=== PATIENT | female | born 1945 | race Caucasian/White ===

== ENCOUNTER 2017-12-03 08:30 | Outpatient (RCR) | payer MEDICARE, OTHER, SELFPAY ==
[2017-11-26 10:35] VITALS: BP 151/77; PULSE 77; RESP 16; TEMP 37.2; BMI 24.4
--- NOTE | 2017-11-26 12:23 | PCM.WC.HP ---
(1) Contusion of right leg Status: Acute Current Visit: Yes Qualifiers: Encounter type: initial encounter Qualified Code(s): S80.11XA - Contusion of right lower leg, initial encounter Code(s): S80.11XA - Contusion of right lower leg, initial encounter (2) Subcutaneous hematoma Status: Acute Current Visit: Yes Code(s): T14.8XXA - Other injury of unspecified body region, initial encounter (3) Pain in right leg Status: Acute Current Visit: Yes Code(s): M79.604 - Pain in right leg (4) GERD (gastroesophageal reflux disease) Status: Chronic Current Visit: No Code(s): K21.9 - Gastro-esophageal reflux disease without esophagitis (5) Osteoarthritis Status: Chronic Current Visit: No Code(s): M19.90 - Unspecified osteoarthritis, unspecified site History of Present Illness Date of Service: 11/26/17 Chief Complaint: Contusion and subcutaneous hematoma of the right knee History of Wound: This is a 72-year-old female who fell on a slippery floor at home on November 14, 2017. She traumatized the area immediately inferior to her right knee. As result, it appears as though a subcutaneous hematoma has formed, with some overlying ecchymosis and slight erythema. She has been treated by her primary care physician, Dr. Wooten, who administered 2 injections of Rocephin, and place the patient on a 10 day course of Cefdinir. Is currently [facility] through the course of oral antibiotic. She has some mild associated discomfort. She presents at this time for evaluation and recommendations as pertains to management. Invasive lower extremity arterial study was performed on December 13, 2016, which was normal. Arterial insufficiency of the lower extremities is not currently suspected. Past Medical History Past Medical History: Chronic Problems S/P ORIF (open reduction internal fixation) fracture (Chronic) left hip, 05/01/15,. [facility]– [place], [place] Antonio Depression (Chronic) Anemia (Chronic) GERD (gastroesophageal reflux disease) (Chronic) Osteoarthritis (Chronic) Past Medical History: Patient's history is negative for myocardial infarction, congestive heart failure, cerebrovascular accident, hypertension, diabetes mellitus, cancer, renal disease, pulmonary disease, hyperlipidemia, and thyroid disease. Patient suffers from osteoarthritis. Surgical History: - - Patient is undergone open reduction and internal fixation of a left hip fracture in April 2015. She has undergone 2 C-sections in the past. Laparoscopic cholecystectomy was performed in March 2017. Allergies/Adverse Reactions: Allergies erythromycin base Adverse Reaction (Verified 04/23/17 10:19) Upset Stomach meperidine HCl [From Demerol] Adverse Reaction (Verified 04/23/17 10:19) HALLUCINATIONS Home Medications: Ambulatory Orders Medication Instructions Recorded BuPROPion [Wellbutrin] 150 mg PO BID 05/05/15 Calcium Carbonate/Vitamin D3 1 each PO BID 05/05/15 [Calcium 600-Vit D3 800 Caplet] Albuterol IH (ProAir) [Proair Hfa] 1 - 2 puff INHALATION Q6H PRN PRN 11/19/16 Alendronate Sodium [Fosamax] 70 mg PO VIDES 11/19/16 Lorazepam [Ativan] 0.5 mg PO DAILY PRN 11/19/16 Polyethylene Glycol 3350 [Miralax] 17 gm PO DAILY PRN PRN 01/13/17 Omeprazole [Prilosec] 20 mg PO DAILY PRN PRN 03/03/17 Turmeric/Turmeric Root Extract 1,000 mg PO BID 03/03/17 [Turmeric 500 mg Capsule] Fluticasone 0.05% [Flonase Nasal 1 spray NASAL DAILY PRN 03/12/17 [place]] - Family History Maternal - - Patient's father at the age of 75 with a history of chronic obstructive pulmonary disease. Patient's mother at age of 70 with a history of diabetes mellitus and breast cancer. She of sepsis from a urinary tract infection. Lives: Spouse/ Significant Other Smoking Status: Never smoker Tobacco Use: Non-smoker Alcohol: Occasional Drugs: None Review of Systems Constitutional: Denies: Chills, Fever, Weight Change Eyes: Denies: Pain, Vision Change HEENT: Denies: Difficulty Hearing, Difficulty Swallowing, Sinus Congestion Cardiovascular: Denies: Chest Pain, Palpitations Respiratory: Denies: Cough, Shortness of Breath Gastrointestinal: Denies: Diarrhea, Nausea, Vomiting Genitourinary: Denies: Dysuria, Hematuria Endocrine: Denies: Heat/ Cold Intolerance, Polydipsia, Polyuria Hematologic/ Lymphatic: Denies: Easy Bruising, Easy Bleeding - Physical Exam Vital Signs Temp Pulse Resp BP 98.9 F 77 16 151/77 H 11/26/17 10:35 11/26/17 10:35 11/26/17 10:35 11/26/17 10:35 General: Alert, Oriented x3, Cooperative, No apparent distress, Well developed, Well nourished HEENT: Atraumatic, PERRLA, EOMI, Normocephalic Oral: Moist Mucosa, No Gingival or Mucosal Lesions/ Ulcerations Neck: Supple, No JVD, Negative Carotid Bruits, Negative Hepatojugular Reflux, No Nodes, No Nuchal Rigidity, Trachea Midline, Thyroid Normal Size and Texture Lungs: Clear to auscultation, Normal air movement, No rhonchi, No wheeze, No rales Cardiovascular: Regular rate, Regular Rhythm, Normal S1, Normal S2, No murmurs, No Ectopic Activity Abdomen: Bowel Sounds Present, Soft, Non Tender, Non-Distended Extremities: No clubbing, No cyanosis, No edema, No Calf Tenderness, Peripheral Pulses Normal, - - Ecchymosis and slight erythema is noted inferior to the right knee. This is associated with slight palpable tenderness. Dimensions of this discoloration are documented elsewhere. There is slight prominence in this area, suggesting the presence of underlying hematoma and tissue swelling. There are no open wounds. There is no drainage. Wound Measurements and Assessment WC - Nurse 1 - General Ulcer Measurement Start: 11/26/17 10:04 Freq: Status: Active Protocol: Activity Type Activity Date Activity User E-Sign Co-Sign Detail Recorded Client Recorded Date Recorded By Document 11/26/17 10:35 [facility] [id number] 11/26/17 10:52 [facility] 11/26/17 10:35 Wound Center Nurse 1 [Ulcer Assessment Protocol: WC.WD.LOC] #2- RT KNEE HEMATOMA -Combined with other wound No -Current Size (cm) - Length 3.7 -Current Size (cm) - Width 5.5 -Current Size (cm) - Depth 0 -Total Square Cm 20.35 -Date of Last Picture (Recall this 11/26/17 field) -Photo Taken Yes -Texture (Griselda-wound Skin Appearance) No Abnormality -Moisture (Griselda-wound Skin Appearance No Abnormality ) -Color (Griselda-wound Skin Appearance) Ecchymosis Erythema -Temperature (Griselda-wound Skin Hot Appearance) -Tenderness on Palpation (Griselda-wound Yes Skin Appearance) -Ulcer Cleansing Rinsed/ Irrigated with Saline [Edema Assessment] -Lower Limb Edema Present Yes -Right Calf (cm) 34.8 -Right Ankle (cm) 21 - Nurse 2 - General Ulcer CM Notes Start: 11/26/17 10:04 Freq: Status: Active Protocol: Activity Type Activity Date Activity User E-Sign Co-Sign Detail Recorded Client Recorded Date Recorded By Document 11/26/17 12:03 [id number] 11/26/17 12:09 11/26/17 12:03 Wound Center Nurse 2 [Procedure/Treatment] #2- RT KNEE HEMATOMA -Time 12:03 -Correct Patient Yes -Correct Side, Site, Position Yes -Correct Procedure Yes -Procedure Performed No -Wound/Ulcer Outcome Not Healed -Ulcer Cleansing Not Cleansed -Foul Odor after Cleansing No -Bioengineered Tissue No -Bleeding Controlled with NA [See Physician Procedure note for Specifics] Pain Scale: 0-10 Numeric [Pain] -Is Patient Pain Free? Yes Neurological: Cranial nerves II-XII grossly intact, Neuro grossly intact Psych/Mental Status: Normal Affect, Appropriate, Alert and oriented to time, place, person, mood and affect Debridement Note Post-Debridement Measurements/Treatment - Nurse 2 - General Ulcer CM Notes Start: 11/26/17 10:04 Freq: Status: Active Protocol: Activity Type Activity Date Activity User E-Sign Co-Sign Detail Recorded Client Recorded Date Recorded By Document 11/26/17 12:03 [id number] 11/26/17 12:09 JS 11/26/17 12:03 Wound Center Nurse 2 #2- RT KNEE HEMATOMA -Time 12:03 -Correct Patient Yes -Correct Side, Site, Position Yes -Correct Procedure Yes -Procedure Performed No -Wound/Ulcer Outcome Not Healed -Ulcer Cleansing Not Cleansed -Foul Odor after Cleansing No -Bioengineered Tissue No -Bleeding Controlled with NA Pain Scale: 0-10 Numeric Is Patient Pain Free? Yes No debridement was completed today Assessment/Plan Active Problems Contusion of right leg (Acute) Subcutaneous hematoma (Acute) Pain in right leg (Acute) Assessment: This is a 72-year-old generally healthy female who fell on a slippery floor weeks ago, sustaining trauma inferior to the right knee. As result, it appears as though the patient now has an underlying subcutaneous hematoma with overlying inflammation and ecchymosis. There is no open wound or drainage. There is no obvious sign of infection. Plan: At this juncture, the patient has been advised to continue with serial observation and expectant management. She has been advised to avoid trauma ties in the area. No specific therapy there is to be warranted at this time. She has been advised to complete her course of oral antibiotics, as prescribed by her primary care physician. Aggressive intervention does not appear warranted at this time. The patient indicates that the prominence and the discoloration has subsided significantly within the last week, suggesting that there has been significant improvement. It is anticipated that the subcutaneous hematoma will continue to resorb spontaneously, and aggressive intervention may not be necessary at all, unless evidence of infection, overlying tissue necrosis, or other clinical indications develop. The patient is to return in 1 week for reassessment. She has been advised to seek medical attention should matters appear to worsen. She is to avoid traumatizing the area. Compression does not appear necessary, for concern relative to pressure necrosis of overlying 2 layers. Further recommendations will ensue based upon patient's evolving clinical course. Patient is not a smoker. Influenza vaccine was not administered today. Patient weighs 130 pounds. She stands 5 feet 1 inches tall. Her BMI is 24.6, which is normal.
--- NOTE | 2017-11-26 12:33 | HP.PCM_ITS ---
(1) Contusion of right leg Status: Acute Current Visit: Yes Qualifiers: Encounter type: initial encounter Qualified Code(s): S80.11XA - Contusion of right lower leg, initial encounter Code(s): S80.11XA - Contusion of right lower leg, initial encounter (2) Subcutaneous hematoma Status: Acute Current Visit: Yes Code(s): T14.8XXA - Other injury of unspecified body region, initial encounter (3) Pain in right leg Status: Acute Current Visit: Yes Code(s): M79.604 - Pain in right leg (4) GERD (gastroesophageal reflux disease) Status: Chronic Current Visit: No Code(s): K21.9 - Gastro-esophageal reflux disease without esophagitis (5) Osteoarthritis Status: Chronic Current Visit: No Code(s): M19.90 - Unspecified osteoarthritis, unspecified site History of Present Illness Date of Service: 11/26/17 Chief Complaint: Contusion and subcutaneous hematoma of the right knee History of Wound: This is a 72-year-old female who fell on a slippery floor at home on November 14, 2017. She traumatized the area immediately inferior to her right knee. As result, it appears as though a subcutaneous hematoma has formed , with some overlying ecchymosis and slight erythema. She has been treated by her primary care physician, Dr. Wooten, who administered 2 injections of Rocephin, and place the patient on a 10 day course of Cefdinir. Is currently [facility] through the course of oral antibiotic. She has some mild associated discomfort. She presents at this time for evaluation and recommendations as pertains to management. Invasive lower extremity arterial study was performed on December 13, 2016, which was normal. Arterial insufficiency of the lower extremities is not currently suspected. Past Medical History Past Medical History: Chronic Problems S/P ORIF (open reduction internal fixation) fracture (Chronic) left hip, 05/01/15,. [facility], Dr Antonio Depression (Chronic) Anemia (Chronic) GERD (gastroesophageal reflux disease) (Chronic) Osteoarthritis (Chronic) Past Medical History: Patient's history is negative for myocardial infarction, congestive heart failure, cerebrovascular accident, hypertension, diabetes mellitus, cancer, renal disease, pulmonary disease, hyperlipidemia, and thyroid disease. Patient suffers from osteoarthritis. Surgical History: - - Patient is undergone open reduction and internal fixation of a left hip fracture in April 2015. She has undergone 2 C-sections in the past. Laparoscopic cholecystectomy was performed in March 2017. Allergies/Adverse Reactions: Allergies erythromycin base Adverse Reaction (Verified 04/23/17 10:19) Upset Stomach meperidine HCl [From Demerol] Adverse Reaction (Verified 04/23/17 10:19) HALLUCINATIONS Home Medications: Ambulatory Orders Medication Instructions Recorded BuPROPion [Wellbutrin] 150 mg PO BID 05/05/15 Calcium Carbonate/Vitamin D3 1 each PO BID 05/05/15 [Calcium 600-Vit D3 800 Caplet] Albuterol IH (ProAir) [Proair Hfa] 1 - 2 puff INHALATION Q6H PRN PRN 11/19/16 Alendronate Sodium [Fosamax] 70 mg PO VIDES 11/19/16 Lorazepam [Ativan] 0.5 mg PO DAILY PRN 11/19/16 Polyethylene Glycol 3350 [Miralax] 17 gm PO DAILY PRN PRN 01/13/17 Omeprazole [Prilosec] 20 mg PO DAILY PRN PRN 03/03/17 Turmeric/Turmeric Root Extract 1,000 mg PO BID 03/03/17 [Turmeric 500 mg Capsule] Fluticasone 0.05% [Flonase Nasal 1 spray NASAL DAILY PRN 03/12/17 [place]] - Family History Maternal - - Patient's father at the age of 75 with a history of chronic obstructive pulmonary disease. Patient's mother at age of 70 with a history of diabetes mellitus and breast cancer. She of sepsis from a urinary tract infection. Lives: Spouse/ Significant Other Smoking Status: Never smoker Tobacco Use: Non-smoker Alcohol: Occasional Drugs: None Review of Systems Constitutional: Denies: Chills, Fever, Weight Change Eyes: Denies: Pain, Vision Change HEENT: Denies: Difficulty Hearing, Difficulty Swallowing, Sinus Congestion Cardiovascular: Denies: Chest Pain, Palpitations Respiratory: Denies: Cough, Shortness of Breath Gastrointestinal: Denies: Diarrhea, Nausea, Vomiting Genitourinary: Denies: Dysuria, Hematuria Endocrine: Denies: Heat/ Cold Intolerance, Polydipsia, Polyuria Hematologic/ Lymphatic: Denies: Easy Bruising, Easy Bleeding - Physical Exam Vital Signs Temp Pulse Resp BP 98.9 F 77 16 151/77 H 11/26/17 10:35 11/26/17 10:35 11/26/17 10:35 11/26/17 10:35 General: Alert, Oriented x3, Cooperative, No apparent distress, Well developed, Well nourished HEENT: Atraumatic, PERRLA, EOMI, Normocephalic Oral: Moist Mucosa, No Gingival or Mucosal Lesions/ Ulcerations Neck: Supple, No JVD, Negative Carotid Bruits, Negative Hepatojugular Reflux, No Nodes, No Nuchal Rigidity, Trachea Midline, Thyroid Normal Size and Texture Lungs: Clear to auscultation, Normal air movement, No rhonchi, No wheeze, No rales Cardiovascular: Regular rate, Regular Rhythm, Normal S1, Normal S2, No murmurs, No Ectopic Activity Abdomen: Bowel Sounds Present, Soft, Non Tender, Non-Distended Extremities: No clubbing, No cyanosis, No edema, No Calf Tenderness, Peripheral Pulses Normal, - - Ecchymosis and slight erythema is noted inferior to the right knee. This is associated with slight palpable tenderness. Dimensions of this discoloration are documented elsewhere. There is slight prominence in this area, suggesting the presence of underlying hematoma and tissue swelling. There are no open wounds. There is no drainage. Wound Measurements and Assessment WC - Nurse 1 - General Ulcer Measurement Start: 11/26/17 10:04 Freq: Status: Active Protocol: Activity Type Activity Date Activity User E-Sign Co-Sign Detail Recorded Client Recorded Date Recorded By Document 11/26/17 10:35 [facility] [id number] 11/26/17 10:52 [facility] 11/26/17 10:35 Wound Center Nurse 1 [Ulcer Assessment Protocol: WC.WD.LOC] #2- RT KNEE HEMATOMA -Combined with other wound No -Current Size (cm) - Length 3.7 -Current Size (cm) - Width 5.5 -Current Size (cm) - Depth 0 -Total Square Cm 20.35 -Date of Last Picture (Recall this 11/26/17 field) -Photo Taken Yes -Texture (Griselda-wound Skin Appearance) No Abnormality -Moisture (Griselda-wound Skin Appearance No Abnormality ) -Color (Griselda-wound Skin Appearance) Ecchymosis Erythema -Temperature (Griselda-wound Skin Hot Appearance) -Tenderness on Palpation (Griselda-wound Yes Skin Appearance) -Ulcer Cleansing Rinsed/ Irrigated with Saline [Edema Assessment] -Lower Limb Edema Present Yes -Right Calf (cm) 34.8 -Right Ankle (cm) 21 - Nurse 2 - General Ulcer CM Notes Start: 11/26/17 10:04 Freq: Status: Active Protocol: Activity Type Activity Date Activity User E-Sign Co-Sign Detail Recorded Client Recorded Date Recorded By Document 11/26/17 12:03 [id number] 11/26/17 12:09 11/26/17 12:03 Wound Center Nurse 2 [Procedure/Treatment] #2- RT KNEE HEMATOMA -Time 12:03 -Correct Patient Yes -Correct Side, Site, Position Yes -Correct Procedure Yes -Procedure Performed No -Wound/Ulcer Outcome Not Healed -Ulcer Cleansing Not Cleansed -Foul Odor after Cleansing No -Bioengineered Tissue No -Bleeding Controlled with NA [See Physician Procedure note for Specifics] Pain Scale: 0-10 Numeric [Pain] -Is Patient Pain Free? Yes Neurological: Cranial nerves II-XII grossly intact, Neuro grossly intact Psych/Mental Status: Normal Affect, Appropriate, Alert and oriented to time, place, person, mood and affect Debridement Note Post-Debridement Measurements/Treatment - Nurse 2 - General Ulcer CM Notes Start: 11/26/17 10:04 Freq: Status: Active Protocol: Activity Type Activity Date Activity User E-Sign Co-Sign Detail Recorded Client Recorded Date Recorded By Document 11/26/17 12:03 [id number] 11/26/17 12:09 JS 11/26/17 12:03 Wound Center Nurse 2 #2- RT KNEE HEMATOMA -Time 12:03 -Correct Patient Yes -Correct Side, Site, Position Yes -Correct Procedure Yes -Procedure Performed No -Wound/Ulcer Outcome Not Healed -Ulcer Cleansing Not Cleansed -Foul Odor after Cleansing No -Bioengineered Tissue No -Bleeding Controlled with NA Pain Scale: 0-10 Numeric Is Patient Pain Free? Yes No debridement was completed today Assessment/Plan Active Problems Contusion of right leg (Acute) Subcutaneous hematoma (Acute) Pain in right leg (Acute) Assessment: This is a 72-year-old generally healthy female who fell on a slippery floor weeks ago, sustaining trauma inferior to the right knee. As result, it appears as though the patient now has an underlying subcutaneous hematoma with overlying inflammation and ecchymosis. There is no open wound or drainage. There is no obvious sign of infection. Plan: At this juncture, the patient has been advised to continue with serial observation and expectant management. She has been advised to avoid trauma ties in the area. No specific therapy there is to be warranted at this time. She has been advised to complete her course of oral antibiotics, as prescribed by her primary care physician. Aggressive intervention does not appear warranted at this time. The patient indicates that the prominence and the discoloration has subsided significantly within the last week, suggesting that there has been significant improvement. It is anticipated that the subcutaneous hematoma will continue to resorb spontaneously, and aggressive intervention may not be necessary at all, unless evidence of infection, overlying tissue necrosis, or other clinical indications develop. The patient is to return in 1 week for reassessment. She has been advised to seek medical attention should matters appear to worsen. She is to avoid traumatizing the area. Compression does not appear necessary, for concern relative to pressure necrosis of overlying 2 layers. Further recommendations will ensue based upon patient's evolving clinical course. Patient is not a smoker. Influenza vaccine was not administered today. Patient weighs 130 pounds. She stands 5 feet 1 inches tall. Her BMI is 24.6, which is normal.
[2017-12-03 08:43] VITALS: BP 148/80; PULSE 79; RESP 18; TEMP 36.5; BMI 24.4
--- NOTE | 2017-12-03 09:12 | PCM.WC.HP ---
(1) Contusion of right leg Status: Acute Current Visit: Yes Qualifiers: Encounter type: subsequent encounter Qualified Code(s): S80.11XD - Contusion of right lower leg, subsequent encounter Code(s): S80.11XA - Contusion of right lower leg, initial encounter (2) Subcutaneous hematoma Status: Acute Current Visit: Yes Code(s): T14.8XXA - Other injury of unspecified body region, initial encounter (3) Pain in right leg Status: Acute Current Visit: Yes Code(s): M79.604 - Pain in right leg (4) GERD (gastroesophageal reflux disease) Status: Chronic Current Visit: No Code(s): K21.9 - Gastro-esophageal reflux disease without esophagitis (5) Osteoarthritis Status: Chronic Current Visit: No Code(s): M19.90 - Unspecified osteoarthritis, unspecified site History of Present Illness Date of Service: 12/03/17 Chief Complaint: Contusion and subcutaneous hematoma of the right knee History of Wound: This is a 72-year-old female who fell on a slippery floor at home on November 14, 2017. She traumatized the area immediately inferior to her right knee. As result, it appears as though a subcutaneous hematoma has formed, with some overlying ecchymosis and slight erythema. She has been treated by her primary care physician, Dr. Wooten, who administered 2 injections of Rocephin, and place the patient on a 10 day course of Cefdinir. Is currently fci through the course of oral antibiotic. She has some mild associated discomfort. She presented for evaluation and recommendations as pertains to management. Invasive lower extremity arterial study was performed on December 13, 2016, which was normal. Arterial insufficiency of the lower extremities is not currently suspected. Patient has shown significant improvement over the last week with expectant observation. The size of the underlying hematoma appears to have diminished significantly, and dimensions are documented elsewhere. Erythema has resolved. The overlying skin remains intact, and does not appear to be compromised in any way at this time. Past Medical History Past Medical History: Chronic Problems S/P ORIF (open reduction internal fixation) fracture (Chronic) left hip, 05/01/15,. [facility], Dr [place] Depression (Chronic) Anemia (Chronic) GERD (gastroesophageal reflux disease) (Chronic) Osteoarthritis (Chronic) Surgical History: - - Patient is undergone open reduction and internal fixation of a left hip fracture in April 2015. She has undergone 2 C-sections in the past. Laparoscopic cholecystectomy was performed in March 2017. Allergies/Adverse Reactions: Allergies erythromycin base Adverse Reaction (Verified 04/23/17 10:19) Upset Stomach meperidine HCl [From Demerol] Adverse Reaction (Verified 04/23/17 10:19) HALLUCINATIONS Home Medications: Ambulatory Orders Medication Instructions Recorded BuPROPion [Wellbutrin] 150 mg PO BID 05/05/15 Calcium Carbonate/Vitamin D3 1 each PO BID 05/05/15 [Calcium 600-Vit D3 800 Caplet] Albuterol IH (ProAir) [Proair Hfa] 1 - 2 puff INHALATION Q6H PRN PRN 11/19/16 Alendronate Sodium [Fosamax] 70 mg PO VIDES 11/19/16 Lorazepam [Ativan] 0.5 mg PO DAILY PRN 11/19/16 Polyethylene Glycol 3350 [Miralax] 17 gm PO DAILY PRN PRN 01/13/17 Omeprazole [Prilosec] 20 mg PO DAILY PRN PRN 03/03/17 Turmeric/Turmeric Root Extract 1,000 mg PO BID 03/03/17 [Turmeric 500 mg Capsule] Fluticasone 0.05% [Flonase Nasal 1 spray NASAL DAILY PRN 03/12/17 [place]] - Family History Maternal - - Patient's father at the age of 75 with a history of chronic obstructive pulmonary disease. Patient's mother at age of 70 with a history of diabetes mellitus and breast cancer. She of sepsis from a urinary tract infection. Lives: Spouse/ Significant Other Smoking Status: Never smoker Tobacco Use: Non-smoker Alcohol: Occasional Drugs: None Review of Systems Constitutional: Denies: Chills, Fever, Weight Change Eyes: Denies: Pain, Vision Change HEENT: Denies: Difficulty Hearing, Difficulty Swallowing, Sinus Congestion Cardiovascular: Denies: Chest Pain, Palpitations Respiratory: Denies: Cough, Shortness of Breath Gastrointestinal: Denies: Diarrhea, Nausea, Vomiting Genitourinary: Denies: Dysuria, Hematuria Endocrine: Denies: Heat/ Cold Intolerance, Polydipsia, Polyuria Hematologic/ Lymphatic: Denies: Easy Bruising, Easy Bleeding - Physical Exam Vital Signs Temp Pulse Resp BP 97.7 F L 79 18 148/80 H 12/03/17 08:43 12/03/17 08:43 12/03/17 08:43 12/03/17 08:43 General: Alert, Oriented x3, Cooperative, No apparent distress, Well developed, Well nourished HEENT: Atraumatic, PERRLA, EOMI, Normocephalic Oral: Moist Mucosa Neck: No JVD Lungs: Normal air movement Abdomen: Non-Distended Extremities: No clubbing, No cyanosis, No edema, No Calf Tenderness, - - There has been significant improvement relative to the subcutaneous hematoma immediately inferior to the right knee. The skin remains intact. There appears to be no compromise of the integrity of the skin overlying the underlying hematoma. Erythema has resolved. The size of the site has diminished, and dimensions are documented elsewhere. There is no significant swelling in the lower extremities. Skin: No rashes, No breakdown Wound Measurements and Assessment WC - Nurse 1 - General Ulcer Measurement Start: 11/26/17 10:04 Freq: Status: Active Protocol: Activity Type Activity Date Activity User E-Sign Co-Sign Detail Recorded Client Recorded Date Recorded By Document 12/03/17 08:44 [id number] 12/03/17 08:45 DV 12/03/17 08:44 Wound Center Nurse 1 [Edema Assessment] -Lower Limb Edema Present No -Right Calf (cm) 33.7 -Right Ankle (cm) 20.3 WC - Nurse 2 - General Ulcer CM Notes Start: 11/26/17 10:04 Freq: Status: Active Protocol: Activity Type Activity Date Activity User E-Sign Co-Sign Detail Recorded Client Recorded Date Recorded By Document 12/03/17 09:05 [email or web address] [id number] 12/03/17 09:08 12/03/17 09:05 Wound Center Nurse 2 [Procedure/Treatment] #2- RT KNEE HEMATOMA -Time 09:05 -Correct Patient Yes -Correct Side, Site, Position Yes -Correct Procedure Yes -Procedure Performed No -Post Debridement Size (cm) - Length 3.0 -Post Debridement Size (cm) - Width 4.0 -Post Debridement Size (cm) - Depth 0.5 -Total Square Cm 12.00 -Ulcer Cleansing Not Cleansed -Foul Odor after Cleansing No -Bioengineered Tissue No -Bleeding Controlled with NA [See Physician Procedure note for Specifics] Pain Scale: 0-10 Numeric [Pain] -Is Patient Pain Free? Yes Musculoskeletal: No Muscle Wasting Neurological: Cranial nerves II-XII grossly intact, Neuro grossly intact Psych/Mental Status: Normal Affect, Appropriate, Alert and oriented to time, place, person, mood and affect Debridement Note Post-Debridement Measurements/Treatment WC - Nurse 2 - General Ulcer CM Notes Start: 11/26/17 10:04 Freq: Status: Active Protocol: Activity Type Activity Date Activity User E-Sign Co-Sign Detail Recorded Client Recorded Date Recorded By Document 11/26/17 12:03 [id number] 11/26/17 12:09 JS Document 12/03/17 09:05 [id number] 12/03/17 09:08 JS 11/26/17 12/03/17 12:03 09:05 Wound Center Nurse 2 #2- RT KNEE HEMATOMA -Time 12:03 09:05 -Correct Patient Yes Yes -Correct Side, Site, Position Yes Yes -Correct Procedure Yes Yes -Procedure Performed No No -Post Debridement Size (cm) - Length 3.0 -Post Debridement Size (cm) - Width 4.0 -Post Debridement Size (cm) - Depth 0.5 -Total Square Cm 12.00 -Wound/Ulcer Outcome Not Healed -Ulcer Cleansing Not Cleansed Not Cleansed -Foul Odor after Cleansing No No -Bioengineered Tissue No No -Bleeding Controlled with NA NA Pain Scale: 0-10 Numeric Is Patient Pain Free? Yes Yes No debridement was completed today Assessment/Plan Active Problems Contusion of right leg (Acute) Subcutaneous hematoma (Acute) Pain in right leg (Acute) Assessment: This is a 72-year-old generally healthy female who fell on a slippery floor weeks ago, sustaining trauma inferior to the right knee. As result, the patient now has an underlying subcutaneous hematoma. There is no open wound or drainage. There is no obvious sign of infection. Has been significant improvement since the patient's last visit, 1 week ago. Plan: At this juncture, the patient has been advised to continue with serial observation and expectant management. She has been advised to avoid trauma to in the area. No specific therapy appears to be warranted at this time. Is completed her course of oral antibiotics, as prescribed by her primary care physician. Aggressive intervention does not appear warranted at this time. The prominence and the erythematous discoloration has subsided significantly within the last week, suggesting that there has been significant improvement. It is anticipated that the subcutaneous hematoma will continue to resorb spontaneously, and aggressive intervention may not be necessary at all, unless evidence of infection, overlying tissue necrosis, or other clinical indications develop. The patient is to return in 2 weeks for reassessment. She has been advised to seek medical attention should matters appear to worsen. She is to avoid traumatizing the area. Compression does not appear necessary, for concern relative to pressure necrosis of overlying tissue layers. Further recommendations will ensue based upon patient's evolving clinical course. Patient is not a smoker. Influenza vaccine was not administered today. Patient weighs 130 pounds. She stands 5 feet 1 inches tall. Her BMI is 24.6, which is normal.
== END 2017-12-11 23:59 ==
LOC: WC 08:30
PROVIDERS: Family Provider Internal Medicine; PCP Internal Medicine; Visit Provider Surgery
DX: S80.11XA Contusion of right lower leg, initial encounter (principal); K21.9 Gastro-esophageal reflux disease without esophagitis; M19.90 Unspecified osteoarthritis, unspecified site; S80.01XA Contusion of right knee, initial encounter; W01.0XXA Fall on same level from slipping, tripping and stumbling without subsequent striking against object, initial encounter; Y92.009 Unspecified place in unspecified non-institutional (private) residence as the place of occurrence of the external cause; I77.1 Stricture of artery; F32.9 Major depressive disorder, single episode, unspecified; Z79.899 Other long term (current) drug therapy
CPT/HCPCS: 99211; 99212; G0463

== ENCOUNTER → 2017-12-24 12:19 | Outpatient (CLI) | payer MEDICARE, OTHER, SELFPAY ==
--- NOTE | 2017-12-24 12:23 | HPBI_ITS ---
MAMMOGRAPHY - BILATERAL SCREENING REASON FOR EXAM: Female, 72 years old. Routine annual screening examination. PERTINENT HISTORY: Mother with breast cancer. TECHNIQUE: Digital bilateral breast dmitry (3D mammographic acquisition) in the CC and MLO projections. 2-D mediolateral oblique (MLO) and craniocaudad (CC) views of both breasts were obtained. CAD: Full Field Digital Mammography with Computer Added Detection was performed. COMPARISON: Comparison is made with prior study dated October 29, 2016 and September 28, 2015. FINDINGS: Breast Composition: There are scattered areas of fibroglandular density. There are no dominant masses or suspicious calcifications. No other significant abnormalities are identified. There has been no significant change since the prior study. HPBI/SCREENING MAMM (CAD), BILAT IMPRESSION: Stable bilateral screening mammogram. Yearly follow-up mammogram recommended. (A) ASSESSMENT CATEGORY: BIRADS Category 1: Negative. A letter regarding these results will be sent to the patient by the facility within 30 days. Approximately 10% of breast cancers are not detected by mammography. A normal mammogram should not delay biopsy of a clinically suspicious abnormality. [id number] Electronically Signed: Chandler Nixon MD at 13:44 EDT Tel [phone], Service support ,
--- NOTE | 2017-12-24 12:25 | HPBD_ITS ---
STUDY: DUAL ENERGY X-RAY ABSORPTIOMETRY / DXA REASON FOR EXAM: Female, 72 years old. The patient is postmenopausal. Loss of height of 2 inches. TECHNIQUE: Bone Mineral Density (BMD) measurements of lumbar spine and right hip were obtained. COMPARISON: Comparison is made with prior study dated August 18, 2015. FINDINGS: Lumbar Spine (L1-L4): g/cm2 (1.230) / T-score (0.5) / Z-score (2.2) Findings are suggestive of normal bone density with a low fracture risk. Right Femur Total: g/cm2 (0.702) / T-score (-2.4) / Z-score (-0.8) Right Femoral Neck: g/cm2 (0.700) / T-score (-2.4) / Z-score (-0.6) The T-Scores on the most recent prior examination were: Lumbar Spine (L1-L4): There has been worsening of bone density since the previous examination. Right Femur Total: which represents a worsening of 3.4%. HPBD/Dexa Bone Density Study (HP) IMPRESSION: The patient is considered osteopenic as outlined below according to World Re[employer] Organization (WHO) criteria with a moderate fracture risk. There has been worsening of bone density since the previous examination. Reference Information: The T-score is the number of standard deviations above or below the standard which is normal for young adults at their peak bone mineral density. The World Health Organization (WHO) interprets the T-scores as follows: Above -1 Normal bone density Between -1 and -2.5 Osteopenia Equal to / or below -2.5 Osteoporosis As a practical clinical guideline, osteopenia may be graded as follows: Mild -1 through -1.5 Moderate -1.6 through -2.0 Severe -2.1 through -2.4 The Z-score is the number of standard deviations above or below age-matched controls. A Z-score of less than -1.5 would be considered abnormal. References: 1. NIH Osteoporosis and Related Bone Diseases http://www.osteo.org 2. International Society for Clinical Densitometry http://www.iscd.org 3. National Osteoporosis Foundation http://www.nof.org Electronically Signed: Chandler Nixon MD at 13:11 EDT Tel [phone], Service support ,
== END ==
PROVIDERS: Family Provider Internal Medicine; PCP Internal Medicine; Visit Provider Internal Medicine
DX: Z12.31 Encounter for screening mammogram for malignant neoplasm of breast (principal); Z78.0 Asymptomatic menopausal state
CPT/HCPCS: 77063; 77067; 77080

== ENCOUNTER → 2018-01-02 12:20 | Outpatient (CLI) | payer MEDICARE, OTHER, SELFPAY | PROVIDERS: Family Provider Internal Medicine; PCP Internal Medicine; Visit Provider Internal Medicine | DX: L03.115 Cellulitis of right lower limb (principal) | CPT/HCPCS: 87070; 87075; 87205 ==

== ENCOUNTER 2018-01-06 12:30 | Outpatient (RCR) | payer MEDICARE, OTHER, SELFPAY ==
[2017-12-12 01:09] VITALS: PULSE 79; RESP 18; TEMP 36.5
[2017-12-16 12:48] VITALS: BP 144/84; PULSE 67; RESP 16; TEMP 36.3
--- NOTE | 2017-12-16 13:28 | HP.PCM_ITS ---
(1) Contusion of right leg Status: Acute Current Visit: Yes Qualifiers: Encounter type: subsequent encounter Code(s): S80.11XA - Contusion of right lower leg, initial encounter (2) Subcutaneous hematoma Status: Acute Current Visit: Yes Code(s): T14.8XXA - Other injury of unspecified body region, initial encounter (3) Pain in right leg Status: Acute Current Visit: Yes Code(s): M79.604 - Pain in right leg (4) Pain In Right Leg Status: Acute Current Visit: Yes Code(s): M79.604 - Pain in right leg (5) Hematoma of leg Status: Acute Current Visit: Yes Qualifiers: Encounter type: subsequent encounter Laterality: right Qualified Code(s) : S80.11XD - Contusion of right lower leg, subsequent encounter Code(s): S80.10XA - Contusion of unspecified lower leg, initial encounter (6) Contusion of leg, right Status: Acute Current Visit: Yes Qualifiers: Encounter type: subsequent encounter Code(s): S80.11XA - Contusion of right lower leg, initial encounter History of Present Illness Date of Service: 12/16/17 Chief Complaint: Contusion and subcutaneous hematoma of the right knee History of Wound: This is a 72-year-old female who fell on a slippery floor at home on November 14, 2017. She traumatized the area immediately inferior to her right knee. As result, it appears as though a subcutaneous hematoma has formed , with some overlying ecchymosis and slight erythema. She has been treated by her primary care physician, Dr. Wooten, who administered 2 injections of Rocephin, and place the patient on a 10 day course of Cefdinir. She has some mild associated discomfort. She presented for evaluation and recommendations as pertains to management. Invasive lower extremity arterial study was performed on December 13, 2016, which was normal. Arterial insufficiency of the lower extremities is not suspected. Patient has shown significant improvement over the last several weeks with expectant observation. The size of the underlying hematoma appears to have diminished significantly, and dimensions are documented elsewhere. Erythema has resolved. The overlying skin remains intact, and does not appear to be compromised in any way at this time. Past Medical History Past Medical History: Chronic Problems S/P ORIF (open reduction internal fixation) fracture (Chronic) left hip, 05/01/15,. [facility], [place] Depression (Chronic) Anemia (Chronic) GERD (gastroesophageal reflux disease) (Chronic) Osteoarthritis (Chronic) Surgical History: - - Patient is undergone open reduction and internal fixation of a left hip fracture in April 2015. She has undergone 2 C-sections in the past. Laparoscopic cholecystectomy was performed in March 2017. Allergies/Adverse Reactions: Allergies erythromycin base Adverse Reaction (Verified 04/23/17 10:19) Upset Stomach meperidine HCl [From Demerol] Adverse Reaction (Verified 04/23/17 10:19) HALLUCINATIONS Home Medications: Ambulatory Orders Medication Instructions Recorded BuPROPion [Wellbutrin] 150 mg PO BID 05/05/15 Calcium Carbonate/Vitamin D3 1 each PO BID 05/05/15 [Calcium 600-Vit D3 800 Caplet] Albuterol IH (ProAir) [Proair Hfa] 1 - 2 puff INHALATION Q6H PRN PRN 11/19/16 Alendronate Sodium [Fosamax] 70 mg PO VIDES 11/19/16 Lorazepam [Ativan] 0.5 mg PO DAILY PRN 11/19/16 Polyethylene Glycol 3350 [Miralax] 17 gm PO DAILY PRN PRN 01/13/17 Omeprazole [Prilosec] 20 mg PO DAILY PRN PRN 03/03/17 Turmeric/Turmeric Root Extract 1,000 mg PO BID 03/03/17 [Turmeric 500 mg Capsule] Fluticasone 0.05% [Flonase Nasal 1 spray NASAL DAILY PRN 03/12/17 [place]] - Family History Maternal - - Patient's father at the age of 75 with a history of chronic obstructive pulmonary disease. Patient's mother at age of 70 with a history of diabetes mellitus and breast cancer. She of sepsis from a urinary tract infection. Smoking Status: Never smoker Tobacco Use: Non-smoker Review of Systems Constitutional: Denies: Chills, Fever, Weight Change Eyes: Denies: Pain, Vision Change HEENT: Denies: Difficulty Hearing, Difficulty Swallowing, Sinus Congestion Cardiovascular: Denies: Chest Pain, Palpitations Respiratory: Denies: Cough, Shortness of Breath Gastrointestinal: Denies: Diarrhea, Nausea, Vomiting Genitourinary: Denies: Dysuria, Hematuria Endocrine: Denies: Heat/ Cold Intolerance, Polydipsia, Polyuria Hematologic/ Lymphatic: Denies: Easy Bruising, Easy Bleeding - Physical Exam Vital Signs Temp Pulse Resp BP 97.4 F L 67 16 144/84 H 12/16/17 12:48 12/16/17 12:48 12/16/17 12:48 12/16/17 12:48 General: Alert, Oriented x3, Cooperative, No apparent distress, Well developed, Well nourished HEENT: Atraumatic, PERRLA, EOMI, Normocephalic Oral: Moist Mucosa Neck: No JVD Lungs: Normal air movement Abdomen: Non-Distended Extremities: No clubbing, No cyanosis, No edema, No Calf Tenderness, - - The site of the patient's subcutaneous hematoma is much improved. The prominence is much smaller in size. The overlying skin is intact, and without any evidence of compromise. The ecchymosis has diminished and is now resolved. There is no sign of cellulitis or infection. Dimensions are documented elsewhere. Skin: No rashes, No breakdown Wound Measurements and Assessment WC - Nurse 1 - General Ulcer Measurement Start: 12/16/17 12:48 Freq: Status: Active Protocol: Activity Type Activity Date Activity User E-Sign Co-Sign Detail Recorded Client Recorded Date Recorded By Document 12/16/17 12:48 DL [id number] 12/16/17 12:49 DL 12/16/17 12:48 Wound Center Nurse 1 [Ulcer Assessment] #2- RT KNEE HEMATOMA -Current Size (cm) - Length 0.1 -Current Size (cm) - Width 0.1 -Current Size (cm) - Depth 0.1 -Total Square Cm 0.01 -Photo Taken No -Exudate Amt None Present (0 %) -Wound Margin Flat & Intact -Granulation Amt None Present (0 %) -Necrosis Amt None Present (0 %) -Structure Exposed N/A -Texture (Griselda-wound Skin Appearance) Localized Edema -Moisture (Griselda-wound Skin Appearance No Abnormality ) -Color (Griselda-wound Skin Appearance) Ecchymosis -Temperature (Griselda-wound Skin No Abnormality Appearance) (Pt Warm) -Tenderness on Palpation (Griselda-wound No Skin Appearance) -Ulcer Cleansing Rinsed/ Irrigated with Saline -Foul Odor after Cleansing No WC - Nurse 2 - General Ulcer CM Notes Start: 12/16/17 12:48 Freq: Status: Active Protocol: Activity Type Activity Date Activity User E-Sign Co-Sign Detail Recorded Client Recorded Date Recorded By Document 12/16/17 13:12 [id number] 12/16/17 13:13 12/16/17 13:12 Wound Center Nurse 2 [Procedure/Treatment] -Time 13:12 -Correct Patient Yes -Correct Side, Site, Position Yes -Correct Procedure Yes -Procedure Performed No -Post Debridement Size (cm) - Length 0 -Post Debridement Size (cm) - Width 0 -Post Debridement Size (cm) - Depth 0 -Total Square Cm 0 -Wound/Ulcer Outcome Converted -Ulcer Cleansing Not Cleansed -Foul Odor after Cleansing No -Bioengineered Tissue No -Bleeding Controlled with NA [See Physician Procedure note for Specifics] Pain Scale: 0-10 Numeric [Pain] -Is Patient Pain Free? Yes Neurological: Cranial nerves II-XII grossly intact, Neuro grossly intact Psych/Mental Status: Normal Affect, Appropriate, Alert and oriented to time, place, person, mood and affect Debridement Note Post-Debridement Measurements/Treatment WC - Nurse 2 - General Ulcer CM Notes Start: 12/16/17 12:48 Freq: Status: Active Protocol: Activity Type Activity Date Activity User E-Sign Co-Sign Detail Recorded Client Recorded Date Recorded By Document 12/16/17 13:12 [id number] 12/16/17 13:13 12/16/17 13:12 Wound Center Nurse 2 #2- RT KNEE HEMATOMA -Time 13:12 -Correct Patient Yes -Correct Side, Site, Position Yes -Correct Procedure Yes -Procedure Performed No -Post Debridement Size (cm) - Length 0 -Post Debridement Size (cm) - Width 0 -Post Debridement Size (cm) - Depth 0 -Total Square Cm 0 -Wound/Ulcer Outcome Converted -Ulcer Cleansing Not Cleansed -Foul Odor after Cleansing No -Bioengineered Tissue No -Bleeding Controlled with NA Pain Scale: 0-10 Numeric Is Patient Pain Free? Yes No debridement was completed today Assessment/Plan Active Problems Contusion of right leg (Acute) Subcutaneous hematoma (Acute) Pain in right leg (Acute) Pain In Right Leg (Acute) Hematoma of leg (Acute) Contusion of leg, right (Acute) Assessment: This is a 72-year-old generally healthy female who fell on a slippery floor weeks ago, sustaining trauma inferior to the right knee. As result, the patient now has an underlying subcutaneous hematoma. There is no open wound or drainage. There is no obvious sign of infection. There has been significant improvement since the patient's last visit. The underlying hematoma has diminished in size, and ecchymosis has resolved. Plan: At this juncture, the patient has been advised to continue with serial observation and expectant management. She has been advised to avoid trauma to the area. No specific therapy appears to be warranted at this time. Aggressive intervention does not appear warranted at this time. The prominence and the erythematous discoloration has decreased, suggesting that there has been significant improvement. It is anticipated that the subcutaneous hematoma will continue to resorb spontaneously, and aggressive intervention may not be necessary at all, unless evidence of infection, overlying tissue necrosis, or other clinical indications develop. The patient is to return in 3 weeks for reassessment. She has been advised to seek medical attention should matters appear to worsen. She is to avoid traumatizing the area. Compression does not appear necessary, for concern relative to pressure necrosis of overlying tissue layers. Further recommendations will ensue based upon patient's evolving clinical course. Thus far, she is doing well and responding as expected. Patient is not a smoker. Influenza vaccine was not administered today. Patient weighs 130 pounds. She stands 5 feet 1 inches tall. Her BMI is 24.6, which is normal.
[2017-12-23 15:45] VITALS: BP 126/79; PULSE 81; RESP 18; TEMP 36.7
--- NOTE | 2017-12-23 16:32 | PCM.WC.HP ---
(1) Contusion of right leg Status: Acute Current Visit: Yes Qualifiers: Encounter type: subsequent encounter Code(s): S80.11XA - Contusion of right lower leg, initial encounter (2) Subcutaneous hematoma Status: Acute Current Visit: Yes Code(s): T14.8XXA - Other injury of unspecified body region, initial encounter (3) Pain in right leg Status: Acute Current Visit: Yes Code(s): M79.604 - Pain in right leg (4) Pain In Right Leg Status: Acute Current Visit: Yes Code(s): M79.604 - Pain in right leg (5) Hematoma of leg Status: Acute Current Visit: Yes Qualifiers: Encounter type: subsequent encounter Laterality: right Qualified Code(s): S80.11XD - Contusion of right lower leg, subsequent encounter Code(s): S80.10XA - Contusion of unspecified lower leg, initial encounter (6) Contusion of leg, right Status: Acute Current Visit: Yes Qualifiers: Encounter type: subsequent encounter Code(s): S80.11XA - Contusion of right lower leg, initial encounter (7) Abrasion of leg, right Status: Acute Current Visit: Yes Code(s): S80.811A - Abrasion, right lower leg, initial encounter History of Present Illness Date of Service: 12/23/17 Chief Complaint: Contusion and subcutaneous hematoma of the right knee History of Wound: This is a 72-year-old female who fell on a slippery floor at home on November 14, 2017. She traumatized the area immediately inferior to her right knee. As result, it appears as though a subcutaneous hematoma has formed, with some overlying ecchymosis and slight erythema. She has been treated by her primary care physician, Dr. Wooten, who administered 2 injections of Rocephin, and place the patient on a 10 day course of Cefdinir. She has some mild associated discomfort. She presented for evaluation and recommendations as pertains to management. Invasive lower extremity arterial study was performed on December 13, 2016, which was normal. Arterial insufficiency of the lower extremities is not suspected. Patient has shown significant improvement over the last several weeks with expectant observation. The size of the underlying hematoma appears to have diminished significantly, and dimensions are documented elsewhere. Erythema has resolved. The overlying skin remains intact, and does not appear to be compromised in any way at this time. Additionally, 1 week ago, the patient fell while on her treadmill. She sustained an abrasion on the right anterior tibial surface, for which she presents for evaluation today. Past Medical History Past Medical History: Chronic Problems S/P ORIF (open reduction internal fixation) fracture (Chronic) left hip, 05/01/15,. [facility], Dr Antonio Depression (Chronic) Anemia (Chronic) GERD (gastroesophageal reflux disease) (Chronic) Osteoarthritis (Chronic) Surgical History: - - Patient is undergone open reduction and internal fixation of a left hip fracture in April 2015. She has undergone 2 C-sections in the past. Laparoscopic cholecystectomy was performed in March 2017. Allergies/Adverse Reactions: Allergies erythromycin base Adverse Reaction (Verified 04/23/17 10:19) Upset Stomach meperidine HCl [From Demerol] Adverse Reaction (Verified 04/23/17 10:19) HALLUCINATIONS Home Medications: Ambulatory Orders Medication Instructions Recorded BuPROPion [Wellbutrin] 150 mg PO BID 05/05/15 Calcium Carbonate/Vitamin D3 1 each PO BID 05/05/15 [Calcium 600-Vit D3 800 Caplet] Albuterol IH (ProAir) [Proair Hfa] 1 - 2 puff INHALATION Q6H PRN PRN 11/19/16 Alendronate Sodium [Fosamax] 70 mg PO VIDES 11/19/16 Lorazepam [Ativan] 0.5 mg PO DAILY PRN 11/19/16 Polyethylene Glycol 3350 [Miralax] 17 gm PO DAILY PRN PRN 01/13/17 Omeprazole [Prilosec] 20 mg PO DAILY PRN PRN 03/03/17 Turmeric/Turmeric Root Extract 1,000 mg PO BID 03/03/17 [Turmeric 500 mg Capsule] Fluticasone 0.05% [Flonase Nasal 1 spray NASAL DAILY PRN 03/12/17 [place]] - Family History Maternal - - Patient's father at the age of 75 with a history of chronic obstructive pulmonary disease. Patient's mother at age of 70 with a history of diabetes mellitus and breast cancer. She of sepsis from a urinary tract infection. Smoking Status: Never smoker Tobacco Use: Non-smoker Review of Systems Constitutional: Denies: Chills, Fever, Weight Change Eyes: Denies: Pain, Vision Change HEENT: Denies: Difficulty Hearing, Difficulty Swallowing, Sinus Congestion Cardiovascular: Denies: Chest Pain, Palpitations Respiratory: Denies: Cough, Shortness of Breath Gastrointestinal: Denies: Diarrhea, Nausea, Vomiting Genitourinary: Denies: Dysuria, Hematuria Endocrine: Denies: Heat/ Cold Intolerance, Polydipsia, Polyuria Hematologic/ Lymphatic: Denies: Easy Bruising, Easy Bleeding - Physical Exam Vital Signs Temp Pulse Resp BP 98.0 F 81 18 126/79 H 12/23/17 15:45 12/23/17 15:45 12/23/17 15:45 12/23/17 15:45 General: Alert, Oriented x3, Cooperative, No apparent distress, Well developed, Well nourished HEENT: Atraumatic, PERRLA, EOMI, Normocephalic Oral: Moist Mucosa Neck: No JVD Lungs: Normal air movement Abdomen: Non-Distended Extremities: No clubbing, No cyanosis, No edema, No Calf Tenderness, - - The subcutaneous hematoma below the right knee is improving. It is decreasing in size. It is responding in the last weeks as expected. There is no overlying compromise to the skin. The most recent traumatic injury is seen to be an abrasion of the right anterior tibial surface in the right mid-lower leg. There is an abrasion, with associated nonviable tissue. Dimensions of the traumatic wound are documented elsewhere. Skin: No rashes Wound Measurements and Assessment WC - Nurse 1 - General Ulcer Measurement Start: 12/16/17 12:48 Freq: Status: Active Protocol: Activity Type Activity Date Activity User E-Sign Co-Sign Detail Recorded Client Recorded Date Recorded By Document 12/23/17 15:45 [id number] 12/23/17 15:50 TM 12/23/17 15:45 Wound Center Nurse 1 [Ulcer Assessment] #[address]-TRAUMA -Combined with other wound No -Current Size (cm) - Length 1.0 -Current Size (cm) - Width 0.7 -Current Size (cm) - Depth 0.1 -Total Square Cm 0.70 -Date of Last Picture (Recall this 12/23/17 field) -Photo Taken Yes -Epithelialization None Present -Tunneling No -Undermining/Tunneling No -Circular Undermining No -Classification - Thickness Full Thickness without Exposed Support Structure -Exudate Amt Small (1-33%) -Exudate Type Serosanguineous -Wound Margin Distinct, Outline Attached -Granulation Amt Large (67-100%) -Granulation Quality Red -Slough/Fibrin Yes -Necrosis Amt Small (1-33%) -Necrotic Tissue Type Adherent Slough -Structure Exposed Fascia Fat Layer Exposed -Texture (Griselda-wound Skin Appearance) Friable Localized Edema Scarring -Moisture (Griselda-wound Skin Appearance No Abnormality ) -Color (Griselda-wound Skin Appearance) Ecchymosis Erythema Hemosiderin Staining -Temperature (Griselda-wound Skin No Abnormality Appearance) (Pt Warm) -Tenderness on Palpation (Rgiselda-wound No Skin Appearance) -Ulcer Cleansing Rinsed/ Irrigated with Saline -Foul Odor after Cleansing No -Anesthetic Used 4% Lidocaine Solution #2- RT KNEE HEMATOMA -Combined with other wound No -Current Size (cm) - Length 2.5 -Current Size (cm) - Width 3.5 -Current Size (cm) - Depth 0 -Total Square Cm 8.75 -Photo Taken No -Epithelialization None Present -Tunneling No -Undermining/Tunneling No -Circular Undermining No -Classification - Thickness Partial Thickness -Exudate Amt None Present (0 %) -Wound Margin Distinct, Outline Attached -Granulation Amt None Present (0 %) -Granulation Quality N/A -Slough/Fibrin No -Necrosis Amt None Present (0 %) -Structure Exposed None/Limited to Skin Breakdown -Texture (Griselda-wound Skin Appearance) Localized Edema -Moisture (Griselda-wound Skin Appearance No Abnormality ) -Temperature (Griselda-wound Skin No Abnormality Appearance) (Pt Warm) -Tenderness on Palpation (Griselda-wound No Skin Appearance) -Ulcer Cleansing Not Cleansed -Foul Odor after Cleansing No [Edema Assessment] -Lower Limb Edema Present No WC - Nurse 2 - General Ulcer CM Notes Start: 12/16/17 12:48 Freq: Status: Active Protocol: Activity Type Activity Date Activity User E-Sign Co-Sign Detail Recorded Client Recorded Date Recorded By Document 12/23/17 16:24 MELIDA [id number] 12/23/17 16:32 MELIDA 12/23/17 16:24 Wound Center Nurse 2 [Procedure/Treatment] #[address]-TRAUMA -Time 16:24 -Correct Patient Yes -Correct Side, Site, Position Yes -Correct Procedure Yes -Procedure Performed Yes -Type of Procedure Debridement -Clinical Debridement Subcutaneous -Post Debridement Size (cm) - Length 3.0 -Post Debridement Size (cm) - Width 1.0 -Post Debridement Size (cm) - Depth 0.1 -Total Square Cm 3.00 -Wound/Ulcer Outcome Not Healed -Ulcer Cleansing Rinsed/ Irrigated with Saline -Foul Odor after Cleansing No -Bioengineered Tissue No -Topical Lidocaine (%) 4 -Injectable Lidocaine (%) 5 -Bleeding Controlled with NA -Treatment Response Procedure Tolerated Well #2- RT KNEE HEMATOMA -Time 16:25 -Correct Patient Yes -Correct Side, Site, Position Yes -Correct Procedure Yes -Procedure Performed No -Post Debridement Size (cm) - Length 0 -Post Debridement Size (cm) - Width 0 -Post Debridement Size (cm) - Depth 0 -Total Square Cm 0 -Foul Odor after Cleansing No -Bioengineered Tissue No -Bleeding Controlled with NA [See Physician Procedure note for Specifics] Pain Scale: 0-10 Numeric [Pain] -Is Patient Pain Free? Yes Musculoskeletal: No Muscle Wasting Neurological: Cranial nerves II-XII grossly intact, Neuro grossly intact Psych/Mental Status: Normal Affect, Appropriate, Alert and oriented to time, place, person, mood and affect Debridement Note Post-Debridement Measurements/Treatment WC - Nurse 2 - General Ulcer CM Notes Start: 12/16/17 12:48 Freq: Status: Active Protocol: Activity Type Activity Date Activity User E-Sign Co-Sign Detail Recorded Client Recorded Date Recorded By Document 12/16/17 13:12 [id number] 12/16/17 13:13 JS Document 12/23/17 16:24 [id number] 12/23/17 16:32 JS 12/16/17 12/23/17 13:12 16:24 Wound Center Nurse 2 #[address]-TRAUMA -Time 16:24 -Correct Patient Yes -Correct Side, Site, Position Yes -Correct Procedure Yes -Procedure Performed Yes -Type of Procedure Debridement -Clinical Debridement Subcutaneous -Post Debridement Size (cm) - Length 3.0 -Post Debridement Size (cm) - Width 1.0 -Post Debridement Size (cm) - Depth 0.1 -Total Square Cm 3.00 -Wound/Ulcer Outcome Not Healed -Ulcer Cleansing Rinsed/ Irrigated with Saline -Foul Odor after Cleansing No -Bioengineered Tissue No -Topical Lidocaine (%) 4 -Injectable Lidocaine (%) 5 -Bleeding Controlled with NA -Treatment Response Procedure Tolerated Well #2- RT KNEE HEMATOMA -Time 13:12 16:25 -Correct Patient Yes Yes -Correct Side, Site, Position Yes Yes -Correct Procedure Yes Yes -Procedure Performed No No -Post Debridement Size (cm) - Length 0 0 -Post Debridement Size (cm) - Width 0 0 -Post Debridement Size (cm) - Depth 0 0 -Total Square Cm 0 0 -Wound/Ulcer Outcome Converted -Ulcer Cleansing Not Cleansed -Foul Odor after Cleansing No No -Bioengineered Tissue No No -Bleeding Controlled with NA NA Pain Scale: 0-10 Numeric Is Patient Pain Free? Yes Yes Laterality: Right - Anterior tibial surface Type of Debridement: Excisional debridement Anesthesia Used: 4% Lidocaine Solution Depth: Down to and including healthy tissue, in the subcutaneous layer Percentage of wound debrided: 100 Instrument Used: 5mm curette Severity: Fat Layer Exposed Amount of bleeding with debridement: Mild Bleeding Controlled with: Compression and gauze Patient tolerated procedure well Assessment/Plan Active Problems Contusion of right leg (Acute) Subcutaneous hematoma (Acute) Pain in right leg (Acute) Abrasion of leg, right (Acute) Pain In Right Leg (Acute) Hematoma of leg (Acute) Contusion of leg, right (Acute) Assessment: This is a 72-year-old generally healthy female who fell on a slippery floor weeks ago, sustaining trauma inferior to the right knee. As result, the patient now has an underlying subcutaneous hematoma. There is no open wound or drainage. There is no obvious sign of infection. There has been significant improvement since the patient's last visit. The underlying hematoma has diminished in size, and ecchymosis has resolved. Patient now has an open wound on the right anterior tibial surface, which is 1 week old, and was sustained by trauma which occurred while the patient was using her treadmill. Plan: With respect to the patient's most recent wound, on the right anterior tibial surface, result of a treadmill injury, we are to initiate the use of collagenase Santyl applied topically on a daily basis. It is anticipated that the subcutaneous hematoma just inferior to the right knee will continue to resorb spontaneously, and aggressive intervention may not be necessary at all. The patient is to return in 1 week for reassessment. Compression does not appear necessary, for concern relative to pressure necrosis of overlying tissue layers. Further recommendations will ensue based upon patient's evolving clinical course. Patient is not a smoker. Influenza vaccine was not administered today. Patient weighs 130 pounds. She stands 5 feet 1 inches tall. Her BMI is 24.6, which is normal.
[2017-12-30 13:47] VITALS: BP 118/78; PULSE 86; RESP 16; TEMP 37
--- NOTE | 2017-12-30 14:19 | PCM.WC.HP ---
(1) Contusion of right leg Status: Acute Current Visit: Yes Qualifiers: Encounter type: subsequent encounter Code(s): S80.11XA - Contusion of right lower leg, initial encounter (2) Subcutaneous hematoma Status: Acute Current Visit: Yes Code(s): T14.8XXA - Other injury of unspecified body region, initial encounter (3) Pain in right leg Status: Acute Current Visit: Yes Code(s): M79.604 - Pain in right leg (4) Pain In Right Leg Status: Acute Current Visit: Yes Code(s): M79.604 - Pain in right leg (5) Hematoma of leg Status: Acute Current Visit: Yes Qualifiers: Encounter type: subsequent encounter Laterality: right Qualified Code(s): S80.11XD - Contusion of right lower leg, subsequent encounter Code(s): S80.10XA - Contusion of unspecified lower leg, initial encounter (6) Contusion of leg, right Status: Acute Current Visit: Yes Qualifiers: Encounter type: subsequent encounter Code(s): S80.11XA - Contusion of right lower leg, initial encounter (7) Abrasion of leg, right Status: Acute Current Visit: Yes Code(s): S80.811A - Abrasion, right lower leg, initial encounter (8) Traumatic open wound of right lower leg Status: Acute Current Visit: Yes Qualifiers: Encounter type: subsequent encounter Qualified Code(s): S81.801D - Unspecified open wound, right lower leg, subsequent encounter Code(s): S81.801A - Unspecified open wound, right lower leg, initial encounter History of Present Illness Date of Service: 12/30/17 Chief Complaint: Contusion and subcutaneous hematoma of the right knee History of Wound: This is a 72-year-old female who fell on a slippery floor at home on November 14, 2017. She traumatized the area immediately inferior to her right knee. As result, a subcutaneous hematoma formed, with some overlying ecchymosis and slight erythema. She had been treated by her primary care physician, Dr. Wooten, who administered 2 injections of Rocephin, and placed the patient on a 10 day course of Cefdinir. She had some mild associated discomfort. She presented for evaluation and recommendations as pertains to management. Invasive lower extremity arterial study was performed on December 13, 2016, which was normal. Arterial insufficiency of the lower extremities is not suspected. Patient has shown significant improvement over the last several weeks with expectant observation. The size of the underlying hematoma appears to have diminished significantly, and dimensions are documented elsewhere. Erythema has resolved. The overlying skin remains intact, and does not appear to be compromised in any way at this time. Additionally, the patient recently fell while on her treadmill. She sustained an abrasion on the right anterior tibial surface, for which she presented for evaluation. Since initially evaluated, the abrasion has unroofed, and the patient now has a deep open tunneled wound on the right anterior tibial surface. Past Medical History Past Medical History: Chronic Problems S/P ORIF (open reduction internal fixation) fracture (Chronic) left hip, 05/01/15,. [facility], [place] Depression (Chronic) Anemia (Chronic) GERD (gastroesophageal reflux disease) (Chronic) Osteoarthritis (Chronic) Surgical History: - - Patient is undergone open reduction and internal fixation of a left hip fracture in April 2015. She has undergone 2 C-sections in the past. Laparoscopic cholecystectomy was performed in March 2017. Allergies/Adverse Reactions: Allergies erythromycin base Adverse Reaction (Verified 04/23/17 10:19) Upset Stomach meperidine HCl [From Demerol] Adverse Reaction (Verified 04/23/17 10:19) HALLUCINATIONS Home Medications: Ambulatory Orders Medication Instructions Recorded Calcium Carbonate/Vitamin D3 1 each PO BID 05/05/15 [Calcium 600-Vit D3 800 Caplet] buPROPion tablets [Wellbutrin 150 mg PO BID 05/05/15 tablets] Albuterol IH (ProAir) [Proair Hfa] 1 - 2 puff INHALATION Q6H PRN PRN 11/19/16 Alendronate Sodium [Fosamax] 70 mg PO VIDES 11/19/16 Lorazepam [Ativan] 0.5 mg PO DAILY PRN 11/19/16 Polyethylene Glycol 3350 [Miralax] 17 gm PO DAILY PRN PRN 01/13/17 Omeprazole [Prilosec] 20 mg PO DAILY PRN PRN 03/03/17 Turmeric/Turmeric Root Extract 1,000 mg PO BID 03/03/17 [Turmeric 500 mg Capsule] Fluticasone 0.05% [Flonase Nasal 1 spray NASAL DAILY PRN 03/12/17 [place]] - Family History Maternal - - Patient's father at the age of 75 with a history of chronic obstructive pulmonary disease. Patient's mother at age of 70 with a history of diabetes mellitus and breast cancer. She of sepsis from a urinary tract infection. Smoking Status: Never smoker Tobacco Use: Non-smoker Review of Systems Constitutional: Denies: Chills, Fever, Weight Change Eyes: Denies: Pain, Vision Change HEENT: Denies: Difficulty Hearing, Difficulty Swallowing, Sinus Congestion Cardiovascular: Denies: Chest Pain, Palpitations Respiratory: Denies: Cough, Shortness of Breath Gastrointestinal: Denies: Diarrhea, Nausea, Vomiting Genitourinary: Denies: Dysuria, Hematuria Endocrine: Denies: Heat/ Cold Intolerance, Polydipsia, Polyuria Hematologic/ Lymphatic: Denies: Easy Bruising, Easy Bleeding - Physical Exam Vital Signs Temp Pulse Resp BP 98.6 F 86 16 118/78 12/30/17 13:47 12/30/17 13:47 12/30/17 13:47 12/30/17 13:47 General: Alert, Oriented x3, Cooperative, No apparent distress, Well developed, Well nourished HEENT: Atraumatic, PERRLA, EOMI, Normocephalic Oral: Moist Mucosa Neck: No JVD Lungs: Normal air movement Abdomen: Non-Distended Extremities: No clubbing, No cyanosis, No edema, No Calf Tenderness, - - The traumatized area just inferior to the right knee continues to improve. The skin remains intact. A small subcutaneous hematoma persists, but continues to diminish in size. At this point, there is no clinical consequence related to this recent traumatic injury. However, more distally, of the right anterior tibial surface, the traumatized area for the patient's treadmill has now spontaneously unroofed, and there is an open wound with significant depth, which appears to tunnel inferiorly. There is very mild surrounding erythema. Edges are documented elsewhere. Wound Measurements and Assessment WC - Nurse 1 - General Ulcer Measurement Start: 12/16/17 12:48 Freq: Status: Active Protocol: Activity Type Activity Date Activity User E-Sign Co-Sign Detail Recorded Client Recorded Date Recorded By Document 12/30/17 13:47 [email or web address] [id number] 12/30/17 13:49 12/30/17 13:47 Wound Center Nurse 1 [Ulcer Assessment] #[address]-TRAUMA -Combined with other wound No -Current Size (cm) - Length 1.6 -Current Size (cm) - Width 0.8 -Current Size (cm) - Depth 0.2 -Total Square Cm 1.28 -Photo Taken No -Epithelialization Small 1-33% -Tunneling No -Tunneling Position (O'clock) 6 -Tunneling Distance (cm) 1.2 -Undermining/Tunneling No -Circular Undermining No -Exudate Amt None Present (0 %) -Wound Margin Flat & Intact -Granulation Amt None Present (0 %) -Granulation Quality N/A -Slough/Fibrin Yes -Necrosis Amt Large (67-100%) -Necrotic Tissue Type Adherent Slough -Structure Exposed N/A -Texture (Griselda-wound Skin Appearance) Assessed Localized Edema -Moisture (Griselda-wound Skin Appearance Assessed ) Dry/Scaly -Color (Griselda-wound Skin Appearance) Assessed -Temperature (Griselda-wound Skin No Abnormality Appearance) (Pt Warm) -Tenderness on Palpation (Griselda-wound No Skin Appearance) -Ulcer Cleansing Rinsed/ Irrigated with Saline -Foul Odor after Cleansing No -Anesthetic Used 4% Lidocaine Solution [Edema Assessment] -Lower Limb Edema Present Yes -Right Calf (cm) 33.0 -Right Ankle (cm) 20.5 WC - Nurse 2 - General Ulcer CM Notes Start: 12/16/17 12:48 Freq: Status: Active Protocol: Activity Type Activity Date Activity User E-Sign Co-Sign Detail Recorded Client Recorded Date Recorded By Document 12/30/17 14:04 [id number] 12/30/17 14:10 12/30/17 14:04 Wound Center Nurse 2 [Procedure/Treatment] #[address]-TRAUMA -Time 14:05 -Correct Patient Yes -Correct Side, Site, Position Yes -Correct Procedure Yes -Procedure Performed Yes -Type of Procedure Debridement -Clinical Debridement Subcutaneous -Post Debridement Size (cm) - Length 1.9 -Post Debridement Size (cm) - Width 0.9 -Post Debridement Size (cm) - Depth 0.3 -Total Square Cm 1.71 -Wound/Ulcer Outcome Not Healed -Ulcer Cleansing Rinsed/ Irrigated with Saline -Foul Odor after Cleansing No -Bioengineered Tissue No -Topical Lidocaine (%) 4 -Lidocaine (ml) 5 -Bleeding Controlled with Pressure -Treatment Response Procedure Tolerated Well [See Physician Procedure note for Specifics] Pain Scale: 0-10 Numeric [Pain] -Is Patient Pain Free? Yes Neurological: Cranial nerves II-XII grossly intact, Neuro grossly intact Psych/Mental Status: Normal Affect, Appropriate, Alert and oriented to time, place, person, mood and affect Debridement Note Post-Debridement Measurements/Treatment WC - Nurse 2 - General Ulcer CM Notes Start: 12/16/17 12:48 Freq: Status: Active Protocol: Activity Type Activity Date Activity User E-Sign Co-Sign Detail Recorded Client Recorded Date Recorded By Document 12/16/17 13:12 [id number] 12/16/17 13:13 JS Document 12/23/17 16:24 JS [id number] 12/23/17 16:32 JS Document 12/30/17 14:04 JS [id number] 12/30/17 14:10 12/16/17 12/23/17 12/30/17 13:12 16:24 14:04 Wound Center Nurse 2 #[address]-TRAUMA -Time 16:24 14:05 -Correct Patient Yes Yes -Correct Side, Site, Position Yes Yes -Correct Procedure Yes Yes -Procedure Performed Yes Yes -Type of Procedure Debridement Debridement -Clinical Debridement Subcutaneous Subcutaneous -Post Debridement Size (cm) - Length 3.0 1.9 -Post Debridement Size (cm) - Width 1.0 0.9 -Post Debridement Size (cm) - Depth 0.1 0.3 -Total Square Cm 3.00 1.71 -Wound/Ulcer Outcome Not Healed Not Healed -Ulcer Cleansing Rinsed/ Rinsed/ Irrigated with Irrigated with Saline Saline -Foul Odor after Cleansing No No -Bioengineered Tissue No No -Topical Lidocaine (%) 4 4 -Injectable Lidocaine (%) 5 -Lidocaine (ml) 5 -Bleeding Controlled with NA Pressure -Treatment Response Procedure Procedure Tolerated Well Tolerated Well #2- RT KNEE HEMATOMA -Time 13:12 16:25 -Correct Patient Yes Yes -Correct Side, Site, Position Yes Yes -Correct Procedure Yes Yes -Procedure Performed No No -Post Debridement Size (cm) - Length 0 0 -Post Debridement Size (cm) - Width 0 0 -Post Debridement Size (cm) - Depth 0 0 -Total Square Cm 0 0 -Wound/Ulcer Outcome Converted -Ulcer Cleansing Not Cleansed -Foul Odor after Cleansing No No -Bioengineered Tissue No No -Bleeding Controlled with NA NA Pain Scale: 0-10 Numeric Is Patient Pain Free? Yes Yes Yes Laterality: Right - Anterior tibial surface Type of Debridement: Excisional debridement Anesthesia Used: 4% Lidocaine Solution Depth: Down to and including healthy tissue, in the subcutaneous layer Percentage of wound debrided: 100 Instrument Used: 5mm curette Severity: Fat Layer Exposed Amount of bleeding with debridement: Mild Bleeding Controlled with: Compression and gauze Patient tolerated procedure well There is adherent hematoma within the depths of the wound. Despite attempts at evacuation using a 5 mm curet, it was not possible to evacuate all portions of the hematoma. It was noted that there was some tunneling inferiorly. Assessment/Plan Active Problems Contusion of right leg (Acute) Subcutaneous hematoma (Acute) Pain in right leg (Acute) Abrasion of leg, right (Acute) Traumatic open wound of right lower leg (Acute) Pain In Right Leg (Acute) Hematoma of leg (Acute) Contusion of leg, right (Acute) Assessment: This is a 72-year-old generally healthy female who fell on a slippery floor weeks ago, sustaining trauma inferior to the right knee. As result, the patient has an underlying subcutaneous hematoma. There is no open wound or drainage. There is no obvious sign of infection. There has been significant improvement since the patient's last visit. The underlying hematoma has diminished in size, and ecchymosis has resolved. Patient now has an open wound on the right anterior tibial surface, which is altered from a recent fall while using her treadmill. The wound has developed just since her last visit, having spontaneously unroofed. Adherent hematoma persists within the wound cavity. Plan: With respect to the patient's most recent wound, on the right anterior tibial surface, the result of a treadmill injury, we are to pack the wound daily with 1/4 inch Nu Gauze. It is anticipated that this will help to evacuate the retained hematoma. It is anticipated that the subcutaneous hematoma just inferior to the right knee will continue to resorb spontaneously, and aggressive intervention may not be necessary at all. The patient is to return in 1 week for reassessment. Compression does not appear necessary, for concern relative to pressure necrosis of overlying tissue layers. Further recommendations will ensue based upon patient's evolving clinical course. The use of Nu Gauze packing daily basis as expected to help evacuate the hematoma which is adherent within the most recent wound. Ultimately, alternative measures will be undertaken as appropriate. Patient is not a smoker. Influenza vaccine was not administered today. Patient weighs 130 pounds. She stands 5 feet 1 inches tall. Her BMI is 24.6, which is normal.
[2018-01-06 12:41] VITALS: BP 136/107; PULSE 84; RESP 16; TEMP 36.8
--- NOTE | 2018-01-06 13:49 | PCM.WC.HP ---
(1) Contusion of right leg Status: Acute Current Visit: Yes Qualifiers: Encounter type: subsequent encounter Code(s): S80.11XA - Contusion of right lower leg, initial encounter (2) Subcutaneous hematoma Status: Acute Current Visit: Yes Code(s): T14.8XXA - Other injury of unspecified body region, initial encounter (3) Pain in right leg Status: Acute Current Visit: Yes Code(s): M79.604 - Pain in right leg (4) Pain In Right Leg Status: Acute Current Visit: Yes Code(s): M79.604 - Pain in right leg (5) Hematoma of leg Status: Acute Current Visit: Yes Qualifiers: Encounter type: subsequent encounter Laterality: right Qualified Code(s): S80.11XD - Contusion of right lower leg, subsequent encounter Code(s): S80.10XA - Contusion of unspecified lower leg, initial encounter (6) Contusion of leg, right Status: Acute Current Visit: Yes Qualifiers: Encounter type: subsequent encounter Code(s): S80.11XA - Contusion of right lower leg, initial encounter (7) Abrasion of leg, right Status: Acute Current Visit: Yes Code(s): S80.811A - Abrasion, right lower leg, initial encounter (8) Traumatic open wound of right lower leg Status: Acute Current Visit: Yes Qualifiers: Encounter type: subsequent encounter Qualified Code(s): S81.801D - Unspecified open wound, right lower leg, subsequent encounter Code(s): S81.801A - Unspecified open wound, right lower leg, initial encounter History of Present Illness Date of Service: 01/06/18 Chief Complaint: Contusion and subcutaneous hematoma of the right knee History of Wound: This is a 72-year-old female who fell on a slippery floor at home on November 14, 2017. She traumatized the area immediately inferior to her right knee. As result, a subcutaneous hematoma formed, with some overlying ecchymosis and slight erythema. She had been treated by her primary care physician, Dr. Wooten, who administered 2 injections of Rocephin, and placed the patient on a 10 day course of Cefdinir. She had some mild associated discomfort. She presented for evaluation and recommendations as pertains to management. Invasive lower extremity arterial study was performed on December 13, 2016, which was normal. Arterial insufficiency of the lower extremities is not suspected. Patient has shown significant improvement over the last several weeks with expectant observation. The size of the underlying hematoma appears to have diminished significantly, and dimensions are documented elsewhere. Erythema has resolved. The overlying skin remains intact, and does not appear to be compromised in any way at this time. Additionally, the patient recently fell while on her treadmill. She sustained an abrasion on the right anterior tibial surface, for which she presented for evaluation. Since initially evaluated, the abrasion has unroofed, and the patient now has a deep open tunneled wound on the right anterior tibial surface. Since last week, the open wound on the right anterior tibial surface has diminished in size, decreased in depth, and the tunneling is less prominent. Past Medical History Past Medical History: Chronic Problems S/P ORIF (open reduction internal fixation) fracture (Chronic) left hip, 05/01/15,. [facility], Dr Antonio Depression (Chronic) Anemia (Chronic) GERD (gastroesophageal reflux disease) (Chronic) Osteoarthritis (Chronic) Surgical History: - - Patient is undergone open reduction and internal fixation of a left hip fracture in April 2015. She has undergone 2 C-sections in the past. Laparoscopic cholecystectomy was performed in March 2017. Allergies/Adverse Reactions: Allergies erythromycin base Adverse Reaction (Verified 04/23/17 10:19) Upset Stomach meperidine HCl [From Demerol] Adverse Reaction (Verified 04/23/17 10:19) HALLUCINATIONS Home Medications: Ambulatory Orders Medication Instructions Recorded Calcium Carbonate/Vitamin D3 1 each PO BID 05/05/15 [Calcium 600-Vit D3 800 Caplet] buPROPion tablets [Wellbutrin 150 mg PO BID 05/05/15 tablets] Albuterol IH (ProAir) [Proair Hfa] 1 - 2 puff INHALATION Q6H PRN PRN 11/19/16 Alendronate Sodium [Fosamax] 70 mg PO VIDES 11/19/16 Lorazepam [Ativan] 0.5 mg PO DAILY PRN 11/19/16 Polyethylene Glycol 3350 [Miralax] 17 gm PO DAILY PRN PRN 01/13/17 Omeprazole [Prilosec] 20 mg PO DAILY PRN PRN 03/03/17 Turmeric/Turmeric Root Extract 1,000 mg PO BID 03/03/17 [Turmeric 500 mg Capsule] Fluticasone 0.05% [Flonase Nasal 1 spray NASAL DAILY PRN 03/12/17 [place]] - Family History Maternal - - Patient's father at the age of 75 with a history of chronic obstructive pulmonary disease. Patient's mother at age of 70 with a history of diabetes mellitus and breast cancer. She of sepsis from a urinary tract infection. Smoking Status: Never smoker Tobacco Use: Non-smoker Review of Systems Constitutional: Denies: Chills, Fever, Weight Change Eyes: Denies: Pain, Vision Change HEENT: Denies: Difficulty Hearing, Difficulty Swallowing, Sinus Congestion Cardiovascular: Denies: Chest Pain, Palpitations Respiratory: Denies: Cough, Shortness of Breath Gastrointestinal: Denies: Diarrhea, Nausea, Vomiting Genitourinary: Denies: Dysuria, Hematuria Endocrine: Denies: Heat/ Cold Intolerance, Polydipsia, Polyuria Hematologic/ Lymphatic: Denies: Easy Bruising, Easy Bleeding - Physical Exam Vital Signs Temp Pulse Resp BP 98.2 F 84 16 136/107 H 01/06/18 12:41 01/06/18 12:41 01/06/18 12:41 01/06/18 12:41 General: Alert, Oriented x3, Cooperative, No apparent distress, Well developed, Well nourished HEENT: Atraumatic, PERRLA, EOMI, Normocephalic Oral: Moist Mucosa Neck: No JVD Lungs: Normal air movement Abdomen: Non-Distended Extremities: No clubbing, No cyanosis, No edema, No Calf Tenderness, - - The traumatic wound on the right anterior tibial surface is smaller in size, with less depth. Dimensions are documented elsewhere. The tunneling is markedly decreased as well. There has been significant improvement. Wound Measurements and Assessment WC - Nurse 1 - General Ulcer Measurement Start: 12/16/17 12:48 Freq: Status: Active Protocol: Activity Type Activity Date Activity User E-Sign Co-Sign Detail Recorded Client Recorded Date Recorded By Document 01/06/18 12:41 [facility] [id number] 01/06/18 12:50 [facility] 01/06/18 12:41 Wound Center Nurse 1 [Ulcer Assessment] #[address]-TRAUMA -Combined with other wound No -Current Size (cm) - Length 1.5 -Current Size (cm) - Width 0.8 -Current Size (cm) - Depth 0.2 -Total Square Cm 1.20 -Photo Taken No -Epithelialization None Present -Tunneling Yes -Tunneling Position (O'clock) 5 -Tunneling Distance (cm) 0.2 -Undermining/Tunneling No -Circular Undermining No -Exudate Amt Small (1-33%) -Exudate Type Sanguineous -Wound Margin Distinct, Outline Attached -Granulation Amt Small (1-33%) -Granulation Quality Red -Slough/Fibrin Yes -Necrosis Amt Medium (34-66%) -Necrotic Tissue Type Adherent Slough -Texture (Griselda-wound Skin Appearance) Scarring -Moisture (Griselda-wound Skin Appearance Dry/Scaly ) -Color (Griselda-wound Skin Appearance) Erythema Hemosiderin Staining -Temperature (Griselda-wound Skin No Abnormality Appearance) (Pt Warm) -Tenderness on Palpation (Griselda-wound Yes Skin Appearance) -Ulcer Cleansing Rinsed/ Irrigated with Saline -Foul Odor after Cleansing No -Anesthetic Used 4% Lidocaine Solution 5% Lidocaine Gel WC - Nurse 2 - General Ulcer CM Notes Start: 12/16/17 12:48 Freq: Status: Active Protocol: Activity Type Activity Date Activity User E-Sign Co-Sign Detail Recorded Client Recorded Date Recorded By Document 01/06/18 13:22 [id number] 01/06/18 13:42 01/06/18 13:22 Wound Center Nurse 2 [Procedure/Treatment] -Time 13:22 -Correct Patient Yes -Correct Side, Site, Position Yes -Correct Procedure Yes -Procedure Performed Yes -Type of Procedure Debridement -Clinical Debridement Subcutaneous -Post Debridement Size (cm) - Length 1.8 -Post Debridement Size (cm) - Width 1.0 -Post Debridement Size (cm) - Depth 0.2 -Total Square Cm 1.80 -Wound/Ulcer Outcome Not Healed -Ulcer Cleansing Rinsed/ Irrigated with Saline -Foul Odor after Cleansing No -Bioengineered Tissue No -Topical Lidocaine (%) 4 -Lidocaine (ml) 10 -Bleeding Controlled with NA -Treatment Response Procedure Tolerated Well [See Physician Procedure note for Specifics] Pain Scale: 0-10 Numeric [Pain] -Is Patient Pain Free? Yes Musculoskeletal: No Muscle Wasting Neurological: Cranial nerves II-XII grossly intact, Neuro grossly intact Psych/Mental Status: Normal Affect, Appropriate, Alert and oriented to time, place, person, mood and affect Debridement Note Post-Debridement Measurements/Treatment WC - Nurse 2 - General Ulcer CM Notes Start: 12/16/17 12:48 Freq: Status: Active Protocol: Activity Type Activity Date Activity User E-Sign Co-Sign Detail Recorded Client Recorded Date Recorded By Document 12/16/17 13:12 [id number] 12/16/17 13:13 JS Document 12/23/17 16:24 JS [id number] 12/23/17 16:32 JS Document 12/30/17 14:04 JS [id number] 12/30/17 14:10 Document 01/06/18 13:22 JS [id number] 01/06/18 13:42 JS 12/16/17 12/23/17 12/30/17 13:12 16:24 14:04 Wound Center Nurse 2 #[address]-TRAUMA -Time 16:24 14:05 -Correct Patient Yes Yes -Correct Side, Site, Position Yes Yes -Correct Procedure Yes Yes -Procedure Performed Yes Yes -Type of Procedure Debridement Debridement -Clinical Debridement Subcutaneous Subcutaneous -Post Debridement Size (cm) - Length 3.0 1.9 -Post Debridement Size (cm) - Width 1.0 0.9 -Post Debridement Size (cm) - Depth 0.1 0.3 -Total Square Cm 3.00 1.71 -Wound/Ulcer Outcome Not Healed Not Healed -Ulcer Cleansing Rinsed/ Rinsed/ Irrigated with Irrigated with Saline Saline -Foul Odor after Cleansing No No -Bioengineered Tissue No No -Topical Lidocaine (%) 4 4 -Injectable Lidocaine (%) 5 -Lidocaine (ml) 5 -Bleeding Controlled with NA Pressure -Treatment Response Procedure Procedure Tolerated Well Tolerated Well #2- RT KNEE HEMATOMA -Time 13:12 16:25 -Correct Patient Yes Yes -Correct Side, Site, Position Yes Yes -Correct Procedure Yes Yes -Procedure Performed No No -Post Debridement Size (cm) - Length 0 0 -Post Debridement Size (cm) - Width 0 0 -Post Debridement Size (cm) - Depth 0 0 -Total Square Cm 0 0 -Wound/Ulcer Outcome Converted -Ulcer Cleansing Not Cleansed -Foul Odor after Cleansing No No -Bioengineered Tissue No No -Bleeding Controlled with NA NA Pain Scale: 0-10 Numeric Is Patient Pain Free? Yes Yes Yes 01/06/18 13:22 Wound Center Nurse 2 #[address]-TRAUMA -Time 13:22 -Correct Patient Yes -Correct Side, Site, Position Yes -Correct Procedure Yes -Procedure Performed Yes -Type of Procedure Debridement -Clinical Debridement Subcutaneous -Post Debridement Size (cm) - Length 1.8 -Post Debridement Size (cm) - Width 1.0 -Post Debridement Size (cm) - Depth 0.2 -Total Square Cm 1.80 -Wound/Ulcer Outcome Not Healed -Ulcer Cleansing Rinsed/ Irrigated with Saline -Foul Odor after Cleansing No -Bioengineered Tissue No -Topical Lidocaine (%) 4 -Injectable Lidocaine (%) -Lidocaine (ml) 10 -Bleeding Controlled with NA -Treatment Response Procedure Tolerated Well #2- RT KNEE HEMATOMA -Time -Correct Patient -Correct Side, Site, Position -Correct Procedure -Procedure Performed -Post Debridement Size (cm) - Length -Post Debridement Size (cm) - Width -Post Debridement Size (cm) - Depth -Total Square Cm -Wound/Ulcer Outcome -Ulcer Cleansing -Foul Odor after Cleansing -Bioengineered Tissue -Bleeding Controlled with Pain Scale: 0-10 Numeric Is Patient Pain Free? Yes Laterality: Right - Anterior tibial surface Type of Debridement: Excisional debridement Anesthesia Used: 4% Lidocaine Solution Depth: Down to and including healthy tissue, in the subcutaneous layer Percentage of wound debrided: 100 Instrument Used: 5mm curette Severity: Fat Layer Exposed Amount of bleeding with debridement: Mild Bleeding Controlled with: Compression and gauze Patient tolerated procedure well Assessment/Plan Active Problems Contusion of right leg (Acute) Subcutaneous hematoma (Acute) Pain in right leg (Acute) Abrasion of leg, right (Acute) Traumatic open wound of right lower leg (Acute) Pain In Right Leg (Acute) Hematoma of leg (Acute) Contusion of leg, right (Acute) Assessment: This is a 72-year-old generally healthy female who fell on a slippery floor weeks ago, sustaining trauma inferior to the right knee. As result, the patient has an underlying subcutaneous hematoma. There is no open wound or drainage. There is no obvious sign of infection. There has been significant improvement since the patient's last visit. The underlying hematoma has diminished in size, and ecchymosis has resolved. Patient now has an open wound on the right anterior tibial surface, which is altered from a recent fall while using her treadmill. The wound has developed just since her last visit, having spontaneously unroofed. Adherent hematoma persists within the wound cavity. Plan: With respect to the patient's most recent wound, on the right anterior tibial surface, the result of a treadmill injury, we are to continue packing the wound daily with 1/4 inch Nu Gauze. It is anticipated that the subcutaneous hematoma just inferior to the right knee will continue to resorb spontaneously, and aggressive intervention may not be necessary at all. The patient is to return in 1 week for reassessment. Compression does not appear necessary, for concern relative to pressure necrosis of overlying tissue layers. Further recommendations will ensue based upon patient's evolving clinical course. The use of Nu Gauze packing daily basis as expected to help evacuate the hematoma which is adherent within the most recent wound. Ultimately, alternative measures will be undertaken as appropriate. The patient was seen and evaluated by her primary care physician within the last week, who placed the patient on Bactrim for suspected cellulitis. Cultures were obtained, and have been negative. Patient is not a smoker. Influenza vaccine was not administered today. Patient weighs 130 pounds. She stands 5 feet 1 inches tall. Her BMI is 24.6, which is normal.
== END 2018-01-11 23:59 ==
LOC: WC 12:30
PROVIDERS: Family Provider Internal Medicine; PCP Internal Medicine; Visit Provider Surgery
DX: S80.01XA Contusion of right knee, initial encounter (principal); W01.0XXA Fall on same level from slipping, tripping and stumbling without subsequent striking against object, initial encounter; K21.9 Gastro-esophageal reflux disease without esophagitis; M19.90 Unspecified osteoarthritis, unspecified site; F32.9 Major depressive disorder, single episode, unspecified; Z79.899 Other long term (current) drug therapy; M79.604 Pain in right leg
CPT/HCPCS: 11042; 99211; G0463

== ENCOUNTER 2018-02-10 12:00 | Outpatient (RCR) | payer MEDICARE, OTHER, SELFPAY ==
[2018-01-12 00:57] VITALS: PULSE 84; RESP 16; TEMP 36.8
[2018-01-20 16:13] VITALS: BP 143/82; PULSE 80; RESP 16; TEMP 36.4
--- NOTE | 2018-01-20 16:34 | HP.PCM_ITS ---
(1) Contusion of right leg Status: Acute Current Visit: Yes Qualifiers: Encounter type: subsequent encounter Code(s): S80.11XA - Contusion of right lower leg, initial encounter (2) Subcutaneous hematoma Status: Acute Current Visit: Yes Code(s): T14.8XXA - Other injury of unspecified body region, initial encounter (3) Pain in right leg Status: Acute Current Visit: Yes Code(s): M79.604 - Pain in right leg (4) Abrasion of leg, right Status: Acute Current Visit: Yes Qualifiers: Encounter type: subsequent encounter Qualified Code(s): S80.811D - Abrasion , right lower leg, subsequent encounter Code(s): S80.811A - Abrasion, right lower leg, initial encounter (5) Traumatic open wound of right lower leg Status: Acute Current Visit: Yes Qualifiers: Encounter type: subsequent encounter Code(s): S81.801A - Unspecified open wound, right lower leg, initial encounter (6) History of biliary stent insertion Status: Chronic Current Visit: No Code(s): Z98.890 - Other specified postprocedural states (7) S/P ORIF (open reduction internal fixation) fracture Status: Chronic Current Visit: No Code(s): Z96.7 - Presence of other bone and tendon implants; Z87.81 - Personal history of (healed) traumatic fracture Comment: left hip, 05/01/15,. [facility], Dr Antonio (8) Depression Status: Chronic Current Visit: No Code(s): F32.9 - Major depressive disorder , single episode, unspecified (9) Anemia Status: Chronic Current Visit: No Code(s): D64.9 - Anemia, unspecified (10) Contusion Status: Resolved Current Visit: No Qualifiers: Code(s): T14.8 - Other injury of unspecified body region (11) Contusion of leg, left Status: Resolved Current Visit: No Qualifiers: Code(s): S80.12XA - Contusion of left lower leg, initial encounter (12) Pain In Right Leg Status: Acute Current Visit: No Code(s): M79.604 - Pain in right leg (13) GERD (gastroesophageal reflux disease) Status: Chronic Current Visit: No Code(s): K21.9 - Gastro-esophageal reflux disease without esophagitis (14) Osteoarthritis Status: Chronic Current Visit: No Code(s): M19.90 - Unspecified osteoarthritis, unspecified site (15) Hematoma of leg Status: Acute Current Visit: No Qualifiers: Encounter type: subsequent encounter Laterality: right Qualified Code(s) : S80.11XD - Contusion of right lower leg, subsequent encounter Code(s): S80.10XA - Contusion of unspecified lower leg, initial encounter (16) Contusion of leg, right Status: Acute Current Visit: Yes Qualifiers: Encounter type: subsequent encounter Code(s): S80.11XA - Contusion of right lower leg, initial encounter (17) Wound, open, leg Status: Acute Current Visit: Yes Qualifiers: Encounter type: subsequent encounter Code(s): S81.809A - Unspecified open wound, unspecified lower leg, initial encounter (18) Wound of right leg Status: Acute Current Visit: Yes Qualifiers: Encounter type: subsequent encounter Qualified Code(s): S81.801D - Unspecified open wound, right lower leg, subsequent encounter Code(s): S81.801A - Unspecified open wound, right lower leg, initial encounter (19) Acute cholecystitis Status: Acute Current Visit: No Code(s): K81.0 - Acute cholecystitis History of Present Illness Date of Service: 01/20/18 Chief Complaint: Contusion and subcutaneous hematoma of the right knee; traumatic open wound of the right anterior tibial surface. History of Wound: This is a 72-year-old female who fell on a slippery floor at home on November 14, 2017. She traumatized the area immediately inferior to her right knee. As result, a subcutaneous hematoma formed, with some overlying ecchymosis and slight erythema. She had been treated by her primary care physician, Dr. Wooten, who administered 2 injections of Rocephin, and placed the patient on a 10 day course of Cefdinir. She had some mild associated discomfort. She presented for evaluation and recommendations as pertains to management. Invasive lower extremity arterial study was performed on December 13, 2016, which was normal. Arterial insufficiency of the lower extremities is not suspected. Patient has shown significant improvement over the last several weeks with expectant observation. The size of the underlying hematoma appears to have diminished significantly, and dimensions are documented elsewhere. Erythema has resolved. The overlying skin remains intact, and does not appear to be compromised in any way at this time. Additionally, the patient recently fell while on her treadmill. She sustained an abrasion on the right anterior tibial surface, for which she presented for evaluation. Since initially evaluated, the abrasion has unroofed, and the patient developed a deep open tunneled wound on the right anterior tibial surface. Since last week, the open wound on the right anterior tibial surface has diminished in size, decreased in depth, and the tunneling has resolved. Past Medical History Past Medical History: Chronic Problems History of biliary stent insertion (Chronic) S/P ORIF (open reduction internal fixation) fracture (Chronic) left hip, 05/01/15,. [facility], Dr Antonio Depression (Chronic) Anemia (Chronic) GERD (gastroesophageal reflux disease) (Chronic) Osteoarthritis (Chronic) Surgical History: - - Patient is undergone open reduction and internal fixation of a left hip fracture in April 2015. She has undergone 2 C-sections in the past. Laparoscopic cholecystectomy was performed in March 2017. Allergies/Adverse Reactions: Allergies erythromycin base Adverse Reaction (Verified 04/23/17 10:19) Upset Stomach meperidine HCl [From Demerol] Adverse Reaction (Verified 04/23/17 10:19) HALLUCINATIONS Home Medications: Ambulatory Orders Medication Instructions Recorded Calcium Carbonate/Vitamin D3 1 each PO BID 05/05/15 [Calcium 600-Vit D3 800 Caplet] buPROPion tablets [Wellbutrin 150 mg PO BID 05/05/15 tablets] Albuterol IH (ProAir) [Proair Hfa] 1 - 2 puff INHALATION Q6H PRN PRN 11/19/16 Alendronate Sodium [Fosamax] 70 mg PO VIDES 11/19/16 Lorazepam [Ativan] 0.5 mg PO DAILY PRN 11/19/16 Polyethylene Glycol 3350 [Miralax] 17 gm PO DAILY PRN PRN 01/13/17 Omeprazole [Prilosec] 20 mg PO DAILY PRN PRN 03/03/17 Turmeric/Turmeric Root Extract 1,000 mg PO BID 03/03/17 [Turmeric 500 mg Capsule] Fluticasone 0.05% [Flonase Nasal 1 spray NASAL DAILY PRN 03/12/17 [place]] - Family History Maternal - - Patient's father at the age of 75 with a history of chronic obstructive pulmonary disease. Patient's mother at age of 70 with a history of diabetes mellitus and breast cancer. She of sepsis from a urinary tract infection. Smoking Status: Never smoker Tobacco Use: Non-smoker Review of Systems Constitutional: Denies: Chills, Fever, Weight Change Eyes: Denies: Pain, Vision Change HEENT: Denies: Difficulty Hearing, Difficulty Swallowing, Sinus Congestion Cardiovascular: Denies: Chest Pain, Palpitations Respiratory: Denies: Cough, Shortness of Breath Gastrointestinal: Denies: Diarrhea, Nausea, Vomiting Genitourinary: Denies: Dysuria, Hematuria Endocrine: Denies: Heat/ Cold Intolerance, Polydipsia, Polyuria Hematologic/ Lymphatic: Denies: Easy Bruising, Easy Bleeding - Physical Exam Vital Signs Temp Pulse Resp BP 97.5 F L 80 16 143/82 H 01/20/18 16:13 01/20/18 16:13 01/20/18 16:13 01/20/18 16:13 General: Alert, Oriented x3, Cooperative, No apparent distress, Well developed, Well nourished HEENT: Atraumatic, PERRLA, EOMI, Normocephalic Oral: Moist Mucosa Neck: No JVD Lungs: Normal air movement Abdomen: Non-Distended Extremities: No clubbing, No cyanosis, No edema, No Calf Tenderness, - - The subcutaneous hematoma inferior to the right knee has essentially resolved. There is no visible abnormality at this site. The open wound on the right anterior tibial surface is markedly diminished in size. There is no surrounding erythema or cellulitis. There is no sign of infection. Dimensions are documented elsewhere. The base of the ulceration is pink and healthy in appearance, with active granulation tissue. There is evidence of peripheral epithelialization. Skin: No rashes Wound Measurements and Assessment WC - Nurse 1 - General Ulcer Measurement Start: 01/20/18 16:09 Freq: Status: Active Protocol: Activity Type Activity Date Activity User E-Sign Co-Sign Detail Recorded Client Recorded Date Recorded By Document 01/20/18 16:09 DV [id number] 01/20/18 16:13 DV 01/20/18 16:09 Wound Center Nurse 1 [Ulcer Assessment] #[address]-TRAUMA -Combined with other wound No -Current Size (cm) - Length 2.5 -Current Size (cm) - Width 0.5 -Current Size (cm) - Depth 0.2 -Total Square Cm 1.25 -Photo Taken Yes -Epithelialization None Present -Tunneling No -Undermining/Tunneling No -Circular Undermining No -Classification - Thickness Full Thickness without Exposed Support Structure -Exudate Amt Small (1-33%) -Exudate Type Serosanguineous -Wound Margin Indistinct, Non -Visible -Slough/Fibrin Yes -Necrosis Amt Large (67-100%) -Necrotic Tissue Type Adherent Slough -Structure Exposed None/Limited to Skin Breakdown -Texture (Griselda-wound Skin Appearance) Assessed Localized Edema Scarring -Moisture (Griselda-wound Skin Appearance Assessed ) Dry/Scaly -Color (Griselda-wound Skin Appearance) Assessed Hemosiderin Staining -Temperature (Griselda-wound Skin No Abnormality Appearance) (Pt Warm) -Tenderness on Palpation (Griselda-wound No Skin Appearance) -Ulcer Cleansing Rinsed/ Irrigated with Saline -Foul Odor after Cleansing No -Anesthetic Used 5% Lidocaine Gel WC - Nurse 2 - General Ulcer CM Notes Start: 01/20/18 16:09 Freq: Status: Active Protocol: Activity Type Activity Date Activity User E-Sign Co-Sign Detail Recorded Client Recorded Date Recorded By Document 01/20/18 16:17 MELIDA [id number] 01/20/18 16:23 MELIDA 01/20/18 16:17 Wound Center Nurse 2 [Procedure/Treatment] -Time 16:17 -Correct Patient Yes -Correct Side, Site, Position Yes -Correct Procedure Yes -Procedure Performed Yes -Type of Procedure Debridement -Clinical Debridement Subcutaneous -Post Debridement Size (cm) - Length 1.9 -Post Debridement Size (cm) - Width 0.9 -Post Debridement Size (cm) - Depth 0.2 -Total Square Cm 1.71 -Wound/Ulcer Outcome Not Healed -Ulcer Cleansing Rinsed/ Irrigated with Saline -Foul Odor after Cleansing No -Bioengineered Tissue No -Topical Lidocaine (%) 5 -Bleeding Controlled with NA -Treatment Response Procedure Tolerated Well [See Physician Procedure note for Specifics] Pain Scale: 0-10 Numeric [Pain] -Is Patient Pain Free? Yes Musculoskeletal: No Muscle Wasting Neurological: Cranial nerves II-XII grossly intact, Neuro grossly intact Psych/Mental Status: Normal Affect, Appropriate, Alert and oriented to time, place, person, mood and affect Debridement Note Post-Debridement Measurements/Treatment WC - Nurse 2 - General Ulcer CM Notes Start: 01/20/18 16:09 Freq: Status: Active Protocol: Activity Type Activity Date Activity User E-Sign Co-Sign Detail Recorded Client Recorded Date Recorded By Document 01/20/18 16:17 MELIDA [id number] 01/20/18 16:23 MELIDA 01/20/18 16:17 Wound Center Nurse 2 #[address]-TRAUMA -Time 16:17 -Correct Patient Yes -Correct Side, Site, Position Yes -Correct Procedure Yes -Procedure Performed Yes -Type of Procedure Debridement -Clinical Debridement Subcutaneous -Post Debridement Size (cm) - Length 1.9 -Post Debridement Size (cm) - Width 0.9 -Post Debridement Size (cm) - Depth 0.2 -Total Square Cm 1.71 -Wound/Ulcer Outcome Not Healed -Ulcer Cleansing Rinsed/ Irrigated with Saline -Foul Odor after Cleansing No -Bioengineered Tissue No -Topical Lidocaine (%) 5 -Bleeding Controlled with NA -Treatment Response Procedure Tolerated Well Pain Scale: 0-10 Numeric Is Patient Pain Free? Yes Laterality: Right - Anterior tibial surface Type of Debridement: Excisional debridement Anesthesia Used: 4% Lidocaine Solution Depth: Down to and including healthy tissue, in the subcutaneous layer Percentage of wound debrided: 100 Instrument Used: 5mm curette Severity: Fat Layer Exposed Amount of bleeding with debridement: Mild Bleeding Controlled with: Compression and gauze Patient tolerated procedure well Assessment/Plan Active Problems Contusion of right leg (Acute) Subcutaneous hematoma (Acute) Pain in right leg (Acute) Abrasion of leg, right (Acute) Traumatic open wound of right lower leg (Acute) Contusion of leg, right (Acute) Wound, open, leg (Acute) Wound of right leg (Acute) Assessment: This is a 72-year-old generally healthy female who fell on a slippery floor weeks ago, sustaining trauma inferior to the right knee. As result, the patient had an underlying subcutaneous hematoma. There was no open wound or drainage. There was no obvious sign of infection. There has been significant improvement, and the area is no longer of any concern. Patient now has an open wound on the right anterior tibial surface, which resulted from a recent fall while using her treadmill. This traumatic open wound has shown significant improvement in recent weeks. Plan: With respect to the patient's most recent wound, on the right anterior tibial surface, the result of a treadmill injury, we are to transition to the use of collagen hydrogel topically on a daily basis. The wound is now superficial, and will not admit packing. Continued healing by secondary intention is anticipated. The subcutaneous hematoma just inferior to the right knee is no longer of any consequence, and the area is now completely healed and normalized in appearance. The patient is to return in 1 week for reassessment. Patient is not a smoker. Influenza vaccine was not administered today. Patient weighs 130 pounds. She stands 5 feet 1 inches tall. Her BMI is 24.6, which is normal.
[2018-01-27 14:44] VITALS: BP 140/87; PULSE 85; RESP 18; TEMP 35.4
--- NOTE | 2018-01-27 15:34 | HP.PCM_ITS ---
(1) Contusion of right leg Status: Acute Current Visit: Yes Qualifiers: Encounter type: subsequent encounter Code(s): S80.11XA - Contusion of right lower leg, initial encounter (2) Subcutaneous hematoma Status: Acute Current Visit: Yes Code(s): T14.8XXA - Other injury of unspecified body region, initial encounter (3) Pain in right leg Status: Acute Current Visit: Yes Code(s): M79.604 - Pain in right leg (4) Abrasion of leg, right Status: Acute Current Visit: Yes Qualifiers: Encounter type: subsequent encounter Qualified Code(s): S80.811D - Abrasion , right lower leg, subsequent encounter Code(s): S80.811A - Abrasion, right lower leg, initial encounter (5) Traumatic open wound of right lower leg Status: Acute Current Visit: Yes Qualifiers: Encounter type: subsequent encounter Code(s): S81.801A - Unspecified open wound, right lower leg, initial encounter (6) History of biliary stent insertion Status: Chronic Current Visit: No Code(s): Z98.890 - Other specified postprocedural states (7) S/P ORIF (open reduction internal fixation) fracture Status: Chronic Current Visit: No Code(s): Z96.7 - Presence of other bone and tendon implants; Z87.81 - Personal history of (healed) traumatic fracture Comment: left hip, 05/01/15,. [facility] [place], Dr Antonio (8) Depression Status: Chronic Current Visit: No Code(s): F32.9 - Major depressive disorder , single episode, unspecified (9) Anemia Status: Chronic Current Visit: No Code(s): D64.9 - Anemia, unspecified (10) Pain In Right Leg Status: Acute Current Visit: No Code(s): M79.604 - Pain in right leg (11) GERD (gastroesophageal reflux disease) Status: Chronic Current Visit: No Code(s): K21.9 - Gastro-esophageal reflux disease without esophagitis (12) Osteoarthritis Status: Chronic Current Visit: No Code(s): M19.90 - Unspecified osteoarthritis, unspecified site (13) Hematoma of leg Status: Acute Current Visit: No Qualifiers: Encounter type: subsequent encounter Laterality: right Qualified Code(s) : S80.11XD - Contusion of right lower leg, subsequent encounter Code(s): S80.10XA - Contusion of unspecified lower leg, initial encounter (14) Contusion of leg, right Status: Acute Current Visit: Yes Qualifiers: Encounter type: subsequent encounter Code(s): S80.11XA - Contusion of right lower leg, initial encounter (15) Wound, open, leg Status: Acute Current Visit: Yes Qualifiers: Encounter type: subsequent encounter Code(s): S81.809A - Unspecified open wound, unspecified lower leg, initial encounter (16) Wound of right leg Status: Acute Current Visit: Yes Qualifiers: Encounter type: subsequent encounter Qualified Code(s): S81.801D - Unspecified open wound, right lower leg, subsequent encounter Code(s): S81.801A - Unspecified open wound, right lower leg, initial encounter (17) Acute cholecystitis Status: Acute Current Visit: No Code(s): K81.0 - Acute cholecystitis History of Present Illness Date of Service: 01/27/18 Chief Complaint: Contusion and subcutaneous hematoma of the right knee; traumatic open wound of the right anterior tibial surface. History of Wound: This is a 72-year-old female who fell on a slippery floor at home on November 14, 2017. She traumatized the area immediately inferior to her right knee. As result, a subcutaneous hematoma formed, with some overlying ecchymosis and slight erythema. She had been treated by her primary care physician, Dr. Wooten, who administered 2 injections of Rocephin, and placed the patient on a 10 day course of Cefdinir. She had some mild associated discomfort. She presented for evaluation and recommendations as pertains to management. Non-invasive lower extremity arterial study was performed on December 13, 2016, which was normal. Arterial insufficiency of the lower extremities is not suspected. Patient has shown significant improvement over the last several weeks with expectant observation. The size of the underlying hematoma appears to have diminished significantly, and dimensions are documented elsewhere. Erythema has resolved. The overlying skin remains intact, and does not appear to be compromised in any way at this time. Additionally, the patient recently fell while on her treadmill. She sustained an abrasion on the right anterior tibial surface, for which she presented for evaluation. Since initially evaluated, the abrasion has unroofed, and the patient developed a deep open tunneled wound on the right anterior tibial surface. The open wound on the right anterior tibial surface has diminished in size, decreased in depth, and the tunneling has resolved. Past Medical History Past Medical History: Chronic Problems History of biliary stent insertion (Chronic) S/P ORIF (open reduction internal fixation) fracture (Chronic) left hip, 05/01/15,. [facility] [place], Dr Antonio Depression (Chronic) Anemia (Chronic) GERD (gastroesophageal reflux disease) (Chronic) Osteoarthritis (Chronic) Surgical History: - - Patient is undergone open reduction and internal fixation of a left hip fracture in April 2015. She has undergone 2 C-sections in the past. Laparoscopic cholecystectomy was performed in March 2017. Allergies/Adverse Reactions: Allergies erythromycin base Adverse Reaction (Verified 04/23/17 10:19) Upset Stomach meperidine HCl [From Demerol] Adverse Reaction (Verified 04/23/17 10:19) HALLUCINATIONS Home Medications: Ambulatory Orders Medication Instructions Recorded Calcium Carbonate/Vitamin D3 1 each PO BID 05/05/15 [Calcium 600-Vit D3 800 Caplet] buPROPion tablets [Wellbutrin 150 mg PO BID 05/05/15 tablets] Albuterol IH (ProAir) [Proair Hfa] 1 - 2 puff INHALATION Q6H PRN PRN 11/19/16 Alendronate Sodium [Fosamax] 70 mg PO VIDES 11/19/16 Lorazepam [Ativan] 0.5 mg PO DAILY PRN 11/19/16 Polyethylene Glycol 3350 [Miralax] 17 gm PO DAILY PRN PRN 01/13/17 Omeprazole [Prilosec] 20 mg PO DAILY PRN PRN 03/03/17 Turmeric/Turmeric Root Extract 1,000 mg PO BID 03/03/17 [Turmeric 500 mg Capsule] Fluticasone 0.05% [Flonase Nasal 1 spray NASAL DAILY PRN 03/12/17 [place]] - Family History Maternal - - Patient's father at the age of 75 with a history of chronic obstructive pulmonary disease. Patient's mother at age of 70 with a history of diabetes mellitus and breast cancer. She of sepsis from a urinary tract infection. Smoking Status: Never smoker Tobacco Use: Non-smoker Review of Systems Constitutional: Denies: Chills, Fever, Weight Change Eyes: Denies: Pain, Vision Change HEENT: Denies: Difficulty Hearing, Difficulty Swallowing, Sinus Congestion Cardiovascular: Denies: Chest Pain, Palpitations Respiratory: Denies: Cough, Shortness of Breath Gastrointestinal: Denies: Diarrhea, Nausea, Vomiting Genitourinary: Denies: Dysuria, Hematuria Endocrine: Denies: Heat/ Cold Intolerance, Polydipsia, Polyuria Hematologic/ Lymphatic: Denies: Easy Bruising, Easy Bleeding - Physical Exam Vital Signs Temp Pulse Resp BP 95.7 F L 85 18 140/87 H 01/27/18 14:44 01/27/18 14:44 01/27/18 14:44 01/27/18 14:44 General: Alert, Oriented x3, Cooperative, No apparent distress, Well developed, Well nourished HEENT: Atraumatic, PERRLA, EOMI, Normocephalic Oral: Moist Mucosa Neck: No JVD Lungs: Normal air movement Abdomen: Non-Distended Extremities: No clubbing, No cyanosis, No edema, No Calf Tenderness, - - The open wound on the right anterior tibial surface continues to diminish in size. It is quite superficial. Dimensions are documented elsewhere. The base of the wound is pink and healthy in appearance. There is a small amount of bioburden. There is no sign of infection or cellulitis. Skin: No rashes Wound Measurements and Assessment WC - Nurse 1 - General Ulcer Measurement Start: 01/20/18 16:09 Freq: Status: Active Protocol: Activity Type Activity Date Activity User E-Sign Co-Sign Detail Recorded Client Recorded Date Recorded By Document 01/27/18 14:44 [id number] 01/27/18 14:46 01/27/18 14:44 Wound Center Nurse 1 [Ulcer Assessment] #[address]-TRAUMA -Combined with other wound No -Current Size (cm) - Length 1.8 -Current Size (cm) - Width 0.4 -Current Size (cm) - Depth 0.1 -Total Square Cm 0.72 -Photo Taken No -Epithelialization Large 67-100% -Tunneling No -Undermining/Tunneling No -Circular Undermining No -Exudate Amt Small (1-33%) -Exudate Type Serosanguineous -Wound Margin Flat & Intact -Granulation Amt Large (67-100%) -Granulation Quality Red -Slough/Fibrin Yes -Necrosis Amt Small (1-33%) -Necrotic Tissue Type Adherent Slough -Structure Exposed N/A -Texture (Griselda-wound Skin Appearance) Assessed Localized Edema Scarring -Moisture (Griselda-wound Skin Appearance Assessed ) Dry/Scaly -Color (Griselda-wound Skin Appearance) Assessed -Temperature (Griselda-wound Skin No Abnormality Appearance) (Pt Warm) -Tenderness on Palpation (Griselda-wound No Skin Appearance) -Ulcer Cleansing Rinsed/ Irrigated with Saline -Foul Odor after Cleansing No -Anesthetic Used 4% Lidocaine Solution [Edema Assessment] -Lower Limb Edema Present Yes -Right Calf (cm) 33.7 -Right Ankle (cm) 19.6 -Left Calf (cm) 31.6 -Left Ankle (cm) 21.3 Neurological: Cranial nerves II-XII grossly intact, Neuro grossly intact Psych/Mental Status: Normal Affect, Appropriate, Alert and oriented to time, place, person, mood and affect Debridement Note Post-Debridement Measurements/Treatment WC - Nurse 2 - General Ulcer CM Notes Start: 01/20/18 16:09 Freq: Status: Active Protocol: Activity Type Activity Date Activity User E-Sign Co-Sign Detail Recorded Client Recorded Date Recorded By Document 01/20/18 16:17 MELIDA [id number] 01/20/18 16:23 MELIDA 01/20/18 16:17 Wound Center Nurse 2 #[address]-TRAUMA -Time 16:17 -Correct Patient Yes -Correct Side, Site, Position Yes -Correct Procedure Yes -Procedure Performed Yes -Type of Procedure Debridement -Clinical Debridement Subcutaneous -Post Debridement Size (cm) - Length 1.9 -Post Debridement Size (cm) - Width 0.9 -Post Debridement Size (cm) - Depth 0.2 -Total Square Cm 1.71 -Wound/Ulcer Outcome Not Healed -Ulcer Cleansing Rinsed/ Irrigated with Saline -Foul Odor after Cleansing No -Bioengineered Tissue No -Topical Lidocaine (%) 5 -Bleeding Controlled with NA -Treatment Response Procedure Tolerated Well Pain Scale: 0-10 Numeric Is Patient Pain Free? Yes Laterality: Right - Anterior tibial surface Type of Debridement: Excisional debridement Anesthesia Used: 4% Lidocaine Solution Depth: Down to and including healthy tissue, in the subcutaneous layer Percentage of wound debrided: 100 Instrument Used: 5mm curette Severity: Fat Layer Exposed Amount of bleeding with debridement: Mild Bleeding Controlled with: Compression and gauze Patient tolerated procedure well Assessment/Plan Active Problems Contusion of right leg (Acute) Subcutaneous hematoma (Acute) Pain in right leg (Acute) Abrasion of leg, right (Acute) Traumatic open wound of right lower leg (Acute) Contusion of leg, right (Acute) Wound, open, leg (Acute) Wound of right leg (Acute) Assessment: This is a 72-year-old generally healthy female who fell on a slippery floor weeks ago, sustaining trauma inferior to the right knee. As result, the patient had an underlying subcutaneous hematoma. There was no open wound or drainage. There was no obvious sign of infection. There has been significant improvement, and the area is no longer of any concern. Patient now has an open wound on the right anterior tibial surface, which resulted from a recent fall while using her treadmill. This traumatic open wound has shown significant improvement in recent weeks. Plan: With respect to the patient's most recent wound, on the right anterior tibial surface, the result of a treadmill injury, we are to transition to the use of collagen hydrogel topically on a daily basis. The wound is now superficial. Continued healing by secondary intention is anticipated. The subcutaneous hematoma just inferior to the right knee is no longer of any consequence, and the area is now completely healed and normalized in appearance. The patient is to return in 1 week for reassessment. Patient is not a smoker. Influenza vaccine was not administered today. Patient weighs 130 pounds. She stands 5 feet 1 inches tall. Her BMI is 24.6, which is normal.
[2018-02-03 15:26] VITALS: BP 135/68; PULSE 75; RESP 18; TEMP 36.2
--- NOTE | 2018-02-03 16:56 | PCM.WC.HP ---
(1) Contusion of right leg Status: Acute Current Visit: Yes Qualifiers: Encounter type: subsequent encounter Code(s): S80.11XA - Contusion of right lower leg, initial encounter (2) Subcutaneous hematoma Status: Acute Current Visit: Yes Code(s): T14.8XXA - Other injury of unspecified body region, initial encounter (3) Pain in right leg Status: Acute Current Visit: Yes Code(s): M79.604 - Pain in right leg (4) Abrasion of leg, right Status: Acute Current Visit: Yes Qualifiers: Encounter type: subsequent encounter Qualified Code(s): S80.811D - Abrasion, right lower leg, subsequent encounter Code(s): S80.811A - Abrasion, right lower leg, initial encounter (5) Traumatic open wound of right lower leg Status: Acute Current Visit: Yes Qualifiers: Encounter type: subsequent encounter Code(s): S81.801A - Unspecified open wound, right lower leg, initial encounter (6) History of biliary stent insertion Status: Chronic Current Visit: No Code(s): Z98.890 - Other specified postprocedural states (7) S/P ORIF (open reduction internal fixation) fracture Status: Chronic Current Visit: No Code(s): Z96.7 - Presence of other bone and tendon implants; Z87.81 - Personal history of (healed) traumatic fracture Comment: left hip, 05/01/15,. [facility], Dr Antonio (8) Depression Status: Chronic Current Visit: No Code(s): F32.9 - Major depressive disorder, single episode, unspecified (9) Anemia Status: Chronic Current Visit: No Code(s): D64.9 - Anemia, unspecified (10) Pain In Right Leg Status: Acute Current Visit: No Code(s): M79.604 - Pain in right leg (11) GERD (gastroesophageal reflux disease) Status: Chronic Current Visit: No Code(s): K21.9 - Gastro-esophageal reflux disease without esophagitis (12) Osteoarthritis Status: Chronic Current Visit: No Code(s): M19.90 - Unspecified osteoarthritis, unspecified site (13) Hematoma of leg Status: Acute Current Visit: No Qualifiers: Encounter type: subsequent encounter Laterality: right Qualified Code(s): S80.11XD - Contusion of right lower leg, subsequent encounter Code(s): S80.10XA - Contusion of unspecified lower leg, initial encounter (14) Contusion of leg, right Status: Acute Current Visit: Yes Qualifiers: Encounter type: subsequent encounter Code(s): S80.11XA - Contusion of right lower leg, initial encounter (15) Wound, open, leg Status: Acute Current Visit: Yes Qualifiers: Encounter type: subsequent encounter Laterality: right Qualified Code(s): S81.801D - Unspecified open wound, right lower leg, subsequent encounter Code(s): S81.809A - Unspecified open wound, unspecified lower leg, initial encounter (16) Wound of right leg Status: Acute Current Visit: Yes Qualifiers: Encounter type: subsequent encounter Qualified Code(s): S81.801D - Unspecified open wound, right lower leg, subsequent encounter Code(s): S81.801A - Unspecified open wound, right lower leg, initial encounter (17) Acute cholecystitis Status: Acute Current Visit: No Code(s): K81.0 - Acute cholecystitis (18) Open wound of left lower leg Status: Acute Current Visit: Yes Qualifiers: Encounter type: initial encounter Qualified Code(s): S81.802A - Unspecified open wound, left lower leg, initial encounter Code(s): S81.802A - Unspecified open wound, left lower leg, initial encounter History of Present Illness Date of Service: 02/03/18 Chief Complaint: Contusion and subcutaneous hematoma of the right knee; traumatic open wound of the right anterior tibial surface. History of Wound: This is a 72-year-old female who fell on a slippery floor at home on November 14, 2017. She traumatized the area immediately inferior to her right knee. As result, a subcutaneous hematoma formed, with some overlying ecchymosis and slight erythema. She had been treated by her primary care physician, Dr. Wooten, who administered 2 injections of Rocephin, and placed the patient on a 10 day course of Cefdinir. She had some mild associated discomfort. She presented for evaluation and recommendations as pertains to management. Non-invasive lower extremity arterial study was performed on December 13, 2016, which was normal. Arterial insufficiency of the lower extremities is not suspected. Patient has shown significant improvement over the last several weeks with expectant observation. The size of the underlying hematoma appears to have diminished significantly, and dimensions are documented elsewhere. Erythema has resolved. The overlying skin remains intact, and does not appear to be compromised in any way at this time. Additionally, the patient recently fell while on her treadmill. She sustained an abrasion on the right anterior tibial surface, for which she presented for evaluation. Since initially evaluated, the abrasion has unroofed, and the patient developed a deep open tunneled wound on the right anterior tibial surface. The open wound on the right anterior tibial surface has diminished in size, decreased in depth, and the tunneling has resolved. The right anterior tibial wound has continued to decrease in size quite nicely, and is now nearly completely healed. Since the patient's last visit a week ago, a traumatic wound on the left anterior tibial surface, sustained at the time of her treadmill incident, is now unroofed and is now manifest as an open wound. Past Medical History Past Medical History: Chronic Problems History of biliary stent insertion (Chronic) S/P ORIF (open reduction internal fixation) fracture (Chronic) left hip, 05/01/15,. [facility], Dr Antonio Depression (Chronic) Anemia (Chronic) GERD (gastroesophageal reflux disease) (Chronic) Osteoarthritis (Chronic) Surgical History: - - Patient is undergone open reduction and internal fixation of a left hip fracture in April 2015. She has undergone 2 C-sections in the past. Laparoscopic cholecystectomy was performed in March 2017. Allergies/Adverse Reactions: Allergies erythromycin base Adverse Reaction (Verified 04/23/17 10:19) Upset Stomach meperidine HCl [From Demerol] Adverse Reaction (Verified 04/23/17 10:19) HALLUCINATIONS Home Medications: Ambulatory Orders Medication Instructions Recorded Calcium Carbonate/Vitamin D3 1 each PO BID 05/05/15 [Calcium 600-Vit D3 800 Caplet] buPROPion tablets [Wellbutrin 150 mg PO BID 05/05/15 tablets] Albuterol IH (ProAir) [Proair Hfa] 1 - 2 puff INHALATION Q6H PRN PRN 11/19/16 Alendronate Sodium [Fosamax] 70 mg PO VIDES 11/19/16 Lorazepam [Ativan] 0.5 mg PO DAILY PRN 11/19/16 Polyethylene Glycol 3350 [Miralax] 17 gm PO DAILY PRN PRN 01/13/17 Omeprazole [Prilosec] 20 mg PO DAILY PRN PRN 03/03/17 Turmeric/Turmeric Root Extract 1,000 mg PO BID 03/03/17 [Turmeric 500 mg Capsule] Fluticasone 0.05% [Flonase Nasal 1 spray NASAL DAILY PRN 03/12/17 [place]] - Family History Maternal - - Patient's father at the age of 75 with a history of chronic obstructive pulmonary disease. Patient's mother at age of 70 with a history of diabetes mellitus and breast cancer. She of sepsis from a urinary tract infection. Smoking Status: Never smoker Tobacco Use: Non-smoker Review of Systems Constitutional: Denies: Chills, Fever, Weight Change Eyes: Denies: Pain, Vision Change HEENT: Denies: Difficulty Hearing, Difficulty Swallowing, Sinus Congestion Cardiovascular: Denies: Chest Pain, Palpitations Respiratory: Denies: Cough, Shortness of Breath Gastrointestinal: Denies: Diarrhea, Nausea, Vomiting Genitourinary: Denies: Dysuria, Hematuria Endocrine: Denies: Heat/ Cold Intolerance, Polydipsia, Polyuria Hematologic/ Lymphatic: Denies: Easy Bruising, Easy Bleeding - Physical Exam Vital Signs Temp Pulse Resp BP 97.1 F L 75 18 135/68 H 02/03/18 15:26 02/03/18 15:26 02/03/18 15:26 02/03/18 15:26 General: Alert, Oriented x3, Cooperative, No apparent distress, Well developed, Well nourished HEENT: Atraumatic, PERRLA, EOMI, Normocephalic Oral: Moist Mucosa Neck: No JVD Lungs: Normal air movement Abdomen: Non-Distended Extremities: No clubbing, No cyanosis, No edema, No Calf Tenderness, - - The traumatic wound on the right anterior tibial surface has decreased significantly in size. There is evidence of peripheral epithelialization. The base of the wound is pink and healthy, with active granulation tissue. Dimensions are documented elsewhere. There is no sign of infection or cellulitis. The traumatic injury on the left anterior tibial surface is now unroofed, and has manifest as an open wound. It is related to the treadmill incident which caused the wound on the right lower extremity. There is evidence of nonviable and necrotic tissue related to the left lower extremity wound. Dimensions are documented elsewhere. The base of the wound is generally pink and healthy. There is no sign of infection or cellulitis. Skin: No rashes Wound Measurements and Assessment WC - Nurse 1 - General Ulcer Measurement Start: 01/20/18 16:09 Freq: Status: Active Protocol: Activity Type Activity Date Activity User E-Sign Co-Sign Detail Recorded Client Recorded Date Recorded By Document 02/03/18 15:26 [id number] 02/03/18 15:37 02/03/18 15:26 Wound Center Nurse 1 [Ulcer Assessment] 4-left ortiz -Combined with other wound No -Current Size (cm) - Length 1.2 -Current Size (cm) - Width 1.2 -Current Size (cm) - Depth 0.1 -Total Square Cm 1.44 -Photo Taken Yes -Epithelialization Small 1-33% -Tunneling No -Undermining/Tunneling No -Circular Undermining No -Classification - Thickness Full Thickness without Exposed Support Structure -Exudate Amt Small (1-33%) -Exudate Type Serosanguineous -Wound Margin Flat & Intact -Granulation Amt Small (1-33%) -Granulation Quality [place] -Slough/Fibrin Yes -Necrosis Amt Large (67-100%) -Necrotic Tissue Type Adherent Slough -Structure Exposed N/A -Texture (Griselda-wound Skin Appearance) Assessed Localized Edema -Moisture (Griselda-wound Skin Appearance Assessed ) Dry/Scaly -Color (Griselda-wound Skin Appearance) Assessed -Temperature (Griselda-wound Skin No Abnormality Appearance) (Pt Warm) -Tenderness on Palpation (Griselda-wound No Skin Appearance) -Ulcer Cleansing Rinsed/ Irrigated with Saline -Foul Odor after Cleansing No -Anesthetic Used 4% Lidocaine Solution #[address]-TRAUMA -Combined with other wound No -Current Size (cm) - Length 1.3 -Current Size (cm) - Width 0.4 -Current Size (cm) - Depth 0.1 -Total Square Cm 0.52 -Photo Taken No -Epithelialization Medium 34-66% -Tunneling No -Undermining/Tunneling No -Circular Undermining No -Exudate Amt Small (1-33%) -Exudate Type Serosanguineous -Wound Margin Flat & Intact -Granulation Amt Large (67-100%) -Granulation Quality [place] -Slough/Fibrin Yes -Necrosis Amt Small (1-33%) -Necrotic Tissue Type Adherent Slough -Structure Exposed N/A -Texture (Griselda-wound Skin Appearance) Assessed Localized Edema Scarring -Moisture (Griselda-wound Skin Appearance Assessed ) Dry/Scaly -Color (Griselda-wound Skin Appearance) Assessed Hemosiderin Staining -Temperature (Griselda-wound Skin No Abnormality Appearance) (Pt Warm) -Tenderness on Palpation (Griselda-wound No Skin Appearance) -Ulcer Cleansing Rinsed/ Irrigated with Saline -Foul Odor after Cleansing No -Anesthetic Used 4% Lidocaine Solution [Edema Assessment] -Lower Limb Edema Present Yes -Right Calf (cm) 33.7 -Right Ankle (cm) 20.2 -Left Calf (cm) 32.5 -Left Ankle (cm) 19.7 WC - Nurse 2 - General Ulcer CM Notes Start: 01/20/18 16:09 Freq: Status: Active Protocol: Activity Type Activity Date Activity User E-Sign Co-Sign Detail Recorded Client Recorded Date Recorded By Document 02/03/18 16:31 DV [id number] 02/03/18 16:39 DV 02/03/18 16:31 Wound Center Nurse 2 [Procedure/Treatment] 4-left ortiz -Time 16:38 -Correct Patient Yes -Correct Side, Site, Position Yes -Correct Procedure Yes -Procedure Performed Yes -Type of Procedure Debridement -Clinical Debridement Subcutaneous -Post Debridement Size (cm) - Length 2.0 -Post Debridement Size (cm) - Width 1.0 -Post Debridement Size (cm) - Depth 0.2 -Total Square Cm 2.00 -Wound/Ulcer Outcome Not Healed -Ulcer Cleansing Rinsed/ Irrigated with Saline -Foul Odor after Cleansing No -Bioengineered Tissue No -Bleeding Controlled with Pressure -Treatment Response Procedure Tolerated Well #[address]-TRAUMA -Time 16:38 -Correct Patient Yes -Correct Side, Site, Position Yes -Correct Procedure Yes -Procedure Performed Yes -Type of Procedure Debridement -Clinical Debridement Subcutaneous -Post Debridement Size (cm) - Length 0.7 -Post Debridement Size (cm) - Width 0.2 -Post Debridement Size (cm) - Depth 0.1 -Total Square Cm 0.14 -Wound/Ulcer Outcome Not Healed -Ulcer Cleansing Rinsed/ Irrigated with Saline -Foul Odor after Cleansing No -Bioengineered Tissue No -Bleeding Controlled with Pressure -Treatment Response Procedure Tolerated Well [See Physician Procedure note for Specifics] Pain Scale: 0-10 Numeric [Pain] -Is Patient Pain Free? Yes Musculoskeletal: No Muscle Wasting Neurological: Cranial nerves II-XII grossly intact, Neuro grossly intact Psych/Mental Status: Normal Affect, Appropriate, Alert and oriented to time, place, person, mood and affect Debridement Note Post-Debridement Measurements/Treatment WC - Nurse 2 - General Ulcer CM Notes Start: 01/20/18 16:09 Freq: Status: Active Protocol: Activity Type Activity Date Activity User E-Sign Co-Sign Detail Recorded Client Recorded Date Recorded By Document 01/20/18 16:17 [id number] 01/20/18 16:23 JS Document 01/27/18 15:22 JS [id number] 01/27/18 15:30 JS Document 02/03/18 16:31 DV [id number] 02/03/18 16:39 DV 01/20/18 01/27/18 02/03/18 16:17 15:22 16:31 Wound Center Nurse 2 4-left ortiz -Time 16:38 -Correct Patient Yes -Correct Side, Site, Position Yes -Correct Procedure Yes -Procedure Performed Yes -Type of Procedure Debridement -Clinical Debridement Subcutaneous -Post Debridement Size (cm) - Length 2.0 -Post Debridement Size (cm) - Width 1.0 -Post Debridement Size (cm) - Depth 0.2 -Total Square Cm 2.00 -Wound/Ulcer Outcome Not Healed -Ulcer Cleansing Rinsed/ Irrigated with Saline -Foul Odor after Cleansing No -Bioengineered Tissue No -Bleeding Controlled with Pressure -Treatment Response Procedure Tolerated Well #[address]-TRAUMA -Time 16:17 15:22 16:38 -Correct Patient Yes Yes Yes -Correct Side, Site, Position Yes Yes Yes -Correct Procedure Yes Yes Yes -Procedure Performed Yes Yes Yes -Type of Procedure Debridement Debridement Debridement -Clinical Debridement Subcutaneous Subcutaneous Subcutaneous -Post Debridement Size (cm) - Length 1.9 1.6 0.7 -Post Debridement Size (cm) - Width 0.9 0.7 0.2 -Post Debridement Size (cm) - Depth 0.2 0.1 0.1 -Total Square Cm 1.71 1.12 0.14 -Wound/Ulcer Outcome Not Healed Not Healed Not Healed -Ulcer Cleansing Rinsed/ Rinsed/ Rinsed/ Irrigated with Irrigated with Irrigated with Saline Saline Saline -Foul Odor after Cleansing No No No -Bioengineered Tissue No No No -Topical Lidocaine (%) 5 4 -Lidocaine (ml) 5 -Bleeding Controlled with NA Pressure Pressure -Treatment Response Procedure Procedure Procedure Tolerated Well Tolerated Well Tolerated Well Pain Scale: 0-10 Numeric Is Patient Pain Free? Yes Yes Yes Laterality: Right - Anterior tibial surface Type of Debridement: Excisional debridement Anesthesia Used: 4% Lidocaine Solution Depth: Down to and including healthy tissue, in the subcutaneous layer Percentage of wound debrided: 100 Instrument Used: 5mm curette Severity: Fat Layer Exposed Amount of bleeding with debridement: Mild Bleeding Controlled with: Compression and gauze Patient tolerated procedure well - Additional Wound Laterality: Left - Anterior tibial surface Type of Debridement: Excisional debridement Anesthesia Used: 4% Lidocaine Solution Depth: Down to and including healthy tissue, in the subcutaneous layer Percentage of wound debrided: 100 Instrument Used: 5mm curette Severity: Fat Layer Exposed Amount of bleeding with debridement: Mild Bleeding Controlled with: Compression and gauze Patient tolerated procedure: Patient tolerated procedure well Assessment/Plan Active Problems Contusion of right leg (Acute) Subcutaneous hematoma (Acute) Pain in right leg (Acute) Abrasion of leg, right (Acute) Traumatic open wound of right lower leg (Acute) Open wound of left lower leg (Acute) Contusion of leg, right (Acute) Wound, open, leg (Acute) Wound of right leg (Acute) Assessment: This is a 72-year-old generally healthy female who fell on a slippery floor weeks ago, sustaining trauma inferior to the right knee. As result, the patient had an underlying subcutaneous hematoma. There was no open wound or drainage. There was no obvious sign of infection. There has been significant improvement, and the area is no longer of any concern. Patient now has an open wound on the right anterior tibial surface, which resulted from a recent fall while using her treadmill. This traumatic open wound has shown significant improvement in recent weeks. Upon the patient's presentation today, the traumatized area on the left anterior tibial surface is now opened, and is manifesting as an open wound. Both lower extremity wounds have been debrided today. Plan: With respect to the patient's most recent wounds, on the right anterior tibial surface and the left anterior tibial surface, the result of a treadmill injury, we are to continue with the use of collagen hydrogel topically on a daily basis. The wounds are superficial. Continued healing by secondary intention is anticipated. The subcutaneous hematoma just inferior to the right knee is no longer of any consequence, and the area is now completely healed and normalized in appearance. The patient is to return in 1 week for reassessment. Patient is not a smoker. Influenza vaccine was not administered today. Patient weighs 130 pounds. She stands 5 feet 1 inches tall. Her BMI is 24.6, which is normal.
--- NOTE | 2018-02-03 17:05 | HP.PCM_ITS ---
(1) Contusion of right leg Status: Acute Current Visit: Yes Qualifiers: Encounter type: subsequent encounter Code(s): S80.11XA - Contusion of right lower leg, initial encounter (2) Subcutaneous hematoma Status: Acute Current Visit: Yes Code(s): T14.8XXA - Other injury of unspecified body region, initial encounter (3) Pain in right leg Status: Acute Current Visit: Yes Code(s): M79.604 - Pain in right leg (4) Abrasion of leg, right Status: Acute Current Visit: Yes Qualifiers: Encounter type: subsequent encounter Qualified Code(s): S80.811D - Abrasion , right lower leg, subsequent encounter Code(s): S80.811A - Abrasion, right lower leg, initial encounter (5) Traumatic open wound of right lower leg Status: Acute Current Visit: Yes Qualifiers: Encounter type: subsequent encounter Code(s): S81.801A - Unspecified open wound, right lower leg, initial encounter (6) History of biliary stent insertion Status: Chronic Current Visit: No Code(s): Z98.890 - Other specified postprocedural states (7) S/P ORIF (open reduction internal fixation) fracture Status: Chronic Current Visit: No Code(s): Z96.7 - Presence of other bone and tendon implants; Z87.81 - Personal history of (healed) traumatic fracture Comment: left hip, 05/01/15,. [facility], Dr Antonio (8) Depression Status: Chronic Current Visit: No Code(s): F32.9 - Major depressive disorder , single episode, unspecified (9) Anemia Status: Chronic Current Visit: No Code(s): D64.9 - Anemia, unspecified (10) Pain In Right Leg Status: Acute Current Visit: No Code(s): M79.604 - Pain in right leg (11) GERD (gastroesophageal reflux disease) Status: Chronic Current Visit: No Code(s): K21.9 - Gastro-esophageal reflux disease without esophagitis (12) Osteoarthritis Status: Chronic Current Visit: No Code(s): M19.90 - Unspecified osteoarthritis, unspecified site (13) Hematoma of leg Status: Acute Current Visit: No Qualifiers: Encounter type: subsequent encounter Laterality: right Qualified Code(s) : S80.11XD - Contusion of right lower leg, subsequent encounter Code(s): S80.10XA - Contusion of unspecified lower leg, initial encounter (14) Contusion of leg, right Status: Acute Current Visit: Yes Qualifiers: Encounter type: subsequent encounter Code(s): S80.11XA - Contusion of right lower leg, initial encounter (15) Wound, open, leg Status: Acute Current Visit: Yes Qualifiers: Encounter type: subsequent encounter Laterality: right Qualified Code(s) : S81.801D - Unspecified open wound, right lower leg, subsequent encounter Code(s): S81.809A - Unspecified open wound, unspecified lower leg, initial encounter (16) Wound of right leg Status: Acute Current Visit: Yes Qualifiers: Encounter type: subsequent encounter Qualified Code(s): S81.801D - Unspecified open wound, right lower leg, subsequent encounter Code(s): S81.801A - Unspecified open wound, right lower leg, initial encounter (17) Acute cholecystitis Status: Acute Current Visit: No Code(s): K81.0 - Acute cholecystitis (18) Open wound of left lower leg Status: Acute Current Visit: Yes Qualifiers: Encounter type: initial encounter Qualified Code(s): S81.802A - Unspecified open wound, left lower leg, initial encounter Code(s): S81.802A - Unspecified open wound, left lower leg, initial encounter History of Present Illness Date of Service: 02/03/18 Chief Complaint: Contusion and subcutaneous hematoma of the right knee; traumatic open wound of the right anterior tibial surface. History of Wound: This is a 72-year-old female who fell on a slippery floor at home on November 14, 2017. She traumatized the area immediately inferior to her right knee. As result, a subcutaneous hematoma formed, with some overlying ecchymosis and slight erythema. She had been treated by her primary care physician, Dr. Wooten, who administered 2 injections of Rocephin, and placed the patient on a 10 day course of Cefdinir. She had some mild associated discomfort. She presented for evaluation and recommendations as pertains to management. Non-invasive lower extremity arterial study was performed on December 13, 2016, which was normal. Arterial insufficiency of the lower extremities is not suspected. Patient has shown significant improvement over the last several weeks with expectant observation. The size of the underlying hematoma appears to have diminished significantly, and dimensions are documented elsewhere. Erythema has resolved. The overlying skin remains intact, and does not appear to be compromised in any way at this time. Additionally, the patient recently fell while on her treadmill. She sustained an abrasion on the right anterior tibial surface, for which she presented for evaluation. Since initially evaluated, the abrasion has unroofed, and the patient developed a deep open tunneled wound on the right anterior tibial surface. The open wound on the right anterior tibial surface has diminished in size, decreased in depth, and the tunneling has resolved. The right anterior tibial wound has continued to decrease in size quite nicely, and is now nearly completely healed. Since the patient's last visit a week ago, a traumatic wound on the left anterior tibial surface, sustained at the time of her treadmill incident, is now unroofed and is now manifest as an open wound. Past Medical History Past Medical History: Chronic Problems History of biliary stent insertion (Chronic) S/P ORIF (open reduction internal fixation) fracture (Chronic) left hip, 05/01/15,. [facility], Dr Antonio Depression (Chronic) Anemia (Chronic) GERD (gastroesophageal reflux disease) (Chronic) Osteoarthritis (Chronic) Surgical History: - - Patient is undergone open reduction and internal fixation of a left hip fracture in April 2015. She has undergone 2 C-sections in the past. Laparoscopic cholecystectomy was performed in March 2017. Allergies/Adverse Reactions: Allergies erythromycin base Adverse Reaction (Verified 04/23/17 10:19) Upset Stomach meperidine HCl [From Demerol] Adverse Reaction (Verified 04/23/17 10:19) HALLUCINATIONS Home Medications: Ambulatory Orders Medication Instructions Recorded Calcium Carbonate/Vitamin D3 1 each PO BID 05/05/15 [Calcium 600-Vit D3 800 Caplet] buPROPion tablets [Wellbutrin 150 mg PO BID 05/05/15 tablets] Albuterol IH (ProAir) [Proair Hfa] 1 - 2 puff INHALATION Q6H PRN PRN 11/19/16 Alendronate Sodium [Fosamax] 70 mg PO VIDES 11/19/16 Lorazepam [Ativan] 0.5 mg PO DAILY PRN 11/19/16 Polyethylene Glycol 3350 [Miralax] 17 gm PO DAILY PRN PRN 01/13/17 Omeprazole [Prilosec] 20 mg PO DAILY PRN PRN 03/03/17 Turmeric/Turmeric Root Extract 1,000 mg PO BID 03/03/17 [Turmeric 500 mg Capsule] Fluticasone 0.05% [Flonase Nasal 1 spray NASAL DAILY PRN 03/12/17 [place]] - Family History Maternal - - Patient's father at the age of 75 with a history of chronic obstructive pulmonary disease. Patient's mother at age of 70 with a history of diabetes mellitus and breast cancer. She of sepsis from a urinary tract infection. Smoking Status: Never smoker Tobacco Use: Non-smoker Review of Systems Constitutional: Denies: Chills, Fever, Weight Change Eyes: Denies: Pain, Vision Change HEENT: Denies: Difficulty Hearing, Difficulty Swallowing, Sinus Congestion Cardiovascular: Denies: Chest Pain, Palpitations Respiratory: Denies: Cough, Shortness of Breath Gastrointestinal: Denies: Diarrhea, Nausea, Vomiting Genitourinary: Denies: Dysuria, Hematuria Endocrine: Denies: Heat/ Cold Intolerance, Polydipsia, Polyuria Hematologic/ Lymphatic: Denies: Easy Bruising, Easy Bleeding - Physical Exam Vital Signs Temp Pulse Resp BP 97.1 F L 75 18 135/68 H 02/03/18 15:26 02/03/18 15:26 02/03/18 15:26 02/03/18 15:26 General: Alert, Oriented x3, Cooperative, No apparent distress, Well developed, Well nourished HEENT: Atraumatic, PERRLA, EOMI, Normocephalic Oral: Moist Mucosa Neck: No JVD Lungs: Normal air movement Abdomen: Non-Distended Extremities: No clubbing, No cyanosis, No edema, No Calf Tenderness, - - The traumatic wound on the right anterior tibial surface has decreased significantly in size. There is evidence of peripheral epithelialization. The base of the wound is pink and healthy, with active granulation tissue. Dimensions are documented elsewhere. There is no sign of infection or cellulitis. The traumatic injury on the left anterior tibial surface is now unroofed, and has manifest as an open wound. It is related to the treadmill incident which caused the wound on the right lower extremity. There is evidence of nonviable and necrotic tissue related to the left lower extremity wound. Dimensions are documented elsewhere. The base of the wound is generally pink and healthy. There is no sign of infection or cellulitis. Skin: No rashes Wound Measurements and Assessment WC - Nurse 1 - General Ulcer Measurement Start: 01/20/18 16:09 Freq: Status: Active Protocol: Activity Type Activity Date Activity User E-Sign Co-Sign Detail Recorded Client Recorded Date Recorded By Document 02/03/18 15:26 [id number] 02/03/18 15:37 02/03/18 15:26 Wound Center Nurse 1 [Ulcer Assessment] 4-left ortiz -Combined with other wound No -Current Size (cm) - Length 1.2 -Current Size (cm) - Width 1.2 -Current Size (cm) - Depth 0.1 -Total Square Cm 1.44 -Photo Taken Yes -Epithelialization Small 1-33% -Tunneling No -Undermining/Tunneling No -Circular Undermining No -Classification - Thickness Full Thickness without Exposed Support Structure -Exudate Amt Small (1-33%) -Exudate Type Serosanguineous -Wound Margin Flat & Intact -Granulation Amt Small (1-33%) -Granulation Quality [place] -Slough/Fibrin Yes -Necrosis Amt Large (67-100%) -Necrotic Tissue Type Adherent Slough -Structure Exposed N/A -Texture (Griselda-wound Skin Appearance) Assessed Localized Edema -Moisture (Griselda-wound Skin Appearance Assessed ) Dry/Scaly -Color (Griselda-wound Skin Appearance) Assessed -Temperature (Griselda-wound Skin No Abnormality Appearance) (Pt Warm) -Tenderness on Palpation (Griselda-wound No Skin Appearance) -Ulcer Cleansing Rinsed/ Irrigated with Saline -Foul Odor after Cleansing No -Anesthetic Used 4% Lidocaine Solution #[address]-TRAUMA -Combined with other wound No -Current Size (cm) - Length 1.3 -Current Size (cm) - Width 0.4 -Current Size (cm) - Depth 0.1 -Total Square Cm 0.52 -Photo Taken No -Epithelialization Medium 34-66% -Tunneling No -Undermining/Tunneling No -Circular Undermining No -Exudate Amt Small (1-33%) -Exudate Type Serosanguineous -Wound Margin Flat & Intact -Granulation Amt Large (67-100%) -Granulation Quality [place] -Slough/Fibrin Yes -Necrosis Amt Small (1-33%) -Necrotic Tissue Type Adherent Slough -Structure Exposed N/A -Texture (Griselda-wound Skin Appearance) Assessed Localized Edema Scarring -Moisture (Griselda-wound Skin Appearance Assessed ) Dry/Scaly -Color (Griselda-wound Skin Appearance) Assessed Hemosiderin Staining -Temperature (Griselda-wound Skin No Abnormality Appearance) (Pt Warm) -Tenderness on Palpation (Griselda-wound No Skin Appearance) -Ulcer Cleansing Rinsed/ Irrigated with Saline -Foul Odor after Cleansing No -Anesthetic Used 4% Lidocaine Solution [Edema Assessment] -Lower Limb Edema Present Yes -Right Calf (cm) 33.7 -Right Ankle (cm) 20.2 -Left Calf (cm) 32.5 -Left Ankle (cm) 19.7 WC - Nurse 2 - General Ulcer CM Notes Start: 01/20/18 16:09 Freq: Status: Active Protocol: Activity Type Activity Date Activity User E-Sign Co-Sign Detail Recorded Client Recorded Date Recorded By Document 02/03/18 16:31 DV [id number] 02/03/18 16:39 DV 02/03/18 16:31 Wound Center Nurse 2 [Procedure/Treatment] 4-left ortiz -Time 16:38 -Correct Patient Yes -Correct Side, Site, Position Yes -Correct Procedure Yes -Procedure Performed Yes -Type of Procedure Debridement -Clinical Debridement Subcutaneous -Post Debridement Size (cm) - Length 2.0 -Post Debridement Size (cm) - Width 1.0 -Post Debridement Size (cm) - Depth 0.2 -Total Square Cm 2.00 -Wound/Ulcer Outcome Not Healed -Ulcer Cleansing Rinsed/ Irrigated with Saline -Foul Odor after Cleansing No -Bioengineered Tissue No -Bleeding Controlled with Pressure -Treatment Response Procedure Tolerated Well #[address]-TRAUMA -Time 16:38 -Correct Patient Yes -Correct Side, Site, Position Yes -Correct Procedure Yes -Procedure Performed Yes -Type of Procedure Debridement -Clinical Debridement Subcutaneous -Post Debridement Size (cm) - Length 0.7 -Post Debridement Size (cm) - Width 0.2 -Post Debridement Size (cm) - Depth 0.1 -Total Square Cm 0.14 -Wound/Ulcer Outcome Not Healed -Ulcer Cleansing Rinsed/ Irrigated with Saline -Foul Odor after Cleansing No -Bioengineered Tissue No -Bleeding Controlled with Pressure -Treatment Response Procedure Tolerated Well [See Physician Procedure note for Specifics] Pain Scale: 0-10 Numeric [Pain] -Is Patient Pain Free? Yes Musculoskeletal: No Muscle Wasting Neurological: Cranial nerves II-XII grossly intact, Neuro grossly intact Psych/Mental Status: Normal Affect, Appropriate, Alert and oriented to time, place, person, mood and affect Debridement Note Post-Debridement Measurements/Treatment WC - Nurse 2 - General Ulcer CM Notes Start: 01/20/18 16:09 Freq: Status: Active Protocol: Activity Type Activity Date Activity User E-Sign Co-Sign Detail Recorded Client Recorded Date Recorded By Document 01/20/18 16:17 [id number] 01/20/18 16:23 JS Document 01/27/18 15:22 JS [id number] 01/27/18 15:30 JS Document 02/03/18 16:31 DV [id number] 02/03/18 16:39 DV 01/20/18 01/27/18 02/03/18 16:17 15:22 16:31 Wound Center Nurse 2 4-left ortiz -Time 16:38 -Correct Patient Yes -Correct Side, Site, Position Yes -Correct Procedure Yes -Procedure Performed Yes -Type of Procedure Debridement -Clinical Debridement Subcutaneous -Post Debridement Size (cm) - Length 2.0 -Post Debridement Size (cm) - Width 1.0 -Post Debridement Size (cm) - Depth 0.2 -Total Square Cm 2.00 -Wound/Ulcer Outcome Not Healed -Ulcer Cleansing Rinsed/ Irrigated with Saline -Foul Odor after Cleansing No -Bioengineered Tissue No -Bleeding Controlled with Pressure -Treatment Response Procedure Tolerated Well #[address]-TRAUMA -Time 16:17 15:22 16:38 -Correct Patient Yes Yes Yes -Correct Side, Site, Position Yes Yes Yes -Correct Procedure Yes Yes Yes -Procedure Performed Yes Yes Yes -Type of Procedure Debridement Debridement Debridement -Clinical Debridement Subcutaneous Subcutaneous Subcutaneous -Post Debridement Size (cm) - Length 1.9 1.6 0.7 -Post Debridement Size (cm) - Width 0.9 0.7 0.2 -Post Debridement Size (cm) - Depth 0.2 0.1 0.1 -Total Square Cm 1.71 1.12 0.14 -Wound/Ulcer Outcome Not Healed Not Healed Not Healed -Ulcer Cleansing Rinsed/ Rinsed/ Rinsed/ Irrigated with Irrigated with Irrigated with Saline Saline Saline -Foul Odor after Cleansing No No No -Bioengineered Tissue No No No -Topical Lidocaine (%) 5 4 -Lidocaine (ml) 5 -Bleeding Controlled with NA Pressure Pressure -Treatment Response Procedure Procedure Procedure Tolerated Well Tolerated Well Tolerated Well Pain Scale: 0-10 Numeric Is Patient Pain Free? Yes Yes Yes Laterality: Right - Anterior tibial surface Type of Debridement: Excisional debridement Anesthesia Used: 4% Lidocaine Solution Depth: Down to and including healthy tissue, in the subcutaneous layer Percentage of wound debrided: 100 Instrument Used: 5mm curette Severity: Fat Layer Exposed Amount of bleeding with debridement: Mild Bleeding Controlled with: Compression and gauze Patient tolerated procedure well - Additional Wound Laterality: Left - Anterior tibial surface Type of Debridement: Excisional debridement Anesthesia Used: 4% Lidocaine Solution Depth: Down to and including healthy tissue, in the subcutaneous layer Percentage of wound debrided: 100 Instrument Used: 5mm curette Severity: Fat Layer Exposed Amount of bleeding with debridement: Mild Bleeding Controlled with: Compression and gauze Patient tolerated procedure: Patient tolerated procedure well Assessment/Plan Active Problems Contusion of right leg (Acute) Subcutaneous hematoma (Acute) Pain in right leg (Acute) Abrasion of leg, right (Acute) Traumatic open wound of right lower leg (Acute) Open wound of left lower leg (Acute) Contusion of leg, right (Acute) Wound, open, leg (Acute) Wound of right leg (Acute) Assessment: This is a 72-year-old generally healthy female who fell on a slippery floor weeks ago, sustaining trauma inferior to the right knee. As result, the patient had an underlying subcutaneous hematoma. There was no open wound or drainage. There was no obvious sign of infection. There has been significant improvement, and the area is no longer of any concern. Patient now has an open wound on the right anterior tibial surface, which resulted from a recent fall while using her treadmill. This traumatic open wound has shown significant improvement in recent weeks. Upon the patient's presentation today , the traumatized area on the left anterior tibial surface is now opened, and is manifesting as an open wound. Both lower extremity wounds have been debrided today. Plan: With respect to the patient's most recent wounds, on the right anterior tibial surface and the left anterior tibial surface, the result of a treadmill injury, we are to continue with the use of collagen hydrogel topically on a daily basis. The wounds are superficial. Continued healing by secondary intention is anticipated. The subcutaneous hematoma just inferior to the right knee is no longer of any consequence, and the area is now completely healed and normalized in appearance. The patient is to return in 1 week for reassessment. Patient is not a smoker. Influenza vaccine was not administered today. Patient weighs 130 pounds. She stands 5 feet 1 inches tall. Her BMI is 24.6, which is normal.
[2018-02-10 12:09] VITALS: BP 139/84; PULSE 67; RESP 16; TEMP 36.3
--- NOTE | 2018-02-10 12:38 | PCM.WC.HP ---
(1) Contusion of right leg Status: Acute Current Visit: Yes Qualifiers: Encounter type: subsequent encounter Code(s): S80.11XA - Contusion of right lower leg, initial encounter (2) Subcutaneous hematoma Status: Acute Current Visit: Yes Code(s): T14.8XXA - Other injury of unspecified body region, initial encounter (3) Pain in right leg Status: Acute Current Visit: Yes Code(s): M79.604 - Pain in right leg (4) Abrasion of leg, right Status: Acute Current Visit: Yes Qualifiers: Encounter type: subsequent encounter Qualified Code(s): S80.811D - Abrasion, right lower leg, subsequent encounter Code(s): S80.811A - Abrasion, right lower leg, initial encounter (5) Traumatic open wound of right lower leg Status: Acute Current Visit: Yes Qualifiers: Encounter type: subsequent encounter Code(s): S81.801A - Unspecified open wound, right lower leg, initial encounter (6) History of biliary stent insertion Status: Chronic Current Visit: No Code(s): Z98.890 - Other specified postprocedural states (7) S/P ORIF (open reduction internal fixation) fracture Status: Chronic Current Visit: No Code(s): Z96.7 - Presence of other bone and tendon implants; Z87.81 - Personal history of (healed) traumatic fracture Comment: left hip, 05/01/15,. [facility], Dr Antonio (8) Depression Status: Chronic Current Visit: No Code(s): F32.9 - Major depressive disorder, single episode, unspecified (9) Anemia Status: Chronic Current Visit: No Code(s): D64.9 - Anemia, unspecified (10) Pain In Right Leg Status: Acute Current Visit: No Code(s): M79.604 - Pain in right leg (11) GERD (gastroesophageal reflux disease) Status: Chronic Current Visit: No Code(s): K21.9 - Gastro-esophageal reflux disease without esophagitis (12) Osteoarthritis Status: Chronic Current Visit: No Code(s): M19.90 - Unspecified osteoarthritis, unspecified site (13) Hematoma of leg Status: Acute Current Visit: No Qualifiers: Encounter type: subsequent encounter Laterality: right Qualified Code(s): S80.11XD - Contusion of right lower leg, subsequent encounter Code(s): S80.10XA - Contusion of unspecified lower leg, initial encounter (14) Contusion of leg, right Status: Acute Current Visit: Yes Qualifiers: Encounter type: subsequent encounter Code(s): S80.11XA - Contusion of right lower leg, initial encounter (15) Wound, open, leg Status: Acute Current Visit: Yes Qualifiers: Encounter type: subsequent encounter Laterality: right Qualified Code(s): S81.801D - Unspecified open wound, right lower leg, subsequent encounter Code(s): S81.809A - Unspecified open wound, unspecified lower leg, initial encounter (16) Wound of right leg Status: Acute Current Visit: Yes Qualifiers: Encounter type: subsequent encounter Qualified Code(s): S81.801D - Unspecified open wound, right lower leg, subsequent encounter Code(s): S81.801A - Unspecified open wound, right lower leg, initial encounter (17) Acute cholecystitis Status: Acute Current Visit: No Code(s): K81.0 - Acute cholecystitis (18) Open wound of left lower leg Status: Acute Current Visit: Yes Qualifiers: Encounter type: subsequent encounter Qualified Code(s): S81.802D - Unspecified open wound, left lower leg, subsequent encounter Code(s): S81.802A - Unspecified open wound, left lower leg, initial encounter History of Present Illness Date of Service: 02/10/18 Chief Complaint: Contusion and subcutaneous hematoma of the right knee; traumatic open wound of the right anterior tibial surface, Left leg wound History of Wound: This is a 72-year-old female who fell on a slippery floor at home on November 14, 2017. She traumatized the area immediately inferior to her right knee. As result, a subcutaneous hematoma formed, with some overlying ecchymosis and slight erythema. She had been treated by her primary care physician, Dr. Wooten, who administered 2 injections of Rocephin, and placed the patient on a 10 day course of Cefdinir. She had some mild associated discomfort. She presented for evaluation and recommendations as pertains to management. Non-invasive lower extremity arterial study was performed on December 13, 2016, which was normal. Arterial insufficiency of the lower extremities is not suspected. Patient has shown significant improvement over the last several weeks with expectant observation. The size of the underlying hematoma appears to have diminished significantly, and dimensions are documented elsewhere. Erythema has resolved. The overlying skin remains intact, and does not appear to be compromised in any way at this time. Additionally, the patient recently fell while on her treadmill. She sustained an abrasion on the right anterior tibial surface, for which she presented for evaluation. Since initially evaluated, the abrasion has unroofed, and the patient developed a deep open tunneled wound on the right anterior tibial surface. The open wound on the right anterior tibial surface has diminished in size, decreased in depth, and the tunneling resolved. The right anterior tibial wound has now completely healed. Patient now has a traumatic wound on the left anterior tibial surface, sustained at the time of her treadmill incident, which is now unroofed and is now manifest as an open wound. It has decreased in size since initially noted. Past Medical History Past Medical History: Chronic Problems History of biliary stent insertion (Chronic) S/P ORIF (open reduction internal fixation) fracture (Chronic) left hip, 05/01/15,. [facility], Dr Antonio Depression (Chronic) Anemia (Chronic) GERD (gastroesophageal reflux disease) (Chronic) Osteoarthritis (Chronic) Surgical History: - - Patient is undergone open reduction and internal fixation of a left hip fracture in April 2015. She has undergone 2 C-sections in the past. Laparoscopic cholecystectomy was performed in March 2017. Allergies/Adverse Reactions: Allergies erythromycin base Adverse Reaction (Verified 04/23/17 10:19) Upset Stomach meperidine HCl [From Demerol] Adverse Reaction (Verified 04/23/17 10:19) HALLUCINATIONS Home Medications: Ambulatory Orders Medication Instructions Recorded Calcium Carbonate/Vitamin D3 1 each PO BID 05/05/15 [Calcium 600-Vit D3 800 Caplet] buPROPion tablets [Wellbutrin 150 mg PO BID 05/05/15 tablets] Albuterol IH (ProAir) [Proair Hfa] 1 - 2 puff INHALATION Q6H PRN PRN 11/19/16 Alendronate Sodium [Fosamax] 70 mg PO VIDES 11/19/16 Lorazepam [Ativan] 0.5 mg PO DAILY PRN 11/19/16 Polyethylene Glycol 3350 [Miralax] 17 gm PO DAILY PRN PRN 01/13/17 Omeprazole [Prilosec] 20 mg PO DAILY PRN PRN 03/03/17 Turmeric/Turmeric Root Extract 1,000 mg PO BID 03/03/17 [Turmeric 500 mg Capsule] Fluticasone 0.05% [Flonase Nasal 1 spray NASAL DAILY PRN 03/12/17 [place]] - Family History Maternal - - Patient's father at the age of 75 with a history of chronic obstructive pulmonary disease. Patient's mother at age of 70 with a history of diabetes mellitus and breast cancer. She of sepsis from a urinary tract infection. Smoking Status: Never smoker Tobacco Use: Non-smoker Review of Systems Constitutional: Denies: Chills, Fever, Weight Change Eyes: Denies: Pain, Vision Change HEENT: Denies: Difficulty Hearing, Difficulty Swallowing, Sinus Congestion Cardiovascular: Denies: Chest Pain, Palpitations Respiratory: Denies: Cough, Shortness of Breath Gastrointestinal: Denies: Diarrhea, Nausea, Vomiting Genitourinary: Denies: Dysuria, Hematuria Endocrine: Denies: Heat/ Cold Intolerance, Polydipsia, Polyuria Hematologic/ Lymphatic: Denies: Easy Bruising, Easy Bleeding - Physical Exam Vital Signs Temp Pulse Resp BP 97.3 F L 67 16 139/84 H 02/10/18 12:09 02/10/18 12:09 02/10/18 12:09 02/10/18 12:09 General: Alert, Oriented x3, Cooperative, No apparent distress, Well developed, Well nourished HEENT: Atraumatic, PERRLA, EOMI, Normocephalic Oral: Moist Mucosa Neck: No JVD Lungs: Normal air movement Abdomen: Non-Distended Extremities: No clubbing, No cyanosis, No edema, No Calf Tenderness, - - The ulceration on the right anterior tibial surface is now completely healed and epithelialized. Ulceration on the left anterior tibial surface is smaller in size. It appears healthy, with active granulation tissue. There is no sign of infection or cellulitis. There is only a moderate amount of bioburden. Dimensions are documented elsewhere. Skin: No rashes Wound Measurements and Assessment WC - Nurse 1 - General Ulcer Measurement Start: 01/20/18 16:09 Freq: Status: Active Protocol: Activity Type Activity Date Activity User E-Sign Co-Sign Detail Recorded Client Recorded Date Recorded By Document 02/10/18 12:09 MELIDA [id number] 02/10/18 12:17 MELIDA 02/10/18 12:09 Wound Center Nurse 1 [Ulcer Assessment] 4-left ortiz -Combined with other wound No -Current Size (cm) - Length 2.0 -Current Size (cm) - Width 1.4 -Current Size (cm) - Depth 0.1 -Total Square Cm 2.80 -Date of Last Picture (Recall this 02/03/18 field) -Photo Taken No -Epithelialization Small 1-33% -Tunneling No -Undermining/Tunneling No -Circular Undermining No -Classification - Thickness Full Thickness without Exposed Support Structure -Exudate Amt Small (1-33%) -Exudate Type Serosanguineous -Wound Margin Distinct, Outline Attached -Granulation Amt Small (1-33%) -Granulation Quality Pale Red -Slough/Fibrin Yes -Necrosis Amt None Present (0 %) -Necrotic Tissue Type Eschar -Structure Exposed Tendon N/A -Texture (Griselda-wound Skin Appearance) No Abnormality -Moisture (Griselda-wound Skin Appearance No Abnormality ) -Color (Griselda-wound Skin Appearance) No Abnormality -Temperature (Griselda-wound Skin No Abnormality Appearance) (Pt Warm) -Tenderness on Palpation (Griselda-wound No Skin Appearance) -Ulcer Cleansing Rinsed/ Irrigated with Saline -Foul Odor after Cleansing No -Anesthetic Used 5% Lidocaine Gel #[address]-TRAUMA -Combined with other wound No -Current Size (cm) - Length 0 -Current Size (cm) - Width 0 -Current Size (cm) - Depth 0 -Total Square Cm 0 -Date of Last Picture (Recall this 02/10/18 field) -Photo Taken Yes -Epithelialization Large 67-100% -Tunneling No -Undermining/Tunneling No -Circular Undermining No -Classification - Thickness Full Thickness without Exposed Support Structure -Exudate Amt None Present (0 %) -Wound Margin Fibrotic Scar, Thickened Scar -Granulation Amt None Present (0 %) -Granulation Quality N/A -Slough/Fibrin No -Necrosis Amt None Present (0 %) -Structure Exposed N/A -Texture (Griselda-wound Skin Appearance) Friable -Moisture (Griselda-wound Skin Appearance No Abnormality ) -Color (Griselda-wound Skin Appearance) No Abnormality -Temperature (Griselda-wound Skin No Abnormality Appearance) (Pt Warm) -Tenderness on Palpation (Griselda-wound No Skin Appearance) -Foul Odor after Cleansing No [Edema Assessment] -Lower Limb Edema Present Yes -Right Calf (cm) 34.7 -Right Ankle (cm) 20.6 -Left Calf (cm) 32.8 -Left Ankle (cm) 20.5 WC - Nurse 2 - General Ulcer CM Notes Start: 01/20/18 16:09 Freq: Status: Active Protocol: Activity Type Activity Date Activity User E-Sign Co-Sign Detail Recorded Client Recorded Date Recorded By Document 02/10/18 12:09 JS [id number] 02/10/18 12:17 JS 02/10/18 12:09 Wound Center Nurse 2 [Procedure/Treatment] 4-left ortiz -Time 12:34 -Correct Patient Yes -Correct Side, Site, Position Yes -Correct Procedure Yes -Procedure Performed Yes -Type of Procedure Debridement -Clinical Debridement Subcutaneous -Post Debridement Size (cm) - Length 2.0 -Post Debridement Size (cm) - Width 1.0 -Post Debridement Size (cm) - Depth 0.1 -Total Square Cm 2.00 -Ulcer Cleansing Rinsed/ Irrigated with Saline -Bleeding Controlled with NA -Treatment Response Procedure Tolerated Well #[address]-TRAUMA -Time 12:34 -Correct Patient Yes -Correct Side, Site, Position Yes -Correct Procedure Yes -Procedure Performed No -Post Debridement Size (cm) - Length 0 -Post Debridement Size (cm) - Width 0 -Post Debridement Size (cm) - Depth 0 -Total Square Cm 0 -Wound/Ulcer Outcome Healed- Epithelialized Neurological: Cranial nerves II-XII grossly intact, Neuro grossly intact Psych/Mental Status: Normal Affect, Appropriate, Alert and oriented to time, place, person, mood and affect Debridement Note Post-Debridement Measurements/Treatment WC - Nurse 2 - General Ulcer CM Notes Start: 01/20/18 16:09 Freq: Status: Active Protocol: Activity Type Activity Date Activity User E-Sign Co-Sign Detail Recorded Client Recorded Date Recorded By Document 01/20/18 16:17 JS [id number] 01/20/18 16:23 JS Document 01/27/18 15:22 JS [id number] 01/27/18 15:30 JS Document 02/03/18 16:31 DV [id number] 02/03/18 16:39 DV Document 02/10/18 12:09 [id number] 02/10/18 12:17 JS 01/20/18 01/27/18 02/03/18 16:17 15:22 16:31 Wound Center Nurse 2 4-left ortiz -Time 16:38 -Correct Patient Yes -Correct Side, Site, Position Yes -Correct Procedure Yes -Procedure Performed Yes -Type of Procedure Debridement -Clinical Debridement Subcutaneous -Post Debridement Size (cm) - Length 2.0 -Post Debridement Size (cm) - Width 1.0 -Post Debridement Size (cm) - Depth 0.2 -Total Square Cm 2.00 -Wound/Ulcer Outcome Not Healed -Ulcer Cleansing Rinsed/ Irrigated with Saline -Foul Odor after Cleansing No -Bioengineered Tissue No -Bleeding Controlled with Pressure -Treatment Response Procedure Tolerated Well #[address]-TRAUMA -Time 16:17 15:22 16:38 -Correct Patient Yes Yes Yes -Correct Side, Site, Position Yes Yes Yes -Correct Procedure Yes Yes Yes -Procedure Performed Yes Yes Yes -Type of Procedure Debridement Debridement Debridement -Clinical Debridement Subcutaneous Subcutaneous Subcutaneous -Post Debridement Size (cm) - Length 1.9 1.6 0.7 -Post Debridement Size (cm) - Width 0.9 0.7 0.2 -Post Debridement Size (cm) - Depth 0.2 0.1 0.1 -Total Square Cm 1.71 1.12 0.14 -Wound/Ulcer Outcome Not Healed Not Healed Not Healed -Ulcer Cleansing Rinsed/ Rinsed/ Rinsed/ Irrigated with Irrigated with Irrigated with Saline Saline Saline -Foul Odor after Cleansing No No No -Bioengineered Tissue No No No -Topical Lidocaine (%) 5 4 -Lidocaine (ml) 5 -Bleeding Controlled with NA Pressure Pressure -Treatment Response Procedure Procedure Procedure Tolerated Well Tolerated Well Tolerated Well Pain Scale: 0-10 Numeric Is Patient Pain Free? Yes Yes Yes 02/10/18 12:09 Wound Center Nurse 2 4-left ortiz -Time 12:34 -Correct Patient Yes -Correct Side, Site, Position Yes -Correct Procedure Yes -Procedure Performed Yes -Type of Procedure Debridement -Clinical Debridement Subcutaneous -Post Debridement Size (cm) - Length 2.0 -Post Debridement Size (cm) - Width 1.0 -Post Debridement Size (cm) - Depth 0.1 -Total Square Cm 2.00 -Wound/Ulcer Outcome -Ulcer Cleansing Rinsed/ Irrigated with Saline -Foul Odor after Cleansing -Bioengineered Tissue -Bleeding Controlled with NA -Treatment Response Procedure Tolerated Well #[address]-TRAUMA -Time 12:34 -Correct Patient Yes -Correct Side, Site, Position Yes -Correct Procedure Yes -Procedure Performed No -Type of Procedure -Clinical Debridement -Post Debridement Size (cm) - Length 0 -Post Debridement Size (cm) - Width 0 -Post Debridement Size (cm) - Depth 0 -Total Square Cm 0 -Wound/Ulcer Outcome Healed- Epithelialized -Ulcer Cleansing -Foul Odor after Cleansing -Bioengineered Tissue -Topical Lidocaine (%) -Lidocaine (ml) -Bleeding Controlled with -Treatment Response Pain Scale: 0-10 Numeric Is Patient Pain Free? Laterality: Left - Anterior tibial surface Type of Debridement: Excisional debridement Anesthesia Used: 4% Lidocaine Solution Depth: Down to and including healthy tissue, in the subcutaneous layer Percentage of wound debrided: 100 Instrument Used: 5mm curette Severity: Fat Layer Exposed Amount of bleeding with debridement: Mild Bleeding Controlled with: Compression and gauze Patient tolerated procedure well Assessment/Plan Active Problems Contusion of right leg (Acute) Subcutaneous hematoma (Acute) Pain in right leg (Acute) Abrasion of leg, right (Acute) Traumatic open wound of right lower leg (Acute) Open wound of left lower leg (Acute) Contusion of leg, right (Acute) Wound, open, leg (Acute) Wound of right leg (Acute) Assessment: This is a 72-year-old generally healthy female who fell on a slippery floor weeks ago, sustaining trauma inferior to the right knee. As result, the patient had an underlying subcutaneous hematoma. There was no open wound or drainage. There was no obvious sign of infection. There has been significant improvement, and the area is no longer of any concern. The patient's wound on the right anterior tibial surface is now completely healed. The traumatized area on the left anterior tibial surface is now opened, and is manifesting as an open wound. It has improved since initial management with local wound care. We are using collagen hydrogel topically. Plan: We are to continue with the use of collagen hydrogel topically on a daily basis relative to the wound on the left anterior tibial surface. Healing by secondary intention is anticipated. The subcutaneous hematoma just inferior to the right knee is no longer of any consequence, and the area is now completely healed and normalized in appearance. The patient is to return in 1 week for reassessment. Patient is not a smoker. Influenza vaccine was not administered today. Patient weighs 130 pounds. She stands 5 feet 1 inches tall. Her BMI is 24.6, which is normal.
--- NOTE | 2018-02-10 12:46 | HP.PCM_ITS ---
(1) Contusion of right leg Status: Acute Current Visit: Yes Qualifiers: Encounter type: subsequent encounter Code(s): S80.11XA - Contusion of right lower leg, initial encounter (2) Subcutaneous hematoma Status: Acute Current Visit: Yes Code(s): T14.8XXA - Other injury of unspecified body region, initial encounter (3) Pain in right leg Status: Acute Current Visit: Yes Code(s): M79.604 - Pain in right leg (4) Abrasion of leg, right Status: Acute Current Visit: Yes Qualifiers: Encounter type: subsequent encounter Qualified Code(s): S80.811D - Abrasion , right lower leg, subsequent encounter Code(s): S80.811A - Abrasion, right lower leg, initial encounter (5) Traumatic open wound of right lower leg Status: Acute Current Visit: Yes Qualifiers: Encounter type: subsequent encounter Code(s): S81.801A - Unspecified open wound, right lower leg, initial encounter (6) History of biliary stent insertion Status: Chronic Current Visit: No Code(s): Z98.890 - Other specified postprocedural states (7) S/P ORIF (open reduction internal fixation) fracture Status: Chronic Current Visit: No Code(s): Z96.7 - Presence of other bone and tendon implants; Z87.81 - Personal history of (healed) traumatic fracture Comment: left hip, 05/01/15,. [facility], Dr Antonio (8) Depression Status: Chronic Current Visit: No Code(s): F32.9 - Major depressive disorder , single episode, unspecified (9) Anemia Status: Chronic Current Visit: No Code(s): D64.9 - Anemia, unspecified (10) Pain In Right Leg Status: Acute Current Visit: No Code(s): M79.604 - Pain in right leg (11) GERD (gastroesophageal reflux disease) Status: Chronic Current Visit: No Code(s): K21.9 - Gastro-esophageal reflux disease without esophagitis (12) Osteoarthritis Status: Chronic Current Visit: No Code(s): M19.90 - Unspecified osteoarthritis, unspecified site (13) Hematoma of leg Status: Acute Current Visit: No Qualifiers: Encounter type: subsequent encounter Laterality: right Qualified Code(s) : S80.11XD - Contusion of right lower leg, subsequent encounter Code(s): S80.10XA - Contusion of unspecified lower leg, initial encounter (14) Contusion of leg, right Status: Acute Current Visit: Yes Qualifiers: Encounter type: subsequent encounter Code(s): S80.11XA - Contusion of right lower leg, initial encounter (15) Wound, open, leg Status: Acute Current Visit: Yes Qualifiers: Encounter type: subsequent encounter Laterality: right Qualified Code(s) : S81.801D - Unspecified open wound, right lower leg, subsequent encounter Code(s): S81.809A - Unspecified open wound, unspecified lower leg, initial encounter (16) Wound of right leg Status: Acute Current Visit: Yes Qualifiers: Encounter type: subsequent encounter Qualified Code(s): S81.801D - Unspecified open wound, right lower leg, subsequent encounter Code(s): S81.801A - Unspecified open wound, right lower leg, initial encounter (17) Acute cholecystitis Status: Acute Current Visit: No Code(s): K81.0 - Acute cholecystitis (18) Open wound of left lower leg Status: Acute Current Visit: Yes Qualifiers: Encounter type: subsequent encounter Qualified Code(s): S81.802D - Unspecified open wound, left lower leg, subsequent encounter Code(s): S81.802A - Unspecified open wound, left lower leg, initial encounter History of Present Illness Date of Service: 02/10/18 Chief Complaint: Contusion and subcutaneous hematoma of the right knee; traumatic open wound of the right anterior tibial surface, Left leg wound History of Wound: This is a 72-year-old female who fell on a slippery floor at home on November 14, 2017. She traumatized the area immediately inferior to her right knee. As result, a subcutaneous hematoma formed, with some overlying ecchymosis and slight erythema. She had been treated by her primary care physician, Dr. Wooten, who administered 2 injections of Rocephin, and placed the patient on a 10 day course of Cefdinir. She had some mild associated discomfort. She presented for evaluation and recommendations as pertains to management. Non-invasive lower extremity arterial study was performed on December 13, 2016, which was normal. Arterial insufficiency of the lower extremities is not suspected. Patient has shown significant improvement over the last several weeks with expectant observation. The size of the underlying hematoma appears to have diminished significantly, and dimensions are documented elsewhere. Erythema has resolved. The overlying skin remains intact, and does not appear to be compromised in any way at this time. Additionally, the patient recently fell while on her treadmill. She sustained an abrasion on the right anterior tibial surface, for which she presented for evaluation. Since initially evaluated, the abrasion has unroofed, and the patient developed a deep open tunneled wound on the right anterior tibial surface. The open wound on the right anterior tibial surface has diminished in size, decreased in depth, and the tunneling resolved. The right anterior tibial wound has now completely healed. Patient now has a traumatic wound on the left anterior tibial surface, sustained at the time of her treadmill incident, which is now unroofed and is now manifest as an open wound. It has decreased in size since initially noted. Past Medical History Past Medical History: Chronic Problems History of biliary stent insertion (Chronic) S/P ORIF (open reduction internal fixation) fracture (Chronic) left hip, 05/01/15,. [facility], Dr Antonio Depression (Chronic) Anemia (Chronic) GERD (gastroesophageal reflux disease) (Chronic) Osteoarthritis (Chronic) Surgical History: - - Patient is undergone open reduction and internal fixation of a left hip fracture in April 2015. She has undergone 2 C-sections in the past. Laparoscopic cholecystectomy was performed in March 2017. Allergies/Adverse Reactions: Allergies erythromycin base Adverse Reaction (Verified 04/23/17 10:19) Upset Stomach meperidine HCl [From Demerol] Adverse Reaction (Verified 04/23/17 10:19) HALLUCINATIONS Home Medications: Ambulatory Orders Medication Instructions Recorded Calcium Carbonate/Vitamin D3 1 each PO BID 05/05/15 [Calcium 600-Vit D3 800 Caplet] buPROPion tablets [Wellbutrin 150 mg PO BID 05/05/15 tablets] Albuterol IH (ProAir) [Proair Hfa] 1 - 2 puff INHALATION Q6H PRN PRN 11/19/16 Alendronate Sodium [Fosamax] 70 mg PO VIDES 11/19/16 Lorazepam [Ativan] 0.5 mg PO DAILY PRN 11/19/16 Polyethylene Glycol 3350 [Miralax] 17 gm PO DAILY PRN PRN 01/13/17 Omeprazole [Prilosec] 20 mg PO DAILY PRN PRN 03/03/17 Turmeric/Turmeric Root Extract 1,000 mg PO BID 03/03/17 [Turmeric 500 mg Capsule] Fluticasone 0.05% [Flonase Nasal 1 spray NASAL DAILY PRN 03/12/17 Connell] - Family History Maternal - - Patient's father at the age of 75 with a history of chronic obstructive pulmonary disease. Patient's mother at age of 70 with a history of diabetes mellitus and breast cancer. She of sepsis from a urinary tract infection. Smoking Status: Never smoker Tobacco Use: Non-smoker Review of Systems Constitutional: Denies: Chills, Fever, Weight Change Eyes: Denies: Pain, Vision Change HEENT: Denies: Difficulty Hearing, Difficulty Swallowing, Sinus Congestion Cardiovascular: Denies: Chest Pain, Palpitations Respiratory: Denies: Cough, Shortness of Breath Gastrointestinal: Denies: Diarrhea, Nausea, Vomiting Genitourinary: Denies: Dysuria, Hematuria Endocrine: Denies: Heat/ Cold Intolerance, Polydipsia, Polyuria Hematologic/ Lymphatic: Denies: Easy Bruising, Easy Bleeding - Physical Exam Vital Signs Temp Pulse Resp BP 97.3 F L 67 16 139/84 H 02/10/18 12:09 02/10/18 12:09 02/10/18 12:09 02/10/18 12:09 General: Alert, Oriented x3, Cooperative, No apparent distress, Well developed, Well nourished HEENT: Atraumatic, PERRLA, EOMI, Normocephalic Oral: Moist Mucosa Neck: No JVD Lungs: Normal air movement Abdomen: Non-Distended Extremities: No clubbing, No cyanosis, No edema, No Calf Tenderness, - - The ulceration on the right anterior tibial surface is now completely healed and epithelialized. Ulceration on the left anterior tibial surface is smaller in size. It appears healthy, with active granulation tissue. There is no sign of infection or cellulitis. There is only a moderate amount of bioburden. Dimensions are documented elsewhere. Skin: No rashes Wound Measurements and Assessment WC - Nurse 1 - General Ulcer Measurement Start: 01/20/18 16:09 Freq: Status: Active Protocol: Activity Type Activity Date Activity User E-Sign Co-Sign Detail Recorded Client Recorded Date Recorded By Document 02/10/18 12:09 MELIDA [id number] 02/10/18 12:17 MELIDA 02/10/18 12:09 Wound Center Nurse 1 [Ulcer Assessment] 4-left ortiz -Combined with other wound No -Current Size (cm) - Length 2.0 -Current Size (cm) - Width 1.4 -Current Size (cm) - Depth 0.1 -Total Square Cm 2.80 -Date of Last Picture (Recall this 02/03/18 field) -Photo Taken No -Epithelialization Small 1-33% -Tunneling No -Undermining/Tunneling No -Circular Undermining No -Classification - Thickness Full Thickness without Exposed Support Structure -Exudate Amt Small (1-33%) -Exudate Type Serosanguineous -Wound Margin Distinct, Outline Attached -Granulation Amt Small (1-33%) -Granulation Quality Pale Red -Slough/Fibrin Yes -Necrosis Amt None Present (0 %) -Necrotic Tissue Type Eschar -Structure Exposed Tendon N/A -Texture (Griselda-wound Skin Appearance) No Abnormality -Moisture (Griselda-wound Skin Appearance No Abnormality ) -Color (Griselda-wound Skin Appearance) No Abnormality -Temperature (Griselda-wound Skin No Abnormality Appearance) (Pt Warm) -Tenderness on Palpation (Griselda-wound No Skin Appearance) -Ulcer Cleansing Rinsed/ Irrigated with Saline -Foul Odor after Cleansing No -Anesthetic Used 5% Lidocaine Gel #[address]-TRAUMA -Combined with other wound No -Current Size (cm) - Length 0 -Current Size (cm) - Width 0 -Current Size (cm) - Depth 0 -Total Square Cm 0 -Date of Last Picture (Recall this 02/10/18 field) -Photo Taken Yes -Epithelialization Large 67-100% -Tunneling No -Undermining/Tunneling No -Circular Undermining No -Classification - Thickness Full Thickness without Exposed Support Structure -Exudate Amt None Present (0 %) -Wound Margin Fibrotic Scar, Thickened Scar -Granulation Amt None Present (0 %) -Granulation Quality N/A -Slough/Fibrin No -Necrosis Amt None Present (0 %) -Structure Exposed N/A -Texture (Griselda-wound Skin Appearance) Friable -Moisture (Griselda-wound Skin Appearance No Abnormality ) -Color (Griselda-wound Skin Appearance) No Abnormality -Temperature (Griselda-wound Skin No Abnormality Appearance) (Pt Warm) -Tenderness on Palpation (Griselda-wound No Skin Appearance) -Foul Odor after Cleansing No [Edema Assessment] -Lower Limb Edema Present Yes -Right Calf (cm) 34.7 -Right Ankle (cm) 20.6 -Left Calf (cm) 32.8 -Left Ankle (cm) 20.5 WC - Nurse 2 - General Ulcer CM Notes Start: 01/20/18 16:09 Freq: Status: Active Protocol: Activity Type Activity Date Activity User E-Sign Co-Sign Detail Recorded Client Recorded Date Recorded By Document 02/10/18 12:09 JS [id number] 02/10/18 12:17 JS 02/10/18 12:09 Wound Center Nurse 2 [Procedure/Treatment] 4-left ortiz -Time 12:34 -Correct Patient Yes -Correct Side, Site, Position Yes -Correct Procedure Yes -Procedure Performed Yes -Type of Procedure Debridement -Clinical Debridement Subcutaneous -Post Debridement Size (cm) - Length 2.0 -Post Debridement Size (cm) - Width 1.0 -Post Debridement Size (cm) - Depth 0.1 -Total Square Cm 2.00 -Ulcer Cleansing Rinsed/ Irrigated with Saline -Bleeding Controlled with NA -Treatment Response Procedure Tolerated Well #[address]-TRAUMA -Time 12:34 -Correct Patient Yes -Correct Side, Site, Position Yes -Correct Procedure Yes -Procedure Performed No -Post Debridement Size (cm) - Length 0 -Post Debridement Size (cm) - Width 0 -Post Debridement Size (cm) - Depth 0 -Total Square Cm 0 -Wound/Ulcer Outcome Healed- Epithelialized Neurological: Cranial nerves II-XII grossly intact, Neuro grossly intact Psych/Mental Status: Normal Affect, Appropriate, Alert and oriented to time, place, person, mood and affect Debridement Note Post-Debridement Measurements/Treatment WC - Nurse 2 - General Ulcer CM Notes Start: 01/20/18 16:09 Freq: Status: Active Protocol: Activity Type Activity Date Activity User E-Sign Co-Sign Detail Recorded Client Recorded Date Recorded By Document 01/20/18 16:17 JS [id number] 01/20/18 16:23 JS Document 01/27/18 15:22 JS [id number] 01/27/18 15:30 JS Document 02/03/18 16:31 DV [id number] 02/03/18 16:39 DV Document 02/10/18 12:09 [id number] 02/10/18 12:17 JS 01/20/18 01/27/18 02/03/18 16:17 15:22 16:31 Wound Center Nurse 2 4-left ortiz -Time 16:38 -Correct Patient Yes -Correct Side, Site, Position Yes -Correct Procedure Yes -Procedure Performed Yes -Type of Procedure Debridement -Clinical Debridement Subcutaneous -Post Debridement Size (cm) - Length 2.0 -Post Debridement Size (cm) - Width 1.0 -Post Debridement Size (cm) - Depth 0.2 -Total Square Cm 2.00 -Wound/Ulcer Outcome Not Healed -Ulcer Cleansing Rinsed/ Irrigated with Saline -Foul Odor after Cleansing No -Bioengineered Tissue No -Bleeding Controlled with Pressure -Treatment Response Procedure Tolerated Well #[address]-TRAUMA -Time 16:17 15:22 16:38 -Correct Patient Yes Yes Yes -Correct Side, Site, Position Yes Yes Yes -Correct Procedure Yes Yes Yes -Procedure Performed Yes Yes Yes -Type of Procedure Debridement Debridement Debridement -Clinical Debridement Subcutaneous Subcutaneous Subcutaneous -Post Debridement Size (cm) - Length 1.9 1.6 0.7 -Post Debridement Size (cm) - Width 0.9 0.7 0.2 -Post Debridement Size (cm) - Depth 0.2 0.1 0.1 -Total Square Cm 1.71 1.12 0.14 -Wound/Ulcer Outcome Not Healed Not Healed Not Healed -Ulcer Cleansing Rinsed/ Rinsed/ Rinsed/ Irrigated with Irrigated with Irrigated with Saline Saline Saline -Foul Odor after Cleansing No No No -Bioengineered Tissue No No No -Topical Lidocaine (%) 5 4 -Lidocaine (ml) 5 -Bleeding Controlled with NA Pressure Pressure -Treatment Response Procedure Procedure Procedure Tolerated Well Tolerated Well Tolerated Well Pain Scale: 0-10 Numeric Is Patient Pain Free? Yes Yes Yes 02/10/18 12:09 Wound Center Nurse 2 4-left ortiz -Time 12:34 -Correct Patient Yes -Correct Side, Site, Position Yes -Correct Procedure Yes -Procedure Performed Yes -Type of Procedure Debridement -Clinical Debridement Subcutaneous -Post Debridement Size (cm) - Length 2.0 -Post Debridement Size (cm) - Width 1.0 -Post Debridement Size (cm) - Depth 0.1 -Total Square Cm 2.00 -Wound/Ulcer Outcome -Ulcer Cleansing Rinsed/ Irrigated with Saline -Foul Odor after Cleansing -Bioengineered Tissue -Bleeding Controlled with NA -Treatment Response Procedure Tolerated Well #[address]-TRAUMA -Time 12:34 -Correct Patient Yes -Correct Side, Site, Position Yes -Correct Procedure Yes -Procedure Performed No -Type of Procedure -Clinical Debridement -Post Debridement Size (cm) - Length 0 -Post Debridement Size (cm) - Width 0 -Post Debridement Size (cm) - Depth 0 -Total Square Cm 0 -Wound/Ulcer Outcome Healed- Epithelialized -Ulcer Cleansing -Foul Odor after Cleansing -Bioengineered Tissue -Topical Lidocaine (%) -Lidocaine (ml) -Bleeding Controlled with -Treatment Response Pain Scale: 0-10 Numeric Is Patient Pain Free? Laterality: Left - Anterior tibial surface Type of Debridement: Excisional debridement Anesthesia Used: 4% Lidocaine Solution Depth: Down to and including healthy tissue, in the subcutaneous layer Percentage of wound debrided: 100 Instrument Used: 5mm curette Severity: Fat Layer Exposed Amount of bleeding with debridement: Mild Bleeding Controlled with: Compression and gauze Patient tolerated procedure well Assessment/Plan Active Problems Contusion of right leg (Acute) Subcutaneous hematoma (Acute) Pain in right leg (Acute) Abrasion of leg, right (Acute) Traumatic open wound of right lower leg (Acute) Open wound of left lower leg (Acute) Contusion of leg, right (Acute) Wound, open, leg (Acute) Wound of right leg (Acute) Assessment: This is a 72-year-old generally healthy female who fell on a slippery floor weeks ago, sustaining trauma inferior to the right knee. As result, the patient had an underlying subcutaneous hematoma. There was no open wound or drainage. There was no obvious sign of infection. There has been significant improvement, and the area is no longer of any concern. The patient' s wound on the right anterior tibial surface is now completely healed. The traumatized area on the left anterior tibial surface is now opened, and is manifesting as an open wound. It has improved since initial management with local wound care. We are using collagen hydrogel topically. Plan: We are to continue with the use of collagen hydrogel topically on a daily basis relative to the wound on the left anterior tibial surface. Healing by secondary intention is anticipated. The subcutaneous hematoma just inferior to the right knee is no longer of any consequence, and the area is now completely healed and normalized in appearance. The patient is to return in 1 week for reassessment. Patient is not a smoker. Influenza vaccine was not administered today. Patient weighs 130 pounds. She stands 5 feet 1 inches tall. Her BMI is 24.6, which is normal.
== END 2018-02-10 23:59 ==
LOC: WC 12:00
PROVIDERS: Family Provider Internal Medicine; PCP Internal Medicine; Visit Provider Surgery
DX: S80.811A Abrasion, right lower leg, initial encounter (principal); W19.XXXA Unspecified fall, initial encounter; Y93.A1 Activity, exercise machines primarily for cardiorespiratory conditioning; K21.9 Gastro-esophageal reflux disease without esophagitis; M19.90 Unspecified osteoarthritis, unspecified site; S80.11XA Contusion of right lower leg, initial encounter; F32.9 Major depressive disorder, single episode, unspecified; Z79.899 Other long term (current) drug therapy
CPT/HCPCS: 11042

== ENCOUNTER 2018-03-11 08:00 | Outpatient (RCR) | payer MEDICARE, OTHER, SELFPAY ==
[2018-02-11 00:46] VITALS: PULSE 67; RESP 16; TEMP 36.3
[2018-02-17 12:38] VITALS: BP 152/99; PULSE 76; RESP 16; TEMP 36.3
--- NOTE | 2018-02-17 13:03 | HP.PCM_ITS ---
(1) Contusion of right leg Status: Resolved Current Visit: No Qualifiers: Code(s): S80.11XA - Contusion of right lower leg, initial encounter (2) Subcutaneous hematoma Status: Resolved Current Visit: No Code(s): T14.8XXA - Other injury of unspecified body region, initial encounter (3) Pain in right leg Status: Resolved Current Visit: No Code(s): M79.604 - Pain in right leg (4) Abrasion of leg, right Status: Resolved Current Visit: No Qualifiers: Code(s): S80.811A - Abrasion, right lower leg, initial encounter (5) Traumatic open wound of right lower leg Status: Resolved Current Visit: No Qualifiers: Code(s): S81.801A - Unspecified open wound, right lower leg, initial encounter (6) Open wound of left lower leg Status: Acute Current Visit: Yes Qualifiers: Encounter type: subsequent encounter Code(s): S81.802A - Unspecified open wound, left lower leg, initial encounter (7) History of biliary stent insertion Status: Chronic Current Visit: No Code(s): Z98.890 - Other specified postprocedural states (8) S/P ORIF (open reduction internal fixation) fracture Status: Chronic Current Visit: No Code(s): Z96.7 - Presence of other bone and tendon implants; Z87.81 - Personal history of (healed) traumatic fracture Comment: left hip, 05/01/15,. [facility], Dr Antonio (9) Depression Status: Chronic Current Visit: No Code(s): F32.9 - Major depressive disorder , single episode, unspecified (10) Anemia Status: Chronic Current Visit: No Code(s): D64.9 - Anemia, unspecified (11) Contusion Status: Resolved Current Visit: No Qualifiers: Code(s): T14.8 - Other injury of unspecified body region (12) Contusion of leg, left Status: Resolved Current Visit: No Qualifiers: Code(s): S80.12XA - Contusion of left lower leg, initial encounter (13) Pain In Right Leg Status: Resolved Current Visit: No Code(s): M79.604 - Pain in right leg (14) GERD (gastroesophageal reflux disease) Status: Chronic Current Visit: No Code(s): K21.9 - Gastro-esophageal reflux disease without esophagitis (15) Osteoarthritis Status: Chronic Current Visit: No Code(s): M19.90 - Unspecified osteoarthritis, unspecified site (16) Hematoma of leg Status: Resolved Current Visit: No Qualifiers: Code(s): S80.10XA - Contusion of unspecified lower leg, initial encounter (17) Contusion of leg, right Status: Resolved Current Visit: No Qualifiers: Code(s): S80.11XA - Contusion of right lower leg, initial encounter (18) Wound, open, leg Status: Acute Current Visit: Yes Qualifiers: Encounter type: subsequent encounter Code(s): S81.809A - Unspecified open wound, unspecified lower leg, initial encounter (19) Wound of right leg Status: Resolved Current Visit: No Qualifiers: Code(s): S81.801A - Unspecified open wound, right lower leg, initial encounter (20) Acute cholecystitis Status: Acute Current Visit: No Code(s): K81.0 - Acute cholecystitis History of Present Illness Date of Service: 02/17/18 Chief Complaint: Contusion and subcutaneous hematoma of the right knee; traumatic open wound of the right anterior tibial surface, Left leg wound History of Wound: This is a 72-year-old female who fell on a slippery floor at home on November 14, 2017. She traumatized the area immediately inferior to her right knee. As result, a subcutaneous hematoma formed, with some overlying ecchymosis and slight erythema. She had been treated by her primary care physician, Dr. Wooten, who administered 2 injections of Rocephin, and placed the patient on a 10 day course of Cefdinir. She had some mild associated discomfort. She presented for evaluation and recommendations as pertains to management. Non-invasive lower extremity arterial study was performed on December 13, 2016, which was normal. Arterial insufficiency of the lower extremities is not suspected. Patient has shown significant improvement with expectant observation. The size of the underlying hematoma appears to have diminished significantly, and dimensions are documented elsewhere. Erythema has resolved. The overlying skin remains intact, and does not appear to be compromised in any way at this time. Additionally, the patient recently fell while on her treadmill. She sustained an abrasion on the right anterior tibial surface, for which she presented for evaluation. Since initially evaluated, the abrasion has unroofed, and the patient developed a deep open tunneled wound on the right anterior tibial surface. The open wound on the right anterior tibial surface has diminished in size, decreased in depth, and the tunneling resolved. The right anterior tibial wound has now completely healed. Patient now has a traumatic wound on the left anterior tibial surface, sustained at the time of her treadmill incident, which is now unroofed and is now manifest as an open wound. It has decreased in size since initially noted. Past Medical History Past Medical History: Chronic Problems History of biliary stent insertion (Chronic) S/P ORIF (open reduction internal fixation) fracture (Chronic) left hip, 05/01/15,. [facility], Dr Antonio Depression (Chronic) Anemia (Chronic) GERD (gastroesophageal reflux disease) (Chronic) Osteoarthritis (Chronic) Surgical History: - - Patient is undergone open reduction and internal fixation of a left hip fracture in April 2015. She has undergone 2 C-sections in the past. Laparoscopic cholecystectomy was performed in March 2017. Allergies/Adverse Reactions: Allergies erythromycin base Adverse Reaction (Verified 04/23/17 10:19) Upset Stomach meperidine HCl [From Demerol] Adverse Reaction (Verified 04/23/17 10:19) HALLUCINATIONS Home Medications: Ambulatory Orders Medication Instructions Recorded Calcium Carbonate/Vitamin D3 1 each PO BID 05/05/15 [Calcium 600-Vit D3 800 Caplet] buPROPion tablets [Wellbutrin 150 mg PO BID 05/05/15 tablets] Albuterol IH (ProAir) [Proair Hfa] 1 - 2 puff INHALATION Q6H PRN PRN 11/19/16 Alendronate Sodium [Fosamax] 70 mg PO VIDES 11/19/16 Lorazepam [Ativan] 0.5 mg PO DAILY PRN 11/19/16 Polyethylene Glycol 3350 [Miralax] 17 gm PO DAILY PRN PRN 01/13/17 Omeprazole [Prilosec] 20 mg PO DAILY PRN PRN 03/03/17 Turmeric/Turmeric Root Extract 1,000 mg PO BID 03/03/17 [Turmeric 500 mg Capsule] Fluticasone 0.05% [Flonase Nasal 1 spray NASAL DAILY PRN 05/30/17 [place]] - Family History Maternal - - Patient's father at the age of 75 with a history of chronic obstructive pulmonary disease. Patient's mother at age of 70 with a history of diabetes mellitus and breast cancer. She of sepsis from a urinary tract infection. Smoking Status: Never smoker Tobacco Use: Non-smoker Review of Systems Constitutional: Denies: Chills, Fever, Weight Change Eyes: Denies: Pain, Vision Change HEENT: Denies: Difficulty Hearing, Difficulty Swallowing, Sinus Congestion Cardiovascular: Denies: Chest Pain, Palpitations Respiratory: Denies: Cough, Shortness of Breath Gastrointestinal: Denies: Diarrhea, Nausea, Vomiting Genitourinary: Denies: Dysuria, Hematuria Endocrine: Denies: Heat/ Cold Intolerance, Polydipsia, Polyuria Hematologic/ Lymphatic: Denies: Easy Bruising, Easy Bleeding - Physical Exam Vital Signs Temp Pulse Resp BP 97.3 F L 76 16 152/99 H 02/17/18 12:38 02/17/18 12:38 02/17/18 12:38 02/17/18 12:38 General: Alert, Oriented x3, Cooperative, No apparent distress, Well developed, Well nourished HEENT: Atraumatic, PERRLA, EOMI, Normocephalic Oral: Moist Mucosa Neck: No JVD Lungs: Normal air movement Abdomen: Non-Distended Extremities: No clubbing, No cyanosis, No edema, No Calf Tenderness, - - The hematoma inferior to the right knee is now of no consequence. It has resolved, and there is no overlying skin compromise or discoloration. The traumatic wound on the right anterior tibial surface is now completely healed, and has remained so for over 1 week. The only remaining wound is that on the left anterior tibial surface, which is traumatic in origin. It continues to diminish in size. The base of the wound is pink and healthy in appearance, with active granulation tissue. There is evidence of peripheral epithelialization. Dimensions are documented elsewhere. There is no sign of infection or cellulitis. Skin: No rashes Wound Measurements and Assessment WC - Nurse 1 - General Ulcer Measurement Start: 02/17/18 12:38 Freq: Status: Active Protocol: Activity Type Activity Date Activity User E-Sign Co-Sign Detail Recorded Client Recorded Date Recorded By Document 02/17/18 12:38 [facility] [id number] 02/17/18 12:44 BMF 02/17/18 12:38 Wound Center Nurse 1 [Ulcer Assessment] 4-left ortiz -Combined with other wound No -Current Size (cm) - Length 1.6 -Current Size (cm) - Width 1.5 -Current Size (cm) - Depth 0.1 -Total Square Cm 2.40 -Photo Taken No -Epithelialization Small 1-33% -Tunneling No -Undermining/Tunneling No -Circular Undermining No -Exudate Amt Small (1-33%) -Exudate Type Serosanguineous -Wound Margin Distinct, Outline Attached -Granulation Amt Large (67-100%) -Granulation Quality Red -Slough/Fibrin Yes -Necrosis Amt Small (1-33%) -Necrotic Tissue Type Adherent Slough -Structure Exposed None/Limited to Skin Breakdown -Texture (Griselda-wound Skin Appearance) Scarring -Moisture (Griselda-wound Skin Appearance Dry/Scaly ) -Color (Griselda-wound Skin Appearance) Assessed -Temperature (Griselda-wound Skin No Abnormality Appearance) (Pt Warm) -Tenderness on Palpation (Griselda-wound No Skin Appearance) -Ulcer Cleansing Rinsed/ Irrigated with Saline -Foul Odor after Cleansing No -Anesthetic Used 5% Lidocaine Gel WC - Nurse 2 - General Ulcer CM Notes Start: 02/17/18 12:38 Freq: Status: Active Protocol: Activity Type Activity Date Activity User E-Sign Co-Sign Detail Recorded Client Recorded Date Recorded By Document 02/17/18 12:49 MELIDA [id number] 02/17/18 12:53 MELIDA 02/17/18 12:49 Wound Center Nurse 2 [Procedure/Treatment] -Time 12:49 -Correct Patient Yes -Correct Side, Site, Position Yes -Correct Procedure Yes -Procedure Performed Yes -Type of Procedure Debridement -Clinical Debridement Subcutaneous -Post Debridement Size (cm) - Length 2.0 -Post Debridement Size (cm) - Width 0.9 -Post Debridement Size (cm) - Depth 0.1 -Total Square Cm 1.80 -Wound/Ulcer Outcome Not Healed -Ulcer Cleansing Rinsed/ Irrigated with Saline -Foul Odor after Cleansing No -Bioengineered Tissue No -Topical Lidocaine (%) 5 -Bleeding Controlled with NA -Treatment Response Procedure Tolerated Well [See Physician Procedure note for Specifics] Pain Scale: 0-10 Numeric [Pain] -Is Patient Pain Free? Yes Neurological: Cranial nerves II-XII grossly intact, Neuro grossly intact Psych/Mental Status: Normal Affect, Appropriate, Alert and oriented to time, place, person, mood and affect Debridement Note Post-Debridement Measurements/Treatment WC - Nurse 2 - General Ulcer CM Notes Start: 02/17/18 12:38 Freq: Status: Active Protocol: Activity Type Activity Date Activity User E-Sign Co-Sign Detail Recorded Client Recorded Date Recorded By Document 02/17/18 12:49 MELIDA [id number] 02/17/18 12:53 MELIDA 02/17/18 12:49 Wound Center Nurse 2 4-left ortiz -Time 12:49 -Correct Patient Yes -Correct Side, Site, Position Yes -Correct Procedure Yes -Procedure Performed Yes -Type of Procedure Debridement -Clinical Debridement Subcutaneous -Post Debridement Size (cm) - Length 2.0 -Post Debridement Size (cm) - Width 0.9 -Post Debridement Size (cm) - Depth 0.1 -Total Square Cm 1.80 -Wound/Ulcer Outcome Not Healed -Ulcer Cleansing Rinsed/ Irrigated with Saline -Foul Odor after Cleansing No -Bioengineered Tissue No -Topical Lidocaine (%) 5 -Bleeding Controlled with NA -Treatment Response Procedure Tolerated Well Pain Scale: 0-10 Numeric Is Patient Pain Free? Yes Laterality: Left - Anterior tibial surface Type of Debridement: Excisional debridement Anesthesia Used: 4% Lidocaine Solution Depth: Down to and including healthy tissue, in the subcutaneous layer Percentage of wound debrided: 100 Instrument Used: 5mm curette Severity: Fat Layer Exposed Amount of bleeding with debridement: Mild Bleeding Controlled with: Compression and gauze Patient tolerated procedure well Assessment/Plan Active Problems Open wound of left lower leg (Acute) Wound, open, leg (Acute) Assessment: This is a 72-year-old generally healthy female who fell on a slippery floor weeks ago, sustaining trauma inferior to the right knee. As result, the patient had an underlying subcutaneous hematoma. There was no open wound or drainage. There was no obvious sign of infection. There has been significant improvement, and the area is no longer of any concern. The patient' s wound on the right anterior tibial surface is now completely healed. The traumatized area on the left anterior tibial surface is now opened, and is manifesting as an open wound. It has improved since initial management with local wound care. We are using collagen hydrogel and Adaptic topically. Plan: We are to continue with the use of collagen hydrogel and Adaptic topically on a daily basis relative to the wound on the left anterior tibial surface. Healing by secondary intention is anticipated. The subcutaneous hematoma just inferior to the right knee is no longer of any consequence, and the area is now completely healed and normalized in appearance. The patient is to return in 3 weeks for reassessment, as she intends to be on vacation in [place] over the next several Mondays. Patient is not a smoker. Influenza vaccine was not administered today. Patient weighs 130 pounds. She stands 5 feet 1 inches tall. Her BMI is 24.6, which is normal.
[2018-03-04 09:11] VITALS: BP 139/78; PULSE 72; RESP 16; TEMP 36.6
--- NOTE | 2018-03-04 09:32 | PCM.WC.HP ---
(1) Contusion of right leg Status: Resolved Current Visit: No Qualifiers: Code(s): S80.11XA - Contusion of right lower leg, initial encounter (2) Subcutaneous hematoma Status: Resolved Current Visit: No Code(s): T14.8XXA - Other injury of unspecified body region, initial encounter (3) Pain in right leg Status: Resolved Current Visit: No Code(s): M79.604 - Pain in right leg (4) Abrasion of leg, right Status: Resolved Current Visit: No Qualifiers: Code(s): S80.811A - Abrasion, right lower leg, initial encounter (5) Traumatic open wound of right lower leg Status: Resolved Current Visit: No Qualifiers: Code(s): S81.801A - Unspecified open wound, right lower leg, initial encounter (6) Open wound of left lower leg Status: Acute Current Visit: Yes Qualifiers: Encounter type: subsequent encounter Code(s): S81.802A - Unspecified open wound, left lower leg, initial encounter (7) History of biliary stent insertion Status: Chronic Current Visit: No Code(s): Z98.890 - Other specified postprocedural states (8) S/P ORIF (open reduction internal fixation) fracture Status: Chronic Current Visit: No Code(s): Z96.7 - Presence of other bone and tendon implants; Z87.81 - Personal history of (healed) traumatic fracture Comment: left hip, 05/01/15,. [facility], Dr Antonio (9) Depression Status: Chronic Current Visit: No Code(s): F32.9 - Major depressive disorder, single episode, unspecified (10) Anemia Status: Chronic Current Visit: No Code(s): D64.9 - Anemia, unspecified (11) Contusion Status: Resolved Current Visit: No Qualifiers: Code(s): T14.8 - Other injury of unspecified body region (12) Contusion of leg, left Status: Resolved Current Visit: No Qualifiers: Code(s): S80.12XA - Contusion of left lower leg, initial encounter (13) Pain In Right Leg Status: Resolved Current Visit: No Code(s): M79.604 - Pain in right leg (14) GERD (gastroesophageal reflux disease) Status: Chronic Current Visit: No Code(s): K21.9 - Gastro-esophageal reflux disease without esophagitis (15) Osteoarthritis Status: Chronic Current Visit: No Code(s): M19.90 - Unspecified osteoarthritis, unspecified site (16) Hematoma of leg Status: Resolved Current Visit: No Qualifiers: Code(s): S80.10XA - Contusion of unspecified lower leg, initial encounter (17) Contusion of leg, right Status: Resolved Current Visit: No Qualifiers: Code(s): S80.11XA - Contusion of right lower leg, initial encounter (18) Wound, open, leg Status: Acute Current Visit: Yes Qualifiers: Encounter type: subsequent encounter Laterality: left Qualified Code(s): S81.802D - Unspecified open wound, left lower leg, subsequent encounter Code(s): S81.809A - Unspecified open wound, unspecified lower leg, initial encounter (19) Wound of right leg Status: Resolved Current Visit: No Qualifiers: Code(s): S81.801A - Unspecified open wound, right lower leg, initial encounter (20) Acute cholecystitis Status: Acute Current Visit: No Code(s): K81.0 - Acute cholecystitis History of Present Illness Date of Service: 03/04/18 Chief Complaint: Contusion and subcutaneous hematoma of the right knee; traumatic open wound of the right anterior tibial surface, Left leg wound History of Wound: This is a 72-year-old female who fell on a slippery floor at home on November 14, 2017. She traumatized the area immediately inferior to her right knee. As result, a subcutaneous hematoma formed, with some overlying ecchymosis and slight erythema. She had been treated by her primary care physician, Dr. Wooten, who administered 2 injections of Rocephin, and placed the patient on a 10 day course of Cefdinir. She had some mild associated discomfort. She presented for evaluation and recommendations as pertains to management. Non-invasive lower extremity arterial study was performed on December 13, 2016, which was normal. Arterial insufficiency of the lower extremities is not suspected. Patient has shown significant improvement with expectant observation. The size of the underlying hematoma appears to have diminished significantly, and dimensions are documented elsewhere. Erythema has resolved. The overlying skin remains intact, and does not appear to be compromised in any way at this time. Additionally, the patient recently fell while on her treadmill. She sustained an abrasion on the right anterior tibial surface, for which she presented for evaluation. Since initially evaluated, the abrasion has unroofed, and the patient developed a deep open tunneled wound on the right anterior tibial surface. The open wound on the right anterior tibial surface has diminished in size, decreased in depth, and the tunneling resolved. The right anterior tibial wound has now completely healed. Patient now has a traumatic wound on the left anterior tibial surface, sustained at the time of her treadmill incident, which is now unroofed and is now manifest as an open wound. It has decreased in size since initially noted. At this visit, the patient has just returned yesterday from a week vacation in [facility]. As result, swelling and edema is noted bilaterally in her lower extremities. Past Medical History Past Medical History: Chronic Problems History of biliary stent insertion (Chronic) S/P ORIF (open reduction internal fixation) fracture (Chronic) left hip, 05/01/15,. [facility], Dr Antonio Depression (Chronic) Anemia (Chronic) GERD (gastroesophageal reflux disease) (Chronic) Osteoarthritis (Chronic) Surgical History: - - Patient is undergone open reduction and internal fixation of a left hip fracture in April 2015. She has undergone 2 C-sections in the past. Laparoscopic cholecystectomy was performed in March 2017. Allergies/Adverse Reactions: Allergies erythromycin base Adverse Reaction (Verified 04/23/17 10:19) Upset Stomach meperidine HCl [From Demerol] Adverse Reaction (Verified 04/23/17 10:19) HALLUCINATIONS Home Medications: Ambulatory Orders Medication Instructions Recorded Calcium Carbonate/Vitamin D3 1 each PO BID 05/05/15 [Calcium 600-Vit D3 800 Caplet] buPROPion tablets [Wellbutrin 150 mg PO BID 05/05/15 tablets] Albuterol IH (ProAir) [Proair Hfa] 1 - 2 puff INHALATION Q6H PRN PRN 11/19/16 Alendronate Sodium [Fosamax] 70 mg PO VIDES 11/19/16 Lorazepam [Ativan] 0.5 mg PO DAILY PRN 11/19/16 Polyethylene Glycol 3350 [Miralax] 17 gm PO DAILY PRN PRN 01/13/17 Omeprazole [Prilosec] 20 mg PO DAILY PRN PRN 05/21/17 Turmeric/Turmeric Root Extract 1,000 mg PO BID 03/03/17 [Turmeric 500 mg Capsule] Fluticasone 0.05% [Flonase Nasal 1 spray NASAL DAILY PRN 03/12/17 [place]] - Family History Maternal - - Patient's father at the age of 75 with a history of chronic obstructive pulmonary disease. Patient's mother at age of 70 with a history of diabetes mellitus and breast cancer. She of sepsis from a urinary tract infection. Smoking Status: Never smoker Tobacco Use: Non-smoker Review of Systems Constitutional: Denies: Chills, Fever, Weight Change Eyes: Denies: Pain, Vision Change HEENT: Denies: Difficulty Hearing, Difficulty Swallowing, Sinus Congestion Cardiovascular: Denies: Chest Pain, Palpitations Respiratory: Denies: Cough, Shortness of Breath Gastrointestinal: Denies: Diarrhea, Nausea, Vomiting Genitourinary: Denies: Dysuria, Hematuria Endocrine: Denies: Heat/ Cold Intolerance, Polydipsia, Polyuria Hematologic/ Lymphatic: Denies: Easy Bruising, Easy Bleeding - Physical Exam Vital Signs Temp Pulse Resp BP 97.8 F 72 16 139/78 H 03/04/18 09:11 03/04/18 09:11 03/04/18 09:11 03/04/18 09:11 General: Alert, Oriented x3, Cooperative, No apparent distress, Well developed, Well nourished HEENT: Atraumatic, PERRLA, EOMI, Normocephalic Oral: Moist Mucosa Neck: No JVD Lungs: Normal air movement Abdomen: Non-Distended Extremities: No clubbing, No cyanosis, No Calf Tenderness, Edema, - - Swelling and edema is noted bilaterally in the lower extremities. The ulceration on the left anterior tibial surface is slightly smaller in size. Dimensions are documented elsewhere. There is no sign of infection or cellulitis. There is a moderate amount of bioburden. Skin: No rashes Wound Measurements and Assessment WC - Nurse 1 - General Ulcer Measurement Start: 02/17/18 12:38 Freq: Status: Active Protocol: Activity Type Activity Date Activity User E-Sign Co-Sign Detail Recorded Client Recorded Date Recorded By Document 03/04/18 09:11 BERENICE [id number] 03/04/18 09:17 DL 03/04/18 09:11 Wound Center Nurse 1 [Ulcer Assessment] 4-left ortiz -Current Size (cm) - Length 0.8 -Current Size (cm) - Width 1.5 -Current Size (cm) - Depth 0.1 -Total Square Cm 1.20 -Photo Taken No -Exudate Amt Small (1-33%) -Exudate Type Serosanguineous -Wound Margin Distinct, Outline Attached -Granulation Amt Large (67-100%) -Granulation Quality Red -Necrosis Amt Small (1-33%) -Necrotic Tissue Type Adherent Slough -Structure Exposed N/A -Texture (Griselda-wound Skin Appearance) Localized Edema Scarring -Moisture (Griselda-wound Skin Appearance No Abnormality ) -Color (Griselda-wound Skin Appearance) Hemosiderin Staining -Temperature (Griselda-wound Skin No Abnormality Appearance) (Pt Warm) -Tenderness on Palpation (Griselda-wound No Skin Appearance) -Ulcer Cleansing Rinsed/ Irrigated with Saline -Anesthetic Used 4% Lidocaine Solution [Edema Assessment] -Left Calf (cm) 31 -Left Ankle (cm) 21.5 WC - Nurse 2 - General Ulcer CM Notes Start: 02/17/18 12:38 Freq: Status: Active Protocol: Activity Type Activity Date Activity User E-Sign Co-Sign Detail Recorded Client Recorded Date Recorded By Document 03/04/18 09:24 MELIDA [id number] 03/04/18 09:27 MELIDA 03/04/18 09:24 Wound Center Nurse 2 [Procedure/Treatment] 4-left ortiz -Time 09:25 -Correct Patient Yes -Correct Side, Site, Position Yes -Correct Procedure Yes -Procedure Performed Yes -Type of Procedure Debridement -Clinical Debridement Subcutaneous -Post Debridement Size (cm) - Length 1.8 -Post Debridement Size (cm) - Width 1.0 -Post Debridement Size (cm) - Depth 0.2 -Total Square Cm 1.80 -Wound/Ulcer Outcome Not Healed -Ulcer Cleansing Rinsed/ Irrigated with Saline -Foul Odor after Cleansing No -Bioengineered Tissue No -Topical Lidocaine (%) 4 -Lidocaine (ml) 5 -Bleeding Controlled with NA -Treatment Response Procedure Tolerated Well [See Physician Procedure note for Specifics] Pain Scale: 0-10 Numeric [Pain] -Is Patient Pain Free? Yes Musculoskeletal: No Muscle Wasting Neurological: Cranial nerves II-XII grossly intact, Neuro grossly intact Psych/Mental Status: Normal Affect, Appropriate, Alert and oriented to time, place, person, mood and affect Debridement Note Post-Debridement Measurements/Treatment WC - Nurse 2 - General Ulcer CM Notes Start: 02/17/18 12:38 Freq: Status: Active Protocol: Activity Type Activity Date Activity User E-Sign Co-Sign Detail Recorded Client Recorded Date Recorded By Document 02/17/18 12:49 [id number] 02/17/18 12:53 Document 03/04/18 09:24 [id number] 03/04/18 09:27 JS 02/17/18 03/04/18 12:49 09:24 Wound Center Nurse 2 4-left ortiz -Time 12:49 09:25 -Correct Patient Yes Yes -Correct Side, Site, Position Yes Yes -Correct Procedure Yes Yes -Procedure Performed Yes Yes -Type of Procedure Debridement Debridement -Clinical Debridement Subcutaneous Subcutaneous -Post Debridement Size (cm) - Length 2.0 1.8 -Post Debridement Size (cm) - Width 0.9 1.0 -Post Debridement Size (cm) - Depth 0.1 0.2 -Total Square Cm 1.80 1.80 -Wound/Ulcer Outcome Not Healed Not Healed -Ulcer Cleansing Rinsed/ Rinsed/ Irrigated with Irrigated with Saline Saline -Foul Odor after Cleansing No No -Bioengineered Tissue No No -Topical Lidocaine (%) 5 4 -Lidocaine (ml) 5 -Bleeding Controlled with NA NA -Treatment Response Procedure Procedure Tolerated Well Tolerated Well Pain Scale: 0-10 Numeric Is Patient Pain Free? Yes Yes Laterality: Left - Anterior tibial surface Type of Debridement: Excisional debridement Anesthesia Used: 4% Lidocaine Solution Depth: Down to and including healthy tissue, in the subcutaneous layer Percentage of wound debrided: 100 Instrument Used: 5mm curette Severity: Fat Layer Exposed Amount of bleeding with debridement: Mild Bleeding Controlled with: Compression and gauze Patient tolerated procedure well Assessment/Plan Active Problems Open wound of left lower leg (Acute) Wound, open, leg (Acute) Assessment: This is a 72-year-old generally healthy female who fell on a slippery floor weeks ago, sustaining trauma inferior to the right knee. As result, the patient had an underlying subcutaneous hematoma. There was no open wound or drainage. There was no obvious sign of infection. There has been significant improvement, and the area is no longer of any concern. The patient's wound on the right anterior tibial surface is now completely healed. The traumatized area on the left anterior tibial surface is now opened, and is manifesting as an open wound. It has improved since initial management with local wound care. We have been using collagen hydrogel and Adaptic topically. The patient returned yesterday from a week-long vacation in [facility]. As result, moderate swelling and edema are noted bilaterally in the lower extremities. Plan: We are to transition to the use of Danielle topically to the wound on the left anterior tibial surface. The Danielle is to be reapplied every other day. The patient has been advised to elevate her lower extremities above heart level as much as possible. She is to continue sleeping on a flat surface at night. Leg elevation has been recommended even during daytime hours. Elevation has been encouraged so as to diminish swelling in the lower extremities, the result of recent travel. Her ability to elevate her lower extremities should be uninhibited, as she does not return to her employment for 4 more days. Healing by secondary intention is anticipated. The subcutaneous hematoma just inferior to the right knee is no longer of any consequence, and the area is now completely healed and normalized in appearance, as is the prior wound on the right anterior tibial surface. The patient is to return in 1 week for reassessment. Patient is not a smoker. Influenza vaccine was not administered today. Patient weighs 130 pounds. She stands 5 feet 1 inches tall. Her BMI is 24.6, which is normal.
[2018-03-11 08:10] VITALS: BP 122/79; PULSE 73; RESP 16; TEMP 36.6
--- NOTE | 2018-03-11 08:24 | PCM.WC.HP ---
(1) Open wound of left lower leg Status: Acute Current Visit: Yes Qualifiers: Encounter type: subsequent encounter Code(s): S81.802A - Unspecified open wound, left lower leg, initial encounter (2) History of biliary stent insertion Status: Chronic Current Visit: No Code(s): Z98.890 - Other specified postprocedural states (3) S/P ORIF (open reduction internal fixation) fracture Status: Chronic Current Visit: No Code(s): Z96.7 - Presence of other bone and tendon implants; Z87.81 - Personal history of (healed) traumatic fracture Comment: left hip, 05/01/15,. [facility], Dr Antonio (4) Depression Status: Chronic Current Visit: No Code(s): F32.9 - Major depressive disorder, single episode, unspecified (5) Anemia Status: Chronic Current Visit: No Code(s): D64.9 - Anemia, unspecified (6) GERD (gastroesophageal reflux disease) Status: Chronic Current Visit: No Code(s): K21.9 - Gastro-esophageal reflux disease without esophagitis (7) Osteoarthritis Status: Chronic Current Visit: No Code(s): M19.90 - Unspecified osteoarthritis, unspecified site (8) Wound, open, leg Status: Acute Current Visit: Yes Qualifiers: Encounter type: subsequent encounter Laterality: left Qualified Code(s): S81.802D - Unspecified open wound, left lower leg, subsequent encounter Code(s): S81.809A - Unspecified open wound, unspecified lower leg, initial encounter (9) Acute cholecystitis Status: Resolved Current Visit: No Code(s): K81.0 - Acute cholecystitis History of Present Illness Date of Service: 03/11/18 Chief Complaint: Contusion and subcutaneous hematoma of the right knee; traumatic open wound of the right anterior tibial surface, Left leg wound History of Wound: This is a 72-year-old female who fell on a slippery floor at home on November 14, 2017. She traumatized the area immediately inferior to her right knee. As result, a subcutaneous hematoma formed, with some overlying ecchymosis and slight erythema. She had been treated by her primary care physician, Dr. Wooten, who administered 2 injections of Rocephin, and placed the patient on a 10 day course of Cefdinir. She had some mild associated discomfort. She presented for evaluation and recommendations as pertains to management. Non-invasive lower extremity arterial study was performed on December 13, 2016, which was normal. Arterial insufficiency of the lower extremities is not suspected. Patient has shown significant improvement with expectant observation. The size of the underlying hematoma appears to have diminished significantly, and dimensions are documented elsewhere. Erythema has resolved. The overlying skin remains intact, and does not appear to be compromised in any way at this time. Additionally, the patient recently fell while on her treadmill. She sustained an abrasion on the right anterior tibial surface, for which she presented for evaluation. Since initially evaluated, the abrasion unroofed, and the patient developed a deep open tunneled wound on the right anterior tibial surface. The open wound on the right anterior tibial surface has diminished in size, decreased in depth, and the tunneling resolved. The right anterior tibial wound has now completely healed. Patient now has a traumatic wound on the left anterior tibial surface, sustained at the time of her treadmill incident, which is now unroofed, and is now manifest as an open wound. It has decreased in size since initially noted. Past Medical History Past Medical History: Chronic Problems History of biliary stent insertion (Chronic) S/P ORIF (open reduction internal fixation) fracture (Chronic) left hip, 05/01/15,. [facility], Dr Antonio Depression (Chronic) Anemia (Chronic) GERD (gastroesophageal reflux disease) (Chronic) Osteoarthritis (Chronic) Surgical History: - - Patient is undergone open reduction and internal fixation of a left hip fracture in April 2015. She has undergone 2 C-sections in the past. Laparoscopic cholecystectomy was performed in March 2017. Allergies/Adverse Reactions: Allergies erythromycin base Adverse Reaction (Verified 04/23/17 10:19) Upset Stomach meperidine HCl [From Demerol] Adverse Reaction (Verified 04/23/17 10:19) HALLUCINATIONS Home Medications: Ambulatory Orders Medication Instructions Recorded Calcium Carbonate/Vitamin D3 1 each PO BID 05/05/15 [Calcium 600-Vit D3 800 Caplet] buPROPion tablets [Wellbutrin 150 mg PO BID 05/05/15 tablets] Albuterol IH (ProAir) [Proair Hfa] 1 - 2 puff INHALATION Q6H PRN PRN 11/19/16 Alendronate Sodium [Fosamax] 70 mg PO VIDES 11/19/16 Lorazepam [Ativan] 0.5 mg PO DAILY PRN 11/19/16 Polyethylene Glycol 3350 [Miralax] 17 gm PO DAILY PRN PRN 01/13/17 Omeprazole [Prilosec] 20 mg PO DAILY PRN PRN 03/03/17 Turmeric/Turmeric Root Extract 1,000 mg PO BID 03/03/17 [Turmeric 500 mg Capsule] Fluticasone 0.05% [Flonase Nasal 1 spray NASAL DAILY PRN 03/12/17 [place]] - Family History Maternal - - Patient's father at the age of 75 with a history of chronic obstructive pulmonary disease. Patient's mother at age of 70 with a history of diabetes mellitus and breast cancer. She of sepsis from a urinary tract infection. Smoking Status: Never smoker Tobacco Use: Non-smoker Review of Systems Constitutional: Denies: Chills, Fever, Weight Change Eyes: Denies: Pain, Vision Change HEENT: Denies: Difficulty Hearing, Difficulty Swallowing, Sinus Congestion Cardiovascular: Denies: Chest Pain, Palpitations Respiratory: Denies: Cough, Shortness of Breath Gastrointestinal: Denies: Diarrhea, Nausea, Vomiting Genitourinary: Denies: Dysuria, Hematuria Endocrine: Denies: Heat/ Cold Intolerance, Polydipsia, Polyuria Hematologic/ Lymphatic: Denies: Easy Bruising, Easy Bleeding - Physical Exam Vital Signs Temp Pulse Resp BP 97.9 F 73 16 122/79 H 03/11/18 08:10 03/11/18 08:10 03/11/18 08:10 03/11/18 08:10 General: Alert, Oriented x3, Cooperative, No apparent distress, Well developed, Well nourished HEENT: Atraumatic, PERRLA, EOMI, Normocephalic Oral: Moist Mucosa Neck: No JVD Lungs: Normal air movement Abdomen: Non-Distended Extremities: No clubbing, No cyanosis, No edema, No Calf Tenderness, - - There is currently no significant swelling or edema in the patient's lower extremities. There are no open wounds in the right lower extremity. The open wound on the left anterior tibial surface is little changed in size. Dimensions are documented elsewhere. The base of the ulceration is pink and healthy in appearance. There is no sign of infection or cellulitis. Only mild bioburden is present. Skin: No rashes Wound Measurements and Assessment WC - Nurse 1 - General Ulcer Measurement Start: 02/17/18 12:38 Freq: Status: Active Protocol: Activity Type Activity Date Activity User E-Sign Co-Sign Detail Recorded Client Recorded Date Recorded By Document 03/11/18 08:10 BERENICE [id number] 03/11/18 08:15 DL 03/11/18 08:10 Wound Center Nurse 1 [Ulcer Assessment] 4-left ortiz -Current Size (cm) - Length 0.8 -Current Size (cm) - Width 1.5 -Current Size (cm) - Depth 0.1 -Total Square Cm 1.20 -Photo Taken No -Exudate Amt None Present (0 %) -Wound Margin Distinct, Outline Attached -Granulation Amt None Present (0 %) -Necrosis Amt Large (67-100%) -Necrotic Tissue Type Adherent Slough -Structure Exposed N/A -Texture (Griselda-wound Skin Appearance) Scarring -Moisture (Griselda-wound Skin Appearance No Abnormality ) -Color (Griselda-wound Skin Appearance) No Abnormality Hemosiderin Staining -Temperature (Griselda-wound Skin No Abnormality Appearance) (Pt Warm) -Ulcer Cleansing Rinsed/ Irrigated with Saline -Foul Odor after Cleansing No -Anesthetic Used 4% Lidocaine Solution [Edema Assessment] -Left Calf (cm) 30.2 -Left Ankle (cm) 18.5 - Nurse 2 - General Ulcer CM Notes Start: 02/17/18 12:38 Freq: Status: Active Protocol: Activity Type Activity Date Activity User E-Sign Co-Sign Detail Recorded Client Recorded Date Recorded By Document 03/11/18 08:20 MELIDA [id number] 03/11/18 08:22 03/11/18 08:20 Wound Center Nurse 2 [Procedure/Treatment] 4-left ortiz -Time 08:20 -Correct Patient Yes -Correct Side, Site, Position Yes -Correct Procedure Yes -Procedure Performed Yes -Type of Procedure Debridement -Clinical Debridement Subcutaneous -Post Debridement Size (cm) - Length 1.5 -Post Debridement Size (cm) - Width 0.7 -Post Debridement Size (cm) - Depth 0.1 -Total Square Cm 1.05 -Wound/Ulcer Outcome Not Healed -Ulcer Cleansing Rinsed/ Irrigated with Saline -Foul Odor after Cleansing No -Bioengineered Tissue No -Topical Lidocaine (%) 4 -Lidocaine (ml) 5 -Bleeding Controlled with NA -Treatment Response Procedure Tolerated Well [See Physician Procedure note for Specifics] Pain Scale: 0-10 Numeric [Pain] -Is Patient Pain Free? Yes Musculoskeletal: No Muscle Wasting Neurological: Cranial nerves II-XII grossly intact, Neuro grossly intact Psych/Mental Status: Normal Affect, Appropriate, Alert and oriented to time, place, person, mood and affect Debridement Note Post-Debridement Measurements/Treatment WC - Nurse 2 - General Ulcer CM Notes Start: 02/17/18 12:38 Freq: Status: Active Protocol: Activity Type Activity Date Activity User E-Sign Co-Sign Detail Recorded Client Recorded Date Recorded By Document 02/17/18 12:49 [id number] 02/17/18 12:53 JS Document 03/04/18 09:24 [id number] 03/04/18 09:27 Document 03/11/18 08:20 [id number] 03/11/18 08:22 JS 02/17/18 03/04/18 03/11/18 12:49 09:24 08:20 Wound Center Nurse 2 4-left ortiz -Time 12:49 09:25 08:20 -Correct Patient Yes Yes Yes -Correct Side, Site, Position Yes Yes Yes -Correct Procedure Yes Yes Yes -Procedure Performed Yes Yes Yes -Type of Procedure Debridement Debridement Debridement -Clinical Debridement Subcutaneous Subcutaneous Subcutaneous -Post Debridement Size (cm) - Length 2.0 1.8 1.5 -Post Debridement Size (cm) - Width 0.9 1.0 0.7 -Post Debridement Size (cm) - Depth 0.1 0.2 0.1 -Total Square Cm 1.80 1.80 1.05 -Wound/Ulcer Outcome Not Healed Not Healed Not Healed -Ulcer Cleansing Rinsed/ Rinsed/ Rinsed/ Irrigated with Irrigated with Irrigated with Saline Saline Saline -Foul Odor after Cleansing No No No -Bioengineered Tissue No No No -Topical Lidocaine (%) 5 4 4 -Lidocaine (ml) 5 5 -Bleeding Controlled with NA NA NA -Treatment Response Procedure Procedure Procedure Tolerated Well Tolerated Well Tolerated Well Pain Scale: 0-10 Numeric Is Patient Pain Free? Yes Yes Yes Laterality: Left - Anterior tibial surface Type of Debridement: Excisional debridement Anesthesia Used: 4% Lidocaine Solution Depth: Down to and including healthy tissue, in the subcutaneous layer Percentage of wound debrided: 100 Instrument Used: 5mm curette Severity: Fat Layer Exposed Amount of bleeding with debridement: Mild Bleeding Controlled with: Compression and gauze Patient tolerated procedure well Assessment/Plan Active Problems Open wound of left lower leg (Acute) Wound, open, leg (Acute) Assessment: This is a 72-year-old generally healthy female who fell on a slippery floor weeks ago, sustaining trauma inferior to the right knee. As result, the patient had an underlying subcutaneous hematoma. There was no open wound or drainage. There was no obvious sign of infection. There has been significant improvement, and the area is no longer of any concern. The patient's wound on the right anterior tibial surface is now completely healed. The traumatized area on the left anterior tibial surface is now opened, and is manifesting as an open wound. It has improved since initial management with local wound care. We have been using Danielle topically. Plan: We are to continue the use of Danielle topically to the wound on the left anterior tibial surface. The Danielle is to be reapplied every other day. The patient has been advised to elevate her lower extremities above heart level as much as possible. She is to continue sleeping on a flat surface at night. Leg elevation has been recommended even during daytime hours. Elevation has been encouraged so as to minimize swelling in the lower extremities. Healing by secondary intention is anticipated. The subcutaneous hematoma just inferior to the right knee is no longer of any consequence, and the area is now completely healed and normalized in appearance, as is the prior wound on the right anterior tibial surface. The patient is to return in 1 week for reassessment. Patient is not a smoker. Influenza vaccine was not administered today. Patient weighs 130 pounds. She stands 5 feet 1 inches tall. Her BMI is 24.6, which is normal.
== END 2018-03-13 23:59 ==
LOC: WC 08:00
PROVIDERS: Family Provider Internal Medicine; PCP Internal Medicine; Visit Provider Surgery
DX: S80.11XA Contusion of right lower leg, initial encounter (principal); T14.8XXA Other injury of unspecified body region, initial encounter; S80.12XA Contusion of left lower leg, initial encounter; M79.604 Pain in right leg; S81.801A Unspecified open wound, right lower leg, initial encounter; Z98.890 Other specified postprocedural states; Z96.7 Presence of other bone and tendon implants; Z87.81 Personal history of (healed) traumatic fracture; F32.9 Major depressive disorder, single episode, unspecified; D64.9 Anemia, unspecified; K21.9 Gastro-esophageal reflux disease without esophagitis; M19.90 Unspecified osteoarthritis, unspecified site; K81.0 Acute cholecystitis; S81.809A Unspecified open wound, unspecified lower leg, initial encounter; W01.0XXD Fall on same level from slipping, tripping and stumbling without subsequent striking against object, subsequent encounter
CPT/HCPCS: 11042

== ENCOUNTER → 2018-03-17 10:40 | Outpatient (CLI) | payer MEDICARE, OTHER, SELFPAY ==
--- NOTE | 2018-03-17 10:40 | DT_ITS ---
This patient was seen during an EMR downtime March 17, 2018 - March 24, 2018. This patient may have a combination of paper and electronic documentation or all paper documentation. All documentation is viewable within the e-chart portion of [facility] for each patient visit.
== END ==
PROVIDERS: Family Provider Internal Medicine; PCP Internal Medicine; Visit Provider Physician Assistant Surgical
DX: J02.9 Acute pharyngitis, unspecified (principal)
CPT/HCPCS: 87880

== ENCOUNTER 2018-04-07 12:28 | Outpatient (RCR) | payer MEDICARE, OTHER, SELFPAY ==
[2018-03-14 00:42] VITALS: BP 122/79; PULSE 73; RESP 16; TEMP 36.6
--- NOTE | 2018-03-24 13:16 | PCM.WC.HP ---
(1) Open wound of left lower leg Status: Acute Qualifiers: Encounter type: subsequent encounter Code(s): S81.802A - Unspecified open wound, left lower leg, initial encounter (2) Wound, open, leg Status: Acute Qualifiers: Encounter type: subsequent encounter Laterality: left Qualified Code(s): S81.802D - Unspecified open wound, left lower leg, subsequent encounter Code(s): S81.809A - Unspecified open wound, unspecified lower leg, initial encounter (3) Anemia Status: Chronic Code(s): D64.9 - Anemia, unspecified (4) Depression Status: Chronic Code(s): F32.9 - Major depressive disorder, single episode, unspecified (5) GERD (gastroesophageal reflux disease) Status: Chronic Code(s): K21.9 - Gastro-esophageal reflux disease without esophagitis (6) History of biliary stent insertion Status: Chronic Code(s): Z98.890 - Other specified postprocedural states (7) Osteoarthritis Status: Chronic Code(s): M19.90 - Unspecified osteoarthritis, unspecified site (8) S/P ORIF (open reduction internal fixation) fracture Status: Chronic Code(s): Z96.7 - Presence of other bone and tendon implants; Z87.81 - Personal history of (healed) traumatic fracture Comment: left hip, 05/01/15,. [facility], Dr Antonio (9) Abrasion of leg, right Status: Resolved Qualifiers: Code(s): S80.811A - Abrasion, right lower leg, initial encounter (10) Acute cholecystitis Status: Resolved Code(s): K81.0 - Acute cholecystitis (11) Contusion Status: Resolved Qualifiers: Code(s): T14.8 - Other injury of unspecified body region (12) Contusion of leg, left Status: Resolved Qualifiers: Code(s): S80.12XA - Contusion of left lower leg, initial encounter (13) Contusion of leg, right Status: Resolved Qualifiers: Code(s): S80.11XA - Contusion of right lower leg, initial encounter (14) Contusion of right leg Status: Resolved Qualifiers: Code(s): S80.11XA - Contusion of right lower leg, initial encounter (15) Hematoma of leg Status: Resolved Qualifiers: Code(s): S80.10XA - Contusion of unspecified lower leg, initial encounter (16) Pain In Right Leg Status: Resolved Code(s): M79.604 - Pain in right leg (17) Pain in right leg Status: Resolved Code(s): M79.604 - Pain in right leg (18) Subcutaneous hematoma Status: Resolved Code(s): T14.8XXA - Other injury of unspecified body region, initial encounter (19) Traumatic open wound of right lower leg Status: Resolved Qualifiers: Code(s): S81.801A - Unspecified open wound, right lower leg, initial encounter (20) Wound of right leg Status: Resolved Qualifiers: Code(s): S81.801A - Unspecified open wound, right lower leg, initial encounter History of Present Illness Date of Service: 03/24/18 Chief Complaint: Contusion and subcutaneous hematoma of the right knee; traumatic open wound of the right anterior tibial surface, Left leg wound History of Wound: This is a 72-year-old female who fell on a slippery floor at home on November 14, 2017. She traumatized the area immediately inferior to her right knee. As result, a subcutaneous hematoma formed, with some overlying ecchymosis and slight erythema. She had been treated by her primary care physician, Dr. Wooten, who administered 2 injections of Rocephin, and placed the patient on a 10 day course of Cefdinir. She had some mild associated discomfort. She presented for evaluation and recommendations as pertains to management. Non-invasive lower extremity arterial study was performed on December 13, 2016, which was normal. Arterial insufficiency of the lower extremities is not suspected. Patient has shown significant improvement with expectant observation. The size of the underlying hematoma appears to have diminished significantly, and dimensions are documented elsewhere. Erythema has resolved. The overlying skin remains intact, and does not appear to be compromised in any way at this time. Additionally, the patient recently fell while on her treadmill. She sustained an abrasion on the right anterior tibial surface, for which she presented for evaluation. Since initially evaluated, the abrasion unroofed, and the patient developed a deep open tunneled wound on the right anterior tibial surface. The open wound on the right anterior tibial surface has diminished in size, decreased in depth, and the tunneling resolved. The right anterior tibial wound has now completely healed. Patient now has a traumatic wound on the left anterior tibial surface, sustained at the time of her treadmill incident, which is now unroofed, and is now manifest as an open wound. It has decreased in size since initially noted. Past Medical History Past Medical History: Chronic Problems History of biliary stent insertion (Chronic) S/P ORIF (open reduction internal fixation) fracture (Chronic) left hip, 05/01/15,. [facility], Dr Antonio Depression (Chronic) Anemia (Chronic) GERD (gastroesophageal reflux disease) (Chronic) Osteoarthritis (Chronic) Surgical History: - - Patient is undergone open reduction and internal fixation of a left hip fracture in April 2015. She has undergone 2 C-sections in the past. Laparoscopic cholecystectomy was performed in March 2017. Allergies/Adverse Reactions: Allergies erythromycin base Adverse Reaction (Verified 04/23/17 10:19) Upset Stomach meperidine HCl [From Demerol] Adverse Reaction (Verified 04/23/17 10:19) HALLUCINATIONS Home Medications: Ambulatory Orders Medication Instructions Recorded Calcium Carbonate/Vitamin D3 1 each PO BID 05/05/15 [Calcium 600-Vit D3 800 Caplet] buPROPion tablets [Wellbutrin 150 mg PO BID 05/05/15 tablets] Albuterol IH (ProAir) [Proair Hfa] 1 - 2 puff INHALATION Q6H PRN PRN 11/19/16 Alendronate Sodium [Fosamax] 70 mg PO VIDES 11/19/16 Lorazepam [Ativan] 0.5 mg PO DAILY PRN 11/19/16 Polyethylene Glycol 3350 [Miralax] 17 gm PO DAILY PRN PRN 01/13/17 Omeprazole [Prilosec] 20 mg PO DAILY PRN PRN 03/03/17 Turmeric/Turmeric Root Extract 1,000 mg PO BID 03/03/17 [Turmeric 500 mg Capsule] Fluticasone 0.05% [Flonase Nasal 1 spray NASAL DAILY PRN 03/12/17 [place]] - Family History Maternal - - Patient's father at the age of 75 with a history of chronic obstructive pulmonary disease. Patient's mother at age of 70 with a history of diabetes mellitus and breast cancer. She of sepsis from a urinary tract infection. Smoking Status: Never smoker Tobacco Use: Non-smoker Review of Systems Constitutional: Denies: Chills, Fever, Weight Change Eyes: Denies: Pain, Vision Change HEENT: Denies: Difficulty Hearing, Difficulty Swallowing, Sinus Congestion Cardiovascular: Denies: Chest Pain, Palpitations Respiratory: Denies: Cough, Shortness of Breath Gastrointestinal: Denies: Diarrhea, Nausea, Vomiting Genitourinary: Denies: Dysuria, Hematuria Endocrine: Denies: Heat/ Cold Intolerance, Polydipsia, Polyuria Hematologic/ Lymphatic: Denies: Easy Bruising, Easy Bleeding - Physical Exam Vital Signs Temp Pulse Resp BP 97.9 F 73 16 122/79 H 03/14/18 00:42 03/14/18 00:42 03/14/18 00:42 03/14/18 00:42 General: Alert, Oriented x3, Cooperative, No apparent distress, Well developed, Well nourished HEENT: Atraumatic, PERRLA, EOMI, Normocephalic Oral: Moist Mucosa Neck: No JVD Lungs: Normal air movement Abdomen: Non-Distended Extremities: No clubbing, No cyanosis, No edema, No Calf Tenderness, - - There is no significant swelling or edema in the lower extremities. The traumatic wound on the left anterior tibial surface is generally pink and healthy in appearance. There is evidence of active granulation tissue. There is a moderate amount of bioburden. There is no sign of infection or cellulitis. Dimensions are documented elsewhere. It appears to be slightly smaller in size. Skin: No rashes Neurological: Cranial nerves II-XII grossly intact, Neuro grossly intact Psych/Mental Status: Normal Affect, Appropriate, Alert and oriented to time, place, person, mood and affect Debridement Note Laterality: Left - Anterior tibial surface Type of Debridement: Excisional debridement Anesthesia Used: 4% Lidocaine Solution Depth: Down to and including healthy tissue, in the subcutaneous layer Percentage of wound debrided: 100 Instrument Used: 5mm curette Severity: Fat Layer Exposed Amount of bleeding with debridement: Mild Bleeding Controlled with: Compression and gauze Patient tolerated procedure well Assessment/Plan Assessment: This is a 72-year-old generally healthy female who fell on a slippery floor weeks ago, sustaining trauma inferior to the right knee. As result, the patient had an underlying subcutaneous hematoma. There was no open wound or drainage. There was no obvious sign of infection. There has been significant improvement, and the area is no longer of any concern. The patient's wound on the right anterior tibial surface is now completely healed. The traumatized area on the left anterior tibial surface is now opened, and is manifesting as an open wound. It has improved since initial management with local wound care. We have been using Danielle topically. Plan: We are to discontinue the use of Danielle topically to the wound on the left anterior tibial surface. Instead, we are to implement the use of collagen hydrogel applied topically on a daily basis, and Adaptic. The patient has been advised to elevate her lower extremities above heart level as much as possible. She is to continue sleeping on a flat surface at night. Leg elevation has been recommended even during daytime hours. Elevation has been encouraged so as to minimize swelling in the lower extremities. Healing by secondary intention is anticipated. The subcutaneous hematoma just inferior to the right knee is no longer of any consequence, and the area is now completely healed and normalized in appearance, as is the prior wound on the right anterior tibial surface. The patient is to return in 1 week for reassessment. Patient is not a smoker. Influenza vaccine was not administered today. Patient weighs 130 pounds. She stands 5 feet 1 inches tall. Her BMI is 24.6, which is normal.
[2018-04-07 13:15] VITALS: BP 142/80; PULSE 62; RESP 18; TEMP 35.7
--- NOTE | 2018-04-07 13:51 | PCM.WC.HP ---
(1) Open wound of left lower leg Status: Acute Current Visit: Yes Qualifiers: Encounter type: subsequent encounter Code(s): S81.802A - Unspecified open wound, left lower leg, initial encounter (2) Wound, open, leg Status: Acute Current Visit: Yes Qualifiers: Encounter type: subsequent encounter Laterality: left Qualified Code(s): S81.802D - Unspecified open wound, left lower leg, subsequent encounter Code(s): S81.809A - Unspecified open wound, unspecified lower leg, initial encounter (3) Anemia Status: Chronic Current Visit: No Code(s): D64.9 - Anemia, unspecified (4) Depression Status: Chronic Current Visit: No Code(s): F32.9 - Major depressive disorder, single episode, unspecified (5) GERD (gastroesophageal reflux disease) Status: Chronic Current Visit: No Code(s): K21.9 - Gastro-esophageal reflux disease without esophagitis (6) History of biliary stent insertion Status: Chronic Current Visit: No Code(s): Z98.890 - Other specified postprocedural states (7) Osteoarthritis Status: Chronic Current Visit: No Code(s): M19.90 - Unspecified osteoarthritis, unspecified site (8) S/P ORIF (open reduction internal fixation) fracture Status: Chronic Current Visit: No Code(s): Z96.7 - Presence of other bone and tendon implants; Z87.81 - Personal history of (healed) traumatic fracture Comment: left hip, 05/01/15,. [facility], Dr Antonio (9) Abrasion of leg, right Status: Resolved Current Visit: No Qualifiers: Code(s): S80.811A - Abrasion, right lower leg, initial encounter (10) Acute cholecystitis Status: Resolved Current Visit: No Code(s): K81.0 - Acute cholecystitis (11) Contusion Status: Resolved Current Visit: No Qualifiers: Code(s): T14.8 - Other injury of unspecified body region (12) Contusion of leg, left Status: Resolved Current Visit: No Qualifiers: Code(s): S80.12XA - Contusion of left lower leg, initial encounter (13) Contusion of leg, right Status: Resolved Current Visit: No Qualifiers: Code(s): S80.11XA - Contusion of right lower leg, initial encounter (14) Contusion of right leg Status: Resolved Current Visit: No Qualifiers: Code(s): S80.11XA - Contusion of right lower leg, initial encounter (15) Hematoma of leg Status: Resolved Current Visit: No Qualifiers: Code(s): S80.10XA - Contusion of unspecified lower leg, initial encounter (16) Pain In Right Leg Status: Resolved Current Visit: No Code(s): M79.604 - Pain in right leg (17) Pain in right leg Status: Resolved Current Visit: No Code(s): M79.604 - Pain in right leg (18) Subcutaneous hematoma Status: Resolved Current Visit: No Code(s): T14.8XXA - Other injury of unspecified body region, initial encounter (19) Traumatic open wound of right lower leg Status: Resolved Current Visit: No Qualifiers: Code(s): S81.801A - Unspecified open wound, right lower leg, initial encounter (20) Wound of right leg Status: Resolved Current Visit: No Qualifiers: Code(s): S81.801A - Unspecified open wound, right lower leg, initial encounter History of Present Illness Date of Service: 04/07/18 Chief Complaint: Contusion and subcutaneous hematoma of the right knee; traumatic open wound of the right anterior tibial surface, Left leg wound History of Wound: This is a 72-year-old female who fell on a slippery floor at home on November 14, 2017. She traumatized the area immediately inferior to her right knee. As result, a subcutaneous hematoma formed, with some overlying ecchymosis and slight erythema. She had been treated by her primary care physician, Dr. Wooten, who administered 2 injections of Rocephin, and placed the patient on a 10 day course of Cefdinir. She had some mild associated discomfort. She presented for evaluation and recommendations as pertains to management. Non-invasive lower extremity arterial study was performed on December 13, 2016, which was normal. Arterial insufficiency of the lower extremities is not suspected. Patient has shown significant improvement with expectant observation. The size of the underlying hematoma appears to have diminished significantly, and dimensions are documented elsewhere. Erythema has resolved. The overlying skin remains intact, and does not appear to be compromised in any way at this time. Additionally, the patient recently fell while on her treadmill. She sustained an abrasion on the right anterior tibial surface, for which she presented for evaluation. Since initially evaluated, the abrasion unroofed, and the patient developed a deep open tunneled wound on the right anterior tibial surface. The open wound on the right anterior tibial surface has diminished in size, decreased in depth, and the tunneling resolved. The right anterior tibial wound has now completely healed. Patient now has a traumatic wound on the left anterior tibial surface, sustained at the time of her treadmill incident, which is now unroofed, and is now manifest as an open wound. It has decreased in size since initially noted. Past Medical History Past Medical History: Chronic Problems History of biliary stent insertion (Chronic) S/P ORIF (open reduction internal fixation) fracture (Chronic) left hip, 05/01/15,. [facility], Dr Antonio Depression (Chronic) Anemia (Chronic) GERD (gastroesophageal reflux disease) (Chronic) Osteoarthritis (Chronic) Surgical History: - - Patient is undergone open reduction and internal fixation of a left hip fracture in April 2015. She has undergone 2 C-sections in the past. Laparoscopic cholecystectomy was performed in March 2017. Allergies/Adverse Reactions: Allergies erythromycin base Adverse Reaction (Verified 04/23/17 10:19) Upset Stomach meperidine HCl [From Demerol] Adverse Reaction (Verified 04/23/17 10:19) HALLUCINATIONS Home Medications: Ambulatory Orders Medication Instructions Recorded Calcium Carbonate/Vitamin D3 1 each PO BID 05/05/15 [Calcium 600-Vit D3 800 Caplet] buPROPion tablets [Wellbutrin 150 mg PO BID 05/05/15 tablets] Albuterol IH (ProAir) [Proair Hfa] 1 - 2 puff INHALATION Q6H PRN PRN 11/19/16 Alendronate Sodium [Fosamax] 70 mg PO VIDES 11/19/16 Lorazepam [Ativan] 0.5 mg PO DAILY PRN 11/19/16 Polyethylene Glycol 3350 [Miralax] 17 gm PO DAILY PRN PRN 01/13/17 Omeprazole [Prilosec] 20 mg PO DAILY PRN PRN 03/03/17 Turmeric/Turmeric Root Extract 1,000 mg PO BID 03/03/17 [Turmeric 500 mg Capsule] Fluticasone 0.05% [Flonase Nasal 1 spray NASAL DAILY PRN 03/12/17 [place]] - Family History Maternal - - Patient's father at the age of 75 with a history of chronic obstructive pulmonary disease. Patient's mother at age of 70 with a history of diabetes mellitus and breast cancer. She of sepsis from a urinary tract infection. Smoking Status: Never smoker Tobacco Use: Non-smoker Review of Systems Constitutional: Denies: Chills, Fever, Weight Change Eyes: Denies: Pain, Vision Change HEENT: Denies: Difficulty Hearing, Difficulty Swallowing, Sinus Congestion Cardiovascular: Denies: Chest Pain, Palpitations Respiratory: Denies: Cough, Shortness of Breath Gastrointestinal: Denies: Diarrhea, Nausea, Vomiting Genitourinary: Denies: Dysuria, Hematuria Endocrine: Denies: Heat/ Cold Intolerance, Polydipsia, Polyuria Hematologic/ Lymphatic: Denies: Easy Bruising, Easy Bleeding - Physical Exam Vital Signs Temp Pulse Resp BP 96.3 F L 62 18 142/80 H 04/07/18 13:15 04/07/18 13:15 04/07/18 13:15 04/07/18 13:15 General: Alert, Oriented x3, Cooperative, No apparent distress, Well developed, Well nourished HEENT: Atraumatic, PERRLA, EOMI, Normocephalic Oral: Moist Mucosa Neck: No JVD Lungs: Normal air movement Abdomen: Non-Distended Extremities: No clubbing, No cyanosis, No edema, No Calf Tenderness, - - The traumatic wound on the left anterior tibial surface continues to diminish in size. Dimensions are documented elsewhere. There is no sign of infection or cellulitis. There is a small amount of bioburden. The base of the wound is generally pink and healthy in appearance. Wound Measurements and Assessment WC - Nurse 1 - General Ulcer Measurement Start: 04/07/18 13:13 Freq: Status: Active Protocol: Activity Type Activity Date Activity User E-Sign Co-Sign Detail Recorded Client Recorded Date Recorded By Document 04/07/18 13:15 DL [id number] 04/07/18 13:21 DL 04/07/18 13:15 Wound Center Nurse 1 [Ulcer Assessment] 4-left ortiz -Current Size (cm) - Length 0.5 -Current Size (cm) - Width 0.5 -Current Size (cm) - Depth 0.1 -Total Square Cm 0.25 -Photo Taken Yes -Exudate Amt None Present (0 %) -Wound Margin Flat & Intact -Granulation Amt Small (1-33%) -Granulation Quality [place] -Necrosis Amt Large (67-100%) -Necrotic Tissue Type Adherent Slough -Structure Exposed N/A -Texture (Griselda-wound Skin Appearance) Scarring -Moisture (Griselda-wound Skin Appearance No Abnormality ) -Color (Griselda-wound Skin Appearance) Hemosiderin Staining -Temperature (Griselda-wound Skin No Abnormality Appearance) (Pt Warm) -Ulcer Cleansing Rinsed/ Irrigated with Saline -Foul Odor after Cleansing No -Anesthetic Used 4% Lidocaine Solution [Edema Assessment] -Left Calf (cm) 29.5 -Left Ankle (cm) 21.5 - Nurse 2 - General Ulcer CM Notes Start: 04/07/18 13:13 Freq: Status: Active Protocol: Activity Type Activity Date Activity User E-Sign Co-Sign Detail Recorded Client Recorded Date Recorded By Document 04/07/18 13:35 [id number] 04/07/18 13:40 04/07/18 13:35 Wound Center Nurse 2 [Procedure/Treatment] 4-left ortiz -Time 13:39 -Correct Patient Yes -Correct Side, Site, Position Yes -Correct Procedure Yes -Procedure Performed Yes -Type of Procedure Debridement -Clinical Debridement Subcutaneous -Post Debridement Size (cm) - Length 0.9 -Post Debridement Size (cm) - Width 0.7 -Post Debridement Size (cm) - Depth 0.1 -Total Square Cm 0.63 -Wound/Ulcer Outcome Not Healed -Ulcer Cleansing Not Cleansed -Foul Odor after Cleansing No -Bioengineered Tissue No -Bleeding Controlled with Pressure -Treatment Response Procedure Tolerated Well [See Physician Procedure note for Specifics] Pain Scale: 0-10 Numeric [Pain] -Is Patient Pain Free? Yes Musculoskeletal: No Muscle Wasting Neurological: Cranial nerves II-XII grossly intact, Neuro grossly intact Psych/Mental Status: Normal Affect, Appropriate, Alert and oriented to time, place, person, mood and affect Debridement Note Post-Debridement Measurements/Treatment WC - Nurse 2 - General Ulcer CM Notes Start: 04/07/18 13:13 Freq: Status: Active Protocol: Activity Type Activity Date Activity User E-Sign Co-Sign Detail Recorded Client Recorded Date Recorded By Document 04/07/18 13:35 [id number] 04/07/18 13:40 04/07/18 13:35 Wound Center Nurse 2 4-left ortiz -Time 13:39 -Correct Patient Yes -Correct Side, Site, Position Yes -Correct Procedure Yes -Procedure Performed Yes -Type of Procedure Debridement -Clinical Debridement Subcutaneous -Post Debridement Size (cm) - Length 0.9 -Post Debridement Size (cm) - Width 0.7 -Post Debridement Size (cm) - Depth 0.1 -Total Square Cm 0.63 -Wound/Ulcer Outcome Not Healed -Ulcer Cleansing Not Cleansed -Foul Odor after Cleansing No -Bioengineered Tissue No -Bleeding Controlled with Pressure -Treatment Response Procedure Tolerated Well Pain Scale: 0-10 Numeric Is Patient Pain Free? Yes Laterality: Left - Anterior tibial surface Type of Debridement: Excisional debridement Anesthesia Used: 4% Lidocaine Solution Depth: Down to and including healthy tissue, in the subcutaneous layer Percentage of wound debrided: 100 Instrument Used: 5mm curette Severity: Fat Layer Exposed Amount of bleeding with debridement: Mild Bleeding Controlled with: Compression and gauze Patient tolerated procedure well Assessment/Plan Active Problems Open wound of left lower leg (Acute) Wound, open, leg (Acute) Assessment: This is a 72-year-old generally healthy female who fell on a slippery floor weeks ago, sustaining trauma inferior to the right knee. As result, the patient had an underlying subcutaneous hematoma. There was no open wound or drainage. There was no obvious sign of infection. There has been significant improvement, and the area is no longer of any concern. The patient's wound on the right anterior tibial surface is now completely healed. The traumatized area on the left anterior tibial surface is now opened, and is manifesting as an open wound. It has improved since initial management with local wound care. We have been using collagen hydrogel topically. Plan: We are to continue the use of collagen hydrogel topically to the wound on the left anterior tibial surface. This will be applied on a daily basis. The patient has been advised to elevate her lower extremities above heart level as much as possible. She is to continue sleeping on a flat surface at night. Leg elevation has been recommended even during daytime hours. Elevation has been encouraged so as to minimize swelling in the lower extremities. Healing by secondary intention is anticipated. The subcutaneous hematoma just inferior to the right knee is no longer of any consequence, and the area is now completely healed and normalized in appearance, as is the prior wound on the right anterior tibial surface. The patient is to return in 1 week for reassessment. Patient is not a smoker. Influenza vaccine was not administered today. Patient weighs 130 pounds. She stands 5 feet 1 inches tall. Her BMI is 24.6, which is normal.
== END 2018-04-12 23:59 ==
LOC: WC 12:28
PROVIDERS: Family Provider Internal Medicine; PCP Internal Medicine; Visit Provider Surgery
DX: S80.01XA Contusion of right knee, initial encounter (principal); W01.0XXA Fall on same level from slipping, tripping and stumbling without subsequent striking against object, initial encounter; S80.811A Abrasion, right lower leg, initial encounter; K21.9 Gastro-esophageal reflux disease without esophagitis; M19.90 Unspecified osteoarthritis, unspecified site
CPT/HCPCS: 11042

== ENCOUNTER 2018-04-28 12:30 | Outpatient (RCR) | payer MEDICARE, OTHER, SELFPAY ==
[2018-04-13 00:38] VITALS: BP 142/80; PULSE 62; RESP 18; TEMP 35.7
[2018-04-14 13:01] VITALS: BP 118/74; PULSE 74; RESP 16; TEMP 36.4
--- NOTE | 2018-04-14 13:22 | HP.PCM_ITS ---
(1) Open wound of left lower leg Status: Acute Current Visit: Yes Qualifiers: Encounter type: subsequent encounter Code(s): S81.802A - Unspecified open wound, left lower leg, initial encounter (2) History of biliary stent insertion Status: Chronic Current Visit: No Code(s): Z98.890 - Other specified postprocedural states (3) S/P ORIF (open reduction internal fixation) fracture Status: Chronic Current Visit: No Code(s): Z96.7 - Presence of other bone and tendon implants; Z87.81 - Personal history of (healed) traumatic fracture Comment: left hip, 05/01/15,. [facility] [place] [facility], Dr Antonio (4) Depression Status: Chronic Current Visit: No Code(s): F32.9 - Major depressive disorder , single episode, unspecified (5) Anemia Status: Chronic Current Visit: No Code(s): D64.9 - Anemia, unspecified (6) Osteoarthritis Status: Chronic Current Visit: No Code(s): M19.90 - Unspecified osteoarthritis, unspecified site (7) Wound, open, leg Status: Acute Current Visit: Yes Qualifiers: Encounter type: subsequent encounter Laterality: left Qualified Code(s): S81.802D - Unspecified open wound, left lower leg, subsequent encounter Code(s): S81.809A - Unspecified open wound, unspecified lower leg, initial encounter History of Present Illness Date of Service: 04/14/18 Chief Complaint: Left leg wound History of Wound: This is a 72-year-old female who fell on a slippery floor at home on November 14, 2017. She traumatized the area immediately inferior to her right knee. As result, a subcutaneous hematoma formed, with some overlying ecchymosis and slight erythema. She had been treated by her primary care physician, Dr. Wooten, who administered 2 injections of Rocephin, and placed the patient on a 10 day course of Cefdinir. She had some mild associated discomfort. She presented for evaluation and recommendations as pertains to management. Non-invasive lower extremity arterial study was performed on December 13, 2016, which was normal. Arterial insufficiency of the lower extremities is not suspected. Patient has shown significant improvement with expectant observation. The size of the underlying hematoma appears to have diminished significantly, and dimensions are documented elsewhere. Erythema has resolved. The overlying skin remains intact, and does not appear to be compromised in any way at this time. Additionally, the patient recently fell while on her treadmill. She sustained an abrasion on the right anterior tibial surface, for which she presented for evaluation. Since initially evaluated, the abrasion unroofed, and the patient developed a deep open tunneled wound on the right anterior tibial surface. The open wound on the right anterior tibial surface has diminished in size, decreased in depth, and the tunneling resolved. The right anterior tibial wound has now completely healed. Patient now has a traumatic wound on the left anterior tibial surface, sustained at the time of her treadmill incident, which is now unroofed, and has manifest as an open wound. It has decreased in size since initially noted, and is now quite small. Past Medical History Past Medical History: Chronic Problems History of biliary stent insertion (Chronic) S/P ORIF (open reduction internal fixation) fracture (Chronic) left hip, 05/01/15,. [facility] [place] [facility], Dr Antonio Depression (Chronic) Anemia (Chronic) GERD (gastroesophageal reflux disease) (Chronic) Osteoarthritis (Chronic) Surgical History: - - Patient is undergone open reduction and internal fixation of a left hip fracture in April 2015. She has undergone 2 C-sections in the past. Laparoscopic cholecystectomy was performed in March 2017. Allergies/Adverse Reactions: Allergies erythromycin base Adverse Reaction (Verified 04/23/17 10:19) Upset Stomach meperidine HCl [From Demerol] Adverse Reaction (Verified 04/23/17 10:19) HALLUCINATIONS Home Medications: Ambulatory Orders Medication Instructions Recorded Calcium Carbonate/Vitamin D3 1 each PO BID 05/05/15 [Calcium 600-Vit D3 800 Caplet] buPROPion tablets [Wellbutrin 150 mg PO BID 05/05/15 tablets] Albuterol IH (ProAir) [Proair Hfa] 1 - 2 puff INHALATION Q6H PRN PRN 11/19/16 Alendronate Sodium [Fosamax] 70 mg PO VIDES 11/19/16 Lorazepam [Ativan] 0.5 mg PO DAILY PRN 11/19/16 Polyethylene Glycol 3350 [Miralax] 17 gm PO DAILY PRN PRN 01/13/17 Omeprazole [Prilosec] 20 mg PO DAILY PRN PRN 03/03/17 Turmeric/Turmeric Root Extract 1,000 mg PO BID 03/03/17 [Turmeric 500 mg Capsule] Fluticasone 0.05% [Flonase Nasal 1 spray NASAL DAILY PRN 03/12/17 [place]] - Family History Maternal - - Patient's father at the age of 75 with a history of chronic obstructive pulmonary disease. Patient's mother at age of 70 with a history of diabetes mellitus and breast cancer. She of sepsis from a urinary tract infection. Smoking Status: Never smoker Tobacco Use: Non-smoker Review of Systems Constitutional: Denies: Chills, Fever, Weight Change Eyes: Denies: Pain, Vision Change HEENT: Denies: Difficulty Hearing, Difficulty Swallowing, Sinus Congestion Cardiovascular: Denies: Chest Pain, Palpitations Respiratory: Denies: Cough, Shortness of Breath Gastrointestinal: Denies: Diarrhea, Nausea, Vomiting Genitourinary: Denies: Dysuria, Hematuria Endocrine: Denies: Heat/ Cold Intolerance, Polydipsia, Polyuria Hematologic/ Lymphatic: Denies: Easy Bruising, Easy Bleeding - Physical Exam Vital Signs Temp Pulse Resp BP 97.5 F L 74 16 118/74 04/14/18 13:01 04/14/18 13:01 04/14/18 13:01 04/14/18 13:01 General: Alert, Oriented x3, Cooperative, No apparent distress, Well developed, Well nourished HEENT: Atraumatic, PERRLA, EOMI, Normocephalic Oral: Moist Mucosa Neck: No JVD Lungs: Normal air movement Abdomen: Non-Distended Extremities: No clubbing, No cyanosis, No edema, No Calf Tenderness, - - There is no significant swelling or edema in the lower extremities. The traumatic wound on the left anterior tibial surface continues to decrease in size. It is now quite small. Dimensions are documented elsewhere. There is no sign of infection or cellulitis. The base of the wound is pink and healthy in appearance, with evidence of granulation tissue. Skin: No rashes Wound Measurements and Assessment WC - Nurse 1 - General Ulcer Measurement Start: 04/14/18 13:01 Freq: Status: Active Protocol: Activity Type Activity Date Activity User E-Sign Co-Sign Detail Recorded Client Recorded Date Recorded By Document 04/14/18 13:[address] [facility] [id number] 04/14/18 13:08 BM 04/14/18 13:01 Wound Center Nurse 1 [Ulcer Assessment] 4-left ortiz -Combined with other wound No -Current Size (cm) - Length 0.9 -Current Size (cm) - Width 0.7 -Current Size (cm) - Depth 0.1 -Total Square Cm 0.63 -Date of Last Picture (Recall this 04/14/18 field) -Photo Taken Yes -Epithelialization Medium 34-66% -Tunneling No -Undermining/Tunneling No -Circular Undermining No -Exudate Amt Small (1-33%) -Exudate Type Serous -Wound Margin Distinct, Outline Attached -Granulation Amt Medium (34-66%) -Granulation Quality Red -Slough/Fibrin Yes -Necrosis Amt Small (1-33%) -Necrotic Tissue Type Adherent Slough -Structure Exposed None/Limited to Skin Breakdown -Texture (Griselda-wound Skin Appearance) Scarring -Moisture (Griselda-wound Skin Appearance Dry/Scaly ) -Color (Griselda-wound Skin Appearance) No Abnormality Assessed -Temperature (Griselda-wound Skin No Abnormality Appearance) (Pt Warm) -Tenderness on Palpation (Griselda-wound No Skin Appearance) -Ulcer Cleansing Rinsed/ Irrigated with Saline -Foul Odor after Cleansing No -Anesthetic Used 5% Lidocaine Gel WC - Nurse 2 - General Ulcer CM Notes Start: 04/14/18 13:01 Freq: Status: Active Protocol: Activity Type Activity Date Activity User E-Sign Co-Sign Detail Recorded Client Recorded Date Recorded By Document 04/14/18 13:11 [id number] 04/14/18 13:13 04/14/18 13:11 Wound Center Nurse 2 [Procedure/Treatment] -Time 13:11 -Correct Patient Yes -Correct Side, Site, Position Yes -Correct Procedure Yes -Procedure Performed Yes -Type of Procedure Debridement -Clinical Debridement Subcutaneous -Post Debridement Size (cm) - Length 0.6 -Post Debridement Size (cm) - Width 0.7 -Post Debridement Size (cm) - Depth 0.1 -Total Square Cm 0.42 -Wound/Ulcer Outcome Not Healed -Ulcer Cleansing Rinsed/ Irrigated with Saline -Foul Odor after Cleansing No -Bioengineered Tissue No -Topical Lidocaine (%) 5 -Bleeding Controlled with NA -Treatment Response Procedure Tolerated Well [See Physician Procedure note for Specifics] Pain Scale: 0-10 Numeric [Pain] -Is Patient Pain Free? Yes Musculoskeletal: No Tenderness to Palpation of Joints or Extremities, No Muscle Wasting Neurological: Cranial nerves II-XII grossly intact, Neuro grossly intact Psych/Mental Status: Normal Affect, Appropriate, Alert and oriented to time, place, person, mood and affect Debridement Note Post-Debridement Measurements/Treatment WC - Nurse 2 - General Ulcer CM Notes Start: 04/14/18 13:01 Freq: Status: Active Protocol: Activity Type Activity Date Activity User E-Sign Co-Sign Detail Recorded Client Recorded Date Recorded By Document 04/14/18 13:11 [id number] 04/14/18 13:13 MELIDA 04/14/18 13:11 Wound Center Nurse 2 4-left ortiz -Time 13:11 -Correct Patient Yes -Correct Side, Site, Position Yes -Correct Procedure Yes -Procedure Performed Yes -Type of Procedure Debridement -Clinical Debridement Subcutaneous -Post Debridement Size (cm) - Length 0.6 -Post Debridement Size (cm) - Width 0.7 -Post Debridement Size (cm) - Depth 0.1 -Total Square Cm 0.42 -Wound/Ulcer Outcome Not Healed -Ulcer Cleansing Rinsed/ Irrigated with Saline -Foul Odor after Cleansing No -Bioengineered Tissue No -Topical Lidocaine (%) 5 -Bleeding Controlled with NA -Treatment Response Procedure Tolerated Well Pain Scale: 0-10 Numeric Is Patient Pain Free? Yes Laterality: Left - Anterior tibial surface Type of Debridement: Excisional debridement Anesthesia Used: 4% Lidocaine Solution Depth: Down to and including healthy tissue, in the subcutaneous layer Percentage of wound debrided: 100 Instrument Used: 5mm curette Severity: Fat Layer Exposed Amount of bleeding with debridement: Mild Bleeding Controlled with: Compression and gauze Patient tolerated procedure well Assessment/Plan Active Problems Open wound of left lower leg (Acute) Wound, open, leg (Acute) Assessment: This is a 72-year-old generally healthy female who fell on a slippery floor weeks ago, sustaining trauma inferior to the right knee. As result, the patient had an underlying subcutaneous hematoma. There was no open wound or drainage. There was no obvious sign of infection. There has been significant improvement, and the area is no longer of any concern. The patient' s wound on the right anterior tibial surface is now completely healed. The traumatized area on the left anterior tibial surface is now opened, and is manifesting as an open wound. It has improved since initial management with local wound care. We have been using collagen hydrogel and Adaptic topically. Plan: We are to continue the use of collagen hydrogel topically to the wound on the left anterior tibial surface. This will be applied on a daily basis. The patient has been advised to elevate her lower extremities above heart level as much as possible. She is to continue sleeping on a flat surface at night. Leg elevation has been recommended even during daytime hours. Elevation has been encouraged so as to minimize swelling in the lower extremities. Healing by secondary intention is anticipated. The subcutaneous hematoma just inferior to the right knee is no longer of any consequence, and the area is now completely healed and normalized in appearance, as is the prior wound on the right anterior tibial surface. The patient is to return in 1 week for reassessment. Patient is not a smoker. Influenza vaccine was not administered today. Patient weighs 130 pounds. She stands 5 feet 1 inches tall. Her BMI is 24.6, which is normal.
[2018-04-21 14:36] VITALS: BP 132/77; PULSE 84; RESP 16; TEMP 36.4
--- NOTE | 2018-04-21 15:00 | HP.PCM_ITS ---
(1) Open wound of left lower leg Status: Acute Current Visit: Yes Qualifiers: Encounter type: subsequent encounter Code(s): S81.802A - Unspecified open wound, left lower leg, initial encounter (2) History of biliary stent insertion Status: Chronic Current Visit: No Code(s): Z98.890 - Other specified postprocedural states (3) S/P ORIF (open reduction internal fixation) fracture Status: Chronic Current Visit: No Code(s): Z96.7 - Presence of other bone and tendon implants; Z87.81 - Personal history of (healed) traumatic fracture Comment: left hip, 05/01/15,. [facility] [place], Dr Antonio (4) Depression Status: Chronic Current Visit: No Code(s): F32.9 - Major depressive disorder , single episode, unspecified (5) Anemia Status: Chronic Current Visit: No Code(s): D64.9 - Anemia, unspecified (6) Osteoarthritis Status: Chronic Current Visit: No Code(s): M19.90 - Unspecified osteoarthritis, unspecified site (7) Wound, open, leg Status: Acute Current Visit: Yes Qualifiers: Encounter type: subsequent encounter Laterality: left Qualified Code(s): S81.802D - Unspecified open wound, left lower leg, subsequent encounter Code(s): S81.809A - Unspecified open wound, unspecified lower leg, initial encounter History of Present Illness Date of Service: 04/21/18 Chief Complaint: Left leg wound History of Wound: This is a 72-year-old female who fell on a slippery floor at home on November 14, 2017. She traumatized the area immediately inferior to her right knee. As result, a subcutaneous hematoma formed, with some overlying ecchymosis and slight erythema. She had been treated by her primary care physician, Dr. Wooten, who administered 2 injections of Rocephin, and placed the patient on a 10 day course of Cefdinir. She had some mild associated discomfort. She presented for evaluation and recommendations as pertains to management. Non-invasive lower extremity arterial study was performed on December 13, 2016, which was normal. Arterial insufficiency of the lower extremities is not suspected. Patient has shown significant improvement with expectant observation. The size of the underlying hematoma diminished. Erythema has resolved. The overlying skin remained intact, and was not compromised in any way. Additionally, the patient recently fell while on her treadmill. She sustained an abrasion on the right anterior tibial surface, for which she presented for evaluation. Since initially evaluated, the abrasion unroofed, and the patient developed a deep open tunneled wound on the right anterior tibial surface. The open wound on the right anterior tibial surface has diminished in size, decreased in depth, and the tunneling resolved. The right anterior tibial wound has now completely healed. Patient now has a traumatic wound on the left anterior tibial surface, sustained at the time of her treadmill incident, which is now unroofed, and has manifest as an open wound. It has decreased in size since initially noted, and is now quite small. Since patient's last visit, and only several days ago, she spent long hours over several days helping her daughter pack in preparation for a move. During the several days, while on her feet for long hours, the patient was not wearing her compression stockings. As result, it is noted that the left lower extremity is mildly edematous. Past Medical History Past Medical History: Chronic Problems History of biliary stent insertion (Chronic) S/P ORIF (open reduction internal fixation) fracture (Chronic) left hip, 05/01/15,. [facility] [place], Dr Antonio Depression (Chronic) Anemia (Chronic) GERD (gastroesophageal reflux disease) (Chronic) Osteoarthritis (Chronic) Surgical History: - - Patient is undergone open reduction and internal fixation of a left hip fracture in April 2015. She has undergone 2 C-sections in the past. Laparoscopic cholecystectomy was performed in March 2017. Allergies/Adverse Reactions: Allergies erythromycin base Adverse Reaction (Verified 04/23/17 10:19) Upset Stomach meperidine HCl [From Demerol] Adverse Reaction (Verified 04/23/17 10:19) HALLUCINATIONS Home Medications: Ambulatory Orders Medication Instructions Recorded Calcium Carbonate/Vitamin D3 1 each PO BID 05/05/15 [Calcium 600-Vit D3 800 Caplet] buPROPion tablets [Wellbutrin 150 mg PO BID 05/05/15 tablets] Albuterol IH (ProAir) [Proair Hfa] 1 - 2 puff INHALATION Q6H PRN PRN 11/19/16 Alendronate Sodium [Fosamax] 70 mg PO VIDES 11/19/16 Lorazepam [Ativan] 0.5 mg PO DAILY PRN 02/06/17 Polyethylene Glycol 3350 [Miralax] 17 gm PO DAILY PRN PRN 01/13/17 Omeprazole [Prilosec] 20 mg PO DAILY PRN PRN 03/03/17 Turmeric/Turmeric Root Extract 1,000 mg PO BID 03/03/17 [Turmeric 500 mg Capsule] Fluticasone 0.05% [Flonase Nasal 1 spray NASAL DAILY PRN 03/12/17 [place]] - Family History Maternal - - Patient's father at the age of 75 with a history of chronic obstructive pulmonary disease. Patient's mother at age of 70 with a history of diabetes mellitus and breast cancer. She of sepsis from a urinary tract infection. Smoking Status: Never smoker Tobacco Use: Non-smoker Review of Systems Constitutional: Denies: Chills, Fever, Weight Change Eyes: Denies: Pain, Vision Change HEENT: Denies: Difficulty Hearing, Difficulty Swallowing, Sinus Congestion Cardiovascular: Denies: Chest Pain, Palpitations Respiratory: Denies: Cough, Shortness of Breath Gastrointestinal: Denies: Diarrhea, Nausea, Vomiting Genitourinary: Denies: Dysuria, Hematuria Endocrine: Denies: Heat/ Cold Intolerance, Polydipsia, Polyuria Hematologic/ Lymphatic: Denies: Easy Bruising, Easy Bleeding - Physical Exam Vital Signs Temp Pulse Resp BP 97.5 F L 84 16 132/77 H 04/21/18 14:36 04/21/18 14:36 04/21/18 14:36 04/21/18 14:36 General: Alert, Oriented x3, Cooperative, No apparent distress, Well developed, Well nourished HEENT: Atraumatic, PERRLA, EOMI, Normocephalic Oral: Moist Mucosa Neck: No JVD Lungs: Normal air movement Abdomen: Non-Distended Extremities: No clubbing, No cyanosis, No Calf Tenderness, - - Mild swelling and edema is noted in the left lower extremity. The ulceration on the left anterior tibial surface is slightly smaller in size. Dimensions are documented elsewhere. The base of the ulceration is generally pink, with a small to moderate amount of bioburden. There is no sign of infection or cellulitis. Skin: No rashes Wound Measurements and Assessment WC - Nurse 1 - General Ulcer Measurement Start: 04/14/18 13:01 Freq: Status: Active Protocol: Activity Type Activity Date Activity User E-Sign Co-Sign Detail Recorded Client Recorded Date Recorded By Document 04/21/18 14:36 [email or web address] [id number] 04/21/18 14:41 DL 04/21/18 14:36 Wound Center Nurse 1 [Ulcer Assessment] 4-left ortiz -Current Size (cm) - Length 0.2 -Current Size (cm) - Width 0.2 -Current Size (cm) - Depth 0.1 -Total Square Cm 0.04 -Photo Taken No -Exudate Amt None Present (0 %) -Wound Margin Flat & Intact -Granulation Amt Large (67-100%) -Granulation Quality Red -Necrosis Amt None Present (0 %) -Structure Exposed N/A -Texture (Griselda-wound Skin Appearance) No Abnormality -Moisture (Griselda-wound Skin Appearance No Abnormality ) -Color (Griselda-wound Skin Appearance) No Abnormality -Temperature (Griselda-wound Skin No Abnormality Appearance) (Pt Warm) -Ulcer Cleansing Wound Cleanser -Foul Odor after Cleansing No -Anesthetic Used 4% Lidocaine Solution [Edema Assessment] -Left Calf (cm) 30.5 -Left Ankle (cm) 21.6 Musculoskeletal: No Muscle Wasting Neurological: Cranial nerves II-XII grossly intact, Neuro grossly intact Psych/Mental Status: Normal Affect, Appropriate, Alert and oriented to time, place, person, mood and affect Debridement Note Post-Debridement Measurements/Treatment WC - Nurse 2 - General Ulcer CM Notes Start: 04/14/18 13:01 Freq: Status: Active Protocol: Activity Type Activity Date Activity User E-Sign Co-Sign Detail Recorded Client Recorded Date Recorded By Document 04/14/18 13:11 MELIDA [id number] 04/14/18 13:13 04/14/18 13:11 Wound Center Nurse 2 4-left ortiz -Time 13:11 -Correct Patient Yes -Correct Side, Site, Position Yes -Correct Procedure Yes -Procedure Performed Yes -Type of Procedure Debridement -Clinical Debridement Subcutaneous -Post Debridement Size (cm) - Length 0.6 -Post Debridement Size (cm) - Width 0.7 -Post Debridement Size (cm) - Depth 0.1 -Total Square Cm 0.42 -Wound/Ulcer Outcome Not Healed -Ulcer Cleansing Rinsed/ Irrigated with Saline -Foul Odor after Cleansing No -Bioengineered Tissue No -Topical Lidocaine (%) 5 -Bleeding Controlled with NA -Treatment Response Procedure Tolerated Well Pain Scale: 0-10 Numeric Is Patient Pain Free? Yes Laterality: Left - Anterior tibial surface Type of Debridement: Excisional debridement Anesthesia Used: 4% Lidocaine Solution Depth: Down to and including healthy tissue, in the subcutaneous layer Percentage of wound debrided: 100 Instrument Used: 5mm curette Severity: Fat Layer Exposed Amount of bleeding with debridement: Mild Bleeding Controlled with: Compression and gauze Patient tolerated procedure well Assessment/Plan Active Problems Open wound of left lower leg (Acute) Wound, open, leg (Acute) Assessment: This is a 72-year-old generally healthy female who fell on a slippery floor, sustaining trauma inferior to the right knee. As result, the patient had an underlying subcutaneous hematoma. There was no open wound or drainage. There was no obvious sign of infection. There has been significant improvement, and the area is no longer of any concern. The patient's wound on the right anterior tibial surface is now completely healed. The traumatized area on the left anterior tibial surface is now opened, and is manifesting as an open wound. It has improved since initial management with local wound care. We have been using collagen hydrogel and Adaptic topically. Mild swelling and edema is noted in the left lower extremity due to the patient's noncompliance in recent days, helping her daughter pack for a move, spending long hours on her feet, and not wearing her compression stockings. Plan: We are to continue the use of collagen hydrogel topically to the wound on the left anterior tibial surface. This will be applied on a daily basis. The patient has been advised to elevate her lower extremities above heart level as much as possible. She is to continue sleeping on a flat surface at night. Leg elevation has been recommended even during daytime hours. Elevation has been encouraged so as to minimize swelling in the lower extremities. The use of the patient's graduated compression stockings has been encouraged. Healing by secondary intention is anticipated. The subcutaneous hematoma just inferior to the right knee is no longer of any consequence, and the area is now completely healed and normalized in appearance, as is the prior wound on the right anterior tibial surface. The patient is to return in 1 week for reassessment. Patient is not a smoker. Influenza vaccine was not administered today. Patient weighs 130 pounds. She stands 5 feet 1 inches tall. Her BMI is 24.6, which is normal.
[2018-04-28 12:56] VITALS: BP 106/66; PULSE 83; RESP 18; TEMP 36.4
--- NOTE | 2018-04-28 13:16 | HP.PCM_ITS ---
(1) Open wound of left lower leg Status: Acute Current Visit: Yes Qualifiers: Encounter type: subsequent encounter Code(s): S81.802A - Unspecified open wound, left lower leg, initial encounter (2) History of biliary stent insertion Status: Chronic Current Visit: No Code(s): Z98.890 - Other specified postprocedural states (3) S/P ORIF (open reduction internal fixation) fracture Status: Chronic Current Visit: No Code(s): Z96.7 - Presence of other bone and tendon implants; Z87.81 - Personal history of (healed) traumatic fracture Comment: left hip, 05/01/15,. [facility], Dr Antonio (4) Depression Status: Chronic Current Visit: No Code(s): F32.9 - Major depressive disorder , single episode, unspecified (5) Anemia Status: Chronic Current Visit: No Code(s): D64.9 - Anemia, unspecified (6) Osteoarthritis Status: Chronic Current Visit: No Code(s): M19.90 - Unspecified osteoarthritis, unspecified site (7) Wound, open, leg Status: Acute Current Visit: Yes Qualifiers: Encounter type: subsequent encounter Laterality: left Qualified Code(s): S81.802D - Unspecified open wound, left lower leg, subsequent encounter Code(s): S81.809A - Unspecified open wound, unspecified lower leg, initial encounter History of Present Illness Date of Service: 04/28/18 Chief Complaint: Left leg wound History of Wound: This is a 72-year-old female who fell on a slippery floor at home on November 14, 2017. She traumatized the area immediately inferior to her right knee. As result, a subcutaneous hematoma formed, with some overlying ecchymosis and slight erythema. She had been treated by her primary care physician, Dr. Wooten, who administered 2 injections of Rocephin, and placed the patient on a 10 day course of Cefdinir. She had some mild associated discomfort. She presented for evaluation and recommendations as pertains to management. Non-invasive lower extremity arterial study was performed on December 13, 2016, which was normal. Arterial insufficiency of the lower extremities is not suspected. Patient has shown significant improvement with expectant observation. The size of the underlying hematoma diminished. Erythema has resolved. The overlying skin remained intact, and was not compromised in any way. Additionally, the patient recently fell while on her treadmill. She sustained an abrasion on the right anterior tibial surface, for which she presented for evaluation. Since initially evaluated, the abrasion unroofed, and the patient developed a deep open tunneled wound on the right anterior tibial surface. The open wound on the right anterior tibial surface has diminished in size, decreased in depth, and the tunneling resolved. The right anterior tibial wound has now completely healed. Patient now has a traumatic wound on the left anterior tibial surface, sustained at the time of her treadmill incident, which is now unroofed, and has manifest as an open wound. It has decreased in size since initially noted, and is now quite small. Past Medical History Past Medical History: Chronic Problems History of biliary stent insertion (Chronic) S/P ORIF (open reduction internal fixation) fracture (Chronic) left hip, 05/01/15,. [facility], Dr Antonio Depression (Chronic) Anemia (Chronic) GERD (gastroesophageal reflux disease) (Chronic) Osteoarthritis (Chronic) Surgical History: - - Patient is undergone open reduction and internal fixation of a left hip fracture in April 2015. She has undergone 2 C-sections in the past. Laparoscopic cholecystectomy was performed in March 2017. Allergies/Adverse Reactions: Allergies erythromycin base Adverse Reaction (Verified 04/23/17 10:19) Upset Stomach meperidine HCl [From Demerol] Adverse Reaction (Verified 04/23/17 10:19) HALLUCINATIONS Home Medications: Ambulatory Orders Medication Instructions Recorded Calcium Carbonate/Vitamin D3 1 each PO BID 05/05/15 [Calcium 600-Vit D3 800 Caplet] buPROPion tablets [Wellbutrin 150 mg PO BID 05/05/15 tablets] Albuterol IH (ProAir) [Proair Hfa] 1 - 2 puff INHALATION Q6H PRN PRN 11/19/16 Alendronate Sodium [Fosamax] 70 mg PO VIDES 11/19/16 Lorazepam [Ativan] 0.5 mg PO DAILY PRN 11/19/16 Polyethylene Glycol 3350 [Miralax] 17 gm PO DAILY PRN PRN 01/13/17 Omeprazole [Prilosec] 20 mg PO DAILY PRN PRN 03/03/17 Turmeric/Turmeric Root Extract 1,000 mg PO BID 03/03/17 [Turmeric 500 mg Capsule] Fluticasone 0.05% [Flonase Nasal 1 spray NASAL DAILY PRN 03/12/17 [place]] - Family History Maternal - - Patient's father at the age of 75 with a history of chronic obstructive pulmonary disease. Patient's mother at age of 70 with a history of diabetes mellitus and breast cancer. She of sepsis from a urinary tract infection. Smoking Status: Never smoker Tobacco Use: Non-smoker Review of Systems Constitutional: Denies: Chills, Fever, Weight Change Eyes: Denies: Pain, Vision Change HEENT: Denies: Difficulty Hearing, Difficulty Swallowing, Sinus Congestion Cardiovascular: Denies: Chest Pain, Palpitations Respiratory: Denies: Cough, Shortness of Breath Gastrointestinal: Denies: Diarrhea, Nausea, Vomiting Genitourinary: Denies: Dysuria, Hematuria Endocrine: Denies: Heat/ Cold Intolerance, Polydipsia, Polyuria Hematologic/ Lymphatic: Denies: Easy Bruising, Easy Bleeding - Physical Exam Vital Signs Temp Pulse Resp BP 97.6 F L 83 18 106/66 04/28/18 12:56 04/28/18 12:56 04/28/18 12:56 04/28/18 12:56 General: Alert, Oriented x3, Cooperative, No apparent distress, Well developed, Well nourished HEENT: Atraumatic, PERRLA, EOMI, Normocephalic Oral: Moist Mucosa Neck: No JVD Lungs: Normal air movement Abdomen: Non-Distended Extremities: No clubbing, No cyanosis, No edema, No Calf Tenderness, - - No significant swelling or edema is noted in the lower extremities bilaterally. The traumatic wound on the left anterior tibial surface is smaller in size. Dimensions are documented elsewhere. There is no sign of infection or cellulitis. The base of the ulceration is generally pink and healthy in appearance, with only a mild amount of bioburden. Skin: No rashes Wound Measurements and Assessment WC - Nurse 1 - General Ulcer Measurement Start: 04/14/18 13:01 Freq: Status: Active Protocol: Activity Type Activity Date Activity User E-Sign Co-Sign Detail Recorded Client Recorded Date Recorded By Document 04/28/18 12:56 DL [id number] 04/28/18 13:02 DL 04/28/18 12:56 Wound Center Nurse 1 [Ulcer Assessment] 4-left ortiz -Current Size (cm) - Length 0.1 -Current Size (cm) - Width 0.1 -Current Size (cm) - Depth 0.1 -Total Square Cm 0.01 -Photo Taken No -Exudate Amt None Present (0 %) -Wound Margin Flat & Intact -Granulation Amt Small (1-33%) -Granulation Quality [place] Red -Necrosis Amt None Present (0 %) -Necrotic Tissue Type Adherent Slough -Structure Exposed N/A -Texture (Griselda-wound Skin Appearance) Scarring -Moisture (Griselda-wound Skin Appearance No Abnormality ) -Color (Griselda-wound Skin Appearance) Hemosiderin Staining -Temperature (Griselda-wound Skin No Abnormality Appearance) (Pt Warm) -Tenderness on Palpation (Griselda-wound No Skin Appearance) -Ulcer Cleansing Rinsed/ Irrigated with Saline -Foul Odor after Cleansing No -Anesthetic Used 4% Lidocaine Solution [Edema Assessment] -Right Calf (cm) 32 -Right Ankle (cm) 19.9 -Left Calf (cm) 30.5 -Left Ankle (cm) 20.5 Musculoskeletal: No Muscle Wasting Neurological: Cranial nerves II-XII grossly intact, Neuro grossly intact Psych/Mental Status: Normal Affect, Appropriate, Alert and oriented to time, place, person, mood and affect Debridement Note Post-Debridement Measurements/Treatment WC - Nurse 2 - General Ulcer CM Notes Start: 04/14/18 13:01 Freq: Status: Active Protocol: Activity Type Activity Date Activity User E-Sign Co-Sign Detail Recorded Client Recorded Date Recorded By Document 04/14/18 13:11 [id number] 04/14/18 13:13 Document 04/21/18 14:46 [id number] 04/21/18 14:54 04/14/18 04/21/18 13:11 14:46 Wound Center Nurse 2 4-left ortiz -Time 13:11 14:46 -Correct Patient Yes Yes -Correct Side, Site, Position Yes Yes -Correct Procedure Yes Yes -Procedure Performed Yes Yes -Type of Procedure Debridement Debridement -Clinical Debridement Subcutaneous Subcutaneous -Post Debridement Size (cm) - Length 0.6 0.5 -Post Debridement Size (cm) - Width 0.7 0.5 -Post Debridement Size (cm) - Depth 0.1 0.2 -Total Square Cm 0.42 0.25 -Wound/Ulcer Outcome Not Healed Not Healed -Ulcer Cleansing Rinsed/ Rinsed/ Irrigated with Irrigated with Saline Saline -Foul Odor after Cleansing No No -Bioengineered Tissue No No -Topical Lidocaine (%) 5 -Bleeding Controlled with NA NA -Treatment Response Procedure Procedure Tolerated Well Tolerated Well Pain Scale: 0-10 Numeric Is Patient Pain Free? Yes Yes Laterality: Left - Anterior tibial surface Type of Debridement: Excisional debridement Anesthesia Used: 4% Lidocaine Solution Depth: Down to and including healthy tissue, in the subcutaneous layer Percentage of wound debrided: 100 Instrument Used: 3mm curette Severity: Fat Layer Exposed Amount of bleeding with debridement: Mild Bleeding Controlled with: Compression and gauze Patient tolerated procedure well Assessment/Plan Active Problems Open wound of left lower leg (Acute) Wound, open, leg (Acute) Assessment: This is a 72-year-old generally healthy female who fell on a slippery floor, sustaining trauma inferior to the right knee. As result, the patient had an underlying subcutaneous hematoma. There was no open wound or drainage. There was no obvious sign of infection. There has been significant improvement, and the area is no longer of any concern. The patient's wound on the right anterior tibial surface is now completely healed. The traumatized area on the left anterior tibial surface is now opened, and is manifesting as an open wound. It has improved since initial management with local wound care. We have been using collagen hydrogel and Adaptic topically. Plan: We are to continue the use of collagen hydrogel topically to the wound on the left anterior tibial surface. This will be applied on a daily basis. The patient has been advised to elevate her lower extremities above heart level as much as possible. She is to continue sleeping on a flat surface at night. Leg elevation has been recommended even during daytime hours. Elevation has been encouraged so as to minimize swelling in the lower extremities. The use of the patient's graduated compression stockings has been encouraged. Healing by secondary intention is anticipated. The subcutaneous hematoma just inferior to the right knee is no longer of any consequence, and the area is now completely healed and normalized in appearance, as is the prior wound on the right anterior tibial surface. The patient is to return in 2 weeks for reassessment. Patient is not a smoker. Influenza vaccine was not administered today. Patient weighs 130 pounds. She stands 5 feet 1 inches tall. Her BMI is 24.6, which is normal.
== END 2018-05-13 23:59 ==
LOC: WC 12:30
PROVIDERS: Family Provider Internal Medicine; PCP Internal Medicine; Visit Provider Surgery
DX: S80.811A Abrasion, right lower leg, initial encounter (principal); S80.12XS Contusion of left lower leg, sequela; W19.XXXS Unspecified fall, sequela; F32.9 Major depressive disorder, single episode, unspecified; D64.9 Anemia, unspecified; M19.90 Unspecified osteoarthritis, unspecified site; Z79.899 Other long term (current) drug therapy
CPT/HCPCS: 11042

== ENCOUNTER 2018-05-19 12:31 | Outpatient (RCR) | payer MEDICARE, OTHER, SELFPAY ==
[2018-05-14 00:40] VITALS: BP 106/66; PULSE 83; RESP 18; TEMP 36.4
[2018-05-19 12:50] VITALS: BP 123/81; PULSE 65; RESP 16; TEMP 36.1
--- NOTE | 2018-05-19 13:21 | PCM.WC.HP ---
(1) Open wound of left lower leg Status: Chronic Current Visit: Yes Qualifiers: Encounter type: subsequent encounter Code(s): S81.802A - Unspecified open wound, left lower leg, initial encounter (2) History of biliary stent insertion Status: Chronic Current Visit: No Code(s): Z98.890 - Other specified postprocedural states (3) S/P ORIF (open reduction internal fixation) fracture Status: Chronic Current Visit: No Code(s): Z96.7 - Presence of other bone and tendon implants; Z87.81 - Personal history of (healed) traumatic fracture Comment: left hip, 05/01/15,. [facility], Dr Antonio (4) Depression Status: Chronic Current Visit: No Code(s): F32.9 - Major depressive disorder, single episode, unspecified (5) Anemia Status: Chronic Current Visit: No Code(s): D64.9 - Anemia, unspecified (6) Contusion Status: Resolved Current Visit: No Qualifiers: Code(s): T14.8 - Other injury of unspecified body region (7) Contusion of leg, left Status: Resolved Current Visit: No Qualifiers: Code(s): S80.12XA - Contusion of left lower leg, initial encounter (8) GERD (gastroesophageal reflux disease) Status: Chronic Current Visit: No Code(s): K21.9 - Gastro-esophageal reflux disease without esophagitis (9) Osteoarthritis Status: Chronic Current Visit: No Code(s): M19.90 - Unspecified osteoarthritis, unspecified site (10) Wound, open, leg Status: Acute Current Visit: Yes Qualifiers: Encounter type: subsequent encounter Laterality: left Qualified Code(s): S81.802D - Unspecified open wound, left lower leg, subsequent encounter Code(s): S81.809A - Unspecified open wound, unspecified lower leg, initial encounter History of Present Illness Date of Service: 05/19/18 Chief Complaint: Left leg wound History of Wound: This is a 72-year-old female who fell on a slippery floor at home on November 14, 2017. She traumatized the area immediately inferior to her right knee. As result, a subcutaneous hematoma formed, with some overlying ecchymosis and slight erythema. She had been treated by her primary care physician, Dr. Wooten, who administered 2 injections of Rocephin, and placed the patient on a 10 day course of Cefdinir. She had some mild associated discomfort. She presented for evaluation and recommendations as pertains to management. Non-invasive lower extremity arterial study was performed on December 13, 2016, which was normal. Arterial insufficiency of the lower extremities is not suspected. Patient has shown significant improvement with expectant observation. The size of the underlying hematoma diminished. Erythema resolved. The overlying skin remained intact, and was not compromised in any way. Additionally, the patient recently fell while on her treadmill. She sustained an abrasion on the right anterior tibial surface, for which she presented for evaluation. Since initially evaluated, the abrasion unroofed, and the patient developed a deep open tunneled wound on the right anterior tibial surface. The open wound on the right anterior tibial surface diminished in size, decreased in depth, and the tunneling resolved. The right anterior tibial wound has now completely healed. Patient developed a traumatic wound on the left anterior tibial surface, sustained at the time of her treadmill incident, which is unroofed, and manifest as an open wound. It has now completely healed. Past Medical History Past Medical History: Chronic Problems Open wound of left lower leg (Chronic) History of biliary stent insertion (Chronic) S/P ORIF (open reduction internal fixation) fracture (Chronic) left hip, 05/01/15,. [facility], Dr Antonio Depression (Chronic) Anemia (Chronic) GERD (gastroesophageal reflux disease) (Chronic) Osteoarthritis (Chronic) Surgical History: - - Patient is undergone open reduction and internal fixation of a left hip fracture in April 2015. She has undergone 2 C-sections in the past. Laparoscopic cholecystectomy was performed in March 2017. Allergies/Adverse Reactions: Allergies erythromycin base Adverse Reaction (Verified 04/23/17 10:19) Upset Stomach meperidine HCl [From Demerol] Adverse Reaction (Verified 04/23/17 10:19) HALLUCINATIONS Home Medications: Ambulatory Orders Medication Instructions Recorded Calcium Carbonate/Vitamin D3 1 each PO BID 05/05/15 [Calcium 600-Vit D3 800 Caplet] buPROPion tablets [Wellbutrin 150 mg PO BID 05/05/15 tablets] Albuterol IH (ProAir) [Proair Hfa] 1 - 2 puff INHALATION Q6H PRN PRN 11/19/16 Alendronate Sodium [Fosamax] 70 mg PO VIDES 11/19/16 Lorazepam [Ativan] 0.5 mg PO DAILY PRN 11/19/16 Polyethylene Glycol 3350 [Miralax] 17 gm PO DAILY PRN PRN 01/13/17 Omeprazole [Prilosec] 20 mg PO DAILY PRN PRN 03/03/17 Turmeric/Turmeric Root Extract 1,000 mg PO BID 03/03/17 [Turmeric 500 mg Capsule] Fluticasone 0.05% [Flonase Nasal 1 spray NASAL DAILY PRN 03/12/17 [place]] - Family History Maternal - - Patient's father at the age of 75 with a history of chronic obstructive pulmonary disease. Patient's mother at age of 70 with a history of diabetes mellitus and breast cancer. She of sepsis from a urinary tract infection. Smoking Status: Never smoker Tobacco Use: Non-smoker Review of Systems Constitutional: Denies: Chills, Fever, Weight Change Eyes: Denies: Pain, Vision Change HEENT: Denies: Difficulty Hearing, Difficulty Swallowing, Sinus Congestion Cardiovascular: Denies: Chest Pain, Palpitations Respiratory: Denies: Cough, Shortness of Breath Gastrointestinal: Denies: Diarrhea, Nausea, Vomiting Genitourinary: Denies: Dysuria, Hematuria Endocrine: Denies: Heat/ Cold Intolerance, Polydipsia, Polyuria Hematologic/ Lymphatic: Denies: Easy Bruising, Easy Bleeding - Physical Exam Vital Signs Temp Pulse Resp BP 97 F L 65 16 123/81 H 05/19/18 12:50 05/19/18 12:50 05/19/18 12:50 05/19/18 12:50 General: Alert, Oriented x3, Cooperative, No apparent distress, Well developed, Well nourished HEENT: Atraumatic, PERRLA, EOMI, Normocephalic Oral: Moist Mucosa Neck: No JVD Lungs: Normal air movement Abdomen: Non-Distended Extremities: No clubbing, No cyanosis, No edema, - - There is no swelling or edema in the patient's lower extremities. The traumatic wound on the left anterior tibial surface is now completely healed and epithelialized. There is no sign of infection or cellulitis. Skin: No rashes, No breakdown Wound Measurements and Assessment WC - Nurse 1 - General Ulcer Measurement Start: 05/19/18 12:49 Freq: Status: Active Protocol: Activity Type Activity Date Activity User E-Sign Co-Sign Detail Recorded Client Recorded Date Recorded By Document 05/19/18 12:50 DL [id number] 05/19/18 12:54 DL 05/19/18 12:50 Wound Center Nurse 1 [Ulcer Assessment] 4-left ortiz -Combined with other wound No -Current Size (cm) - Length 0.1 -Current Size (cm) - Width 0.1 -Current Size (cm) - Depth 0.1 -Total Square Cm 0.01 -Date of Last Picture (Recall this 05/19/18 field) -Photo Taken Yes -Epithelialization Large 67-100% [Edema Assessment] -Lower Limb Edema Present No -Left Calf (cm) 32.1 -Left Ankle (cm) 22.5 WC - Nurse 2 - General Ulcer CM Notes Start: 05/19/18 12:49 Freq: Status: Active Protocol: Activity Type Activity Date Activity User E-Sign Co-Sign Detail Recorded Client Recorded Date Recorded By Document 05/19/18 12:56 [email or web address] [id number] 05/19/18 12:57 05/19/18 12:56 Wound Center Nurse 2 [Procedure/Treatment] 4-left ortiz -Time 12:56 -Correct Patient Yes -Correct Side, Site, Position Yes -Correct Procedure Yes -Procedure Performed No -Post Debridement Size (cm) - Length 0 -Post Debridement Size (cm) - Width 0 -Post Debridement Size (cm) - Depth 0 -Total Square Cm 0 -Wound/Ulcer Outcome Healed- Epithelialized [See Physician Procedure note for Specifics] Pain Scale: 0-10 Numeric [Pain] -Is Patient Pain Free? No Musculoskeletal: No Muscle Wasting Neurological: Cranial nerves II-XII grossly intact, Neuro grossly intact Psych/Mental Status: Normal Affect, Appropriate, Alert and oriented to time, place, person, mood and affect Debridement Note Post-Debridement Measurements/Treatment - Nurse 2 - General Ulcer CM Notes Start: 05/19/18 12:49 Freq: Status: Active Protocol: Activity Type Activity Date Activity User E-Sign Co-Sign Detail Recorded Client Recorded Date Recorded By Document 05/19/18 12:56 JS [id number] 05/19/18 12:57 JS 05/19/18 12:56 Wound Center Nurse 2 4-left ortiz -Time 12:56 -Correct Patient Yes -Correct Side, Site, Position Yes -Correct Procedure Yes -Procedure Performed No -Post Debridement Size (cm) - Length 0 -Post Debridement Size (cm) - Width 0 -Post Debridement Size (cm) - Depth 0 -Total Square Cm 0 -Wound/Ulcer Outcome Healed- Epithelialized Pain Scale: 0-10 Numeric Is Patient Pain Free? No No debridement was completed today Assessment/Plan Active Problems Open wound of left lower leg (Chronic) Wound, open, leg (Acute) Assessment: This is a 72-year-old generally healthy female who fell on a slippery floor, sustaining trauma inferior to the right knee. As result, the patient had an underlying subcutaneous hematoma. There was no open wound or drainage. There was no obvious sign of infection. There has been significant improvement, and the area is no longer of any concern. The patient's wound on the right anterior tibial surface is now completely healed. The traumatized area on the left anterior tibial surface is now clearly healed and epithelialized as well. Plan: The patient's lower extremity wounds are now completely healed and epithelialized. She has done well, and has responded appropriately to conservative treatment measures. She is to be discharged, and will follow-up henceforth on an as-needed basis. She is to continue wearing graduated compression stockings on a daily basis, elevating her legs as much as possible, remaining active, etc. Patient is not a smoker. Influenza vaccine was not administered today. Patient weighs 130 pounds. She stands 5 feet 1 inches tall. Her BMI is 24.6, which is normal.
--- NOTE | 2018-05-19 13:25 | HP.PCM_ITS ---
(1) Open wound of left lower leg Status: Chronic Current Visit: Yes Qualifiers: Encounter type: subsequent encounter Code(s): S81.802A - Unspecified open wound, left lower leg, initial encounter (2) History of biliary stent insertion Status: Chronic Current Visit: No Code(s): Z98.890 - Other specified postprocedural states (3) S/P ORIF (open reduction internal fixation) fracture Status: Chronic Current Visit: No Code(s): Z96.7 - Presence of other bone and tendon implants; Z87.81 - Personal history of (healed) traumatic fracture Comment: left hip, 05/01/15,. [facility] [place], Dr Antonio (4) Depression Status: Chronic Current Visit: No Code(s): F32.9 - Major depressive disorder , single episode, unspecified (5) Anemia Status: Chronic Current Visit: No Code(s): D64.9 - Anemia, unspecified (6) Contusion Status: Resolved Current Visit: No Qualifiers: Code(s): T14.8 - Other injury of unspecified body region (7) Contusion of leg, left Status: Resolved Current Visit: No Qualifiers: Code(s): S80.12XA - Contusion of left lower leg, initial encounter (8) GERD (gastroesophageal reflux disease) Status: Chronic Current Visit: No Code(s): K21.9 - Gastro-esophageal reflux disease without esophagitis (9) Osteoarthritis Status: Chronic Current Visit: No Code(s): M19.90 - Unspecified osteoarthritis, unspecified site (10) Wound, open, leg Status: Acute Current Visit: Yes Qualifiers: Encounter type: subsequent encounter Laterality: left Qualified Code(s): S81.802D - Unspecified open wound, left lower leg, subsequent encounter Code(s): S81.809A - Unspecified open wound, unspecified lower leg, initial encounter History of Present Illness Date of Service: 05/19/18 Chief Complaint: Left leg wound History of Wound: This is a 72-year-old female who fell on a slippery floor at home on November 14, 2017. She traumatized the area immediately inferior to her right knee. As result, a subcutaneous hematoma formed, with some overlying ecchymosis and slight erythema. She had been treated by her primary care physician, Dr. Wooten, who administered 2 injections of Rocephin, and placed the patient on a 10 day course of Cefdinir. She had some mild associated discomfort. She presented for evaluation and recommendations as pertains to management. Non-invasive lower extremity arterial study was performed on December 13, 2016, which was normal. Arterial insufficiency of the lower extremities is not suspected. Patient has shown significant improvement with expectant observation. The size of the underlying hematoma diminished. Erythema resolved. The overlying skin remained intact, and was not compromised in any way. Additionally, the patient recently fell while on her treadmill. She sustained an abrasion on the right anterior tibial surface, for which she presented for evaluation. Since initially evaluated, the abrasion unroofed, and the patient developed a deep open tunneled wound on the right anterior tibial surface. The open wound on the right anterior tibial surface diminished in size, decreased in depth, and the tunneling resolved. The right anterior tibial wound has now completely healed. Patient developed a traumatic wound on the left anterior tibial surface, sustained at the time of her treadmill incident, which is unroofed, and manifest as an open wound. It has now completely healed. Past Medical History Past Medical History: Chronic Problems Open wound of left lower leg (Chronic) History of biliary stent insertion (Chronic) S/P ORIF (open reduction internal fixation) fracture (Chronic) left hip, 05/01/15,. [facility], Dr Antonio Depression (Chronic) Anemia (Chronic) GERD (gastroesophageal reflux disease) (Chronic) Osteoarthritis (Chronic) Surgical History: - - Patient is undergone open reduction and internal fixation of a left hip fracture in April 2015. She has undergone 2 C-sections in the past. Laparoscopic cholecystectomy was performed in March 2017. Allergies/Adverse Reactions: Allergies erythromycin base Adverse Reaction (Verified 04/23/17 10:19) Upset Stomach meperidine HCl [From Demerol] Adverse Reaction (Verified 04/23/17 10:19) HALLUCINATIONS Home Medications: Ambulatory Orders Medication Instructions Recorded Calcium Carbonate/Vitamin D3 1 each PO BID 05/05/15 [Calcium 600-Vit D3 800 Caplet] buPROPion tablets [Wellbutrin 150 mg PO BID 05/05/15 tablets] Albuterol IH (ProAir) [Proair Hfa] 1 - 2 puff INHALATION Q6H PRN PRN 11/19/16 Alendronate Sodium [Fosamax] 70 mg PO VIDES 11/19/16 Lorazepam [Ativan] 0.5 mg PO DAILY PRN 11/19/16 Polyethylene Glycol 3350 [Miralax] 17 gm PO DAILY PRN PRN 01/13/17 Omeprazole [Prilosec] 20 mg PO DAILY PRN PRN 03/03/17 Turmeric/Turmeric Root Extract 1,000 mg PO BID 03/03/17 [Turmeric 500 mg Capsule] Fluticasone 0.05% [Flonase Nasal 1 spray NASAL DAILY PRN 03/12/17 [place]] - Family History Maternal - - Patient's father at the age of 75 with a history of chronic obstructive pulmonary disease. Patient's mother at age of 70 with a history of diabetes mellitus and breast cancer. She of sepsis from a urinary tract infection. Smoking Status: Never smoker Tobacco Use: Non-smoker Review of Systems Constitutional: Denies: Chills, Fever, Weight Change Eyes: Denies: Pain, Vision Change HEENT: Denies: Difficulty Hearing, Difficulty Swallowing, Sinus Congestion Cardiovascular: Denies: Chest Pain, Palpitations Respiratory: Denies: Cough, Shortness of Breath Gastrointestinal: Denies: Diarrhea, Nausea, Vomiting Genitourinary: Denies: Dysuria, Hematuria Endocrine: Denies: Heat/ Cold Intolerance, Polydipsia, Polyuria Hematologic/ Lymphatic: Denies: Easy Bruising, Easy Bleeding - Physical Exam Vital Signs Temp Pulse Resp BP 97 F L 65 16 123/81 H 05/19/18 12:50 05/19/18 12:50 05/19/18 12:50 05/19/18 12:50 General: Alert, Oriented x3, Cooperative, No apparent distress, Well developed, Well nourished HEENT: Atraumatic, PERRLA, EOMI, Normocephalic Oral: Moist Mucosa Neck: No JVD Lungs: Normal air movement Abdomen: Non-Distended Extremities: No clubbing, No cyanosis, No edema, - - There is no swelling or edema in the patient's lower extremities. The traumatic wound on the left anterior tibial surface is now completely healed and epithelialized. There is no sign of infection or cellulitis. Skin: No rashes, No breakdown Wound Measurements and Assessment WC - Nurse 1 - General Ulcer Measurement Start: 05/19/18 12:49 Freq: Status: Active Protocol: Activity Type Activity Date Activity User E-Sign Co-Sign Detail Recorded Client Recorded Date Recorded By Document 05/19/18 12:50 DL [id number] 05/19/18 12:54 DL 05/19/18 12:50 Wound Center Nurse 1 [Ulcer Assessment] 4-left ortiz -Combined with other wound No -Current Size (cm) - Length 0.1 -Current Size (cm) - Width 0.1 -Current Size (cm) - Depth 0.1 -Total Square Cm 0.01 -Date of Last Picture (Recall this 05/19/18 field) -Photo Taken Yes -Epithelialization Large 67-100% [Edema Assessment] -Lower Limb Edema Present No -Left Calf (cm) 32.1 -Left Ankle (cm) 22.5 WC - Nurse 2 - General Ulcer CM Notes Start: 05/19/18 12:49 Freq: Status: Active Protocol: Activity Type Activity Date Activity User E-Sign Co-Sign Detail Recorded Client Recorded Date Recorded By Document 05/19/18 12:56 MELIDA [id number] 05/19/18 12:57 05/19/18 12:56 Wound Center Nurse 2 [Procedure/Treatment] 4-left ortiz -Time 12:56 -Correct Patient Yes -Correct Side, Site, Position Yes -Correct Procedure Yes -Procedure Performed No -Post Debridement Size (cm) - Length 0 -Post Debridement Size (cm) - Width 0 -Post Debridement Size (cm) - Depth 0 -Total Square Cm 0 -Wound/Ulcer Outcome Healed- Epithelialized [See Physician Procedure note for Specifics] Pain Scale: 0-10 Numeric [Pain] -Is Patient Pain Free? No Musculoskeletal: No Muscle Wasting Neurological: Cranial nerves II-XII grossly intact, Neuro grossly intact Psych/Mental Status: Normal Affect, Appropriate, Alert and oriented to time, place, person, mood and affect Debridement Note Post-Debridement Measurements/Treatment - Nurse 2 - General Ulcer CM Notes Start: 05/19/18 12:49 Freq: Status: Active Protocol: Activity Type Activity Date Activity User E-Sign Co-Sign Detail Recorded Client Recorded Date Recorded By Document 05/19/18 12:56 JS [id number] 05/19/18 12:57 JS 05/19/18 12:56 Wound Center Nurse 2 4-left ortiz -Time 12:56 -Correct Patient Yes -Correct Side, Site, Position Yes -Correct Procedure Yes -Procedure Performed No -Post Debridement Size (cm) - Length 0 -Post Debridement Size (cm) - Width 0 -Post Debridement Size (cm) - Depth 0 -Total Square Cm 0 -Wound/Ulcer Outcome Healed- Epithelialized Pain Scale: 0-10 Numeric Is Patient Pain Free? No No debridement was completed today Assessment/Plan Active Problems Open wound of left lower leg (Chronic) Wound, open, leg (Acute) Assessment: This is a 72-year-old generally healthy female who fell on a slippery floor, sustaining trauma inferior to the right knee. As result, the patient had an underlying subcutaneous hematoma. There was no open wound or drainage. There was no obvious sign of infection. There has been significant improvement, and the area is no longer of any concern. The patient's wound on the right anterior tibial surface is now completely healed. The traumatized area on the left anterior tibial surface is now clearly healed and epithelialized as well. Plan: The patient's lower extremity wounds are now completely healed and epithelialized. She has done well, and has responded appropriately to conservative treatment measures. She is to be discharged, and will follow-up henceforth on an as-needed basis. She is to continue wearing graduated compression stockings on a daily basis, elevating her legs as much as possible, remaining active, etc. Patient is not a smoker. Influenza vaccine was not administered today. Patient weighs 130 pounds. She stands 5 feet 1 inches tall. Her BMI is 24.6, which is normal.
== END 2018-06-13 23:59 ==
LOC: WC 12:31
PROVIDERS: Family Provider Internal Medicine; PCP Internal Medicine; Visit Provider Surgery
DX: S80.01XA Contusion of right knee, initial encounter (principal); W01.0XXA Fall on same level from slipping, tripping and stumbling without subsequent striking against object, initial encounter; Y92.009 Unspecified place in unspecified non-institutional (private) residence as the place of occurrence of the external cause; M19.90 Unspecified osteoarthritis, unspecified site; F32.9 Major depressive disorder, single episode, unspecified; D64.9 Anemia, unspecified; K21.9 Gastro-esophageal reflux disease without esophagitis; S80.811A Abrasion, right lower leg, initial encounter
CPT/HCPCS: 99211; G0463

== ENCOUNTER → 2019-01-05 13:36 | Outpatient (CLI) | payer MEDICARE, OTHER, SELFPAY ==
--- NOTE | 2019-01-05 13:40 | BI_ITS ---
MAMMOGRAPHY - BILATERAL SCREENING REASON FOR EXAM: Female, 73 years old. Routine annual screening examination. PERTINENT HISTORY: Mother with breast cancer. TECHNIQUE: Digital bilateral breast dmitry (3D mammographic acquisition) in the CC and MLO projections. 2-D mediolateral oblique (MLO) and craniocaudad (CC) views of both breasts were obtained. CAD: Full Field Digital Mammography with Computer Added Detection was performed. COMPARISON: Comparison is made with prior study December 24, 2017 and October 29, 2016. FINDINGS: Breast Composition: There are scattered areas of fibroglandular density. There are no dominant masses or suspicious calcifications. No other significant abnormalities are identified. There has been no significant change since the prior study. BI/SCREENING MAMM (CAD), BILAT IMPRESSION: Stable bilateral screening mammogram. Yearly follow-up mammogram recommended. (A) ASSESSMENT CATEGORY: BIRADS Category 1: Negative. A letter regarding these results will be sent to the patient by the facility within 30 days. Approximately 10% of breast cancers are not detected by mammography. A normal mammogram should not delay biopsy of a clinically suspicious abnormality. [id number] Electronically Signed: Chandler Nixon, at 15:54 EDT , Service support ,
== END ==
PROVIDERS: Family Provider Internal Medicine; PCP Internal Medicine; Referring Provider Internal Medicine; Visit Provider Internal Medicine
DX: Z12.31 Encounter for screening mammogram for malignant neoplasm of breast (principal)
CPT/HCPCS: 77063; 77067

== ENCOUNTER → 2019-08-13 | Outpatient (CLI) | payer MEDICARE, OTHER, SELFPAY ==
--- NOTE | 2019-08-13 09:20 | RAD_ITS ---
STUDY: X-RAY - ESOPHAGUS (BARIUM SWALLOW) WITH FLUOROSCOPY REASON FOR EXAM: Female, 74 years old. 3 month history of reflux. TECHNIQUE: 16 view(s) of the esophagus were obtained following swallowing of barium. FLUOROSCOPY TIME (if supplied): (0:37) minutes/seconds COMPARISON: None. FINDINGS: There is no demonstrated esophageal foreign body. There is no demonstrated stricture or mucosal abnormality. Normal gastroesophageal junction, without a demonstrated hiatal hernia. The patient ingested a 12 mm tablet of barium without any difficulty. There is atherosclerotic calcification of the aortic arch with tortuosity of the descending aorta. Normal visualized pulmonary parenchyma. There are diffuse degenerative changes of the visualized thoracic spine. RAD/Esophagus Only IMPRESSION: Normal plain film x-ray examination (barium swallow) of the esophagus. Electronically Signed: Chandler Nixon, at 9:16 EDT , Service support ,
== END | disposition home or self-care (01) ==
LOC: RAD 09:18
PROVIDERS: Family Provider Internal Medicine; PCP Internal Medicine; Referring Provider Otolaryngology Otolaryngology/Facial Plastic Surgery; Visit Provider Otolaryngology Otolaryngology/Facial Plastic Surgery
DX: K44.9 Diaphragmatic hernia without obstruction or gangrene (principal); K21.9 Gastro-esophageal reflux disease without esophagitis
CPT/HCPCS: 74220

== ENCOUNTER → 2020-05-24 15:39 | Outpatient (CLI) | payer MEDICARE, OTHER, SELFPAY ==
--- NOTE | 2020-05-24 15:43 | BI_ITS ---
MAMMOGRAPHY - BILATERAL SCREENING REASON FOR EXAM: Female, 74 years old. Routine annual screening examination. PERTINENT HISTORY: Mother with breast cancer. TECHNIQUE: Digital bilateral breast jeniffer (3D mammographic acquisition) in the CC and MLO projections. 2-D mediolateral oblique (MLO) and craniocaudad (CC) views of both breasts were obtained. CAD: Full Field Digital Mammography with Computer Added Detection was performed. COMPARISON: Comparison is made with prior study dated 01/05/2019 and 12/24/2017. FINDINGS: Breast Composition: There are scattered areas of fibroglandular density. There are no dominant masses or suspicious calcifications. No other significant abnormalities are identified. There has been no significant change since the prior study. BI/SCREEN MAMM (CAD) W/JENIFFER BILAT IMPRESSION: Stable bilateral screening mammogram. Yearly follow-up mammogram recommended. (A) ASSESSMENT CATEGORY: BIRADS Category 1: Negative. A letter regarding these results will be sent to the patient by the facility within 30 days. Approximately 10% of breast cancers are not detected by mammography. A normal mammogram should not delay biopsy of a clinically suspicious abnormality. [id number] Electronically Signed: Chandler Nixon, at 7:57 EDT , Service support ,
--- NOTE | 2020-05-24 16:02 | BD_ITS ---
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 COMPARISON: Comparison is made with prior study dated 12/24/2017. FINDINGS: Lumbar Spine (L1-L4): g/cm2 (1.292) / T-score (0.8) / Z-score (2.5) Findings are suggestive of normal bone density with a low fracture risk. Increased kyphosis. Right Femur Total: g/cm2 (0.690) / T-score (-2.5) / Z-score (-0.7) Right Femoral Neck: g/cm2 (0.698) / T-score (-2.4) / Z-score (-0.5) The T-Scores on the most recent prior examination were: Lumbar Spine (L1-L4): There has been improvement of bone density since the previous examination. Right Femur Total: which represents a worsening of 1.7%. BD/Dexa Bone Density Study IMPRESSION: The patient is considered osteopenic as outlined below according to World [employer] Organization (WHO) criteria with a high fracture risk. There has been worsening of bone density since the previous examination. Reference Information: The T-score is the number of standard deviations above or below the standard which is normal for young adults at their peak bone mineral density. The World Health Organization (WHO) interprets the T-scores as follows: Above -1 Normal bone density Between -1 and -2.5 Osteopenia Equal to / or below -2.5 Osteoporosis As a practical clinical guideline, osteopenia may be graded as follows: Mild -1 through -1.5 Moderate -1.6 through -2.0 Severe -2.1 through -2.4 The Z-score is the number of standard deviations above or below age-matched controls. A Z-score of less than -1.5 would be considered abnormal. References: 1. NIH Osteoporosis and Related Bone Diseases http://www.osteo.org 2. International Society for Clinical Densitometry http://www.iscd.org 3. National Osteoporosis Foundation http://www.nof.org Electronically Signed: Chandler Nixon, at 12:27 EDT , Service support ,
== END ==
PROVIDERS: PCP Internal Medicine; Referring Provider Internal Medicine; Visit Provider Internal Medicine
DX: Z78.0 Asymptomatic menopausal state (principal); Z12.31 Encounter for screening mammogram for malignant neoplasm of breast
CPT/HCPCS: 77063; 77067; 77080

== ENCOUNTER → 2020-06-27 | Outpatient (CLI) | payer MEDICARE, OTHER, SELFPAY ==
--- NOTE | 2020-06-27 12:50 | CT_ITS ---
STUDY: CT SCAN LOWER EXTREMITY RIGHT REASON FOR EXAM: Female, 75 years old. VALGUS DEFORMITY, RT KNEE, SAIDA PLANNING RADIATION DOSAGE (If Supplied By Facility): CTDIvol = ( 17.24 ) mGy, DLP = ( 1041.67 ) mGycm. Individualized dose optimization techniques were used for this CT.? TECHNIQUE: Multiple axial tomographic images of the hip joint, knee joint and ankle joints were obtained. COMPARISON: None. FINDINGS: The right hip joint is unremarkable. No significant abnormality is seen. There is a marked degree of joint space narrowing with spur formation along the lateral femoral condyle and lateral tibial plateau. Moderate amount of joint space narrowing and osteoarthritis of the patellofemoral joint with some mild spurring along the anterior aspect of the distal femoral condyle. Imaging of the ankle joint was obtained. No significant abnormality is seen. CT/Extremity Lower without Contra IMPRESSION: Marked degree of osteoarthritis involving the lateral compartment of knee joint and moderate degree of osteoarthritis involving the patellofemoral joint. Electronically Signed: Chandler Nixon, at 13:51 EDT , Service support ,
== END | disposition home or self-care (01) ==
LOC: CT 12:31
PROVIDERS: PCP Internal Medicine; Referring Provider Specialist; Visit Provider Specialist
DX: M21.061 Valgus deformity, not elsewhere classified, right knee (principal)
CPT/HCPCS: 73700

== ENCOUNTER 2020-07-20 07:58 | Observation (INO) | payer MEDICARE, OTHER, SELFPAY ==
[2020-06-27 13:44] LABS: Absolute Lymphocyte Count 1.48 X10^3/uL (0.83-4.51); Absolute Neutrophil Count 5.2 X10^3/uL (2.0-7.7); Basophil# 0.06 X10^3/uL; Basophil% 0.7 % (0-1); Eosinophil# 0.32 X10^3/uL; Hemoglobin 14.9 g/dL (12.0-15.0); Lymphocyte # 1.48 X10^3/ul (4.0); Lymphocyte % 18.4 % (19-41); Mean Corpuscular Hgb 29.3 pg (27.0-32.0); Mean Corpuscular Volume 94.5 fL (81-99); Mean Platelet Vol. 9.5 fl (6.2-12.0); Monocyte# 0.97 X10^3/uL; Monocyte% 12.1 % (0-10); NRBC Flagged by Analyzer 0 % (0-5); Neutrophil # 5.16 X10^3/uL (2.7-7.7); Neutrophil % 64.3 % (47-70); Platelet Count 255 K/mm3 (150-450); RBC Distribution Width CV 13.2 % (11.6-14.6); RBC Distribution Width SD 46.7 fl (35.1-43.9); Red Blood Count 5.08 M/mm3 (4.2-5.4)
[2020-06-27 14:22] LABS: Anion Gap 5 (5-15); BUN 30 mg/dL (7-18); Calcium,Total 9.8 mg/dL (8.5-10.1); Chloride 105 mmol/L (98-107); EST Glomerular Filtration Rate 87 mL/min (>60); Est Glom Filt Rate - Afr Amer 105 mL/min (>60); Glucose 66 mg/dL (74-106); Potassium 4.6 mmol/L (3.5-5.1); Sodium Level 141 mmol/L (136-145)
--- NOTE | 2020-06-27 22:55 | PCM.HP.BLA ---
History and Physical History and Physical [facility] Patient Name: Lisa Burciaga : 1945 From: DEAN GREENE PA-C DATE OF SURGERY: 07/20/2020 SCHEDULED PROCEDURE: right total knee arthroplasty and left knee corticosteroid injection HISTORY OF PRESENT ILLNESS: Preoperative history and physical exam was performed on June 27, 2020. This is a 75-year-old female who has been having ongoing pain in her right knee for over 10 years. It is been getting progressively worse over the past 1 year. She is also complaining of left knee pain. Patient states her pain can reach 7/10 with activities. She has pain that is increased with stairs, sitting, walking, and standing. Her pain has been intermittent, dull, aching. Patient has difficult time with leisure activity such as gardening. She has fallen and tripped/stumbled due to her knee pain. She feels unsafe going up ladders and using stepstools. Patient has attempted conservative measures on the right knee including rest, ice, heat, elevation, and previous cortisone injection. She has also attempted Euflexxa injections and physical therapy with minimal improvements. She has tried [id number] anti-inflammatories including ibuprofen and Tylenol. She denies previous surgery on the right knee. She has been using a cane occasionally. She has attempted bracing with no relief in symptoms. Patient has also been complaining of left knee pain. She denies left knee surgery. She has had a previous left hip nail in [address] [facility]. We are obtaining surgical clearance and the primary care physician Dr. Mccall. Patient has medical history pertinent for hypertension, gastroesophageal reflux disease, asthma, and depression. She denies chest pain, shortness of breath, fevers chills, or recent infections. After failing conservative measures and discussing treatment options with Dr. Ehsan Rivas patient does wish to proceed with a right total knee arthroplasty as well as left knee corticosteroid injection. REVIEW OF SYSTEMS: ROS: Const: Reports hard of hearing (2 hearing aids) and vision problems (has glasses), but denies anorexia, change in appetite, fever and weight change CV: Denies chest pain, heart murmur, irregular heartbeat and peripheral vascular disease. Resp: Reports asthma (exercise induced), but denies cough, pneumonia, sleep apnea, SOB, tuberculosis and wheezing GI: Denies constipation, diarrhea, difficulty swallowing, heartburn, nausea, bloody stools and vomiting. : Urinary: reports incontinence due to stress Musculo: Reports leg swelling, limp and weakness, but denies trouble walking. Skin: Denies Raynaud's, history of shingles and tattoo. Neuro: Reports numbness/tingling but denies ambulatory dysfunction, dizziness and tremor. Psych: Reports depression, but denies anxiety, insomnia, mental illness and stress. Bear/Lymph: Denies anemia, bleeding/bruising tendency and past transfusion. Reviewed, no changes. PAST MEDICAL HISTORY: Advance Care Plan: Other Directive, LIVING WILL Effective Date: 11/15/2015 Other Directive, POA Effective Date: 11/15/2015 PMH: Medical Problems: Arthritis, Asthma, Depression, High Blood Pressure, GERD Accidents: Sports Related Injury - knee-ACL skiing 30 years ago LT Hand Injury - (11/2011) LT Hip FX Surgical Hx: Tonsillectomy - (1948) Tubal Ligation - (1973) [facility] - 1970 and 1973 [facility] Hip ORIF - (05/02/2015) Gallbladder - 2017 RT Foot - (10/2019) [facility] Anesthesia Complications: Anesthesia Complications Assistive Devices: Brace, Glasses, Hearing Aid Reviewed and updated. 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 Personal Habits: Smoking: Patient is a former smoker.Cigarette Use: Former - .25 pack/day for 8 year.Alcohol: Weekly use.Drug Use: Denies Use.Enjoy Exercising: Exercises 1-3 X/Week. Reviewed, no changes. VITALS: Ht: 59.5 Wt: 135lb Wt k.236 BMI: 26.8 BP: 127/80 Pulse: 75 Resp: 16 T: 96.5 T: 35.8C ALLERGIES: Demerol Oxycodone MEDICATIONS: Calcium 600/D 600/d 2po qday, Bupropion HCL ER 150 mg 1 po bid, Omeprazole 20 mg 1 cap PO daily, Citalopram Hydrobromide 10 mg 1 by mouth every day, Donepezil HCL 5 mg 1 by mouth every day, Lorazepam 0.5 mg prn, Polyethylene Glycol 3350 17 GM/Scoop mix 17 g (to line in cap) in 8 oz of liquid and drink once daily, Alendronate Sodium 70 mg 1po weekly, Losartan Potassium/Hydrochlorothiazide 50-12.5 mg PRE-OP EXAM: General appearance:NORMAL Other: Eyes: Conjunctivae and lids: NORMAL Pupils: ERR Ears, Nose, Mouth, and Throat: NORMAL Other: Inspection of lips, teeth and gums: NORMAL Other: Neck: Examination of neck: no masses noted. Respiratory: Assessment of respiratory effort: NORMAL Other: Auscultation of lungs: clear to auscultation no wheezes, rhonchi or rales. Cardiovascular: Auscultation of heart: regular rate and rhythm, positive systolic murmur Exam of carotid arteries: NORMAL Other: Gastrointestinal: Exam of abdomen: soft, nontender, nondistended bowel sounds present. PHYSICAL EXAMINATION: Patient does walk with a antalgic gait. Left knee is cool to touch. She has tenderness to palpation over the lateral knee. Range of motion: 2 of hyperextension with Flexion 110. She has a 12 valgus deformity which is correctable. Patient's right knee is cool to touch without erythema or signs of infection. Moderate effusion. Range of motion: 2 hyperextension to 95 flexion. There is 15 valgus alignment. Correctable valgus alignment bilaterally. Sensation intact to light touch. IMAGING STUDIES: X-rays of the right knee reveal valgus alignment with lateral joint space narrowing, subchondral sclerosis, osteophyte formation consistent with severe right knee osteoarthritis. Left knee x-rays reveal valgus alignment with lateral joint space narrowing, subchondral sclerosis, osteophyte formation consistent with severe osteoarthritis IMPRESSION: 1. Severe right knee osteoarthritis 2. Severe left knee osteoarthritis 3. Hypertension 4. Gastroesophageal reflux disease 5. Depression 6. Asthma PLAN: Dr. Ehsan Rivas did discuss and review with the patient all treatment options including surgical versus nonsurgical options. Patient does wish to proceed with the above-stated procedure. Potential risks, benefits, and complications of the procedure were discussed in detail including but not limited to , infection, nerve and blood vessel damage, persistent pain, numbness, tingling, paresthesias, blood clot, pulmonary embolism, and requirement for possible further surgery. The patient expressed full understanding and has no further questions for the doctor. Patient does agree to proceed with the above-stated procedure and has signed the surgery consent form. We discussed the current risks associated with COVID 19. This does include the risk of exposure while in the hospital. Patient was reassured local hospitals have low infection rates and are taking all necessary precautions to avoid exposure to patients. In addition, we discussed strategies that can be used to help limit exposure including those that limit the patient's time in the hospital. Also using strategies to limit the patient's need for continued inpatient services after being discharged from the hospital. Patient was notified that we will need to comply with any screening or testing the hospital wishes to perform or that surgery may be delayed for any positive results. This dictation was created using voice recognition software. Phonetic and/or grammatical errors may exist. ___ I have re-examined the patient. There are no clinical changes since date of exam. ___ See progress notes for changes. ___ Dictated on admission Date: Time: Signature:
[2020-07-13 11:10] LABS: Absolute Lymphocyte Count 1.76 X10^3/uL (0.83-4.51); Absolute Neutrophil Count 4.3 X10^3/uL (2.0-7.7); Basophil# 0.06 X10^3/uL; Basophil% 0.8 % (0-1); Eosinophil# 0.31 X10^3/uL; Eosinophils% 4.3 % (0-5); Hematocrit 47.3 % (37-47); Hemoglobin 14.9 g/dL (12.0-15.0); Lymphocyte # 1.76 X10^3/ul (4.0); Lymphocyte % 24.3 % (19-41); Mean Corp Hgb Conc 31.5 g/dL (32-36); Mean Corpuscular Hgb 29.8 pg (27.0-32.0); Mean Corpuscular Volume 94.6 fL (81-99); Mean Platelet Vol. 9.5 fl (6.2-12.0); Monocyte# 0.79 X10^3/uL; Monocyte% 10.9 % (0-10); NRBC Flagged by Analyzer 0 % (0-5); Neutrophil # 4.28 X10^3/uL (2.7-7.7); Neutrophil % 59.3 % (47-70); Platelet Count 253 K/mm3 (150-450); RBC Distribution Width CV 13.2 % (11.6-14.6); RBC Distribution Width SD 45.3 fl (35.1-43.9); White Blood Count 7.2 K/mm3 (4.4-11.0)
[2020-07-13 11:24] LABS: Partial Thromboplast Time 25.5 Seconds (24.1-36.2); Prothrombin Time (Protime)PT. 12.9 SECONDS (11.7-14.9)
[2020-07-13 11:43] LABS: AST(SGOT) 16 U/L (15-37); Alanine Aminotransfer ALT/SGPT 31 U/L (13-56); Albumin, Serum 3.8 g/dL (3.2-5.0); Alkaline Phosphatase 71 U/L (45-117); Anion Gap 3 (5-15); BUN 36 mg/dL (7-18); BUN/Creat Ratio 47.4 RATIO (10-20); Bilirubin, Direct 0.16 mg/dL (0.00-0.30); Calcium,Total 9.6 mg/dL (8.5-10.1); Chloride 106 mmol/L (98-107); Creatinine, Serum 0.76 mg/dL (0.55-1.02); EST Glomerular Filtration Rate 79 mL/min (>60); Est Glom Filt Rate - Afr Amer 95 mL/min (>60); Globulin 3.7 g/dL (2.2-4.2); Glucose 105 mg/dL (74-106); Potassium 4.3 mmol/L (3.5-5.1); Protein, Total 7.5 g/dL (6.4-8.2); Sodium Level 137 mmol/L (136-145)
[2020-07-13 11:47] LABS: Magnesium 2.1 mg/dL (1.6-2.6)
[2020-07-20] VITALS (12 sets, daily range): BP systolic 100–116; BP diastolic 53–88; PULSE 75–86; RESP 16–18; TEMP 35.9–36.8; O2SAT 95–100; BMI 27.0; BMI 28.5
--- NOTE | 2020-07-20 06:57 | RAD_ITS ---
STUDY: X-RAY - RIGHT KNEE REASON FOR EXAM: Postop right knee arthroplasty. TECHNIQUE: 2 view(s) of the knee. COMPARISON: CT images 06/27/2020. FINDINGS: There is a right total knee arthroplasty without evidence of complication. There is postoperative gas in the knee joint and soft tissues. There are overlying skin darcie. RAD/Knee 1 or 2 Views IMPRESSION: Uncomplicated right total knee arthroplasty. Electronically Signed: Srinath Levine MD at 12:13 EDT Tel , Service support ,
[2020-07-20] MEDS: Celecoxib 200 MG Capsule 400 MG PO (08:06)
[2020-07-20] MEDS: Gabapentin 600 MG Tablet PO (08:06)
[2020-07-20] MEDS: Acetaminophen 500 MG Tablet 1000 MG PO ×3 (08:06→21:40)
[2020-07-20] MEDS: Scopolamine 1mg/72hr Patch 1 PATCH TD (08:09)
[2020-07-20] MEDS: Lactated Ringers 1,000 ML 999 ML IV ×2 (08:20→09:30)
[2020-07-20] MEDS: Cefazolin 2 GM in 0.9% Normal Saline 100 ML IV (08:50)
[2020-07-20] MEDS: Triamcinolone Acetonide 40 MG/ML Vial (09:09)
[2020-07-20] MEDS: Bupivacaine 0.5% PF 10 ML VIAL (09:09)
[2020-07-20 10:01] LABS: Bedside Glucose 93 mg/dL (70-110)
--- NOTE | 2020-07-20 10:21 | PCM.OPRPT ---
Report of Operation Date of Procedure: 07/20/20 Pre-Operative Diagnosis: 1. Right knee primary osteoarthritis. 2. Left knee primary osteoarthritis Post-Operative Diagnosis: 1. Right knee primary osteoarthritis. 2. Left knee primary osteoarthritis Surgery/Procedure Performed:: 1. Right minimally invasive robotic assisted total knee replacement. 2. Left intra articular corticosteroid injection left knee Description of Surgical Findings:: Stable knee with good patella tracking senior resident care director: Vandana Matos Type of Anesthesia:: Spinal Anesthesiologist: Yonatan Munoz Special Medications: 2 g Ancef, 1 g TXA at incision, 1 g TXA closure, 10 mg Decadron, joint cocktail (5 mg Duramorph, 30 mL of 0.5% Ropivicaine, 1000 units of epinephrine, 30 mg of Toradol) Specimen's removed: Bony cuts Estimated Blood Loss (mL): 30 Fluids Replaced: 1000 mL crystalloid Description of Procedure: Implants used: 1. [place] size 3 triathlon cruciate retaining distal femoral press-fit component 2. [place] size 3 press-fit tritanium tibial baseplate 3. Kelly X3 10 mm CS polyethylene 4. Kelly X3 29 mm asymmetric patella Brief history operative indications: 75-year-old F with history of right and left knee osteoarthritis with radiographic findings with loss of joint space, osteophyte formation and subchondral sclerosis. Failed conservative measures as mentioned in the H&P. Discussion of total knee arthroplasty as well as risk and benefits were discussed the patient including but not limited to blood loss, DVTs, PEs, neurovascular damage, general risk of anesthesia including loss of life, and stiffness or instability were discussed with patient. Patient demonstrated understanding and was able to sign informed consent. Patient also wished to proceed with a corticosteroid injection in the left knee. Procedure: On the date of procedure patient's bilateral lower extremities were marked in the preoperative area. The patient was then taken back to the operating room where the patient was placed on the table in the supine position. All bony prominences were identified a well-padded. Anesthesia assumed control of the C-spine and airway and remained controlled throughout the remainder of the procedure. Our initial attention was directed towards the left knee. Supra patellar lateral portal was palpated. The skin was marked. Alcohol was used to prep the skin. 18-gauge needle was used to place 2 mL of Kenalog and 4 mL of 0.5% Marcaine. Patient tolerated the procedure well. Needle was withdrawn. Band-Aid was placed. A tourniquet was placed on the right upper thigh and the leg was prepped in a sterile fashion. The surgeon then scrubbed at this time .Upon reentering the room the right lower extremity was draped in a standard orthopedic fashion. A timeout was then called and everyone agreed upon the side, the site, the procedure to be performed, patient's identity and antibiotics given. Esmarch bandage was used to exsanguinate the extremity and the tourniquet was placed up to 250 mmHg with the knee in flexion. A midline skin incision was made and sharp dissection was taken down through skin subcutaneous tissue and fat. The standard medial parapatellar incision was made and the patella was subluxed laterally. An Appropriate deep MCL release was done and the fat pad was resected. Our attention was then directed to the patella. The patella was everted and a flat resection was made. The knee was then flexed up in 2 femoral pins were placed inside the incision and 2 tibial pins were placed outside the incision in the medial tibia bicortically. Once this was completed the 2 checkpoints in the femur and tibia were placed. Knee was then flexed up and the bony landmarks were registered. Once this was completed knee was taken through range of motion and manually stressed allowing us to a plan for an appropriate tibial cut. The robotic arm was brought into the field sterilely and checkpoint and saw were registered. Based on the patient's deformity the tibial cut was made in neutral. At this time the tensioner was then placed in the joint and ligament tension was checked at 90 degrees and full extension. Based on the patient's ligamentous tension appropriate adjustments were made to the operative plan and ligament releases were done. Once we were happy with our operative plan with balanced flexion and extension gaps our attention was directed to the femur. The robot was brought into the field sterilely and registered. Posterior condylar cuts, anterior chamfer cuts and anterior cuts were appropriately made for a size 3 femur. When these were completed the saws were switched out in the distal femoral and posterior chamfer cuts were made. Protecting the soft tissue throughout this time. A size 3 tibial base plate was selected. the knee was flexed to 90 degrees and the soft tissues and posterior osteophytes were removed from the joint. 40 cc of the periarticular injection was injected into the posterior medial corner of the joint. The appropriate trials were then placed on the femur and tibia. A trial polyethylene was trialed to ensure proper balancing and stability of the knee. The appropriate tibial internal rotation was then marked with a bovie. Our attention was then directed to the patella. The lug holes were drilled and the patella trial was placed. Patellar tracking was checked and deemed appropriate. Once we were happy lug holes were drilled for the femur and trial components were removed. the tibia was subluxed and pinned into place and the keel was punched and drilled appropriately. Final components were verified and opened, and cement was mixed in a vacuum. [employer] Simplex cement was used. The wound was copiously irrigated with normal saline. When the cement was ready the components were impacted into place starting with the tibia, femur and finally cementing the patella. The trial poly component was placed and the knee was placed in full extension. All excess cement was removed in the process. Once the cement had cured the tracking, alignment and balance were verified and a size 10 mm CS polyethylene component was placed. Once the final components were placed an Irrisept lavage was performed and the wound was copiously irrigated with normal saline solution and the periarticular injection was given. The wound was closed in a layer cortez fashion using #1 vicryl interrupted sutures for the arthrotomy, 2-0 interrupted Vicryl suture for the subcuticular layer and darcie for final skin closure. A sterile compressive dressing was then placed. The patient was then awakened from anesthesia, transferred to the [facility] and transferred to the PACU for recovery. Post op plan DVT ppx: ASA 81mg BID, thigh high compression stockings Follow up: in office in 2 weeks for wound check PT: to start POD #0 at hospital, outpatient PT should be arranged. Due to the complexity of this case robotic arm was used to assist in the surgery to improve accuracy and clinical outcomes. - Complications No intraoperative complication - Admit VTE Documentation VTE Present on Admission: No VTE Mechan Device Prophylaxis: SCD's, Thigh High MARY Hose VTE Pharm Prophylaxis ordered?: Yes
[2020-07-20] MEDS: Ensure Surgery 237 ML LIQUID PO ×2 (13:11→16:44)
[2020-07-20] MEDS: Senna/Docusate Sodium 1 Tablet 2 TABLET PO ×2 (13:11→21:39)
[2020-07-20] MEDS: Famotidine 20 MG Tablet PO (13:11)
[2020-07-20] MEDS: buPROPion (SR) 150 MG Tablet.SA 300 MG PO (13:12)
[2020-07-20] MEDS: hydroCHLOROthiazide 12.5mg 12.5 MG PO (13:12)
[2020-07-20] MEDS: Losartan Potassium 50 MG Tablet PO (13:12)
[2020-07-20] MEDS: Ondansetron 4 MG/2 ML Vial IV ×2 (14:40→23:39)
[2020-07-20] MEDS: oxyCODONE 5 MG Tablet PO ×2 (14:40→23:42)
--- NOTE | 2020-07-20 15:10 | PCM.PN.HOSP ---
Reason for Visit: post of right total knee Subjective: This is a 75-year-old female with past medical history of hypertension, GERD, asthma, osteoarthritis, depression, osteoporosis who underwent a right total knee repair and left knee steroid injection today in the operating room with Dr. Rivas. Patient doing well post op. No complaints of fever/chills, sob/cough, nausea/vomiting/diarrhea/abdominal pain. Pain in R knee 03/23 no distal numbness/tingling. No left knee pain. Vitals/I&O's: Vital Signs Temp Pulse Resp BP Pulse Ox 98.3 F 80 18 107/71 97 07/20/20 14:42 07/20/20 14:42 07/20/20 14:42 07/20/20 14:42 07/20/20 14:42 Oxygen Flow Rate (L/min) 6 Oxygen Delivery Method Room Air Weight: 141 lb Body Mass Index (BMI) 28.5 Intake and Output for Last 24 Hours 07/18/20 07/19/20 07/20/20 23:59 23:59 23:59 Intake Total 3431.5 / 3431.5 Balance 3431.5 / 3431.5 General: Alert, Oriented x3, Cooperative HEENT: Atraumatic, PERRLA, EOMI, Normocephalic Neck: Supple, No JVD, Negative Carotid Bruits Lungs: Clear to auscultation, Normal air movement Cardiovascular: Regular rate, No murmurs Abdomen: Bowel Sounds Present, Soft, Non Tender Extremities: No edema, Capillary Refill Less than 3 Seconds Skin: No rashes, No breakdown Musculoskeletal: No Tenderness to Palpation of Joints or Extremities Neurological: Cranial nerves II-XII grossly intact Psych/Mental Status: Normal Affect, Appropriate, Alert and oriented to time, place, person, mood and affect Laboratory Results 07/20/20 08:12: POC Glucose 93 Current Medications Acetaminophen (Tylenol) 1,000 mg PO Q8 MARTIN Last Admin: 07/20/20 13:11 Dose: 1,000 mg Documented by: Albuterol Sulfate (Ventolin Aerosols) 2.5 mg INHALATION Q4H PRN PRN Reason: SOB &/OR WHEEZING Alendronate Sodium (Fosamax) 70 mg PO VIDES [facility] Aspirin (Aspirin, Baby) 81 mg PO BIDCM [facility] Bupropion HCl (Wellbutrin Sr (150mg Tablets)) 150 mg PO QHS [facility] Bupropion HCl (Wellbutrin Sr (150mg Tablets)) 300 mg PO DAILY [facility] Last Admin: 07/20/20 13:12 Dose: 300 mg Documented by: Calcium/Vitamin D (Os-John 500mg + D) 1 tablet [facility] Citalopram Hydrobromide (Celexa) 20 mg PO QHS [facility] Enteral Nutritional Formula (Ensure Surgery) 237 ml PO TIDCM [facility] Last Admin: 07/20/20 13:11 Dose: 237 ml Documented by: Famotidine (Pepcid) 20 mg PO DAILY [facility] Last Admin: 07/20/20 13:11 Dose: 20 mg Documented by: Fluticasone Propionate (Flonase Nasal [place]) 1 spray NASAL DAILY PRN PRN Reason: ALLERGIES Hydrochlorothiazide () 12.5 mg PO DAILY [facility] Last Admin: 07/20/20 13:12 Dose: 12.5 mg Documented by: Lactated Ringer's () 1,000 mls @ 125 mls/hr IV .Q8H [facility] Cefazolin Sodium () 1 gm in 50 mls @ 150 mls/hr IV Q8H [facility] Stop: 07/21/20 01:19 Insulin Human Lispro (Humalog Kwikpen ([facility])) 1 - 6 unit SC Q4H PRN PRN; Protocol PRN Reason: BG>/= 180, SEE PROTOCOL Ketorolac Tromethamine (Toradol ([facility])) 15 mg IV Q6H PRN PRN PRN Reason: Pain Score 1-5/10 Stop: 07/22/20 06:58 Lorazepam (Ativan) 0.5 mg PO DAILY PRN PRN Reason: ANXIETY Losartan Potassium (Cozaar) 50 mg PO DAILY [facility] Last Admin: 07/20/20 13:12 Dose: 50 mg Documented by: Morphine Sulfate () 2 - 4 mg IV Q2H PRN PRN PRN Reason: Pain Score 6-10/10 Morphine Sulfate () 2 - 4 mg IV Q2H PRN PRN PRN Reason: Pain Score 6-10/10 Ondansetron HCl (Zofran) 4 mg IV Q8H PRN PRN PRN Reason: NAUSEA Last Admin: 07/20/20 14:40 Dose: 4 mg Documented by: Oxycodone HCl (Oxyir) 5 - 10 mg PO Q4H PRN PRN PRN Reason: Pain Score 4-1010 Last Admin: 07/20/20 14:40 Dose: 5 mg Documented by: Pantoprazole Sodium (Protonix) 20 mg PO QODAY MARTIN Polyethylene Glycol (Miralax) 17 gm PO DAILY PRN PRN PRN Reason: Constipation Promethazine HCl (Phenergan) 12.5 mg IM Q6H PRN PRN; Protocol PRN Reason: NAUSEA/VOMITING Senna/Docusate Sodium (Senokot-S, Griselda-Colace) 2 tablet PO BID MARTIN Last Admin: 07/20/20 13:11 Dose: 2 tablet Documented by: Sodium Chloride () 10 - 40 ml IV UD PRN PRN Reason: SALINE FLUSH STROKE Vital Signs/Narrative: Vital Signs Temp Pulse Resp BP Pulse Ox 07/20/20 14:42 98.3 F 80 18 107/71 97 07/20/20 13:04 98.0 F 78 18 116/62 98 07/20/20 12:15 97.9 F 77 16 105/63 98 07/20/20 12:00 86 16 104/75 98 07/20/20 11:45 77 16 114/75 100 07/20/20 11:30 83 16 115/62 100 07/20/20 11:15 75 16 106/65 100 Medical Necessity - Tobacco Use Smoking Status: Never smoker Assessment/Plan All Active Problems Contusion of right leg (Resolved) Subcutaneous hematoma (Resolved) Pain in right leg (Resolved) Abrasion of leg, right (Resolved) Traumatic open wound of right lower leg (Resolved) Contusion (Resolved) Contusion of leg, left (Resolved) Pain In Right Leg (Resolved) Hematoma of leg (Resolved) Contusion of leg, right (Resolved) Wound, open, leg (Acute) Wound of right leg (Resolved) Acute cholecystitis (Resolved) 1. Osteoarthritis s/p Right total knee repair and left knee steroid injection POD#0 - care as per Dr. Rivas. Doing well post op. Covid negative. 2. Asthma - no wheezing/SOB. prn albuterol, encourage incentive spirometer. Pt states this only flares with exercise. 3. GERD - PPI 4. Osteoporosis - resume fosamax at home. 5. HTN - controlled. Continue home meds. 6. Depression/Anxiety - celexa, bupropion, ativan DVT ppx: per ortho Thank you for the opportunity to participate in the care of this patient. This patient was seen by Go Bonds PA-C under the supervision of Dr. Armas
[2020-07-20] MEDS: Ketorolac 15 MG/ML Vial IV (16:43)
[2020-07-20] MEDS: Aspirin 81 MG TAB.CHEW PO (16:45)
[2020-07-20] MEDS: Calcium Carb/Vitamin D 1 TABLET Tablet PO (16:45)
[2020-07-20] MEDS: Lactated Ringers 1,000 ML 125 ML IV (16:48)
[2020-07-20] MEDS: Cefazolin 1 GM/50 ML BAG IV (16:48)
[2020-07-20] MEDS: Morphine 2 MG/ML Syringe IV (21:03)
[2020-07-20] MEDS: buPROPion (SR) 150 MG Tablet.SA PO (21:39)
[2020-07-20] MEDS: Citalopram 20 MG Tablet PO (21:39)
[2020-07-20] MEDS: 0.9% Saline Lock 10 ML Syringe IV (23:39)
[2020-07-21 01:10] VITALS: BP 99/49; PULSE 75; RESP 16; TEMP 37.1; O2SAT 94
[2020-07-21] MEDS: Cefazolin 1 GM/50 ML BAG IV (01:10)
[2020-07-21] MEDS: Acetaminophen 500 MG Tablet 1000 MG PO ×2 (05:16→14:36)
[2020-07-21 05:18] VITALS: BP 107/51; PULSE 74; RESP 16; TEMP 37.1; O2SAT 92
[2020-07-21 05:34] LABS: Hemoglobin 11.8 g/dL (12.0-15.0); Mean Corp Hgb Conc 31.9 g/dL (32-36); Mean Corpuscular Hgb 30.3 pg (27.0-32.0); Mean Corpuscular Volume 94.9 fL (81-99); Mean Platelet Vol. 9.2 fl (6.2-12.0); Platelet Count 193 K/mm3 (150-450); RBC Distribution Width CV 13.1 % (11.6-14.6); RBC Distribution Width SD 45.8 fl (35.1-43.9); White Blood Count 10.8 K/mm3 (4.4-11.0)
[2020-07-21 05:52] LABS: Anion Gap 4 (5-15); BUN 19 mg/dL (7-18); Calcium,Total 8.3 mg/dL (8.5-10.1); Chloride 107 mmol/L (98-107); EST Glomerular Filtration Rate 86 mL/min (>60); Est Glom Filt Rate - Afr Amer 104 mL/min (>60); Estimated Creatinine Clearance 48.32 ml/min; Glucose 162 mg/dL (74-106); Potassium 4.4 mmol/L (3.5-5.1); Sodium Level 138 mmol/L (136-145)
[2020-07-21] MEDS: oxyCODONE 5 MG Tablet PO ×2 (07:43→11:46)
--- NOTE | 2020-07-21 07:44 | PN_ITS ---
Subjective: Patient seen and examined. Today's postop day 1 for right total knee repair and left knee steroid injection. She has no complaints today. Remained hemodynamically stable. Review of systems otherwise negative. Vitals/I&O's: Vital Signs Temp Pulse Resp BP Pulse Ox 98.8 F 74 16 107/51 L 92 07/21/20 05:18 07/21/20 05:18 07/21/20 05:18 07/21/20 05:18 07/21/20 05:18 Oxygen Flow Rate (L/min) 6 Oxygen Delivery Method Room Air Weight: 141 lb Body Mass Index (BMI) 28.5 Intake and Output for Last 24 Hours 07/19/20 07/20/20 07/21/20 23:59 23:59 23:59 Intake Total 5239.83 / 5239.83 227.5 / 227.5 Balance 5239.83 / 5239.83 227.5 / 227.5 General: Alert, Oriented x3, Cooperative, No apparent distress HEENT: Atraumatic, PERRLA, EOMI, Normocephalic Oral: Moist Mucosa Neck: Supple, No JVD, Negative Carotid Bruits Lungs: Clear to auscultation, Normal air movement, No rhonchi, No wheeze, No rales Cardiovascular: Regular rate, Regular Rhythm, Normal S1, Normal S2, No murmurs Abdomen: Bowel Sounds Present, Soft, Non Tender, Non-Distended, No Hepato- splenomegaly Extremities: No clubbing, No cyanosis, No edema, Capillary Refill Less than 3 Seconds Skin: No rashes, No breakdown Musculoskeletal: - - right knee surgical dressing in place Lymphatic: No Cervical, Supraclavicular, or Inguinal Adenopathy Neurological: Cranial nerves II-XII grossly intact, Neuro grossly intact Psych/Mental Status: Normal Affect, Appropriate, Alert and oriented to time, place, person, mood and affect Laboratory Results 07/20/20 08:12: POC Glucose 93 07/21/20 05:20: WBC 10.8, RBC 3.90 L, Hgb 11.8 L, Hct 37.0, MCV 94.9, MCH 30.3, MCHC 31.9 L, RDW Std Deviation 45.8 H, RDW Coeff of Jossue 13.1, Plt Count 193, MPV 9.2 07/21/20 05:20: Sodium 138, Potassium 4.4, Chloride 107, Carbon Dioxide 27.0, Anion Gap 4 L, BUN 19 H, Creatinine 0.70, Estim Creat Clear Calc 48.32, Est GFR (MDRD) Af Amer 104, Est GFR (MDRD) Non-Af 86, BUN/Creatinine Ratio 27.0 H, Glucose 162 H, Calcium 8.3 L Diagnostic Data Knee X-Ray 07/20/20 06:57 IMPRESSION: Uncomplicated right total knee arthroplasty. Electronically Signed: Srinath Levine MD at 12:13 EDT Tel , Service support , Current Medications Acetaminophen (Tylenol) 1,000 mg PO Q8 [facility] Last Admin: 07/21/20 05:16 Dose: 1,000 mg Documented by: Albuterol Sulfate (Ventolin Aerosols) 2.5 mg INHALATION Q4H PRN PRN Reason: SOB &/OR WHEEZING Aspirin (Aspirin, Baby) 81 mg PO BIDCM [facility] Last Admin: 07/20/20 16:45 Dose: 81 mg Documented by: Bupropion HCl (Wellbutrin Sr (150mg Tablets)) 150 mg PO QHS [facility] Last Admin: 07/20/20 21:39 Dose: 150 mg Documented by: Bupropion HCl (Wellbutrin Sr (150mg Tablets)) 300 mg PO DAILY [facility] Last Admin: 07/20/20 13:12 Dose: 300 mg Documented by: Calcium/Vitamin D (Os-John 500mg + D) 1 tablet PO BIDCM [facility] Last Admin: 07/20/20 16:45 Dose: 1 tablet Documented by: Citalopram Hydrobromide (Celexa) 20 mg PO QHS [facility] Last Admin: 07/20/20 21:39 Dose: 20 mg Documented by: Enteral Nutritional Formula (Ensure Surgery) 237 ml PO TIDCM [facility] Last Admin: 07/20/20 16:44 Dose: 237 ml Documented by: Famotidine (Pepcid) 20 mg PO DAILY [facility] Last Admin: 07/20/20 13:11 Dose: 20 mg Documented by: Hydrochlorothiazide () 12.5 mg PO DAILY [facility] Last Admin: 07/20/20 13:12 Dose: 12.5 mg Documented by: Insulin Human Lispro (Humalog Kwikpen (Bk)) 1 - 6 unit SC Q4H PRN PRN; Protocol PRN Reason: BG>/= 180, SEE PROTOCOL Ketorolac Tromethamine (Toradol (Bkc)) 15 mg IV Q6H PRN PRN PRN Reason: Pain Score 1-5/10 Stop: 07/22/20 06:58 Last Admin: 07/20/20 16:43 Dose: 15 mg Documented by: Lorazepam (Ativan) 0.5 mg PO DAILY PRN PRN Reason: ANXIETY Losartan Potassium (Cozaar) 50 mg PO DAILY [facility] Last Admin: 07/20/20 13:12 Dose: 50 mg Documented by: Morphine Sulfate () 2 - 4 mg IV Q2H PRN PRN PRN Reason: Pain Score 6-10/10 Last Admin: 07/20/20 21:03 Dose: 2 mg Documented by: Morphine Sulfate () 2 - 4 mg IV Q2H PRN PRN PRN Reason: Pain Score 6-10/10 Ondansetron HCl (Zofran) 4 mg IV Q8H PRN PRN PRN Reason: NAUSEA Last Admin: 07/20/20 23:39 Dose: 4 mg Documented by: Oxycodone HCl (Oxyir) 5 - 10 mg PO Q4H PRN PRN PRN Reason: Pain Score 4-10/10 Last Admin: 07/20/20 23:42 Dose: 5 mg Documented by: Pantoprazole Sodium (Protonix) 40 mg PO DAILY [facility] Polyethylene Glycol (Miralax) 17 gm PO DAILY PRN PRN PRN Reason: Constipation Senna/Docusate Sodium (Senokot-S, Griselda-Colace) 2 tablet PO BID [facility] Last Admin: 07/20/20 21:39 Dose: 2 tablet Documented by: Sodium Chloride () 10 - 40 ml IV UD PRN PRN Reason: SALINE FLUSH Last Admin: 07/20/20 23:39 Dose: 10 ml Documented by: STROKE Vital Signs/Narrative: Vital Signs Temp Pulse Resp BP Pulse Ox 07/21/20 05:18 98.8 F 74 16 107/51 L 92 Medical Necessity - Tobacco Use Smoking Status: Never smoker Assessment/Plan All Active Problems Contusion of right leg (Resolved) Subcutaneous hematoma (Resolved) Pain in right leg (Resolved) Abrasion of leg, right (Resolved) Traumatic open wound of right lower leg (Resolved) Contusion (Resolved) Contusion of leg, left (Resolved) Pain In Right Leg (Resolved) Hematoma of leg (Resolved) Contusion of leg, right (Resolved) Wound, open, leg (Acute) Wound of right leg (Resolved) Acute cholecystitis (Resolved) # osteoarthritis s/p right total knee repair * today is POD 0 * pain well controlled * on IV morphine, oxycodone and tylenol for pain * #History of asthma: not in exacerbation. On breathing treatments with bronchodilators #Hypertension: on HCTZ and losartan #Depression and anxiety: on celexa, bupropion and ativan # DVT porphylaxis: on aspirin 81mg bid as per orthopedics Inpatient E&M: 30373 Subs Hosp L2
[2020-07-21] MEDS: Famotidine 20 MG Tablet PO (07:45)
[2020-07-21] MEDS: buPROPion (SR) 150 MG Tablet.SA 300 MG PO (07:45)
[2020-07-21] MEDS: Senna/Docusate Sodium 1 Tablet 2 TABLET PO (07:45)
[2020-07-21] MEDS: Ensure Surgery 237 ML LIQUID PO ×2 (07:46→11:46)
[2020-07-21] MEDS: Calcium Carb/Vitamin D 1 TABLET Tablet PO (07:46)
[2020-07-21] MEDS: Aspirin 81 MG TAB.CHEW PO (07:46)
[2020-07-21] MEDS: hydroCHLOROthiazide 12.5mg 12.5 MG PO (07:46)
[2020-07-21] MEDS: Losartan Potassium 50 MG Tablet PO (07:46)
--- NOTE | 2020-07-21 07:47 | PCM.PN.ORT ---
Subjective: The patient was sitting in bedside chair upon examination. Patient denies any chest pain, shortness of breath, dizziness, lightheadedness, nausea or vomiting, or calf pain. Pain is controlled on medications. No adverse overnight events. Overall patient has been doing well with regards to her right knee postoperatively. She has required oxycodone and pain is been controlled. Patient does wish to proceed with home health care for 2 weeks postoperatively as she has difficulty with transportation. She would also like to go to [facility] for transportation purposes. Objective: Vital signs stable and afebrile. Patient is able to plantarflex and dorsiflex actively. Sensation is intact to light touch to saphenous, sural, superficial and deep peroneal, and tibial distribution. Dressing is with minimal drainage over the distal dressing clean dry and intact. There is minimal drainage over the pin site dressings Negative Homans bilaterally, negative signs and symptoms of DVT. - Physical Exam Vitals/I&O's: Vital Signs Temp Pulse Resp BP Pulse Ox 98.8 F 74 16 107/51 L 92 07/21/20 05:18 07/21/20 05:18 07/21/20 05:18 07/21/20 05:18 07/21/20 05:18 Oxygen Flow Rate (L/min) 6 Oxygen Delivery Method Room Air Weight: 63.957 kg Body Mass Index (BMI) 28.5 Intake and Output for Last 24 Hours 07/19/20 07/20/20 07/21/20 23:59 23:59 23:59 Intake Total 5239.83 / 5239.83 227.5 / 227.5 Balance 5239.83 / 5239.83 227.5 / 227.5 General: Alert, Oriented x3, Cooperative, No apparent distress Laboratory Results 07/20/20 08:12: POC Glucose 93 07/21/20 05:20: WBC 10.8, RBC 3.90 L, Hgb 11.8 L, Hct 37.0, MCV 94.9, MCH 30.3, MCHC 31.9 L, RDW Std Deviation 45.8 H, RDW Coeff of Jossue 13.1, Plt Count 193, MPV 9.2 07/21/20 05:20: Sodium 138, Potassium 4.4, Chloride 107, Carbon Dioxide 27.0, Anion Gap 4 L, BUN 19 H, Creatinine 0.70, Estim Creat Clear Calc 48.32, Est GFR (MDRD) Af Amer 104, Est GFR (MDRD) Non-Af 86, BUN/Creatinine Ratio 27.0 H, Glucose 162 H, Calcium 8.3 L Current Medications Acetaminophen (Tylenol) 1,000 mg PO Q8 [facility] Last Admin: 07/21/20 05:16 Dose: 1,000 mg Documented by: Albuterol Sulfate (Ventolin Aerosols) 2.5 mg INHALATION Q4H PRN PRN Reason: SOB &/OR WHEEZING [facility] Last Admin: 07/21/20 07:46 Dose: 81 mg Documented by: Bupropion HCl (Wellbutrin Sr (150mg Tablets)) 150 mg PO QHS [facility] Last Admin: 07/20/20 21:39 Dose: 150 mg Documented by: Bupropion HCl (Wellbutrin Sr (150mg Tablets)) 300 mg PO DAILY [facility] Last Admin: 07/21/20 07:45 Dose: 300 mg Documented by: Calcium/Vitamin D (Os-John 500mg + D) [facility] Last Admin: 07/21/20 07:46 Dose: 1 tablet Documented by: Citalopram Hydrobromide (Celexa) 20 mg PO QHS [facility] Last Admin: 07/20/20 21:39 Dose: 20 mg Documented by: Enteral Nutritional Formula (Ensure Surgery) 237 ml PO TIDCM [facility] Last Admin: 07/21/20 07:46 Dose: 237 ml Documented by: Famotidine (Pepcid) 20 mg PO DAILY [facility] Last Admin: 07/21/20 07:45 Dose: 20 mg Documented by: Hydrochlorothiazide () 12.5 mg PO DAILY [facility] Last Admin: 07/21/20 07:46 Dose: 12.5 mg Documented by: Insulin Human Lispro (Humalog Kwikpen ([facility])) 1 - 6 unit SC Q4H PRN PRN; Protocol PRN Reason: BG>/= 180, SEE PROTOCOL Ketorolac Tromethamine (Toradol (Bkc)) 15 mg IV Q6H PRN PRN PRN Reason: Pain Score 1-5/10 Stop: 07/22/20 06:58 Last Admin: 07/20/20 16:43 Dose: 15 mg Documented by: Lorazepam (Ativan) 0.5 mg PO DAILY PRN PRN Reason: ANXIETY Losartan Potassium (Cozaar) 50 mg PO DAILY [facility] Last Admin: 07/21/20 07:46 Dose: 50 mg Documented by: Morphine Sulfate () 2 - 4 mg IV Q2H PRN PRN PRN Reason: Pain Score 6-10/10 Last Admin: 07/20/20 21:03 Dose: 2 mg Documented by: Morphine Sulfate () 2 - 4 mg IV Q2H PRN PRN PRN Reason: Pain Score 6-10/10 Ondansetron HCl (Zofran) 4 mg IV Q8H PRN PRN PRN Reason: NAUSEA Last Admin: 07/20/20 23:39 Dose: 4 mg Documented by: Oxycodone HCl (Oxyir) 5 - 10 mg PO Q4H PRN PRN PRN Reason: Pain Score 4-10/10 Last Admin: 07/21/20 07:43 Dose: 10 mg Documented by: Pantoprazole Sodium (Protonix) 40 mg PO DAILY [facility] Polyethylene Glycol (Miralax) 17 gm PO DAILY PRN PRN PRN Reason: Constipation Senna/Docusate Sodium (Senokot-S, Griselda-Colace) 2 tablet PO BID [facility] Last Admin: 07/21/20 07:45 Dose: 2 tablet Documented by: Sodium Chloride () 10 - 40 ml IV UD PRN PRN Reason: SALINE FLUSH Last Admin: 07/20/20 23:39 Dose: 10 ml Documented by: Medical Necessity - Tobacco Use Smoking Status: Never smoker Assessment/Plan All Active Problems Contusion of right leg (Resolved) Subcutaneous hematoma (Resolved) Pain in right leg (Resolved) Abrasion of leg, right (Resolved) Traumatic open wound of right lower leg (Resolved) Contusion (Resolved) Contusion of leg, left (Resolved) Pain In Right Leg (Resolved) Hematoma of leg (Resolved) Contusion of leg, right (Resolved) Wound, open, leg (Acute) Wound of right leg (Resolved) Acute cholecystitis (Resolved) 1. S/P right total knee arthroplasty and left knee corticosteroid injection POD #1 2. Continue Pain Medications: Tylenol and oxycodone for breakthrough pain 3. DVT Prophylaxis: Take 81 mg aspirin twice daily for 4 weeks postoperatively for DVT prophylaxis 4. PT/OT: Weightbearing as tolerated 5. H & H: 11.8/37.0, asymptomatic. Secondary to acute blood loss from surgery 6. Encouraged Incentive Spirometry 7. Continue postoperative medical management per medicine 8. Disposition: Orthopedically stable. Overall patient is doing well. Plan will be for discharge home today as long as patient tolerates physical therapy and pain is controlled. Patient would like home health physical therapy as she has no transportation. She would also like to proceed after 2 weeks of home health physical therapy to [facility] for transportation purposes. Prescriptions will be E scribed to [facility]. She will follow-up per postop instructions. I have reviewed the [place] Automated Rx Reporting System (OARRS) report for this patient for refill pattern and other prescriber involvement as part of the appropriate surveillance for the provision of acute and chronic controlled medications. The report was requested and reviewed on the date of this entry and was considered in the prescribing process.
[2020-07-21 07:55] VITALS: PULSE 73
[2020-07-21 08:01] VITALS: BP 102/56; PULSE 73; RESP 16; TEMP 36.3; O2SAT 95
--- NOTE | 2020-07-21 08:06 | PCM.DC.TKR ---
Discharge Diet: No Restrictions Discharge Activity: May Not Drive May shower in (days): 1 - Dressing must be intact to skin. During dressing away from water Ice area for (Minutes): 20 - Every 1-2 hours while awake Weight Bearing Status: Weight bearing as tolerated Elevate: Operative Extremity Additional Activity Instructions:: Wear elastic stockings for 2 weeks after your surgery. Call your doctor if your incision/area has: Continuous Slow Oozing, Sudden Increased Bleeding, Increased Pain/ Swelling, Increased Redness, Foul Smelling Discharge Call your doctor if you observe: Fever of 101 or Higher, Coldness, Increased Pain, Numbness or Tingling, Change in Color, Calf discomfort, Uncontrolled pain Remove Dressing in (days):: 4 - Okay to remove dressing on July 25, 2020 Additional Instructions: Follow orthopedic postop instructions Allergies/Adverse Reactions: Allergies erythromycin base Adverse Reaction (Verified 07/20/20 07:35) Upset Stomach meperidine HCl [From Demerol] Adverse Reaction (Verified 07/20/20 07:35) HALLUCINATIONS oxycodone Adverse Reaction (Verified 07/20/20 07:35) Nausea Medications to take at Discharge Calcium Carbonate/Vitamin D3 [Calcium 600-Vit D3 800 Caplet] 1 each PO BID 05/05/15 Albuterol IH (ProAir) [Proair Hfa] 1 - 2 puff INHALATION Q6H PRN PRN 11/19/16 Alendronate Sodium [Fosamax] 70 mg PO VIDES 11/19/16 Lorazepam [Ativan] 0.5 mg PO DAILY PRN 11/19/16 Polyethylene Glycol 3350 [Miralax] 17 gm PO DAILY PRN PRN 01/13/17 Omeprazole [Prilosec] 20 mg PO QODAY 03/03/17 Fluticasone 0.05% [Flonase Nasal [place]] 1 spray NASAL DAILY PRN 03/12/17 Bupropion HCl [Bupropion HCl Sr] 2 tab PO DAILY 07/06/20 Bupropion HCl [Bupropion HCl Sr] 150 mg PO QHS 07/06/20 Citalopram Hydrobromide [Citalopram HBr] 20 mg PO QHS 07/06/20 Losartan/Hydrochlorothiazide [Losartan-Hctz 50-12.5 mg Tab] 1 ea PO DAILY 07/06/20 Multivit-Min/FA/Lycopen/Lutein [Adults 50 Plus Multivitamin] 1 ea PO DAILY 07/06/20 Acetaminophen [Tylenol] 1,000 mg PO Q8 #100 tab 07/21/20 Aspirin [Aspirin, Baby] 81 mg PO BIDCM #60 tab 07/21/20 Ondansetron HCl [Zofran] 4 mg PO Q8 #20 tab 07/21/20 Oxycodone [Oxyir] 5 - 10 mg PO Q4H PRN PRN 5 Days #60 tablet 07/21/20 The following prescriptions were given: Aspirin [Aspirin, Baby] 81 mg PO BIDCM #60 tab Transmission Status: Pending to [facility] Oxycodone [Oxyir] 5 - 10 mg PO Q4H PRN PRN 5 Days #60 tablet PRN Reason: Pain Score 4-10/10 Transmission Status: Sent to [facility] Acetaminophen [Tylenol] 1,000 mg PO Q8 #100 tab Transmission Status: Pending to [facility] Ondansetron HCl [Zofran] 4 mg PO Q8 #20 tab Transmission Status: Pending to [facility] Primary Care Physician: Nery Wooten DO [Primary Care Provider] - Test Results: Test results from this visit will be discussed in further detail at your follow-up appointment, if applicable. Please Follow Up With: Home Health Physical Therapy Please Follow Up With: Uche Sanchez PA-C When: 08/03/20 @ 11:00 am
--- NOTE | 2020-07-21 11:25 | CASEMGMT ---
RN CM MARKET RELATIONSHIP MANAGER CM to room to meet with patient for initial transition planning/care coordination assessment. RN RAVI introduced self and role at [facility]. Pt voices understanding and consents to assessment at this time. Pt sitting up in chair in room in no distress at this time. [facility]. Pt is A/O at this time and answers all questions appropriately. Care providers, pharmacy, and demographics verified/updated at this time. LARA form also reviewed w/pt at this time. Questions answered and pt denies having any further questions. Form signed by pt, copy made and placed on chart, and original given back to pt. Pt made aware to ask for CM if any further questions arise. She voices understanding. PCP: Dr Wooten Specialists: Dr Rivas--orthopedic surgeon, [facility], T[employer] Regrooving Machine Operator Preferred Pharmacy: [facility] Retail Insurance: [employer], Health Plan Prescription Benefit: Yes. Per Claude @ [facility], pt is still in the deductible phase and there will be no coverage on meds escribed today but total cost for all 4 medications (Oxycodone, Zofran, Tylenol, and ASA) will only be $38.10. Living Will/HPOA: Pt has both LW and Healthcare POA, who is her , Fabio (Jak) Gualberto LNOK: , Fabio (Jak). 3 daughters and a son Living Arrangements: Lives w/her in one-story home w/basement. Ramp entrance. Washer/dryer on main floor. Pt was independent w/ADL's and IADL's prior to surgery. /pt share home mgmt tasks. able to assist at home as needed. Pt states they stocked up on groceries and purchased easy meals to make. Transportation: has glaucoma and does not drive. Pt provides transportation. Pt states has friend who will take her home @ discharge. Friend and several neighbors able to assist w/transportation as well. DME: States has the following DME: [employer] that is also used over the commode and as a shower chair, drone pilot, sock aide, cane, WW, shoehorn. Pt states no need for further DME at this time. HHC/SNF: TCU. No history of HHC. Pt states would like HHC and was provided w/list of local HHC agencies. Pt initially stated she wanted [facility] for a couple of weeks and then stated plans on going to [facility] for OP therapy after HHC complete. Call placed to Gabriela @ [facility] and referral made. Call received back from Gabriela. Per Gabriela, they are not able to accept pt d/t she lives > 30 miles away. Pt made aware and asked pt what her next [facility] preference would be. Pt stated, well, I'm getting around much better than I thought I would be, so lets just forget about HHC and I will just go to [facility] for therapy. Pt states will also need to utilize [facility] van transportation for her appts. Oscar, MS3 CM today, made aware and states will work on getting a script for pt to [facility]. Pt wishes to return home w/OP threrapy and states has no concerns with going home at time of discharge. CM to follow for any further discharge planning/needs. Pt voices no further concerns/needs at this time. Advised pt to ask for CM if any further questions/concerns/needs arise. Voices understanding. PLAN: Home w/spousal support and OP therapy @ [facility]. Albertina SAWANT RN CM
--- NOTE | 2020-07-21 11:25 | CASEMGMT ---
RN RAVI CHILDCARE DIRECTOR CM to room to meet with patient for initial transition planning/care coordination assessment. HEATHER RODRIGUES introduced self and role at [facility]. Pt voices understanding and consents to assessment at this time. Pt resting in bed in no distress at this time. Pt is A/O at this time and answers all questions appropriately. Care providers, pharmacy, and demographics verified/updated at this time. PCP: Specialists: Preferred Pharmacy: Insurance: Prescription Benefit: Living Will/HPOA: Pt does not currently have LW/HCPOA and declines info at this time. Pt made aware that he can contact SW as an out-pt and make appt in the future if he decides he would like to talk with someone about this or would like to utilize [facility] social work for advanced directive completion. Given Extractor Operator Rac card with information and contact number. Pt expresses understanding. States does not have LW or HCPOA . Interested in more information but states does not want to talk with SW at this time to complete paperwork. Provided information on advanced directives and given [place] [place] [employer] rac card with number to call if chooses in the future to utilize [facility] social work for advanced directive completion. Educated patient that, if patient so chooses, can come back to [facility] and meet with a SW as an outpatient to complete health care advanced directives. Patient expresses understanding. LNOK: Living Arrangements: Transportation: Pt states drives self and states no transportation concerns at this time. DME: Denies using any DME and denies needs. States has the following DME: Pt states no need for further DME at this time. HHC/SNF: Pt wishes to return home and states has no concerns with going home at time of discharge. Pt states does not smoke or drink ETOH. CM to follow for home oxygen needs and any further discharge planning/needs. Pt voices no further concerns/needs at this time. Advised pt to ask for CM if any further questions/concerns/needs arise. Voices understanding. PLAN: Albertina SAWANT RN, CM
--- NOTE | 2020-07-21 12:37 | CASEMGMT ---
Addendum entered by Oscar Mclean 07/21/20 13:18: Call to [facility]- they have not completed yet. Gordon DONIS Original Note: HEATHER RODRIGUES Note: Patient prefers to go home and do outpt therapy. Script faxed to [facility] to be signed and then will fax to [facility]. Gordon DONIS
[2020-07-21 14:26] VITALS: BP 108/62; PULSE 76; RESP 18; TEMP 36.7; O2SAT 98
--- NOTE | 2020-07-21 15:14 | CASEMGMT ---
HEATHER RODRIGUES Note: call to raquel [facility]ontal[facility]. Message left requesting script for [employer] be returned to CM @ [facility] or faxed to [employer]. Call back information given. Gordon SAWANT RN ACM
--- NOTE | 2020-07-22 10:04 | CASEMGMT ---
HEATHER CM Note: received signed prescription for outpt therapy. Faxed to [facility] requesting they call patient for set up. Gordon SAWANT RN ACM
== END 2020-07-21 15:20 | disposition home or self-care (01) ==
LOC: SDC 07:58 → MS3 07:59
PROVIDERS: Anesthesiology; Physician Assistant Surgical; Admitting Provider Specialist; PCP Internal Medicine; Referring Provider Specialist; Visit Provider Student in an Organized Health Care Education/Training Program
PROC: 0SRC0JZ Replacement of Right Knee Joint with Synthetic Substitute, Open Approach (ICD-10-PCS; CPT 27447; principal; 2020-07-20 08:30)
DX: M17.0 Bilateral primary osteoarthritis of knee (principal); Z11.59 Encounter for screening for other viral diseases; J45.909 Unspecified asthma, uncomplicated; K21.9 Gastro-esophageal reflux disease without esophagitis; I10 Essential (primary) hypertension; F32.9 Major depressive disorder, single episode, unspecified; Z79.899 Other long term (current) drug therapy; Z87.891 Personal history of nicotine dependence; M81.0 Age-related osteoporosis without current pathological fracture; F41.9 Anxiety disorder, unspecified; M51.36 Other intervertebral disc degeneration, lumbar region; K58.9 Irritable bowel syndrome, unspecified; Z87.19 Personal history of other diseases of the digestive system; Z86.2 Personal history of diseases of the blood and blood-forming organs and certain disorders involving the immune mechanism
CPT/HCPCS: 01400; 20610; 27447; 64447; S2900; 36415; 73560; 80048; 80076; 82962; 83735; 85025; 85027; 85610; 85730; 87081; 87635; 96361; 96365; 96366; 96375; 96376; 97110; 97116; 97162; 97166; 97530; 97535; 99218; 99251; C1776; C9803; J7120; A4216; G0378; G0379; G0463; J2405; J3475; U0003

== ENCOUNTER 2020-10-28 12:30 | Outpatient (RCR) | payer MEDICARE, OTHER, SELFPAY ==
[2020-07-20 12:56] VITALS: BMI 28.5
--- NOTE | 2020-08-17 11:10 | HP.PTEVAL ---
Patient's Visit Information JOSELITO WHITTEN is a 75 year old F referred to Physical Therapy by Juan Sanchez PA-C with a diagnosis of R TKR s/p 07-20-2020. Date of Evaluation: 08/17/20 Physical Therapist: EFNG Frausto - Visit Plan Frequency: 2x /Week Duration: 6 Weeks Plan: 2X/ week for 6 weeks for R knee AROM, R hip and knee strength, gait training, stairs, functional activities with HEP. HEP: SLR, Bridges, heel slides, clam shells - Subjective Pt had a R TKR on 07-20-2020. She had home health until last the . She is still doing exercises at home. She has no steps at home that she uses. She has not tried steps yet. She is up walking around ok and sleeping ok. She has a little more trouble out of the chair with stiffness and she uses her arms to get up. HEP: squats at sink and kitchen sink exercises and doing knee flexion stretches with belt and in the chair, and 2# weight on her knee and HS curls. She takes the van. - Pain R knee pain Pain Intensity (Out of 10): 1 - Objective Gait: walks with a SPQC with decreased stride length on the R LE compared to the L and decreased stance time on the R. WOMAC score 36/96. Stairs: up and down stairs... attempted recip but pt had to turn her body to bend her knee B and with use of B rails. TUG 14.61 sec. Girth R Patella 39 cm. Girth 6 inch suprapatella 48 cm. R knee flexion AROM: 99 degress. R knee ext AROM: -1 degree from full ext. R hip flex AROM 116 degrees. R hip ext AROM 15 degrees. R knee flex MMT; 4/5. R knee ext MMT 4-/5. R hip MMT 4/5 and R hip ext 3-/5. R hip abd 4-//5. L MMT: hip flex 4-/5, knee flex 4-/5, knee ext 4-/5, hip ext 4-/5, hip abd 4/5 - Goals Goal 1:: I HEP Goal Time Frame: 4-6 Weeks Goal 2:: Increase R knee AROM 0-120 degrees knee flexion Goal Time Frame: 4-6 Weeks Goal 3:: Be able to go up and down stairs recip with 1 hand rail with fluid movment. Goal Time Frame: 4-6 Weeks Goal 4:: Be able to walk with even step length, heel to to gait pattern with least restricitive decvice if needed. Goal Time Frame: 4-6 Weeks - Rehabilitation Potential Rehabilitation Potential: Excellent - Anticipated Interventions Patient/Client Instruction: Educate patient on: Condition, Plan of Care For the Purpose of:: To decrease pain, To decrease swelling/inflammation, To increase ROM, To improve nutrient delivery to tissue, To increase oxygenation perfusion, To improve muscle performance and motor function, To improve ability to perform ADL's, To increase tolerance to activity/condition/position, To improve performance and independence with ADL's, To decrease level of supervision to perform tasks, To improve ability of physical actions for home/community/work/leisure, To improve gait and locomotor functions, To improve health of tissue, To increase flexibility/ROM Therapeutic Exercise to Include: Strength training, Postural training, Flexibilty training, Gait and locomotor training, Passive ROM, Active ROM For the Purpose of:: To decrease pain, To decrease swelling/inflammation, To increase ROM, To improve nutrient delivery to tissue, To increase oxygenation perfusion, To improve muscle performance and motor function, To improve ability to perform ADL's, To increase tolerance to activity/condition/position, To improve performance and independence with ADL's, To decrease level of supervision to perform tasks, To improve gait and locomotor functions, To improve health of tissue, To decrease soft tissue restriction, To increase flexibility/ROM Functional Training to Include: Gait training For the Purpose of:: To improve gait and locomotor functions Manual Therapy Techniques to Include: Passive ROM For the Purpose of:: To increase ROM, To improve nutrient delivery to tissue Thank you for the opportunity to evaluate your patient. For Medicare and Medicare HMO plans, please review the plan of care and approve it. It will need to be FAXED BACK to us at [phone] for Medicare purposes. For Medicare only, by signing this I certify the plan of care. Please let me know if there are questions or concerns regarding this plan of care. Physician Signature: Date:
--- NOTE | 2020-09-21 14:02 | HP.PTREVAL ---
Juan Sanchez PA-C, It has been my pleasure to treat JOSELITO WHITTEN over the last 10 visits for R TKR s/p 07-20-2020. Please see the progress note below for an update on the physical therapy plan of care! Subjective: Pt reports that her L knee is really painful today. She just has degeneration in her knee and did not do anything to hurt it. Objective/Function: Stairs: attempted to go up and down stairs recip but she struggled to ascend the stairs with her L knee and descend the stairs with her R knee... due to increase L knee pain due to needing knee replacement in Oct on the L. Gait: walks today with decreased stance time on the L due to increase L knee pain. R knee AROM: 0-110 degrees Plan Plan: Continue to increase R knee AROM/PROM into flexion..... stairs as able because of L knee pain. 2X/ week for 6 weeks for R knee AROM, R hip and knee strength, gait training, stairs, functional activities with HEP Goals Goal 1:: I HEP Goal Time Frame: 4-6 Weeks Goal 2:: Increase R knee AROM 0-120 degrees knee flexion Goal Time Frame: 4-6 Weeks Goal Progress: Progressing Goal 3:: Be able to go up and down stairs recip with 1 hand rail with fluid movment. Goal Time Frame: 4-6 Weeks Goal Progress: Progressing Goal 4:: Be able to walk with even step length, heel to to gait pattern with least restricitive decvice if needed. Goal Time Frame: 4-6 Weeks Goal Progress: Progressing Anticipated Interventions Patient/Client Instruction: Educate patient on: Condition, Plan of Care For the Purpose of:: To decrease pain, To decrease swelling/inflammation, To increase ROM, To improve nutrient delivery to tissue, To increase oxygenation perfusion, To improve muscle performance and motor function, To improve ability to perform ADL's, To increase tolerance to activity/condition/position, To improve performance and independence with ADL's, To decrease level of supervision to perform tasks, To improve ability of physical actions for home/community/work/leisure, To improve gait and locomotor functions, To improve health of tissue, To increase flexibility/ROM Therapeutic Exercise to Include: Strength training, Postural training, Flexibilty training, Gait and locomotor training, Passive ROM, Active ROM For the Purpose of:: To decrease pain, To decrease swelling/inflammation, To increase ROM, To improve nutrient delivery to tissue, To increase oxygenation perfusion, To improve muscle performance and motor function, To improve ability to perform ADL's, To increase tolerance to activity/condition/position, To improve performance and independence with ADL's, To decrease level of supervision to perform tasks, To improve gait and locomotor functions, To improve health of tissue, To decrease soft tissue restriction, To increase flexibility/ROM Functional Training to Include: Gait training For the Purpose of:: To improve gait and locomotor functions Manual Therapy Techniques to Include: Passive ROM For the Purpose of:: To increase ROM, To improve nutrient delivery to tissue Please do not hesitate to contact me at [phone] by phone or if you have questions or concerns regarding this new plan of care! Sincerely, FENG Frausto
--- NOTE | 2020-09-30 10:10 | HP.PTEVAL2 ---
Patient's Visit Information JOSELITO WHITTEN is a 75 year old F referred to Physical Therapy by Juan Sanchez PA-C with a diagnosis of BPV. Date of Evaluation: 09/30/20 Physical Therapist: Azeem Weinberg DPT, OCS, CSCS - Visit Plan Frequency: 1x/Week Duration: 2-4 Weeks Plan: weekly as needed to monitor and treat vertigo with positional treatments and ex - Subjective Subjective: Seeing [facility] PT for TKA and it is doing great. Dizzyness started last Saturday out of nowhere. She was lying down the night before andtilted head back and got into weird position and sat up and got dizzy. Has been feeling off with movement ever since. Spinning last s a few minutes. Feels light headed and has to be careful with head movements. Last spinning was a couple days ago. Uses cane due to dizzyness, was off of it from knee. No falls. Dizzyness makes everything take longer and has to be careful. avoids step stools and steps due to dizzyness. Has to move slow. Had this one time years ago. Not employed. Sleeps well. Lives with . No steps required at home. - Objective Objective: Walks with cane mod I back to eval room. Trasnfers I. Cervical AROM WNLand without pain. Balance is fair. - R hallpike charanjit. + L hallpike for quick nystagmus, treaated with Herrera L. - Balance Scores Functional Gait Assessment Score: 21 % Disability: 30.0000 - Goals Goal 1:: Abolish dizzyness Goal Time Frame: 2-4 Weeks Goal 2:: FGA to diminish fall risk Goal Time Frame: 2-4 Weeks - Rehabilitation Potential Physical Therapy Diagnosis: L BPPV Rehabilitation Potential: Fair - Anticipated Interventions Patient/Client Instruction: Educate patient on: Condition, Plan of Care For the Purpose of:: To increase tolerance to activity/condition/position, To improve ability of physical actions for home/community/work/leisure, To improve gait and locomotor functions For the Purpose of:: To increase tolerance to activity/condition/position, To improve ability of physical actions for home/community/work/leisure, To improve gait and locomotor functions Thank you for the opportunity to evaluate your patient. For Medicare and Medicare HMO plans, please review the plan of care and approve it. It will need to be FAXED BACK to us at [phone] for Medicare purposes. For Medicare only, by signing this I certify the plan of care. Please let me know if there are questions or concerns regarding this plan of care. Physician Signature: Date:
--- NOTE | 2020-10-05 12:30 | HP.PTREVAL_ITS ---
Juan Sanchez PA-C, It has been my pleasure to treat JOSELITO WHITTEN over the last 14 visits for R TKR s/p 07-20-2020. Please see the progress note below for an update on the physical therapy plan of care! Subjective: Pt reports that her pain is good. Objective/Function: 117 degrees R knee flexion today Plan Plan: Continue to increase R knee AROM/PROM into flexion..... stairs as able because of L knee pain. 2X/ week for 6 weeks for R knee AROM, R hip and knee strength, gait training, stairs, functional activities with HEP Goals Goal 1:: I HEP Goal Time Frame: 4-6 Weeks Goal 2:: Increase R knee AROM 0-120 degrees knee flexion Goal Time Frame: 4-6 Weeks Goal Progress: Progressing Goal 3:: Be able to go up and down stairs recip with 1 hand rail with fluid movment. Goal Time Frame: 4-6 Weeks Goal Progress: Progressing Goal 4:: Be able to walk with even step length, heel to to gait pattern with least restricitive decvice if needed. Goal Time Frame: 4-6 Weeks Goal Progress: Progressing Anticipated Interventions Patient/Client Instruction: Educate patient on: Condition, Plan of Care For the Purpose of:: To decrease pain, To decrease swelling/inflammation, To increase ROM, To improve nutrient delivery to tissue, To increase oxygenation perfusion, To improve muscle performance and motor function, To improve ability to perform ADL's, To increase tolerance to activity/condition/position, To improve performance and independence with ADL's, To decrease level of supervision to perform tasks, To improve ability of physical actions for home/community/work/leisure, To improve gait and locomotor functions, To improve health of tissue, To increase flexibility/ROM Therapeutic Exercise to Include: Strength training, Postural training, Flexibilty training, Gait and locomotor training, Passive ROM, Active ROM For the Purpose of:: To decrease pain, To decrease swelling/inflammation, To increase ROM, To improve nutrient delivery to tissue, To increase oxygenation perfusion, To improve muscle performance and motor function, To improve ability to perform ADL's, To increase tolerance to activity/condition/position, To improve performance and independence with ADL's, To decrease level of supervision to perform tasks, To improve gait and locomotor functions, To improv e health of tissue, To decrease soft tissue restriction, To increase flexibility/ROM Functional Training to Include: Gait training For the Purpose of:: To improve gait and locomotor functions Manual Therapy Techniques to Include: Passive ROM For the Purpose of:: To increase ROM, To improve nutrient delivery to tissue Please do not hesitate to contact me at [phone] by phone or if you have questions or concerns regarding this new plan of care! Sincerely, Azeem Weinberg, DPT, OCS, CSCS
--- NOTE | 2020-10-24 09:42 | HP.PTCOM_ITS ---
PT Communication Note 10/24/[address] Juan Sanchez, PABrittaC , Thank you for the referral of Lisa for vertigo and balance deficits. I have enclosed a copy of the results of her balance test for your review. Should note that she still has and is being treated for R BPPV. In summation, she scored low on vestibular and visual protions of Sensory Or ganization test. She scored low on L excursion on Limits of Stability Test likely due to her L knee pain and pending TKA. With these results in mind, I plan to continue to treat her for positional ve rtigo and balance as needed 1-2x/ week for 2-3 weeks depending on positional vertigo and balance once it is abolished if needed. Thank you for this referral. Sincerely, Azeem Weinberg DPT, OCS, CSCS Contact Information
--- NOTE | 2020-10-24 11:03 | HP.PTDCSUM ---
It has been my pleasure to treat JOSELITO WHITTEN referred by Juan Sanchez PA-C, with the diagnosis of R TKR s/p 07-20-2020 for a total of 19 visit(s). Discharge Date: 10/24/20 Please see the following information for a summary of their discharge status. Subjective: She is having her other TKR at [facility]. She is not sure of where her PT will be at. She wants to have her PT here and will research it. R knee pain Pain Intensity (Out of 10): 0 L knee pain Pain Intensity (Out of 10): 2 % Improvement: 90 Objective/Function: 0-115 degrees R knee flexion. Stairs: Pt still pulls self up with her arms using he railing when ascending with her L.. R has some decreased eccentric control when descending the stairs Goal 1:: I HEP Goal Progress: Goal Met Goal 2:: Increase R knee AROM 0-120 degrees knee flexion Goal Progress: Progressing Goal 3:: Be able to go up and down stairs recip with 1 hand rail with fluid movment. Goal Progress: Progressing Goal 4:: Be able to walk with even step length, heel to to gait pattern with least restricitive decvice if needed. Goal Progress: Progressing Plan: DC PT to HEP Discharge Comments: DC PT to HEP If there are questions or concerns regarding this patient's physical therapy, please feel free to call me at [phone]. Thank you for the referral of this patient. Sincerely, Perla Ferrera, MPT
--- NOTE | 2020-10-28 12:50 | HP.PTDCS(2) ---
It has been my pleasure to treat JOSELITO WHITTEN referred by Juan Sanchez PA-C, with the diagnosis of BPV for a total of 4 visit(s). Discharge Date: 10/28/20 Please see the following information for a summary of their discharge status. Subjective: Nomore dizzyness. Been lying down to sleep and doing all activities. Bending without incident. Feels steady. % Improvement: 99 Objective/Function/Assessment: - B hallpike charanjit. - roll test. FGA +5 from initial. Feeling no dizzyness and better with balance. rEady to be done with PT until after next knee replacement in november. Patient Goals: Other Other Goals: rid dizzyness Goal 1:: Abolish dizzyness Goal Progress: Goal Met Goal 2:: FGA to diminish fall risk Goal Progress: Goal Met Goal 3:: Pt feel 75% improved in steadiness Goal Progress: Goal Met Goal 4:: FGA score Goal Progress: Much improved at /30 Goal 5:: DHI score less than 30 to show improved confidence in balance. Goal Progress: Goal Met Plan: d/c Discharge Comments: Dizzyness abolished and balance feelign much better. If there are questions or concerns regarding this patient's physical therapy, please feel free to call me at [phone]. Thank you for the referral of this patient. Sincerely, Azeem Weinberg, DPT, OCS, CSCS
== END 2020-10-28 19:00 | disposition home or self-care (01) ==
LOC: PT 12:30
PROVIDERS: PCP Internal Medicine; Referring Provider Internal Medicine; Visit Provider Physician Assistant Surgical
DX: Z47.1 Aftercare following joint replacement surgery (principal); Z96.651 Presence of right artificial knee joint
CPT/HCPCS: 97110; 97161; 97530; 97750

== ENCOUNTER 2021-02-15 09:30 | Outpatient (RCR) | payer MEDICARE, OTHER, SELFPAY ==
[2020-07-20 12:56] VITALS: BMI 28.5
--- NOTE | 2020-12-26 15:01 | HP.PTEVAL_ITS ---
Patient's Visit Information JOSELITO WHITTEN is a 75 year old F referred to Physical Therapy by Juan Sanchez PA-C with a diagnosis of S/P L TKR 12/06/20. Date of Evaluation: 12/26/20 Physical Therapist: Penny Kerr, PT, Cert MDT - Visit Plan Frequency: 2-3x /Week Duration: 4-6 Weeks Plan: *GOES BY AVA*. GAIT TRAINING. L KNEE AROM. L LE STRENGTHENING. STAIR TRAINING AND L LE FUNCTIONAL ACTIVITIES TO HELP MEET SET GOALS. HEP INSTRUCTION. - Subjective Work/Leisure: RETIRED. Present symptoms: LEFT KNEE AND DUNN PAIN. NO NUMBNESS AND TINGLING. Present since: CHRONIC PAIN BEFORE THIS KNEE SURGERY. S/P TKR L 12/06/20. Pain Scale: WORST 8/10, LEAST 0/10 (SITTING). Currently: 5/10 WALKING INTO PT TODAY. Commenced as a result of: ARTHRITIS. Worse: WALKING, PROLONGED SITTING WITH LEG DOWN. Better: PROPPING LEG UP, ICE, PAIN MEDICINE. Disturbed sleep: YES. Previous history/Previous treatment: PATIENT REPORTS SHE INJURED THIS KNEE SKIING WHEN SHE WAS ABOUT 29 YO AND IT HASN'T BEEN THE SAME SINCE. Treatment this episode: LAST HOME HEALTH PT VISIT WAS LAST SATURDAY. 2 WEEKS OF HOME PT. Gait: PATIENT REPORTS BARELY BEING ABLE TO PUT WEIGHT ON HER LEG TO WALK LAST WEEK BUT DOWN TO 5/10 PAIN WITH WALKING TODAY. STATES SHE HAD TRANSITIONED TO A CANE BUT BACK TO WALKER NOW DUE TO INCREASED PAIN. Unexplained weight loss: NO. Imaging: PATIENT REPORTS SHE WAS TOLD THE FOLLOW UP X-RAYS FROM SURGERY [facility]. PMH/Recent major surgery: HTN, ANXIETY, S/P R TKR JUL 2020, L HIP ORIF 2014. OTHER: TWO STEPS INTO HOUSE WITH GRAB BARS AND STEPS IN HOUSE WITH 2 HR'S. PATIENT REPORTS HER HOME EX'S ARE GOING WELL. STATES SHE WAS DOING GOOD LAST SATURDAY AT HER PHYSICIAN FOLLOW UP BUT SHE OVER DID IT GOING TO THE DOCTOR, GOING TO THE [facility]. SHE REPORTS SHE WAS USING A CANE AND HURRYING. ALSO WAS AROUND [employer] AND HAD OTHER COMPANY SATURDAY AND SHE OVER DID IT AND PAID FOR IT. REPORTS SHE BACKED DOWN ON HER HOME EX'S AND RESTED OVER THE WEEKEND AND WENT BACK TO THE WALKER AND NOW IT IS FEELING BETTER AGAIN BUT NOT GOOD IT DID LAST SATURDAY. STATES SHE COULD BARELY PUT WEIGHT ON HER LEG LAST WEEK. - Objective GAIT: THIS PATIENT AMBULATES INDEP'LY INTO PT TODAY WITH A FWW, DECREASED CADANCE AND A MILD LIMP ON THE LLE. NO LOB. WOMAC score 42/96. TUG 16.31. Girth L Patella 41.5 cm. Girth 6 inch suprapatella 51 cm. L knee flexion AROM: 97 degress. L knee ext AROM: FULL. L knee flex MMT; 3-/5. L knee ext MMT 3+/5. L hip MMT 3+/5. R MMT: hip flex 4/5, knee flex 4/5, knee ext 4/5, hip ext 4/5, hip abd 4/5. Sensory deficit: L LE LIGHT TOUCH SENSATION INTACT. OTHER: ROM deficit: DECREASED LEFT ANKLE DORSIFLEXION. PATIENT REPORTS THIS IS CHRONIC. Palpation: L LE INCISIONS LOOK GOOD WITHOUT ANY SIGNS OF INFECTION. DUNN INCISION IS NOT VISIBLE DUE TO BANDAGE AND PATIENT REPORTS THEY GLUED IT AND IT IS HEALING WELL. TREATMENT: REVIEWED HEP AND CHECKED TECHNIQUE X 10 REPS: HEEL SLIDES IN CHAIR, SINK EX'S, SUPINE: AP'S, HS'S, QS'S, SLR'S, HIP ABD. PATIENT DEMO'S GOOD EX RETURN TODAY. - Goals Goal 1:: PATIENT WILL BE INDEP AND SAFE WITH GAIT ON LEVEL SURFACES AND UP AND DOWN STEPS WITH LEAST ASSISTIVE DEVICE. Goal Time Frame: 4-6 Weeks Goal 2:: INCREASE FUNCTIONAL ROM OF L KNEE Goal Time Frame: 4-6 Weeks Goal 3:: INCREASE FUNCTIONAL STRENGTH OF L KNEE Goal Time Frame: 4-6 Weeks Goal 4:: PATIENT WILL BE INDEP WITH A HEP FOR CONTINUED IMPROVEMENT ONCE FORMAL PHYSICAL THERAPY CONCLUDES Goal Time Frame: 4-6 Weeks - Anticipated Interventions Patient/Client Instruction: Educate patient on: Condition, Plan of Care For the Purpose of:: To improve self management Therapeutic Exercise to Include: Strength training, Postural training, Flexibilty training, Gait and locomotor training, Neuromotor development, Active ROM For the Purpose of:: To decrease pain, To increase ROM, To improve muscle performance and motor function, To increase tolerance to activity/condition/position, To improve ability of physical actions for home/community/work/leisure, To improve gait and locomotor functions Cryotherapy (ice pack, ice massage): Yes For the Purpose of:: To decrease pain, To decrease swelling/inflammation Thank you for the opportunity to evaluate your patient. For Medicare and Medicare HMO plans, please review the plan of care and approve it. It will need to be FAXED BACK to us at [phone] for Medicare purposes. For Medicare only, by signing this I certify the plan of care. Please let me know if there are questions or concerns regarding this plan of care. Physician Signature: Date:
--- NOTE | 2021-01-20 15:08 | HP.PTREVAL_ITS ---
Juan Sanchez PA-C, It has been my pleasure to treat JOSELITO WHITTEN over the last 10 visits for S/P L TKR 12/06/20. Please see the progress note below for an update on the physical therapy plan of care! Subjective: MY L LEG FEELS SO MUCH STRONGER NOW THAT BEFORE SURGERY. PATIENT REPORTS SHE WOULD LIKE TO HAVE MORE THERAPY FOR STRENGTHENING TO TO TRY TO GET BETTER ON STAIRS. PATIENT REPORTS SHE IS REALLY HAPPY WITH HER PROGRESS. PATIENT REPROTS DR. YEH IS VERY HAPPY WITH HER PROGRESS AND ROM. INCISIONS ARE HEALING NICELY NOW AND SHE REPORTS DR. YEH IS PLEASED WITH THAT TOO. Objective/Function: PATIENT WAS SEEN TODAY FOR RE-ASSESSMENT OF PROGRESS TOWARD THE SET PT GOALS AND THE NEED FOR FURTHER PHYSICAL THERAPY VS READINESS FOR DISCHARGE. PATIENT IS MAKING GOOD PROGRESS TOWARD ALL PT GOALS AND IS A GOOD CANDIDATE TO CONTINUE PT BASED ON PROGRESS MADE AND ROOM FOR FURTHER IMPROVEMENT. PATIENT IS AGREEABLE. UPON EXAM TODAY: THIS PATIENT AMBULATES INDEP'LY INTO PT TODAY WITHOUT ANY ASSISTIVE DEVICES BUT DECREASED CADANCE AND A MILD LIMP ON THE LLE AND TOEING OUT ON THE RIGHT. NO LOB. WOMAC score 15 /96. TUG 12.25. Girth L Patella 40.5 cm. Girth 6 inch suprapatella 53 cm. L knee flexion AROM: 110 degress. L knee ext AROM: FULL. L knee flex MMT; 4/5. L knee ext MMT 4/5. L hip MMT 4/5. R MMT: hip flex 4/5, knee flex 4/5, knee ext 4/5, hip ext 4/5, hip abd 4/5. Sensory deficit: L LE LIGHT TOUCH SENSATION INTACT. OTHER: ROM deficit: DECREASED LEFT ANKLE DORSIFLEXION. PATIENT REPORTS THIS IS CHRONIC. Palpation: L LE INCISIONS LOOK GOOD WITHOUT ANY SIGNS OF INFECTION. DUNN INCISION IS NOW VISIBLE DUE TO BANDAGE AND PATIENT REPORTS THEY GLUED IT AND IT IS HEALING WELL. SCABBED OVER AND NO DRAINAGE. OTHER: DEMO'S RECIP STEPS UP AND DOWN WITH ONE HR BUT VERY DEPENDENT ON ONE HR. Plan Plan: Cont PT 3x's a wk x 10 more visits per orig POC working toward same goals. Cont outdoors walking, curbs, grass with no cane next week if weather allows. Also continue stair training. *GOES BY AVA*. GAIT TRAINING. L KNEE AROM. L LE STRENGTHENING. STAIR TRAINING AND L LE FUNCTIONAL ACTIVITIES TO HELP MEET SET GOALS. HEP INSTRUCTION. Goals Goal 1:: PATIENT WILL BE INDEP AND SAFE WITH GAIT ON LEVEL SURFACES AND UP AND DOWN STEPS WITH LEAST ASSISTIVE DEVICE. Goal Time Frame: 4-6 Weeks Goal 2:: INCREASE FUNCTIONAL ROM OF L KNEE Goal Time Frame: 4-6 Weeks Goal 3:: INCREASE FUNCTIONAL STRENGTH OF L KNEE Goal Time Frame: 4-6 Weeks Goal 4:: PATIENT WILL BE INDEP WITH A HEP FOR CONTINUED IMPROVEMENT ONCE FORMAL PHYSICAL THERAPY CONCLUDES Goal Time Frame: 4-6 Weeks Anticipated Interventions Patient/Client Instruction: Educate patient on: Condition, Plan of Care For the Purpose of:: To improve self management Therapeutic Exercise to Include: Strength training, Postural training, Flexibilty training, Gait and locomotor training, Neuromotor development, Active ROM For the Purpose of:: To decrease pain, To increase ROM, To improve muscle performance and motor function, To increase tolerance to activity/condition/position, To improve ability of physical actions for home/community/work/leisure, To improve gait and locomotor functions Cryotherapy (ice pack, ice massage): Yes For the Purpose of:: To decrease pain, To decrease swelling/inflammation Please do not hesitate to contact me at [phone] by phone or if you have questions or concerns regarding this new plan of care! Sincerely, Penny Kerr, PT, Cert MDT
--- NOTE | 2021-01-22 14:22 | HP.PTREVAL ---
Juan Sanchez PA-C, It has been my pleasure to treat JOSELITO WHITTEN over the last 10 visits for S/P L TKR 12/06/20. Please see the progress note below for an update on the physical therapy plan of care! Subjective: MY L LEG FEELS SO MUCH STRONGER NOW THAT BEFORE SURGERY. PATIENT REPORTS SHE WOULD LIKE TO HAVE MORE THERAPY FOR STRENGTHENING TO TO TRY TO GET BETTER ON STAIRS. PATIENT REPORTS SHE IS REALLY HAPPY WITH HER PROGRESS. PATIENT REPROTS DR. YEH IS VERY HAPPY WITH HER PROGRESS AND ROM. INCISIONS ARE HEALING NICELY NOW AND SHE REPORTS DR. YEH IS PLEASED WITH THAT TOO. Objective/Function: PATIENT WAS SEEN TODAY FOR RE-ASSESSMENT OF PROGRESS TOWARD THE SET PT GOALS AND THE NEED FOR FURTHER PHYSICAL THERAPY VS READINESS FOR DISCHARGE. PATIENT IS MAKING GOOD PROGRESS TOWARD ALL PT GOALS AND IS A GOOD CANDIDATE TO CONTINUE PT BASED ON PROGRESS MADE AND ROOM FOR FURTHER IMPROVEMENT. PATIENT IS AGREEABLE. UPON EXAM TODAY: THIS PATIENT AMBULATES INDEP'LY INTO PT TODAY WITHOUT ANY ASSISTIVE DEVICES BUT DECREASED CADANCE AND A MILD LIMP ON THE LLE AND TOEING OUT ON THE RIGHT. NO LOB. WOMAC score 15/96. TUG 12.25. Girth L Patella 40.5 cm. Girth 6 inch suprapatella 53 cm. L knee flexion AROM: 110 degress. L knee ext AROM: FULL. L knee flex MMT; 4/5. L knee ext MMT 4/5. L hip MMT 4/5. R MMT: hip flex 4/5, knee flex 4/5, knee ext 4/5, hip ext 4/5, hip abd 4/5. Sensory deficit: L LE LIGHT TOUCH SENSATION INTACT. OTHER: ROM deficit: DECREASED LEFT ANKLE DORSIFLEXION. PATIENT REPORTS THIS IS CHRONIC. Palpation: L LE INCISIONS LOOK GOOD WITHOUT ANY SIGNS OF INFECTION. DUNN INCISION IS NOW VISIBLE AND PATIENT REPORTS THEY GLUED IT AND IT IS HEALING WELL. SCABBED OVER AND NO DRAINAGE. OTHER: DEMO'S RECIP STEPS UP AND DOWN WITH ONE HR BUT VERY DEPENDENT ON ONE HR. Plan Plan: Cont PT 3x's a wk x 10 more visits per orig POC working toward same goals. Cont outdoors walking, curbs, grass with no cane next week if weather allows. Also continue stair training. *GOES BY AVA*. GAIT TRAINING. L KNEE AROM. L LE STRENGTHENING. STAIR TRAINING AND L LE FUNCTIONAL ACTIVITIES TO HELP MEET SET GOALS. HEP INSTRUCTION. Goals Goal 1:: PATIENT WILL BE INDEP AND SAFE WITH GAIT ON LEVEL SURFACES AND UP AND DOWN STEPS WITH LEAST ASSISTIVE DEVICE. Goal Time Frame: 4-6 Weeks Goal 2:: INCREASE FUNCTIONAL ROM OF L KNEE Goal Time Frame: 4-6 Weeks Goal 3:: INCREASE FUNCTIONAL STRENGTH OF L KNEE Goal Time Frame: 4-6 Weeks Goal 4:: PATIENT WILL BE INDEP WITH A HEP FOR CONTINUED IMPROVEMENT ONCE FORMAL PHYSICAL THERAPY CONCLUDES Goal Time Frame: 4-6 Weeks Anticipated Interventions Patient/Client Instruction: Educate patient on: Condition, Plan of Care For the Purpose of:: To improve self management Therapeutic Exercise to Include: Strength training, Postural training, Flexibilty training, Gait and locomotor training, Neuromotor development, Active ROM For the Purpose of:: To decrease pain, To increase ROM, To improve muscle performance and motor function, To increase tolerance to activity/condition/position, To improve ability of physical actions for home/community/work/leisure, To improve gait and locomotor functions Cryotherapy (ice pack, ice massage): Yes For the Purpose of:: To decrease pain, To decrease swelling/inflammation Please do not hesitate to contact me at [phone] by phone or if you have questions or concerns regarding this new plan of care! Sincerely, Penny Kerr, PT, Cert MDT
--- NOTE | 2021-02-15 10:42 | HP.PTDCSUM_ITS ---
It has been my pleasure to treat JOSELITO WHITTEN referred by Juan Sanchez PA-C, with the diagnosis of S/P L TKR 12/06/20 for a total of 20 visit(s). Discharge Date: 02/15/21 Please see the following information for a summary of their discharge status. Subjective: PATIENT REPORTS SHE FEELS SHE NEEDS TO TRY TO CONTINUE EX ON HER OWN AT THIS POINT. SHE REPORTS SHE HAS SILVER SNEAKERS AND SHE REPORTS THERE IS A [employer] ABOUT 6 MILES FROM HER HOUSE THAT SHE IS GOING TO CONSIDER USING. REPORTS IT SEEMS LIKE HER R KNEE MAY NOT BE GOING BACK FAR THE LEFT ONE NOW AND SHE IS REQUESTING TO HAVE IT MEASURED. PATIENT DENIES BETH KNEE PAIN. PATIENT REPORTS SHE IS NO LONGER AFRAID TO GO UP AND DOWN THE STAIRS TO HER BASEMENT BUT SHE HAS TO USE ONE HR TO GET UP THEM DUE TO STILL HAVING SOME L LE WEAKNESS. L knee Pain Intensity (Out of 10): 1 % Improvement: 98 Objective/Function: PATIENT WAS SEEN TODAY FOR RE-ASSESSMENT OF PROGRESS TOWARD THE SET PT GOALS AND THE NEED FOR FURTHER PHYSICAL THERAPY VS READINESS FOR DISCHARGE. ALL PT GOALS HAVE BEEN MET AND PATIENT IS APPRORIATE FOR DISCHARGE TO [facility]. PATIENT IS AGREEABLE. UPON EXAM TODAY: THIS PATIENT AMBULATES INDEP'LY INTO PT TODAY WITHOUT ANY ASSISTIVE DEVICES BUT DECREASED CADANCE AND A MILD LIMP ON THE LLE AND STILL SOME TOEING OUT ON THE RIGHT. NO LOB. WOMAC score 9/96. TUG 9.19. Girth L Patella 38 cm. Girth 6 inch suprapatella 50 cm. PATIENT STILL HAS L LOWER LEG SWELLING > RIGHT AND SHE REPORTS THIS IS CHRONIC SINCE HER L HIP FX IN 2014. L knee flexion AROM: 112 degress. (RIGHT KNEE ACTIVE FLEX TO 100 DEG). PATIENT REPORTS SHE HASN'T BEEN STRETCHING THE RIGHT ONE MUCH THE LEFT LATELY BUT SHE WILL WORK ON BOTH OF THEM FROM NOW ON. L knee ext AROM: FULL. L knee flex MMT; 4/5. L knee ext MMT 4/5. L hip MMT 4/5. R MMT: hip flex 4/5, knee flex 4/5, knee ext 4/5, hip ext 4/5, hip abd 4/5. Sensory deficit: L LE LIGHT TOUCH SENSATION INTACT. OTHER: ROM deficit: DECREASED LEFT ANKLE DORSIFLEXION. PATIENT REPORTS THIS IS CHRONIC. Palpation: L LE INCISIONS LOOK GOOD WITHOUT ANY SIGNS OF INFECTION. DUNN INCISION IS NOW VISIBLE AND PATIENT REPORTS THEY GLUED IT AND IT IS HEALING WELL. SCABBED OVER AND NO DRAINAGE - BARELY VISIBLE NOW. OTHER: ELIZABETH'S RECIP STEPS UP AND DOWN WITH ONE HR BUT STILL QUITE DEPENDENT ON ONE HR WHEN STEPPING UP WITH EACH LE ONTO 7.5 IN STEP WITH GREATER DEPENDENCY ON HR GOING UP WITH LLE COMPARED TO RIGHT. STATIC AND DYNAMIC BALANCE IS GOOD NOW WITHOUT ASSISTIVE DEVICE BUT PATIENT IS STILL AT RISK OF FALLING DUE TO BETH KNEE TIGHTNESS AND WEAKNESS AND CHRONIC L ANKLE TIGHTNESS. Goal 1:: PATIENT WILL BE INDEP AND SAFE WITH GAIT ON LEVEL SURFACES AND UP AND DOWN STEPS WITH LEAST ASSISTIVE DEVICE. Goal 2:: INCREASE FUNCTIONAL ROM OF L KNEE Goal 3:: INCREASE FUNCTIONAL STRENGTH OF L KNEE Goal 4:: PATIENT WILL BE INDEP WITH A HEP FOR CONTINUED IMPROVEMENT ONCE FORMAL PHYSICAL THERAPY CONCLUDES Plan: D/C. PATIENT AGREEABLE. If there are questions or concerns regarding this patient's physical therapy, please feel free to call me at [phone]. Thank you for the referral of this patient. Sincerely, Penny Kerr, PT, Cert MDT
== END 2021-02-15 19:00 | disposition home or self-care (01) ==
LOC: PT 09:30
PROVIDERS: PCP Internal Medicine; Referring Provider Physician Assistant Surgical; Visit Provider Physician Assistant Surgical
DX: Z96.652 Presence of left artificial knee joint (principal)
CPT/HCPCS: 97110; 97162; 97164; 97530

== ENCOUNTER 2021-03-11 11:07 | Emergency (ER) | payer MEDICARE, OTHER, SELFPAY ==
[2020-07-20 12:56] VITALS: BMI 28.5
[2021-03-11 11:07] VITALS: BP 170/79; PULSE 71; RESP 18; TEMP 36.1; BMI 27.6
--- NOTE | 2021-03-11 11:18 | RAD_ITS ---
STUDY: X-RAY - SACRUM/COCCYX REASON FOR EXAM: Female, 75 years old. Fall/injury TECHNIQUE: 3 view(s) of the sacrum and coccyx were obtained. COMPARISON: CT pelvis March 20, 2017 FINDINGS: There is degenerative arthrosis of the bilateral sacroiliac joints. Normal visualized sacral ala and fused sacral bodies. Normal sacrococcygeal junction with a normal angulation. Normal coccygeal segments. This visualized degenerative changes in the lower lumbar spine. There is partial visualization of a left open reduction internal fixation of the left femur. RAD/Sacrum-Coccyx min 2 Views IMPRESSION: Degenerative change of the lower lumbar spine. No visualized sacral fracture. There is persisting concern for fracture a CT scan of the pelvis would be recommended. Electronically Signed: Lisa Mazariegos MD at 12:29 EDT Tel , Service support ,
--- NOTE | 2021-03-11 11:18 | CT_ITS ---
STUDY: CT BRAIN WITHOUT CONTRAST REASON FOR EXAM: Female, 75 years old. Fall/injury, headache RADIATION DOSAGE (If Supplied By Facility): CTDIvol = ( 44.99 ) mGy, DLP = ( 779.24 ) mGycm TECHNIQUE: Transaxial CT imaging of the brain was performed without administration of intravenous contrast material. Individualized dose optimization techniques were used for this CT. COMPARISON: September 04, 2017 CT head FINDINGS: Normal soft tissue structures. Normal calvarium. There is mild cerebral atrophy with widening of the extra-axial spaces and ventricular dilatation. There are a few areas of decreased attenuation within the white matter tracts of the supratentorial brain, consistent with microvascular disease changes. There is minimal low attenuation within the left greater than right basal ganglia compatible with prior sagittal, and her chronic ischemic change. Normal brainstem. There is mild cerebellar atrophy. There is no intracranial hemorrhage. There are no findings of an acute ischemic infarction. Normal visualized paranasal sinuses. CT/Brain/Head without Contrast IMPRESSION: Atrophy. No evidence of acute hemorrhage infarct or edema. Electronically Signed: Lisa Mazariegos MD at 11:59 EDT Tel , Service support ,
--- NOTE | 2021-03-11 11:18 | RAD_ITS ---
STUDY: X-RAY - PELVIS REASON FOR EXAM: Female, 75 years old. Fall/injury TECHNIQUE: One view of the pelvis was obtained. COMPARISON: May 12, 2015 left hip x-ray FINDINGS: There is a non-specific bowel gas pattern. Normal visualized soft tissue structures. Normal bilateral iliac wings, sacroiliac joints and visualized sacrum. Normal visualized bilateral superior and inferior pubic rami. Normal pubic symphysis. Normal ischial tuberosities. Normal visualized right femoral head. Normal right acetabulum. There is mild articular joint space narrowing of the right hip. Status post open reduction internal fixation of the left femur. There is no visualized acute fracture. There are visualized degenerative changes in the lower lumbar spine. RAD/Pelvis 1 or 2 Views IMPRESSION: Status post open reduction internal fixation of the left proximal femur. No visualized acute fracture. Mild degenerative change of the right hip joint. Electronically Signed: Lisa Mazariegos MD at 12:18 EDT Tel , Service support ,
--- NOTE | 2021-03-11 11:19 | ED.VIS.FALL ---
HPI HPI - Fall History of Present Illness Chief Complaint: Fall Informant: patient Occured/Mechanism Occurred: Yesterday Mechanism/Context: Yes trip Narrative: on front porch step -- misplaced foot Pain/Injury Location: left head, left hip/buttock Worsened by: palpation affected areas Relieved by: leaving alone Associated Symptoms Associated Symptoms: Negative for Parasthesias, Weakness, Loss of function, Inability to ambulate, Loss of consciousness and Amnesia Narrative Narrative: Patient fell last night accidentally on her porch, she fell against her left hip and buttock, and as she fell to the side, the left side of her head slammed down against the pavement of the porch fairly hard. She states she developed a hematoma on her scalp, she put ice on it immediately and within several hours it was down. She woke up this morning and the pain is moved down into different part of her scalp and she has a bit of a headache. She has had no loss of consciousness, no vision changes, focal neurologic symptoms, otorrhea, rhinorrhea, or nausea/vomiting. She takes aspirin 81 mg daily, no anticoagulants. [facility] Medical History (Updated 03/11/21 @ 11:[address] Guille Valles MD) Anemia Depression GERD (gastroesophageal reflux disease) Osteoarthritis Home Medications calcium carbonate-vitamin D3 1 ea PO BID 05/05/15 [History Last Taken 03/11/17] albuterol sulfate [ProAir HFA] 1 - 2 puff INHALATION Q6H PRN PRN 11/19/16 [History Last Taken Unknown] alendronate [Fosamax] 70 mg PO VIDES 11/19/16 [History Last Taken 02/24/17] lorazepam 0.5 mg PO DAILY PRN 11/19/16 [History Last Taken Unknown] polyethylene glycol 3350 17 g PO DAILY PRN PRN 01/13/17 [History Last Taken Unknown] omeprazole 20 mg PO QODAY 03/03/17 [History Last Taken 07/20/20 06:00] fluticasone propionate 1 spray NASAL DAILY PRN 03/12/17 [History Last Taken 03/11/17] Bupropion Hcl [Bupropion Hcl Sr] 150 mg PO QHS 07/06/20 [History Last Taken Unknown] bupropion HCl (smoking deter) 300 mg PO DAILY 07/06/20 [History Last Taken 07/20/20 06:00] citalopram 20 mg PO QHS 07/06/20 [History Last Taken Unknown] losartan-hydrochlorothiazide 1 ea PO DAILY 07/06/20 [History Last Taken Unknown] bfxklqnt-dvl-EL-lycopen-lutein 1 ea PO DAILY 07/06/20 [History Last Taken Unknown] acetaminophen 1,000 mg PO Q8 #100 tab 07/21/20 [Rx Last Taken Unknown] aspirin 81 mg PO BIDCM #60 tab 07/21/20 [Rx Last Taken Unknown] ondansetron HCl 4 mg PO Q8 #20 tab 07/21/20 [Rx Last Taken Unknown] Allergy/AdvReac Type Severity Reaction Status Date / Time erythromycin base AdvReac Upset Verified 07/20/20 07:35 Stomach meperidine HCl [From Demerol] AdvReac HALLUCINATI Verified 07/20/20 07:35 ONS Surgical History History of biliary stent insertion S/P ORIF (open reduction internal fixation) fracture Social History Smoking Status: Never smoker ROS ROS ED Constitutional Constitutional ED: Denies chills or fever(s) Eyes Eyes: Denies change in vision or diplopia ENT ENT ED: Denies rhinorrhea or sore throat Cardiovascular Cardiovascular: Denies chest pain or palpitations Respiratory/Chest Respiratory/Chest: Denies cough or dyspnea Gastrointestinal Gastrointestinal: Denies abdominal pain, diarrhea, nausea or vomiting Genitourinary Genitourinary ED: Denies dysuria or hematuria Musculoskeletal Musculoskeletal: Denies neck pain Integumentary Reports as per HPI; Denies abscess or rash Neurologic Neurologic: Reports headache(s); Denies paresthesias or weakness Psychiatric Psychiatric: Denies anxiety or suicidal thoughts EXAM Physical Exam Const Vital Signs: 03/11/21 11:07 03/11/21 11:45 Temperature 97.0 F L Temperature Source Temporal Pulse Rate 71 Respiratory Rate 18 Respiratory Effort Normal Non-Labored Respiratory Pattern Normal Blood Pressure 170/79 H Blood Pressure Mean 109 Positive well nourished and well developed General Appearance ED: well developed and NAD HEENT Reports moist mucous membranes HEENT Narrative: Tender left scalp, not including buddhist or zygomatic bone/facial bones, with evidence of contusion but no laceration or boggy hematoma, no crepitance or depression. No mcrae sign or periorbital ecchymosis. No otorhinorrhea. No hemotympanum. normocephalic Eyes PERRL and EOMs intact bilaterally Neck full ROM and supple Resp normal respiratory effort and clear to auscultation bilaterally Cardio regular rate, regular rhythm and no murmurs GI non-tender and non-distended Auscultation: normoactive bowel sounds Palpation: soft Back/Spine no CVA tenderness Back/Spine Narrative: Mildly tender left aspect of the sacrum and ischial tuberosity. Pelvis stable AP compression. Hip nontender with full range of motion without pain. General Back: other FROM Extremity normal to inspection General Extremety ED: Negative for edema, pulses abnormal or tenderness General Extremity: Negative for edema or pulses abnormal Neuro oriented x3, CN's II-XII intact bilaterally, no sensory deficits noted and gait normal Sensorium / Orientation: awake and alert Motor Exam: strength 5/5 throughout Skin no rashes or lesions noted MDM MDM MDM Narrative Medical decision making narrative: My interpretation, 3 views of the sacrum/coccyx and 1 view of the pelvis are all negative for any acute fractures. She has a total hip arthroplasty on the left, and it looks fine. Head scan shows nothing acute. Patient was reassured, she was offered some Tylenol which she took, and discharged with appropriate discharge instructions and reasons to return. Radiography Diagnostic Testing: Radiology Impression Brain CT 03/11/21 11:18 IMPRESSION: Atrophy. No evidence of acute hemorrhage infarct or edema. Electronically Signed: Lisa Mazariegos MD at 11:59 EDT Tel , Service support , Pelvis X-Ray 03/11/21 11:18 IMPRESSION: Status post open reduction internal fixation of the left proximal femur. No visualized acute fracture. Mild degenerative change of the right hip joint. Electronically Signed: Lisa Mazariegos MD at 12:18 EDT Tel , Service support , Sacrum and Coccyx X-Ray 03/11/21 11:18 IMPRESSION: Degenerative change of the lower lumbar spine. No visualized sacral fracture. There is persisting concern for fracture a CT scan of the pelvis would be recommended. Electronically Signed: Lisa Mazariegos MD at 12:29 EDT Tel , Service support , Discharge Plan Triage Chief Complaint: Fall ED Provider: Guille Valles Dx/Rx/DC Orders Clinical Impression: Contusion of lower back, Closed head injury without concussion Instructions: ED Head Injury (Adult) Prescriptions: No Action calcium carbonate-vitamin D3 1 EACH tablet 1 ea PO BID RF: 0 alendronate [Fosamax] 70 MG tablet 70 mg PO VIDES RF: 0 lorazepam 1 MG tablet 0.5 mg PO DAILY PRN (Reason: Anxiety) RF: 0 albuterol sulfate [ProAir HFA] 1 PUFF inhaler 1 - 2 puff inhalation Q6H PRN PRN (Reason: Sob &/Or Wheezing) RF: 0 polyethylene glycol 3350 17 GM Packet 17 g PO DAILY PRN PRN (Reason: Constipation) RF: 0 omeprazole 20 MG capsule 20 mg PO QODAY RF: 0 fluticasone propionate 1 SPRAY Nasal.Sry 1 spray NASAL DAILY PRN (Reason: Allergies) RF: 0 bupropion HCl (smoking deter) 150 MG tablet extended release 12 hr 300 mg PO DAILY RF: 0 Bupropion Hcl [Bupropion Hcl Sr] 150 MG Tab.Sr.12h 150 mg PO QHS RF: 0 citalopram 20 MG tablet 20 mg PO QHS RF: 0 losartan-hydrochlorothiazide 1 EACH tablet 1 ea PO DAILY RF: 0 lepqtjqp-jmy-FS-lycopen-lutein 1 EACH tablet 1 ea PO DAILY RF: 0 acetaminophen 500 MG tablet 1,000 mg PO Q8 Qty: 100 RF: 0 aspirin 81 MG tablet,chewable 81 mg PO BIDCM Qty: 60 RF: 0 ondansetron HCl 4 MG tablet 4 mg PO Q8 Qty: 20 RF: 0 Primary Care Provider: Nery Wooten Referrals: Nery Wooten DO [Primary Care Provider] - As Needed Disposition Disposition: Home, self care
== END 2021-03-11 12:52 | disposition home or self-care (01) ==
PROVIDERS: Emergency Provider Emergency Medicine; PCP Internal Medicine
DX: S00.03XA Contusion of scalp, initial encounter (principal); S30.0XXA Contusion of lower back and pelvis, initial encounter; F32.9 Major depressive disorder, single episode, unspecified; K21.9 Gastro-esophageal reflux disease without esophagitis; M19.90 Unspecified osteoarthritis, unspecified site; Z79.899 Other long term (current) drug therapy; W18.30XA Fall on same level, unspecified, initial encounter; Y93.89 Activity, other specified; Y92.008 Other place in unspecified non-institutional (private) residence as the place of occurrence of the external cause; Y99.8 Other external cause status
CPT/HCPCS: 70450; 72170; 72220; 99282

== ENCOUNTER → 2021-06-02 07:18 | Outpatient (CLI) | payer MEDICARE, OTHER, SELFPAY ==
--- NOTE | 2021-06-02 07:19 | BI_ITS ---
MAMMOGRAPHY - BILATERAL SCREENING REASON FOR EXAM: Female, 75 years old. Routine annual screening examination. PERTINENT HISTORY: Mother with breast cancer. TECHNIQUE: Digital bilateral breast jeniffer (3D mammographic acquisition) in the CC and MLO projections. 2-D mediolateral oblique (MLO) and craniocaudad (CC) views of both breasts were obtained. CAD: Full Field Digital Mammography with Computer Added Detection was performed. COMPARISON: Comparison is made with prior study dated 05/24/2020 and 01/05/2019. FINDINGS: Breast Composition: There are scattered areas of fibroglandular density. There are no dominant masses or suspicious calcifications. No other significant abnormalities are identified. There has been no significant change since the prior study. BI/SCRN MAMM (CAD)W/JENIFFER BILAT IMPRESSION: Stable bilateral screening mammogram. Yearly follow-up mammogram recommended. (A) ASSESSMENT CATEGORY: BIRADS Category 1: Negative. A letter regarding these results will be sent to the patient by the facility within 30 days. Approximately 10% of breast cancers are not detected by mammography. A normal mammogram should not delay biopsy of a clinically suspicious abnormality. [id number] Electronically Signed: Chandler Nixon MD at 8:28 EDT , Service support ,
== END ==
PROVIDERS: PCP Internal Medicine; Referring Provider Internal Medicine; Visit Provider Internal Medicine
DX: Z12.31 Encounter for screening mammogram for malignant neoplasm of breast (principal); Z80.3 Family history of malignant neoplasm of breast
CPT/HCPCS: 77063; 77067